=== PATIENT | male | born 1950 | race Caucasian/White ===

== ENCOUNTER 2016-03-25 16:19 | Emergency (ER) | payer MEDICARE, OTHER ==
[~2016-03-25] VITALS: Ht 182.9 cm; Wt 110.0 kg
[~2016-03-25 16:19] MED LIST: ALBU0.08 NEB; ARTI1DRO EACH EYE; ASPI-110 PO; ATOR1TAB18 PO; BACL10TA PO; BUPR1TAB29 PO; BUSP10TA PO; CLOT1CRE TOPICAL; DILT-47 PO; DOXY100C PO; FLUT1SPR5 EACH NARE; HYDR-3366 PO; HYDR25TA5 PO; MIRA33504 PO; PRED10 PO; SPIRCAP INH; SUDA30TA2 PO; SYMB160A INH; THEO1CAP2 PO
[2016-03-25 16:29] VITALS: BP 163/89; PULSE 94; RESP 18; TEMP 97.6; O2SAT 95
[2016-03-25 17:16] VITALS: BP 150/85
== END 2016-03-25 17:20 | disposition left against medical advice (07) ==
LOC: NEDAMB 17:15
DX: I10 Essential (primary) hypertension (principal)
CPT/HCPCS: 99281

== ENCOUNTER 2016-05-07 09:31 | Emergency (ER) | payer OTHER ==
[~2016-05-07] VITALS: Ht 182.9 cm; Wt 110.0 kg
[2016-05-07 09:34] VITALS: BP 160/83; PULSE 109; RESP 22; TEMP 97.6; O2SAT 95
[2016-05-07] MEDS ORDERED: methylPREDNISolone SOD SUCC 125 MG/2 ML VIAL IVP ONE (10:30)
[2016-05-07] MEDS ORDERED: SODIUM CHLORIDE 0.9% FLUSH 5 ML FLUSH IVF PRN (10:30)
--- NOTE | 2016-05-07 10:36 | PD ---
HPI Chief Complaint: Respiratory Symptoms Time Seen by Provider: 10:23 Travel History International Travel<30 days: No Contact w/Intl Traveler<30days: No Traveled to known affect area: No History of Present Illness HPI 65yo M with PMH of COPD on home O2, afib here with worsening sob for a few days. Pt is still on prednisone taper at 5mg PO daily now after exacerbation about 1 month ago. Started having midsternal chest pain while in waiting room that only lasted about 5 minutes. +Chronic cough. Denies any fever, n/v, abdominal pain, focal weakness or numbness. Pt took his albuterol about 4 times today with no relieve. Pt has never been intubated. PFSH Past Medical History Arthritis: No Asthma: Yes Atrial Fibrillation: Yes Autoimmune Disease: No Blood Disorders: No Anxiety: Yes Depression: Yes Heart Rhythm Problems: Yes Cancer: Yes (melanoma) Cardiac Catheterization: No Cardiovascular Problems: Yes High Cholesterol: Yes Chemotherapy: No Chest Pain: Yes Congestive Heart Failure: No COPD: Yes Cerebrovascular Accident: No Coronary Artery Disease: No Diabetes: No Diminished Hearing: No Endocrine: No Gastrointestinal Disorders: Yes (REFLUX) GERD: Yes Glaucoma: No Genitourinary: Yes Headaches: No Hepatitis: No Hiatal Hernia: No Hypertension: Yes Immune Disorder: No Implanted Vascular Access Dvce: Yes Kidney Stones: No Musculoskeletal: Yes Neurologic: No Psychiatric: Yes Reproductive: No Respiratory: Yes Integumentary: Yes Immunizations Current: Yes Migraines: No Myocardial Infarction: No Radiation Therapy: No Renal Failure: No Seizures: No Sickle Cell Disease: No Sleep Apnea: No Thyroid Disease: No Ulcer: No PNEUMOCCOCAL Vaccine (Year): 2010 Past Surgical History Abdominal Surgery: No AICD: No Appendectomy: No Arteriovenous Shunt: No Body Medical Devices: PLATES AND SCREWS TO L ANKLE Cardiac Surgery: No Cholecystectomy: No Coronary Artery Bypass Graft: No Ear Surgery: No Endocrine Surgery: No Eye Surgery: No Genitourinary Surgery: No Gynecologic Surgery: No Insulin Pump: No Joint Replacement: No Oral Surgery: No Pacemaker: No Thoracic Surgery: No Other Surgery: Yes (PIN IN LEFT ANKLE, BONE PLACED BACK IN FINGER) Social History Alcohol Use: Yes (beer occ) Tobacco Use: No (QUIT ) Substance Use: No ( ) Allergies-Medications (Allergen,Severity, Reaction): Coded Allergies: Levaquin (Verified Adverse Reaction, Mild, Confusion, 03/25/16) irritable, can't focus *MDRO Multi-Drug Resistant Organism (Verified Adverse Reaction, Unknown, ) 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 Reported Meds & Prescriptions Reported Meds & Active Scripts Active Aspirin 81 (Aspirin) 81 Mg Tabdr 81 Mg PO DAILY Reported Diltiazem ER 24 HR 360 Mg Jaciel 360 Mg PO DAILY Azithromycin 250 Mg Tab 250 Mg PO EVERY OTHER DAY Ventolin Hfa 18 GM Inh (Albuterol Sulfate) 90 Mcg/Act Aer 2-4 Puff INH QID PRN Combivent Respimat Inh (Ipratropium-Albuterol Inh) 20-100 [place]/Act Aero 1 Puff INH QID Bupropion HCl ER 12 HR (Bupropion HCl) 100 Mg Tab 200 Mg PO BID Duoneb (Ipratropium-Albuterol Neb) 0.5-2.5 Mg/3 Ml Neb 3 Ml NEB Q6HR PRN Spiriva Handihaler (Tiotropium Inh) 18 Mcg Cap 1 Cap INH DAILY DO NOT SWALLOW CAPSULES Rony-24 (Theophylline) 200 Mg Cap 200 Mg PO DAILY Miralax Powder (Polyethylene Glycol 3350 Powder) 17 Gm Powd PO DAILY Mix 2 tablespoonsful in 4-8 ounces of water,juice or soda Hydrochlorothiazide 25 Mg Tab 25 Mg PO DAILY [place] (Hydrocodone-Acetaminophen) 10-325 Mg Tab 1 Tab PO Q4HR Clotrimazole Topical (Clotrimazole) 1% Cream 1 Applic TOPICAL BID Apply to affected area on skin for fungal infection Buspirone (Buspirone HCl) 10 Mg Tab 20 Mg PO TID Symbicort Inh (Budesonide/Formoterol Fumarate) 160-4.5 Mcg/Act Aero 2 Puff INH BID *Rinse mouth after each use* Baclofen 10 Mg Tab 10 Mg PO BID PRN Atorvastatin (Atorvastatin Calcium) 80 Mg Tab 40 Mg PO HS Soothe Xp/Xtra Protection (Artificial Tear Solution) 1 Jarret Jarret 1 Drop EACH EYE QID PRN Review of Systems Except as stated in HPI: all other systems reviewed are Neg Physical Exam Narrative GENERAL: 65yo M in mild distress. SKIN: Warm and dry. HEAD: Atraumatic. Normocephalic. EYES: Pupils equal and round. No scleral icterus. No injection or drainage. ENT: No nasal bleeding or discharge. Mucous membranes pink and moist. NECK: Trachea midline. No JVD. CARDIOVASCULAR: Tachycardic. RESPIRATORY: Expiratory wheezing bilaterally. Decreased breath sounds left lower lobe. GASTROINTESTINAL: Abdomen soft, non-tender, nondistended. MUSCULOSKELETAL: No obvious deformities. No clubbing. No cyanosis. No edema. No calf tenderness. NEUROLOGICAL: Awake and alert. No obvious cranial nerve deficits. Motor grossly within normal limits. Normal speech. PSYCHIATRIC: Appropriate mood and affect; insight and judgment normal. Data Data Last Documented VS Vital Signs Date Time Temp Pulse Resp B/P Pulse Ox O2 Delivery O2 Flow Rate FiO2 05/07/16 11:00 104 20 153/80 94 Nasal Cannula 05/07/16 10:30 2 05/07/16 09:34 97.6 Orders Complete Blood Count With Diff (05/07/16 10:30) Basic Metabolic Panel (Bmp) (05/07/16 10:30) B-Type Natriuretic Peptide (05/07/16 10:30) Act Partial Throm Time (Ptt) (05/07/16 10:30) Prothrombin Time / Inr (Pt) (05/07/16 10:30) Magnesium (Mg) (05/07/16 10:30) Ckmb (Isoenzyme) Profile (05/07/16 10:30) Troponin I (05/07/16 10:30) Blood Culture (05/07/16 10:30) Iv Access Insert/Monitor (05/07/16 10:30) Electrocardiogram (05/07/16 10:30) Ecg Monitoring (05/07/16 10:30) Oximetry (05/07/16 10:30) Oxygen Administration (05/07/16 10:30) Chest, Single Ap (05/07/16 10:30) Sodium Chloride 0.9% Flush (Ns Flush) (05/07/16 10:30) Methylprednisolone So Succ Inj (Solumedr (05/07/16 10:30) Albuterol-Ipratropium Neb (Duoneb Neb) (05/07/16 10:30) Nitroglycerin Sl (Nitrostat Sl) (05/07/16 10:45) Aspirin (Aspirin) (05/07/16 10:45) CKMB (05/07/16 10:50) CKMB% (05/07/16 10:50) Labs Laboratory Tests Test 05/07/16 10:50 White Blood Count 10.7 TH/MM3 Red Blood Count 4.50 MIL/MM3 Hemoglobin 13.5 GM/DL Hematocrit 39.3 % Mean Corpuscular Volume 87.3 FL Mean Corpuscular Hemoglobin 30.0 PG Mean Corpuscular Hemoglobin 34.4 % Concent Red Cell Distribution Width 14.2 % Platelet Count 309 TH/MM3 Mean Platelet Volume 6.4 FL Neutrophils (%) (Auto) 79.7 % Lymphocytes (%) (Auto) 9.5 % Monocytes (%) (Auto) 8.0 % Eosinophils (%) (Auto) 2.0 % Basophils (%) (Auto) 0.8 % Neutrophils # (Auto) 8.6 TH/MM3 Lymphocytes # (Auto) 1.0 TH/MM3 Monocytes # (Auto) 0.9 TH/MM3 Eosinophils # (Auto) 0.2 TH/MM3 Basophils # (Auto) 0.1 TH/MM3 CBC Comment DIFF FINAL Differential Comment Prothrombin Time 10.6 SEC Prothromb Time International 1.0 RATIO Ratio Activated Partial 26.4 SEC Thromboplast Time Sodium Level 134 MEQ/L Potassium Level 3.4 MEQ/L Chloride Level 95 MEQ/L Carbon Dioxide Level 30.3 MEQ/L Anion Gap 9 MEQ/L Blood Urea Nitrogen 17 MG/DL Creatinine 0.78 MG/DL Estimat Glomerular Filtration 99 ML/MIN Rate Random Glucose 97 MG/DL Calcium Level 8.8 MG/DL Magnesium Level 2.0 MG/DL Total Creatine Kinase 110 U/L Creatine Kinase MB 3.4 NG/ML Troponin I LESS THAN 0.02 NG/ML B-Type Natriuretic Peptide LESS THAN 2 PG/ML MDM Medical Decision Making Medical Screen Exam Complete: Yes Emergency Medical Condition: Yes Interpretation(s) EKG: Sinus tachycardia at 100bpm. Normal axis. No ST segment elevation or depression. Differential Diagnosis COPD exacerbation vs. pneumonia vs. ACS vs. CHF Narrative Course 65yo M with COPD and mild expiratory wheezing on exam. Pt is speaking in complete sentences and saturating at 93%-94% on 2L NC. Pt usually uses 2 L NC oxygen at home. Pt given duonebs x3 and methylprednisolone 125mg IV. Labs reviewed, no leukocytosis. K: 3.4. Pt tolerating PO. Troponin negative. BNP negative. CXR showed COPD with bibasilar scarring. No evidence of acute air space disease. Pt reevaluated at bedside and feels much better. Denies any sob or chest pain. Lungs are now clear and saturating at 95% on 2L NC. I was concern with the chest pain and gave pt aspirin 325mg PO and sublingual nitro x1. Pt refused observation for chest pain and states that it was only 5 minutes and he can follow up with PMD as outpatient. Strict return precautions given. Diagnosis Primary Impression: COPD with exacerbation Patient Instructions: General Instructions, Moderate Sedation in Children (ED) Departure Forms: Tests/Procedures Additional Instructions: Please follow up with your PMD in 1-2 days. Return to the ED if you change your mind or have any chest pain or sob. Med/Other Pt SpecificInfo: Prescription(s) given Scripts Albuterol 18 GM Inh (Ventolin Hfa 18 GM Inh)90 Mcg/Act Aer2 Puff INH Q4H PRN ( SHORTNESS OF BREATH) #1 INHALER Ref 0 Prov:Nadeen Mcclain DO 05/07/16 Prednisone 20 Mg Tab20 Mg PO BID 5 Days Ref 0 Prov:Nadeen Mcclain DO 05/07/16 Disposition: 01 DISCHARGE HOME Condition: Stable Nadeen Mcclain DO May 07, 2016 10:36
[2016-05-07] MEDS: RESP: ALBUTEROL 2.5 MG/IPRATROPIUM 0.5 MG NEB (SCH) INH ×2 (10:42→10:43)
[2016-05-07] MEDS ORDERED: NITROGLYCERIN 0.4 MG SL 25 TABS/BTL SL ONE (10:45)
[2016-05-07] MEDS ORDERED: ASPIRIN 325 MG TAB PO ONE (10:45)
--- NOTE | 2016-05-07 10:56 | RADRPT ---
EXAM DATE/TIME: 05/07/2016 10:27 [facility] COMPARISON: CHEST SINGLE AP, December 07, 2015, 16:11. INDICATIONS : Patient has been short of breath for two days. MEDICAL HISTORY : Chronic obstructive pulmonary disease. SURGICAL HISTORY : None. ENCOUNTER: Initial ACUITY: 2 days PAIN SCORE: 0/10 LOCATION: chest FINDINGS: Lungs are hyperinflated. Probable banding remains evident in both bases. There is no evidence of cons olidating airspace disease or significant congestion. Heart and mediastinal structures are stable. CONCLUSION: COPD with bibasilar scarring. No evidence of acute air space disease or significant congestion. Santosh Jauregui MD on May 07, 2016 at 10:54 Board Certified Radiologist. This report was verified electronically.
[2016-05-07 11:00] VITALS: BP 153/80; PULSE 104; RESP 20; O2SAT 94
[2016-05-07 11:04] LABS: AUTOMATED NEUTROPHIL # 8.6 TH/MM3 (1.8-7.7); BASOPHIL # 0.1 TH/MM3 (0-0.2); BASOPHIL % 0.8 % (0.0-2.0); EOSINOPHIL # 0.2 TH/MM3 (0-0.4); HEMATOCRIT 39.3 % (39.0-51.0); HEMO FLAGS DIFF FINAL; LYMPH % 9.5 % (9.0-44.0); MEAN CELL VOLUME 87.3 FL (80.0-100.0); MEAN CORPUSCULAR HGB CONC 34.4 % (32.0-36.0); NEUT % 79.7 % (16.0-70.0); PLATELET COUNT 309 TH/MM3 (150-450); RED CELL DISTRIBUTION WIDTH 14.2 % (11.6-17.2); WHITE BLOOD COUNT 10.7 TH/MM3 (4.0-11.0)
[2016-05-07 11:14] LABS: APTT (PATIENT) 26.4 SEC (24.3-30.1); PROTHROMBIN TIME - PATIENT 10.6 SEC (9.8-11.6)
[2016-05-07 11:21] LABS: ANION GAP 9 MEQ/L (5-15); BICARBONATE 30.3 MEQ/L (21.0-32.0); BLOOD UREA NITROGEN 17 MG/DL (7-18); CHLORIDE 95 MEQ/L (98-107); GLOMERULAR FILTRATION RATE 99 ML/MIN (>89); POTASSIUM 3.4 MEQ/L (3.5-5.1); SODIUM (NA) 134 MEQ/L (136-145)
[2016-05-07 11:26] LABS: CREATINE KINASE 110 U/L (39-308)
[2016-05-07 11:39] LABS: CKMB 3.4 NG/ML (0.5-3.6)
[2016-05-07] MEDS ORDERED: IPRAAER INH (12:53)
[2016-05-07] MEDS ORDERED: AZIT250T3 PO (12:53)
[2016-05-07] MEDS ORDERED: BUPR1TAB70 PO (12:53)
[2016-05-07] MEDS ORDERED: IPRASOL NEB (12:53)
[2016-05-07] MEDS ORDERED: VENTAER INH ×2 (12:53→13:18)
[2016-05-07] MEDS ORDERED: DILT1TAB8 PO (12:53)
[2016-05-07] MEDS ORDERED: PRED20 PO (13:18)
[2016-05-07 14:30] VITALS: BP 148/80; PULSE 109; RESP 22; O2SAT 96
--- NOTE | 2016-05-07 15:15 | EKG ---
Date Performed: 05/07/2016 Time Performed: 10:36:48 PTAGE: 65 years EKG: SINUS TACHYCARDIA ABNORMAL RHYTHM ECG PREVIOUS TRACING : 12/31/2015 14.22 No significant change from previous tracing noted. DOCTOR: Dandre Vasquez Interpretating Date/Time 05/07/2016 15:13:31
== END 2016-05-07 15:01 | disposition home or self-care (01) ==
LOC: NEPE 09:31
DX: J44.1 Chronic obstructive pulmonary disease with (acute) exacerbation (principal); R05 Cough; Z99.81 Dependence on supplemental oxygen; I48.91 Unspecified atrial fibrillation; E78.00 Pure hypercholesterolemia, unspecified; I10 Essential (primary) hypertension; R00.0 Tachycardia, unspecified
CPT/HCPCS: 71010; 80048; 82550; 82552; 83735; 83880; 84484; 85025; 85610; 85730; 87040; 93005; 94640; 94664; 96374; 99285; J2930

== ENCOUNTER 2016-06-18 10:18 | Inpatient (IN) | payer OTHER ==
[2016-06-18] VITALS (8 sets, daily range): BP systolic 144–169; BP diastolic 71–86; PULSE 106–116; RESP 20–24; TEMP 97.5–98.1; O2SAT 93–96
[~2016-06-18] VITALS: Ht 188 cm; Wt 117.8 kg
[~2016-06-18 10:18] MED LIST changes: -ALBU0.08 NEB; +AZIT250T3 PO; -BUPR1TAB29 PO; +BUPR1TAB70 PO; -DILT-47 PO; +DILT1TAB8 PO; -DOXY100C PO; -FLUT1SPR5 EACH NARE; +IPRAAER INH; +IPRASOL NEB; -PRED10 PO; +PRED20 PO; -SUDA30TA2 PO; +VENTAER INH
[2016-06-18] MEDS ORDERED: methylPREDNISolone SOD SUCC 125 MG/2 ML VIAL IVP ONE (10:45)
[2016-06-18] MEDS ORDERED: SODIUM CHLORIDE 0.9% FLUSH 10 ML FLUSH IVF PRN (10:45)
[2016-06-18] MEDS: RESP: ALBUTEROL 2.5 MG/IPRATROPIUM 0.5 MG NEB (SCH) INH ×3 (11:05→21:20)
[2016-06-18 11:15] LABS: BLOOD GAS BASE EXCESS 2.6 mmol/L (-2-2); BLOOD GAS CARBOXYHEMOGLOBIN 1.1 % (0-4); BLOOD GAS HCO3 26 mmol/L (22-26); BLOOD GAS METHEMOGLOBIN 0.7 % (0-2); BLOOD GAS O2 HGB SATURATION 93 % (90-100); BLOOD GAS OXYGEN CONTENT 19.2 Vol % (12.0-20.0); BLOOD GAS PCO2 36 mmHg (38-42); BLOOD GAS PO2 71 mmHG (61-120); BLOOD GAS TOTAL HGB 14.7 G/DL (12.0-16.0); CRITICAL VALUE NO; DRAW SITE RT RADIAL; LITER FLOW 3 L/M; NUMBER OF ARTERIAL PUNCTURES 1; OXYGEN DEVICE NASAL CANNULA; STAT YES; TEMP CORR TO 98.6
[2016-06-18 11:17] LABS: AUTOMATED NEUTROPHIL # 19.5 TH/MM3 (1.8-7.7); BASOPHIL # 0.1 TH/MM3 (0-0.2); BASOPHIL % 0.7 % (0.0-2.0); HEMATOCRIT 41.4 % (39.0-51.0); LYMPH % 1.6 % (9.0-44.0); LYMPHOCYTE # 0.3 TH/MM3 (1.0-4.8); MEAN CELL VOLUME 88.6 FL (80.0-100.0); MEAN CORPUSCULAR HEMOGLOBIN 29.9 PG (27.0-34.0); MEAN CORPUSCULAR HGB CONC 33.7 % (32.0-36.0); MONO % 2.5 % (0.0-8.0); NEUT % 95.2 % (16.0-70.0); PLATELET COUNT 356 TH/MM3 (150-450); RED BLOOD COUNT 4.68 MIL/MM3 (4.50-5.90); RED CELL DISTRIBUTION WIDTH 15.3 % (11.6-17.2); WHITE BLOOD COUNT 20.5 TH/MM3 (4.0-11.0)
[2016-06-18 11:19] LABS: HEMO FLAGS AUTO DIFF
[2016-06-18] MEDS ORDERED: TAMS0.4C4 PO (11:21)
[2016-06-18] MEDS ORDERED: PRED5TAB PO (11:21)
[2016-06-18] MEDS ORDERED: CLON.1 PO (11:21)
--- NOTE | 2016-06-18 11:24 | PD ---
HPI Chief Complaint: Respiratory Symptoms Time Seen by Provider: 10:36 Travel History International Travel<30 days: No Contact w/Intl Traveler<30days: No Traveled to known affect area: No History of Present Illness HPI This 65 year-old man who presents to the emergency department complaining of increased shortness of breath is been worsening over the past couple weeks. He has extensive history of COPD. He is on home oxygen. He follows with Dr. Burks. He states been on multiple courses of antibiotics and steroids over the past month. He started another course steroids in her buttocks yesterday. Despite susceptive progressive worsening of his dyspnea on exertion, and his oxygen saturations dropping into the low 80s with exertion. He says he has a lot of chest congestion and feels like he can't cough it up. No fevers or chills. No leg swelling. No other complaints. History Past Medical History Narrative Medical COPD A. 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 Reported Meds & Prescriptions Reported Meds & Active Scripts Active Ventolin Hfa 18 GM Inh (Albuterol Sulfate) 90 Mcg/Act Aer 2 Puff INH Q4H PRN Aspirin 81 (Aspirin) 81 Mg Tabdr 81 Mg PO DAILY Reported Prednisone 5 Mg Tab 5 Mg PO DAILY Tamsulosin (Tamsulosin HCl) 0.4 Mg Cap 0.4 Mg PO HS [place] (Clonidine) 0.1 Mg Tab 0.1 Mg PO Q6HR PRN Diltiazem ER 24 HR 360 Mg Jaciel 360 Mg PO DAILY Azithromycin 250 Mg Tab 250 Mg PO EVERY OTHER DAY Ventolin Hfa 18 GM Inh (Albuterol Sulfate) 90 Mcg/Act Aer 1 Puff INH QID Bupropion HCl ER 12 HR (Bupropion HCl) 100 Mg Tab 200 Mg PO BID Duoneb (Ipratropium-Albuterol Neb) 0.5-2.5 Mg/3 Ml Neb 3 Ml NEB Q6HR PRN Spiriva Handihaler (Tiotropium Inh) 18 Mcg Cap 1 Cap INH DAILY DO NOT SWALLOW CAPSULES Rony-24 (Theophylline) 200 Mg Cap 200 Mg PO DAILY Miralax Powder (Polyethylene Glycol 3350 Powder) 17 Gm Powd PO DAILY Mix 2 tablespoonsful in 4-8 ounces of water,juice or soda Hydrochlorothiazide 25 Mg Tab 25 Mg PO DAILY [place] (Hydrocodone-Acetaminophen) 10-325 Mg Tab 1 Tab PO Q4HR Clotrimazole Topical (Clotrimazole) 1% Cream 1 Applic TOPICAL BID Apply to affected area on skin for fungal infection Buspirone (Buspirone HCl) 10 Mg Tab 20 Mg PO TID Symbicort Inh (Budesonide/Formoterol Fumarate) 160-4.5 Mcg/Act Aero 2 Puff INH BID *Rinse mouth after each use* Baclofen 10 Mg Tab 10 Mg PO BID PRN Atorvastatin (Atorvastatin Calcium) 80 Mg Tab 40 Mg PO HS Soothe Xp/Xtra Protection (Artificial Tear Solution) 1 Jarret Jarret 1 Drop EACH EYE QID PRN Review of Systems Except as stated in HPI: all other systems reviewed are Neg Physical Exam Narrative GENERAL: 65 year-old man, generally well-appearing, no acute distress. SKIN: Focused skin assessment warm/dry. HEAD: Atraumatic. Normocephalic. EYES: Pupils equal and round. No scleral icterus. No injection or drainage. ENT: No nasal bleeding or discharge. Mucous membranes pink and moist. NECK: Trachea midline. No JVD. CARDIOVASCULAR: Heart rate rapid, little bit irregular. Patient appears overall well perfused. RESPIRATORY: Prolonged expiratory phase. Moderate diffuse wheezing. GASTROINTESTINAL: Abdomen soft, non-tender, nondistended. Hepatic and splenic margins not palpable. MUSCULOSKELETAL: No obvious deformities. No edema. NEUROLOGICAL: Awake and alert. No obvious cranial nerve deficits. Motor grossly within normal limits. Normal speech. Data Data Last Documented VS Vital Signs Date Time Temp Pulse Resp B/P Pulse Ox O2 Delivery O2 Flow Rate FiO2 06/18/16 12:03 112 22 153/74 95 Nasal Cannula 3 06/18/16 10:24 97.8 Orders Electrocardiogram (06/18/16 ) Complete Blood Count With Diff (06/18/16 10:45) Comprehensive Metabolic Panel (06/18/16 10:45) B-Type Natriuretic Peptide (06/18/16 10:45) Act Partial Throm Time (Ptt) (06/18/16 10:45) Prothrombin Time / Inr (Pt) (06/18/16 10:45) Magnesium (Mg) (06/18/16 10:45) Troponin I (06/18/16 10:45) Arterial Blood Gas (Abg) (06/18/16 10:45) Urinalysis - C+S If Indicated (06/18/16 10:45) Influenzae A/B Antigen (06/18/16 10:45) Iv Access Insert/Monitor (06/18/16 10:45) Ecg Monitoring (06/18/16 10:45) Oximetry (06/18/16 10:45) Oxygen Administration (06/18/16 10:45) Chest, Single Ap (06/18/16 10:45) Sodium Chloride 0.9% Flush (Ns Flush) (06/18/16 10:45) Methylprednisolone So Succ Inj (Solumedr (06/18/16 10:45) Albuterol-Ipratropium Neb (Duoneb Neb) (06/18/16 10:45) Theophylline (Aminophylline) (06/18/16 10:45) Ct Pulmonary Angiogram (06/18/16 ) Labs Laboratory Tests Test 06/18/16 06/18/16 06/18/16 10:51 11:05 12:00 White Blood Count 20.5 TH/MM3 Red Blood Count 4.68 MIL/MM3 Hemoglobin 14.0 GM/DL Hematocrit 41.4 % Mean Corpuscular Volume 88.6 FL Mean Corpuscular Hemoglobin 29.9 PG Mean Corpuscular Hemoglobin 33.7 % Concent Red Cell Distribution Width 15.3 % Platelet Count 356 TH/MM3 Mean Platelet Volume 6.7 FL Neutrophils (%) (Auto) 95.2 % Lymphocytes (%) (Auto) 1.6 % Monocytes (%) (Auto) 2.5 % Eosinophils (%) (Auto) 0.0 % Basophils (%) (Auto) 0.7 % Neutrophils # (Auto) 19.5 TH/MM3 Lymphocytes # (Auto) 0.3 TH/MM3 Monocytes # (Auto) 0.5 TH/MM3 Eosinophils # (Auto) 0.0 TH/MM3 Basophils # (Auto) 0.1 TH/MM3 CBC Comment AUTO DIFF Differential Total Cells 100 Counted Neutrophils % (Manual) 93 % Band Neutrophils % 1 % Lymphocytes % 5 % Neutrophils # (Manual) 19.5 TH/MM3 Myelocytes 1 % Differential Comment FINAL DIFF MANUAL Platelet Estimate NORMAL Platelet Morphology Comment NORMAL Red Cell Morphology Comment NORMAL Prothrombin Time 10.3 SEC Prothromb Time International 0.9 RATIO Ratio Activated Partial 22.8 SEC Thromboplast Time Sodium Level 134 MEQ/L Potassium Level 4.0 MEQ/L Chloride Level 97 MEQ/L Carbon Dioxide Level 25.8 MEQ/L Anion Gap 11 MEQ/L Blood Urea Nitrogen 19 MG/DL Creatinine 0.92 MG/DL Estimat Glomerular Filtration 82 ML/MIN Rate Random Glucose 222 MG/DL Calcium Level 8.7 MG/DL Magnesium Level 1.8 MG/DL Total Bilirubin 0.5 MG/DL Aspartate Amino Transf 18 U/L (AST/SGOT) Alanine Aminotransferase 28 U/L (ALT/SGPT) Alkaline Phosphatase 69 U/L Troponin I LESS THAN 0.02 NG/ML B-Type Natriuretic Peptide 22 PG/ML Total Protein 6.8 GM/DL Albumin 3.2 GM/DL Theophylline Level 3.8 MCG/ML Blood Gas Puncture Site RT RADIAL Blood Gas Patient Temperature 98.6 Blood Gas HCO3 26 mmol/L Blood Gas Base Excess 2.6 mmol/L Blood Gas Oxygen Saturation 93 % Arterial Blood pH 7.47 Arterial Blood Partial 36 mmHg Pressure CO2 Arterial Blood Partial 71 mmHG Pressure O2 Arterial Blood Oxygen Content 19.2 Vol % Arterial Blood 1.1 % Carboxyhemoglobin Arterial Blood Methemoglobin 0.7 % Blood Gas Hemoglobin 14.7 G/DL Oxygen Delivery Device NASAL CANNULA Blood Gas Liter Flow 3 L/M Urine Color LIGHT-YELLOW Urine Turbidity CLEAR Urine pH 6.0 Urine Specific [place] 1.016 Urine Protein TRACE mg/dL Urine Glucose (UA) 300 mg/dL Urine Ketones NEG mg/dL Urine Occult Blood NEG Urine Nitrite NEG Urine Bilirubin NEG Urine Urobilinogen LESS THAN 2.0 MG/DL Urine Leukocyte Esterase NEG Urine RBC 1 /hpf Urine WBC 1 /hpf Microscopic Urinalysis Comment CULT NOT INDICATED MDM Medical Decision Making Medical Screen Exam Complete: Yes Emergency Medical Condition: Yes Interpretation(s) My review of EKG: A. fib, rate of 135, incomplete right bundle branch block, normal axis, normal intervals, some nonspecific anteroseptal ST changes, no definite evidence of acute ischemia. LABS: CBC remarkable for leukocytosis. CMP remarkable for mildly elevated glucose Troponin negative BNP 22 Coags unremarkable UA unremarkable Theophylline 3.8 ABG 7.47/36/71/26, base excess 2.6 Chest x-ray: No acute findings. Differential Diagnosis COPD exacerbation, PE, anxiety, CHF, A. fib RVR, other Narrative Course Medical decision making 65-year-old man presents emergency department complaining of progressive dyspnea on exertion and shortness of breath ongoing for the past couple months, not really improving with outpatient treatment. He looks otherwise generally well. His heart rates little bit fast with his A. fib. Don't see any other evidence of PE. We'll check labs, x-ray, likely admission. FINAL: 65-year-old man, worsening COPD exacerbation with dyspnea on exertion and shortness of breath over the past several months. Dramatically worse over the past week with worsening hypoxia. Blood gas doesn't really show hypercapnia , worrisome for an alternative etiology. Rest of his labs are unremarkable. Given this, we will add CT pulmonary angiogram. We will admit for further evaluation for shortness of breath, dyspnea on exertion, COPD exacerbation. Diagnosis Primary Impression: COPD with exacerbation Admitting Information Admitting Physician Requests: Roshan Vines MD Jun 18, 2016 11:24
[2016-06-18 11:28] LABS: APTT (PATIENT) 22.8 SEC (24.3-30.1); INTERNATIONAL NORMALIZED RATIO 0.9 RATIO; PROTHROMBIN TIME - PATIENT 10.3 SEC (9.8-11.6)
--- NOTE | 2016-06-18 11:36 | RADRPT ---
EXAM DATE/TIME: 06/18/2016 10:54 [facility] COMPARISON: CHEST SINGLE AP, May 07, 2016, 10:27. INDICATIONS : Shortness of breath. MEDICAL HISTORY : Chronic obstructive pulmonary disease. SURGICAL HISTORY : None. ENCOUNTER: Initial ACUITY: 2 weeks PAIN SCORE: 0/10 LOCATION: Bilateral chest FINDINGS: Bibasilar linear opacities suggestive of atelectasis or scarring stable from prior. The upper lungs are hyperaerated. No focal areas of consolidation. The heart is normal in size. Both hemidiaphragm s are obliterated. CONCLUSION: No acute findings. Bibasilar scarring or atelectasis, stable. Isaias Pandey MD on June 18, 2016 at 11:34 Board Certified Radiologist. This report was verified electronically.
[2016-06-18 11:46] LABS: ALKALINE PHOSPHATASE 69 U/L (45-117); ALT (GPT) 28 U/L (12-78); ANION GAP 11 MEQ/L (5-15); AST (GOT) 18 U/L (15-37); BICARBONATE 25.8 MEQ/L (21.0-32.0); BLOOD UREA NITROGEN 19 MG/DL (7-18); CHLORIDE 97 MEQ/L (98-107); GLOMERULAR FILTRATION RATE 82 ML/MIN (>89); MAGNESIUM 1.8 MG/DL (1.5-2.5); SODIUM (NA) 134 MEQ/L (136-145); THEOPHYLLINE 3.8 MCG/ML (10.0-20.0); TOTAL BILIRUBIN ADULT 0.5 MG/DL (0.2-1.0)
[2016-06-18 11:48] LABS: BANDS 1 % (0-6); MYELOCYTES 1 % (0-0); NEUTROPHIL # MANUAL DIFF 19.5 TH/MM3 (1.8-7.7); POLYS (SEG NEUTROPHILS) 93 % (16-70); WBC DIFF SAMPLE 100
[2016-06-18 11:51] LABS: PLATELET ESTIMATE SMEAR NORMAL (NORMAL); PLATELET MORPHOLOGY NORMAL (NORMAL); SCAN/DIFF FINAL DIFF MANUAL
[2016-06-18 12:13] LABS: BLOOD, URINE NEG (NEG); GLUCOSE,URINE 300 mg/dL (NEG); KETONE, URINE NEG (NEG); NITRITE,URINE NEG (NEG); URINE COLOR LIGHT-YELLOW (YELLW/STRAW)
[2016-06-18 12:14] LABS: COMMENT (UR) CULT NOT INDICATED; CULTURE IF INDICATED CULT NOT INDICATED
[2016-06-18] MEDS ORDERED: IOHEXOL 350 MG/ML 10 ML VIAL (for RAD DIAG) IV ONE (12:52)
[2016-06-18] MEDS ORDERED: SODIUM CHLORIDE 0.9% FLUSH 10 ML FLUSH IV FLUSH PRN ×2 (13:00)
[2016-06-18] MEDS ORDERED: DOCUSATE SODIUM 100 MG CAP PO PRN (13:00)
[2016-06-18] MEDS ORDERED: NALOXONE HCL 0.4 MG/ML AMP IV PRN (13:00)
[2016-06-18] MEDS ORDERED: ACETAMINOPHEN 325 MG TAB PO PRN (13:00)
[2016-06-18] MEDS ORDERED: ONDANSETRON HCL 4 MG/2 ML VIAL IVP PRN (13:00)
[2016-06-18] MEDS ORDERED: RESP: ALBUTEROL 2.5 MG/3 ML NEB (PRN) INH (13:00)
--- NOTE | 2016-06-18 13:32 | RADRPT ---
EXAM DATE/TIME: 06/18/2016 12:48 [facility] COMPARISON: No previous studies available for comparison. INDICATIONS : Shortness of breath for the past few weeks, worsening today. IV CONTRAST: 70 cc Omnipaque 350 (iohexol) IV RADIATION DOSE: 23.21 CTDIvol (mGy) MEDICAL HISTORY : Cardiovascular disease. Diabetes mellitus type 2. Hypertension.Melanoma. SURGICAL HISTORY : None. ENCOUNTER: Initial ACUITY: 1 day PAIN SCALE: 0/10 LOCATION: chest TECHNIQUE: Volumetric scanning of the chest was performed using a pulmonary embolism protocol MIP images were re constructed. Using automated exposure control and adjustment of the mA and/or kV according to patien t size, radiation dose was kept as low as reasonably achievable to obtain optimal diagnostic quality images. FINDINGS: PULMONARY ARTERIES: No filling defects are seen in the pulmonary arteries through the segmental level. LUNGS: Emphysematous changes and fibrotic scarring are noted bilaterally. Bibasilar atelectasis and/or minim al infiltrates There is no pneumothorax . No concerning pulmonary nodule is visualized. PLEURAE: There is no pleural thickening or pleural effusion. MEDIASTINUM: There is good visualization of the great vessels of the middle mediastinum. No evidence of mediastin al or hilar adenopathy/mass. MUSCULOSKELETAL: Within normal limits for patient age. MISCELLANEOUS: The visualized upper abdominal organs demonstrate no acute abnormality. CONCLUSION: 1. No evidence of pulmonary embolism. 2. Emphysematous changes and fibrotic scarring bilaterally. 3. Bibasilar atelectasis and/or minimal infiltrates noted. Denilson Smyth MD on June 18, 2016 at 13:21 Board Certified Radiologist. This report was verified electronically.
[2016-06-18] MEDS: ENOXAPARIN SODIUM 40 MG/0.4 ML SYRINGE SQ SCH (13:36)
[2016-06-18] MEDS: predniSONE 20 MG TAB PO SCH ×2 (13:36→20:52)
[2016-06-18] MEDS: AZITHROMYCIN 250 MG TAB PO SCH (13:37)
--- NOTE | 2016-06-18 14:32 | EKG ---
Date Performed: 06/18/2016 Time Performed: 10:37:41 PTAGE: 65 years EKG: ATRIAL FIBRILLATION WITH RAPID VENTRICULAR RESPONSE INCOMPLETE RIGHT BUNDLE BRANCH BLOCK MO DERATE ST DEPRESSION ABNORMAL ECG COMPARED TO PRIOR ELECTROCARDIOGRAM, Atrial fibrillation has replac ed Sinus rhythm . PREVIOUS TRACING : 05/07/2016 10.36 DOCTOR: Nguyễn Moon Interpretating Date/Time 06/18/2016 14:31:45
[2016-06-18] MEDS ORDERED: BACLOFEN 10 MG TAB PO PRN (15:15)
[2016-06-18] MEDS ORDERED: cloNIDine HCL 0.1 MG TAB PO PRN (15:15)
[2016-06-18] MEDS: ACETAMINOPHEN/HYDROcodone 325 MG/10 MG TAB PO SCH ×3 (15:57→23:58)
[2016-06-18] MEDS: busPIRone HCL 10 MG TAB PO SCH (18:21)
[2016-06-18] MEDS: TAMSULOSIN HCL 0.4 MG CAP PO SCH (20:51)
[2016-06-18] MEDS: ATORVASTATIN 80 MG TAB PO SCH (20:52)
[2016-06-18] MEDS: buPROPion HCL 100 MG SUSTAINED RELEASE TAB PO SCH (20:54)
[2016-06-18] MEDS: SODIUM CHLORIDE 0.9% FLUSH 10 ML FLUSH IV FLUSH SCH (20:55)
[2016-06-18] MEDS: CLOTRIMAZOLE 1% CREAM 15 GM TOPICAL SCH (20:55)
[2016-06-18] MEDS ORDERED: SODIUM CHLORIDE 0.9% FLUSH 10 ML FLUSH IV FLUSH SCH (21:00)
[2016-06-18] MEDS: BUDESONIDE-FORMOTEROL 160/4.5 MCG INHALER INH SCH (23:00)
[2016-06-19] VITALS (9 sets, daily range): BP systolic 133–159; BP diastolic 75–86; PULSE 105–119; RESP 20; TEMP 97.4–98.1; O2SAT 92–95
[2016-06-19] MEDS: ACETAMINOPHEN/HYDROcodone 325 MG/10 MG TAB PO SCH ×6 (04:29→23:41)
[2016-06-19] MEDS: RESP: ALBUTEROL 2.5 MG/IPRATROPIUM 0.5 MG NEB (SCH) INH ×4 (04:30→21:15)
[2016-06-19] MEDS: predniSONE 20 MG TAB PO SCH ×3 (07:09→20:56)
[2016-06-19 07:29] LABS: AUTOMATED NEUTROPHIL # 16.6 TH/MM3 (1.8-7.7); BASOPHIL % 0.1 % (0.0-2.0); HEMATOCRIT 41.2 % (39.0-51.0); HEMO FLAGS DIFF FINAL; LYMPH % 3.3 % (9.0-44.0); LYMPHOCYTE # 0.6 TH/MM3 (1.0-4.8); MEAN CELL VOLUME 87.4 FL (80.0-100.0); MEAN CORPUSCULAR HEMOGLOBIN 29.7 PG (27.0-34.0); MONO % 6.7 % (0.0-8.0); NEUT % 89.9 % (16.0-70.0); PLATELET COUNT 330 TH/MM3 (150-450); RED BLOOD COUNT 4.72 MIL/MM3 (4.50-5.90); RED CELL DISTRIBUTION WIDTH 15.1 % (11.6-17.2); WHITE BLOOD COUNT 18.4 TH/MM3 (4.0-11.0)
[2016-06-19 07:45] LABS: BICARBONATE 29.3 MEQ/L (21.0-32.0); POTASSIUM 3.4 MEQ/L (3.5-5.1)
[2016-06-19] MEDS: busPIRone HCL 10 MG TAB PO SCH ×3 (08:51→17:56)
[2016-06-19] MEDS: THEOPHYLLINE 200 MG EXTENDED RELEASE CAP PO SCH (08:51)
[2016-06-19] MEDS: BUDESONIDE-FORMOTEROL 160/4.5 MCG INHALER INH SCH ×2 (08:51→20:57)
[2016-06-19] MEDS: HYDROCHLOROTHIAZIDE 25 MG TAB PO SCH (08:51)
[2016-06-19] MEDS: DILTIAZEM-CD 180 MG CAP ER PO SCH (08:51)
[2016-06-19] MEDS: buPROPion HCL 100 MG SUSTAINED RELEASE TAB PO SCH ×2 (08:51→20:55)
[2016-06-19] MEDS: CLOTRIMAZOLE 1% CREAM 15 GM TOPICAL SCH ×2 (08:52→20:56)
[2016-06-19] MEDS: SODIUM CHLORIDE 0.9% FLUSH 10 ML FLUSH IV FLUSH SCH ×2 (08:52→20:57)
[2016-06-19] MEDS ORDERED: POTASSIUM CHLORIDE 10 MEQ CONTROLLED RELEASE TAB PO ONE (09:15)
[2016-06-19 11:52] LABS: BICARBONATE 29.2 MEQ/L (21.0-32.0)
[2016-06-19 12:01] LABS: POTASSIUM 3.7 MEQ/L (3.5-5.1)
[2016-06-19] MEDS: ENOXAPARIN SODIUM 40 MG/0.4 ML SYRINGE SQ SCH (12:42)
[2016-06-19] MEDS: AZITHROMYCIN 250 MG TAB PO SCH (16:02)
--- NOTE | 2016-06-19 16:20 | HHI.PR ---
Subjective Remarks Not yet to baseline. Breathing and ambulation tolerance have improved compared to admit. He is producing mucous with his coughing now. Objective Vital Signs Date Time Temp Pulse Resp B/P Pulse Ox O2 Delivery O2 Flow Rate FiO2 06/19/16 15:37 95 Nasal Cannula 3.00 06/19/16 12:00 97.7 113 20 133/75 95 06/19/16 10:13 94 Nasal Cannula 3.00 06/19/16 08:00 97.6 112 20 139/86 94 06/19/16 05:29 18 06/19/16 04:00 98.1 105 20 148/78 95 06/19/16 00:00 97.4 114 20 159/78 92 06/18/16 21:20 96 Nasal Cannula 3.00 06/18/16 20:00 97.5 113 20 144/71 94 I/O 06/18/16 06/18/16 06/18/16 06/19/16 06/19/16 06/19/16 07:00 15:00 23:00 07:00 15:00 23:00 Intake Total 200 ml 480 ml 480 ml 480 ml Output Total 1000 ml 800 ml Balance -800 ml 480 ml 480 ml -320 ml Intake Oral 200 ml 480 ml 480 ml 480 ml Output Urine Total 1000 ml 800 ml # Voids 2 2 2 # Bowel Movements 0 0 Result Diagram: 06/19/16 0603 06/19/16 1039 Imaging Last Impressions Chest X-Ray 06/18/16 1045 Signed Impressions: Service Date/Time: Saturday, June 18, 2016 10:54 - CONCLUSION: No acute findings. Bibasilar scarring or atelectasis, stable. Isaias Pandey MD CT Angiography 06/18/16 0000 Signed Impressions: Service Date/Time: Saturday, June 18, 2016 12:48 - CONCLUSION: 1. No evidence of pulmonary embolism. 2. Emphysematous changes and fibrotic scarring bilaterally. 3. Bibasilar atelectasis and/or minimal infiltrates noted. Denilson Smyth MD Objective Remarks GENERAL: NAD, A&Ox3 SKIN: Warm and dry. HEAD: Normocephalic. EYES: No scleral icterus. No injection or drainage. NECK: Supple, trachea midline. No JVD or lymphadenopathy. CARDIOVASCULAR: Regular rate and rhythm without murmurs, gallops, or rubs. RESPIRATORY: Breath sounds equal bilaterally. No accessory muscle use. Trace wheezing bilaterally. Rhonchi at bases bilaterally. GASTROINTESTINAL: Abdomen soft, non-tender, nondistended. MUSCULOSKELETAL: No cyanosis, or edema. BACK: Nontender without obvious deformity. No CVA tenderness. Medications and IVs Administered Medications Medications (Trade) Dose Ordered Sig/Agatha Route PRN Reason Start Time Stop Time Status Last Admin Dose Admin Docusate Sodium (Colace) 100 mg Q12H PRN PO Constipation 06/18/16 13:00 06/19/16 12:41 Enoxaparin Sodium (Lovenox Inj) 40 mg Q24H SQ 06/18/16 14:00 06/19/16 12:42 Sodium Chloride (NS Flush) 2 ml BID IV FLUSH 06/18/16 21:00 06/19/16 08:52 Prednisone (Deltasone) 40 mg Q8HR PO 06/18/16 14:00 06/19/16 12:41 Azithromycin (Zithromax) 500 mg Q24H PO 06/18/16 15:00 06/21/16 14:59 06/19/16 16:02 Atorvastatin Calcium (Lipitor) 40 mg HS PO 06/18/16 21:00 06/18/16 20:52 Budesonide/ Formoterol Fumarate (Symbicort 160-4.5 Inh) 2 puff BID INH 06/18/16 21:00 06/19/16 08:51 Bupropion HCl (Wellbutrin Sr 12 Hr) 200 mg BID PO 06/18/16 21:00 06/19/16 08:51 Buspirone HCl (Buspar) 20 mg TID PO 06/18/16 18:00 06/19/16 12:41 Clotrimazole (Lotrimin 1% Cream) 1 applic BID TOPICAL 06/18/16 21:00 06/19/16 08:52 Diltiazem HCl (Cardizem Cd) 360 mg DAILY PO 06/19/16 09:00 06/19/16 08:51 Hydrochlorothiazide (Hydrodiuril) 25 mg DAILY PO 06/19/16 09:00 06/19/16 08:51 Acetaminophen/ Hydrocodone Bitart ([place] 10-325 Mg) 1 tab Q4HR PO 06/18/16 16:00 06/19/16 16:02 Tamsulosin HCl (Flomax) 0.4 mg HS PO 06/18/16 21:00 06/18/16 20:51 Theophylline (Rony-24) 200 mg DAILY PO 06/19/16 09:00 06/19/16 08:51 A/P Problem List: (1) COPD with exacerbation ICD Code: J44.1 Assessment & Plan: Improving Monitor for 24 hours more If improvement continues he may be a candidate for discharge Oxygen continued Steroids continued Duoneb scheduled Albuterol PRN Azithromycin (2) Chronic back pain ICD Code: G89.29 Assessment & Plan: Continue PRN pain treatments Stable No acute changes (3) Hypoxemia ICD Code: R09.02 Assessment & Plan: Improved On oxygen at baseline Not yet to baseline (4) Bronchitis ICD Code: J40 Assessment & Plan: May be the exacerbating factor Continue Azithromycin Follow clinically Isael Alas MD Jun 19, 2016 16:20
[2016-06-19] MEDS: TAMSULOSIN HCL 0.4 MG CAP PO SCH (20:55)
[2016-06-19] MEDS: ATORVASTATIN 80 MG TAB PO SCH (20:55)
[2016-06-19] MEDS: DOCUSATE SODIUM 100 MG CAP PO SCH (20:55)
[2016-06-19] MEDS: FLUTICASONE PROPIONATE 50 MCG/ACT 16 GM NASAL SPRAY NASAL SCH (20:57)
[2016-06-20] VITALS (9 sets, daily range): BP systolic 143–163; BP diastolic 77–86; PULSE 106–112; RESP 18–22; TEMP 97.8–98; O2SAT 94–97
[2016-06-20] MEDS: RESP: ALBUTEROL 2.5 MG/IPRATROPIUM 0.5 MG NEB (SCH) INH ×4 (03:28→21:21)
[2016-06-20] MEDS: ACETAMINOPHEN/HYDROcodone 325 MG/10 MG TAB PO SCH ×6 (04:23→23:55)
[2016-06-20] MEDS: predniSONE 20 MG TAB PO SCH ×3 (05:28→21:04)
[2016-06-20] MEDS ORDERED: AZITHROMYCIN 250 MG TAB PO SCH (09:00)
[2016-06-20] MEDS: BUDESONIDE-FORMOTEROL 160/4.5 MCG INHALER INH SCH ×2 (09:10→20:05)
[2016-06-20] MEDS: SODIUM CHLORIDE 0.9% FLUSH 10 ML FLUSH IV FLUSH SCH ×2 (09:11→20:05)
[2016-06-20] MEDS: DILTIAZEM-CD 180 MG CAP ER PO SCH (09:11)
[2016-06-20] MEDS: busPIRone HCL 10 MG TAB PO SCH ×3 (09:11→17:07)
[2016-06-20] MEDS: DOCUSATE SODIUM 100 MG CAP PO SCH ×2 (09:11→20:06)
[2016-06-20] MEDS: FLUTICASONE PROPIONATE 50 MCG/ACT 16 GM NASAL SPRAY NASAL SCH ×2 (09:11→20:04)
[2016-06-20] MEDS: HYDROCHLOROTHIAZIDE 25 MG TAB PO SCH (09:12)
[2016-06-20] MEDS: buPROPion HCL 100 MG SUSTAINED RELEASE TAB PO SCH ×2 (09:12→20:06)
[2016-06-20] MEDS: CLOTRIMAZOLE 1% CREAM 15 GM TOPICAL SCH ×2 (09:12→20:06)
[2016-06-20] MEDS: THEOPHYLLINE 200 MG EXTENDED RELEASE CAP PO SCH (09:12)
[2016-06-20] MEDS ORDERED: AZIT250T3 PO (10:44)
[2016-06-20] MEDS ORDERED: PRED20 PO (10:45)
--- NOTE | 2016-06-20 10:52 | HHI.DS ---
Discharge Summary Admission Date Jun 18, 2016 at 12:46 Discharge Date: Jun 20, 2016 Admitting Diagnosis COPD Exacerbation (1) COPD with exacerbation ICD Code: J44.1 Diagnosis: Principal (2) Bronchitis ICD Code: J40 Diagnosis: Principal Procedures none Brief History - From Admission Mr. Simons was admitted for a COPD exacerbation and hypoxia with failed outpatient treatment CBC/BMP: 06/19/16 0603 06/19/16 1039 Significant Findings Laboratory Tests Test 06/18/16 06/18/16 06/18/16 06/19/16 10:51 11:05 12:00 06:03 White Blood Count 20.5 TH/MM3 18.4 TH/MM3 (4.0-11.0) (4.0-11.0) Mean Platelet Volume 6.7 FL 6.8 FL (7.0-11.0) (7.0-11.0) Neutrophils (%) (Auto) 95.2 % 89.9 % (16.0-70.0) (16.0-70.0) Lymphocytes (%) (Auto) 1.6 % 3.3 % (9.0-44.0) (9.0-44.0) Neutrophils # (Auto) 19.5 TH/MM3 16.6 TH/MM3 (1.8-7.7) (1.8-7.7) Lymphocytes # (Auto) 0.3 TH/MM3 0.6 TH/MM3 (1.0-4.8) (1.0-4.8) Neutrophils % (Manual) 93 % (16-70) Lymphocytes % 5 % (9-44) Neutrophils # (Manual) 19.5 TH/MM3 (1.8-7.7) Myelocytes 1 % (0-0) Activated Partial 22.8 SEC Thromboplast Time (24.3-30.1) Sodium Level 134 MEQ/L (136-145) Chloride Level 97 MEQ/L 96 MEQ/L (98-107) (98-107) Blood Urea Nitrogen 19 MG/DL (7-18) Estimat Glomerular Filtration 82 ML/MIN (>89) Rate Random Glucose 222 MG/DL 126 MG/DL (74-106) (74-106) Troponin I LESS THAN 0.02 NG/ML (0.02-0.05) Albumin 3.2 GM/DL (3.4-5.0) Theophylline Level 3.8 MCG/ML (10.0-20.0) Blood Gas Base Excess 2.6 mmol/L (-2-2) Arterial Blood pH 7.47 (7.380-7.420) Arterial Blood Partial 36 mmHg (38-42) Pressure CO2 Urine Glucose (UA) 300 mg/dL (NEG) Monocytes # (Auto) 1.2 TH/MM3 (0-0.9) Potassium Level 3.4 MEQ/L (3.5-5.1) Test 06/19/16 10:39 Sodium Level 133 MEQ/L (136-145) Chloride Level 94 MEQ/L (98-107) Estimat Glomerular Filtration 74 ML/MIN (>89) Rate Random Glucose 275 MG/DL (74-106) Imaging Last Impressions Chest X-Ray 06/18/16 1045 Signed Impressions: Service Date/Time: Saturday, June 18, 2016 10:54 - CONCLUSION: No acute findings. Bibasilar scarring or atelectasis, stable. Isaias Pandey MD CT Angiography 06/18/16 0000 Signed Impressions: Service Date/Time: Saturday, June 18, 2016 12:48 - CONCLUSION: 1. No evidence of pulmonary embolism. 2. Emphysematous changes and fibrotic scarring bilaterally. 3. Bibasilar atelectasis and/or minimal infiltrates noted. Denilson Smyth MD PE at Discharge GENERAL: NAD, A&Ox3 SKIN: Warm and dry. HEAD: Normocephalic. EYES: No scleral icterus. No injection or drainage. NECK: Supple, trachea midline. No JVD or lymphadenopathy. CARDIOVASCULAR: Regular rate and rhythm without murmurs, gallops, or rubs. RESPIRATORY: Breath sounds equal bilaterally. No accessory muscle use. Mild Wheezing (baseline). Compromised excursion (chronic). GASTROINTESTINAL: Abdomen soft, non-tender, nondistended. MUSCULOSKELETAL: No cyanosis, or edema. BACK: Nontender without obvious deformity. No CVA tenderness. Pt update on day of discharge Nearing baseline status. Feels ready for discharge. Feels functional. Hospital Course Mr. Simons was admitted with a COPD exacerbation. As an outpatient he had been dealing with this for weeks. He had tried steroid tapers and increasing his use of inhaler treatmetns, but had no relief. He uses oxygen at home, but didn' t feel this was enough. Etiology appears to be related to an atypical bronchitis given an excessive mucous producing cough. He was treated here with high dose steroids and azithromycin in addition to oxygen adjustment ( temporarily) and increased frequency of inhaled nebulized treatments. He has improved to near baseline in two days. He feels ready for discharge. Medically stable for discharge to home. He will continue steroids for two days more and antibiotics for 7 days more (to cover for atypical infectious agents). Pt Condition on Discharge: Stable Discharge Disposition: Discharge Home Discharge Time: <= 30 minutes Discharge Instructions DIET: Follow Instructions for: As Tolerated, No Restrictions Speech Therapy-Diet Recommends: Regular Activities you can perform: Regular-No Restrictions Follow up Referrals: PCP Follow-up - 2 Weeks New Medications: Azithromycin (Azithromycin) 250 Mg Tab 250 MG PO DAILY Infection #7 Ref 0 TAB Prednisone (Prednisone) 20 Mg Tab 40 MG PO BID Take 40 mg (2 tablets) daily for 5 days PRN copd #8 Ref 0 TAB Continued Medications: Albuterol 18 GM Inh (Ventolin Hfa 18 GM Inh) 90 Mcg/Act Aer 1 PUFF INH QID Shortness of Breath #1 Ref 0 INHALER Albuterol 18 GM Inh (Ventolin Hfa 18 GM Inh) 90 Mcg/Act Aer 2 PUFF INH Q4H PRN SHORTNESS OF BREATH #1 Ref 0 INHALER Artificial Tear Solution (Soothe Xp/Xtra Protection) 1 Jarret Jarret 1 DROP EACH EYE QID PRN DRY EYE Aspirin DR (Aspirin 81) 81 Mg Tabdr 81 MG PO DAILY #30 Ref 0 TAB Atorvastatin (Atorvastatin) 80 Mg Tab 40 MG PO HS Cholesterol Management #30 Ref 0 TAB Azithromycin (Azithromycin) 250 Mg Tab 250 MG PO EVERY OTHER DAY Infection #15 Ref 0 TAB Baclofen (Baclofen) 10 Mg Tab 10 MG PO BID PRN MUSCLE PAIN Ref 0 TAB Budesonide-Formoterol Inh (Symbicort Inh) 160-4.5 Mcg/Act Aero 2 PUFF INH BID *Rinse mouth after each use* #1 Ref 0 INHALER Bupropion HCl ER 12 HR (Bupropion HCl ER 12 HR) 100 Mg Tab 200 MG PO BID Control Depression Ref 0 TAB Buspirone (Buspirone) 10 Mg Tab 20 MG PO TID Anxiety Ref 0 TAB Clonidine (Catapres) 0.1 Mg Tab 0.1 MG PO Q6HR PRN SPB >150 #60 Ref 0 TAB Clotrimazole Topical (Clotrimazole Topical) 1% Cream 1 APPLIC TOPICAL BID Apply to affected area on skin for fungal infection #15 GM Diltiazem ER 24 HR (Diltiazem ER 24 HR) 360 Mg Jaciel 360 MG PO DAILY #30 Ref 0 TAB Hydrochlorothiazide (Hydrochlorothiazide) 25 Mg Tab 25 MG PO DAILY #30 Ref 0 TAB Hydrocodone-Acetaminophen ([place]) 10-325 Mg Tab 1 TAB PO Q4HR Ref 0 TAB Ipratropium-Albuterol Neb (Duoneb) 0.5-2.5 Mg/3 Ml Neb 3 ML NEB Q6HR PRN SHORTNESS OF BREATH #30 Ref 0 NEBULE Polyethylene Glycol 3350 Powder (Miralax Powder) 17 Gm Powd PO DAILY Mix 2 tablespoonsful in 4-8 ounces of water,juice or soda Constipation Ref 0 Tamsulosin (Tamsulosin) 0.4 Mg Cap 0.4 MG PO HS Manage Prostate Problems #30 Ref 0 CAP Theophylline ER 24 HR (Rony-24) 200 Mg Cap 200 MG PO DAILY PREVENT SHORTNESS OF BREATH #30 Ref 0 CAP Tiotropium Inh (Spiriva Handihaler) 18 Mcg Cap 1 CAP INH DAILY DO NOT SWALLOW CAPSULES COPD #30 Ref 0 CAP Isael Alas MD Jun 20, 2016 10:52
[2016-06-20] MEDS: AZITHROMYCIN 250 MG TAB PO SCH (13:21)
[2016-06-20] MEDS: ENOXAPARIN SODIUM 40 MG/0.4 ML SYRINGE SQ SCH (13:21)
--- NOTE | 2016-06-20 16:47 | HHI.PR ---
Subjective Remarks He was feeling better this morning, but has recurrence of respiratory distress in the afternoon. Planned discharge was held for this. No other complaints. Objective Vital Signs Date Time Temp Pulse Resp B/P Pulse Ox O2 Delivery O2 Flow Rate FiO2 06/20/16 15:28 20 06/20/16 12:00 97.8 112 18 159/80 96 06/20/16 09:25 96 Nasal Cannula 3.00 06/20/16 08:00 97.9 110 20 157/86 95 06/20/16 04:00 97.9 107 20 143/77 96 06/20/16 03:30 96 Nasal Cannula 3.00 06/20/16 00:00 97.9 110 18 153/83 96 06/19/16 20:00 112 06/19/16 20:00 98.0 119 20 143/84 93 06/19/16 17:14 115 I/O 06/19/16 06/19/16 06/19/16 06/20/16 06/20/16 06/20/16 07:00 15:00 23:00 07:00 15:00 23:00 Intake Total 480 ml 480 ml 480 ml 240 ml 480 ml 0 ml Output Total 800 ml Balance 480 ml -320 ml 480 ml 240 ml 480 ml 0 ml Intake Oral 480 ml 480 ml 480 ml 240 ml 480 ml IV Total 0 ml Output Urine Total 800 ml # Voids 2 0 2 2 # Bowel Movements 0 0 0 1 Result Diagram: 06/19/16 0603 06/19/16 1039 Objective Remarks GENERAL: NAD, A&Ox3 SKIN: Warm and dry. HEAD: Normocephalic. EYES: No scleral icterus. No injection or drainage. NECK: Supple, trachea midline. No JVD or lymphadenopathy. CARDIOVASCULAR: Regular rate and rhythm without murmurs, gallops, or rubs. RESPIRATORY: Breath sounds equal bilaterally. No accessory muscle use. Trace wheezing bilaterally. Rhonchi at bases bilaterally. GASTROINTESTINAL: Abdomen soft, non-tender, nondistended. MUSCULOSKELETAL: No cyanosis, or edema. BACK: Nontender without obvious deformity. No CVA tenderness. Medications and IVs Administered Medications Medications (Trade) Dose Ordered Sig/Agatha Route PRN Reason Start Time Stop Time Status Last Admin Dose Admin Enoxaparin Sodium (Lovenox Inj) 40 mg Q24H SQ 06/18/16 14:00 06/20/16 13:21 Sodium Chloride (NS Flush) 2 ml BID IV FLUSH 06/18/16 21:00 06/20/16 09:11 Prednisone (Deltasone) 40 mg Q8HR PO 06/18/16 14:00 06/20/16 13:20 Azithromycin (Zithromax) 500 mg Q24H PO 06/18/16 15:00 06/21/16 14:59 06/20/16 13:21 Atorvastatin Calcium (Lipitor) 40 mg HS PO 06/18/16 21:00 06/19/16 20:55 Budesonide/ Formoterol Fumarate (Symbicort 160-4.5 Inh) 2 puff BID INH 06/18/16 21:00 06/20/16 09:10 Bupropion HCl (Wellbutrin Sr 12 Hr) 200 mg BID PO 06/18/16 21:00 06/20/16 09:12 Buspirone HCl (Buspar) 20 mg TID PO 06/18/16 18:00 06/20/16 13:20 Clotrimazole (Lotrimin 1% Cream) 1 applic BID TOPICAL 06/18/16 21:00 06/20/16 09:12 Diltiazem HCl (Cardizem Cd) 360 mg DAILY PO 06/19/16 09:00 06/20/16 09:11 Hydrochlorothiazide (Hydrodiuril) 25 mg DAILY PO 06/19/16 09:00 06/20/16 09:12 Acetaminophen/ Hydrocodone Bitart ([place] 10-325 Mg) 1 tab Q4HR PO 06/18/16 16:00 06/20/16 13:21 Tamsulosin HCl (Flomax) 0.4 mg HS PO 06/18/16 21:00 06/19/16 20:55 Theophylline (Rony-24) 200 mg DAILY PO 06/19/16 09:00 06/20/16 09:12 Fluticasone Propionate (Flonase Anthony Spr) 1 spray BID NASAL 06/19/16 21:00 06/20/16 09:11 Docusate Sodium (Colace) 100 mg BID PO 06/19/16 21:00 06/20/16 09:11 A/P Problem List: (1) COPD with exacerbation ICD Code: J44.1 Assessment & Plan: Worsened in the afternoon Monitor for 24 hours more Oxygen continued Steroids continued Duoneb scheduled Albuterol PRN Azithromycin (2) Chronic back pain ICD Code: G89.29 Assessment & Plan: Continue PRN pain treatments Stable No acute changes (3) Hypoxemia ICD Code: R09.02 Assessment & Plan: Improved On oxygen at baseline Nearing baseline (4) Bronchitis ICD Code: J40 Assessment & Plan: May be the exacerbating factor Continue Azithromycin Follow clinically Isael Alas MD Jun 20, 2016 4:47 pm
[2016-06-20] MEDS: ATORVASTATIN 80 MG TAB PO SCH (20:06)
[2016-06-20] MEDS: TAMSULOSIN HCL 0.4 MG CAP PO SCH (20:06)
[2016-06-21] VITALS: BP 153/69; PULSE 108; RESP 18; TEMP 97.4; O2SAT 95
[2016-06-21] MEDS: RESP: ALBUTEROL 2.5 MG/IPRATROPIUM 0.5 MG NEB (SCH) INH ×2 (03:19→09:40)
[2016-06-21 04:00] VITALS: BP 141/76; PULSE 101; RESP 18; TEMP 97.5; O2SAT 94
[2016-06-21] MEDS: ACETAMINOPHEN/HYDROcodone 325 MG/10 MG TAB PO SCH ×3 (04:01→12:00)
[2016-06-21] MEDS: predniSONE 20 MG TAB PO SCH (05:35)
[2016-06-21] MEDS: SODIUM CHLORIDE 0.9% FLUSH 10 ML FLUSH IV FLUSH SCH (08:09)
[2016-06-21] MEDS: BUDESONIDE-FORMOTEROL 160/4.5 MCG INHALER INH SCH (08:09)
[2016-06-21] MEDS: DILTIAZEM-CD 180 MG CAP ER PO SCH (08:10)
[2016-06-21] MEDS: THEOPHYLLINE 200 MG EXTENDED RELEASE CAP PO SCH (08:10)
[2016-06-21] MEDS: busPIRone HCL 10 MG TAB PO SCH ×2 (08:10→12:00)
[2016-06-21] MEDS: buPROPion HCL 100 MG SUSTAINED RELEASE TAB PO SCH (08:10)
[2016-06-21] MEDS: FLUTICASONE PROPIONATE 50 MCG/ACT 16 GM NASAL SPRAY NASAL SCH (08:10)
[2016-06-21] MEDS: DOCUSATE SODIUM 100 MG CAP PO SCH (08:10)
[2016-06-21] MEDS: HYDROCHLOROTHIAZIDE 25 MG TAB PO SCH (08:10)
[2016-06-21] MEDS: CLOTRIMAZOLE 1% CREAM 15 GM TOPICAL SCH (08:11)
[2016-06-21 08:14] VITALS: BP 166/89; PULSE 103; RESP 20; TEMP 97.1; O2SAT 96
[2016-06-21 09:25] VITALS: RESP 20
[2016-06-21 09:42] VITALS: O2SAT 96
--- NOTE | 2016-06-21 09:48 | HHI.DS ---
Discharge Summary Admission Date Jun 18, 2016 at 12:46 Discharge Date: Jun 21, 2016 Admitting Diagnosis COPD Exacerbation (1) COPD with exacerbation ICD Code: J44.1 Diagnosis: Principal (2) Bronchitis ICD Code: J40 Diagnosis: Principal Procedures none Brief History - From Admission Mr. Simons was admitted for a COPD exacerbation and hypoxia with failed outpatient treatment CBC/BMP: 06/19/16 0603 06/19/16 1039 Significant Findings Laboratory Tests Test 06/18/16 06/18/16 06/18/16 06/19/16 10:51 11:05 12:00 06:03 White Blood Count 20.5 TH/MM3 18.4 TH/MM3 (4.0-11.0) (4.0-11.0) Mean Platelet Volume 6.7 FL 6.8 FL (7.0-11.0) (7.0-11.0) Neutrophils (%) (Auto) 95.2 % 89.9 % (16.0-70.0) (16.0-70.0) Lymphocytes (%) (Auto) 1.6 % 3.3 % (9.0-44.0) (9.0-44.0) Neutrophils # (Auto) 19.5 TH/MM3 16.6 TH/MM3 (1.8-7.7) (1.8-7.7) Lymphocytes # (Auto) 0.3 TH/MM3 0.6 TH/MM3 (1.0-4.8) (1.0-4.8) Neutrophils % (Manual) 93 % (16-70) Lymphocytes % 5 % (9-44) Neutrophils # (Manual) 19.5 TH/MM3 (1.8-7.7) Myelocytes 1 % (0-0) Activated Partial 22.8 SEC Thromboplast Time (24.3-30.1) Sodium Level 134 MEQ/L (136-145) Chloride Level 97 MEQ/L 96 MEQ/L (98-107) (98-107) Blood Urea Nitrogen 19 MG/DL (7-18) Estimat Glomerular Filtration 82 ML/MIN (>89) Rate Random Glucose 222 MG/DL 126 MG/DL (74-106) (74-106) Troponin I LESS THAN 0.02 NG/ML (0.02-0.05) Albumin 3.2 GM/DL (3.4-5.0) Theophylline Level 3.8 MCG/ML (10.0-20.0) Blood Gas Base Excess 2.6 mmol/L (-2-2) Arterial Blood pH 7.47 (7.380-7.420) Arterial Blood Partial 36 mmHg (38-42) Pressure CO2 Urine Glucose (UA) 300 mg/dL (NEG) Monocytes # (Auto) 1.2 TH/MM3 (0-0.9) Potassium Level 3.4 MEQ/L (3.5-5.1) Test 06/19/16 10:39 Sodium Level 133 MEQ/L (136-145) Chloride Level 94 MEQ/L (98-107) Estimat Glomerular Filtration 74 ML/MIN (>89) Rate Random Glucose 275 MG/DL (74-106) Imaging Last Impressions Chest X-Ray 06/18/16 1045 Signed Impressions: Service Date/Time: Saturday, June 18, 2016 10:54 - CONCLUSION: No acute findings. Bibasilar scarring or atelectasis, stable. Isaias Pandey MD CT Angiography 06/18/16 0000 Signed Impressions: Service Date/Time: Saturday, June 18, 2016 12:48 - CONCLUSION: 1. No evidence of pulmonary embolism. 2. Emphysematous changes and fibrotic scarring bilaterally. 3. Bibasilar atelectasis and/or minimal infiltrates noted. Denilson Smyth MD PE at Discharge GENERAL: NAD, A&Ox3 SKIN: Warm and dry. HEAD: Normocephalic. EYES: No scleral icterus. No injection or drainage. NECK: Supple, trachea midline. No JVD or lymphadenopathy. CARDIOVASCULAR: Regular rate and rhythm without murmurs, gallops, or rubs. RESPIRATORY: Breath sounds equal bilaterally. No accessory muscle use. Mild Wheezing (baseline). Compromised excursion (chronic). GASTROINTESTINAL: Abdomen soft, non-tender, nondistended. MUSCULOSKELETAL: No cyanosis, or edema. BACK: Nontender without obvious deformity. No CVA tenderness. Pt update on day of discharge At baseline now. Desires discharge today. Hospital Course Mr. Simons was admitted with a COPD exacerbation. As an outpatient he had been dealing with this for weeks. He had tried steroid tapers and increasing his use of inhaler treatments, but had no relief. He uses oxygen at home, but didn' t feel this was enough. Etiology appears to be related to an atypical bronchitis given an excessive mucous producing cough. He was treated here with high dose steroids and azithromycin in addition to oxygen adjustment ( temporarily) and increased frequency of inhaled nebulized treatments. He has improved to near baseline in two days. Discharge was planned for yesterday, but was held due to an episode of dyspnea and patient request to stay one more night. Now he feels at baseline. He feels ready for discharge. Medically stable for discharge to home. He will continue steroids for one day more with a low dose tail given prolonged steroid use as an outpatient and antibiotics for 7 days more (to cover for atypical infectious agents). Pt Condition on Discharge: Stable Discharge Disposition: Discharge Home Discharge Time: <= 30 minutes Discharge Instructions DIET: Follow Instructions for: As Tolerated, No Restrictions Speech Therapy-Diet Recommends: Regular Activities you can perform: Regular-No Restrictions Follow up Referrals: PCP Follow-up - 2 Weeks New Medications: Azithromycin (Azithromycin) 250 Mg Tab 250 MG PO DAILY Infection #7 Ref 0 TAB Prednisone (Prednisone) 20 Mg Tab 40 MG PO BID Take 40 mg (2 tablets) daily for 5 days PRN copd #8 Ref 0 TAB Continued Medications: Albuterol 18 GM Inh (Ventolin Hfa 18 GM Inh) 90 Mcg/Act Aer 1 PUFF INH QID Shortness of Breath #1 Ref 0 INHALER Albuterol 18 GM Inh (Ventolin Hfa 18 GM Inh) 90 Mcg/Act Aer 2 PUFF INH Q4H PRN SHORTNESS OF BREATH #1 Ref 0 INHALER Artificial Tear Solution (Soothe Xp/Xtra Protection) 1 Jarret Jarret 1 DROP EACH EYE QID PRN DRY EYE Aspirin DR (Aspirin 81) 81 Mg Tabdr 81 MG PO DAILY #30 Ref 0 TAB Atorvastatin (Atorvastatin) 80 Mg Tab 40 MG PO HS Cholesterol Management #30 Ref 0 TAB Baclofen (Baclofen) 10 Mg Tab 10 MG PO BID PRN MUSCLE PAIN Ref 0 TAB Budesonide-Formoterol Inh (Symbicort Inh) 160-4.5 Mcg/Act Aero 2 PUFF INH BID *Rinse mouth after each use* #1 Ref 0 INHALER Bupropion HCl ER 12 HR (Bupropion HCl ER 12 HR) 100 Mg Tab 200 MG PO BID Control Depression Ref 0 TAB Buspirone (Buspirone) 10 Mg Tab 20 MG PO TID Anxiety Ref 0 TAB Clonidine (Catapres) 0.1 Mg Tab 0.1 MG PO Q6HR PRN SPB >150 #60 Ref 0 TAB Clotrimazole Topical (Clotrimazole Topical) 1% Cream 1 APPLIC TOPICAL BID Apply to affected area on skin for fungal infection #15 GM Diltiazem ER 24 HR (Diltiazem ER 24 HR) 360 Mg Jaciel 360 MG PO DAILY #30 Ref 0 TAB Hydrochlorothiazide (Hydrochlorothiazide) 25 Mg Tab 25 MG PO DAILY #30 Ref 0 TAB Hydrocodone-Acetaminophen ([place]) 10-325 Mg Tab 1 TAB PO Q4HR Ref 0 TAB Ipratropium-Albuterol Neb (Duoneb) 0.5-2.5 Mg/3 Ml Neb 3 ML NEB Q6HR PRN SHORTNESS OF BREATH #30 Ref 0 NEBULE Polyethylene Glycol 3350 Powder (Miralax Powder) 17 Gm Powd PO DAILY Mix 2 tablespoonsful in 4-8 ounces of water,juice or soda Constipation Ref 0 Tamsulosin (Tamsulosin) 0.4 Mg Cap 0.4 MG PO HS Manage Prostate Problems #30 Ref 0 CAP Theophylline ER 24 HR (Rony-24) 200 Mg Cap 200 MG PO DAILY PREVENT SHORTNESS OF BREATH #30 Ref 0 CAP Tiotropium Inh (Spiriva Handihaler) 18 Mcg Cap 1 CAP INH DAILY DO NOT SWALLOW CAPSULES COPD #30 Ref 0 CAP Discontinued Medications: Azithromycin (Azithromycin) 250 Mg Tab 250 MG PO EVERY OTHER DAY Infection #15 Ref 0 TAB Isael Alas MD Jun 21, 2016 09:48
== END 2016-06-21 12:30 | disposition home or self-care (01) | DRG 192 ==
LOC: NEPE 10:18 → NEDA 12:46 → N04B 14:57
PROVIDERS: ADMIT Hospitalist; ATTEND Hospitalist
PROC: 3E0F7GC Introduction of Other Therapeutic Substance into Respiratory Tract, Via Natural or Artificial Opening (ICD-10-PCS; principal; 2016-06-18)
DX: J44.1 Chronic obstructive pulmonary disease with (acute) exacerbation (principal); Z99.81 Dependence on supplemental oxygen; I48.91 Unspecified atrial fibrillation; I10 Essential (primary) hypertension; F32.9 Major depressive disorder, single episode, unspecified; F41.9 Anxiety disorder, unspecified; Z87.891 Personal history of nicotine dependence; Z86.14 Personal history of Methicillin resistant Staphylococcus aureus infection; Z88.1 Allergy status to other antibiotic agents; R09.02 Hypoxemia; G89.29 Other chronic pain; M54.9 Dorsalgia, unspecified
CPT/HCPCS: 36600; 71010; 71275; 80048; 80053; 80198; 81001; 82805; 83735; 83880; 84484; 85007; 85025; 85027; 85610; 85730; 87641; 87804; 93005; 94640; 94664; 96374; J1650; J2930; J7512; Q9967

== ENCOUNTER 2016-09-22 10:19 | Emergency (ER) | payer OTHER ==
[~2016-09-22] VITALS: Ht 182.9 cm; Wt 115.0 kg
[~2016-09-22 10:19] MED LIST changes: +CLON.1 PO; -IPRAAER INH; +TAMS0.4C4 PO
[2016-09-22 10:22] VITALS: BP 130/75; PULSE 79; RESP 17; TEMP 97.9; O2SAT 94
[2016-09-22 10:33] VITALS: O2SAT 93
[2016-09-22 10:35] VITALS: BP 126/64; PULSE 102; RESP 20; O2SAT 93
[2016-09-22] MEDS ORDERED: SODIUM CHLORIDE 0.9% FLUSH 10 ML FLUSH IVF PRN (11:00)
[2016-09-22] MEDS ORDERED: methylPREDNISolone SOD SUCC 125 MG/2 ML VIAL IVP ONE (11:00)
--- NOTE | 2016-09-22 11:05 | PD ---
HPI Chief Complaint: Respiratory Symptoms Time Seen by Provider: 10:54 Travel History International Travel<30 days: No Contact w/Intl Traveler<30days: No Traveled to known affect area: No History of Present Illness HPI This patient complains of shortness of breath. Duration 4 days. Severity is moderate. He has history of COPD and no longer smokes. He quit 4-5 years ago. He does wear oxygen at home and uses nebulizers. He denies productive cough or chest pain or syncope. He got partial relief from his nebulizers PFSH Past Medical History Asthma: Yes Atrial Fibrillation: Yes Anxiety: Yes Depression: Yes Heart Rhythm Problems: Yes (a fib) Cancer: Yes (melanoma) Cardiovascular Problems: Yes High Cholesterol: Yes Chest Pain: Yes Congestive Heart Failure: No COPD: Yes Diabetes: Yes Patient Takes Glucophage: No Diminished Hearing: No Endocrine: Yes Gastrointestinal Disorders: Yes (REFLUX) GERD: Yes Genitourinary: Yes Hypertension: Yes Immune Disorder: No Kidney Stones: No Musculoskeletal: Yes Neurologic: Yes Psychiatric: Yes Reproductive: No Respiratory: Yes (COPD) Integumentary: Yes Immunizations Current: Yes Sleep Apnea: No Thyroid Disease: No PNEUMOCCOCAL Vaccine (Year): 2010 Past Surgical History Body Medical Devices: PLATES AND SCREWS TO L ANKLE Other Surgery: Yes (PIN IN LEFT ANKLE, BONE PLACED BACK IN FINGER) Social History Alcohol Use: Yes (beer occ) Tobacco Use: No (QUIT ) Substance Use: No ( ) Allergies-Medications (Allergen,Severity, Reaction): Coded Allergies: Levaquin (Verified Adverse Reaction, Mild, Confusion, 09/22/16) irritable, can't focus *MDRO Multi-Drug Resistant Organism (Verified Adverse Reaction, Unknown, ) 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 MRSA PCR Screens NEGATIVE - 06/19/16 & 06/21/16 CLEARED PER INFECTION CONTROL PROTOCOL Reported Meds & Prescriptions Reported Meds & Active Scripts Active Reported Amlodipine (Amlodipine Besylate) 10 Mg Tab 10 Mg PO DAILY Prednisone 5 Mg Tab 5 Mg PO DAILY Albuterol Neb (Albuterol Sulfate) 2.5 Mg/3 Ml Neb 2.5 Mg NEB QID PRN Ventolin Hfa 18 GM Inh (Albuterol Sulfate) 90 Mcg/Act Aer 2-4 Puff INH Q6H PRN Clonidine (Clonidine HCl) 0.1 Mg Tab 0.1 Mg PO BID Diltiazem ER 24 HR 180 Mg Jaciel 360 Mg PO DAILY Combivent Respimat Inh (Ipratropium-Albuterol Inh) 20-[address] Half-[address]/Act Aero 1 Puff INH QID Bupropion HCl ER 12 HR (Bupropion HCl) 150 Mg Tab 150 Mg PO BID Tamsulosin (Tamsulosin HCl) 0.4 Mg Cap 0.4 Mg PO HS Duoneb (Ipratropium-Albuterol Neb) 0.5-2.5 Mg/3 Ml Neb 3 Ml NEB Q6HR PRN Spiriva Handihaler (Tiotropium Inh) 18 Mcg Cap 18 Mcg INH DAILY DO NOT SWALLOW CAPSULES Rony-24 (Theophylline) 200 Mg Cap 200 Mg PO DAILY Hydrochlorothiazide 25 Mg Tab 25 Mg PO DAILY Clotrimazole Topical (Clotrimazole) 1% Cream 1 Applic TOPICAL BID Apply to affected area on skin for fungal infection Buspirone (Buspirone HCl) 10 Mg Tab 20 Mg PO TID Symbicort Inh (Budesonide/Formoterol Fumarate) 160-4.5 Mcg/Act Aero 2 Puff INH BID *Rinse mouth after each use* Baclofen 10 Mg Tab 10 Mg PO BID PRN Atorvastatin (Atorvastatin Calcium) 80 Mg Tab 40 Mg PO HS Soothe Xp/Xtra Protection (Artificial Tear Solution) 1 Jarret Jarret 1 Drop EACH EYE QID PRN Review of Systems General / Constitutional: No: Fever Eyes: No: Visual changes HENT: No: Headaches Cardiovascular: No: Chest Pain or Discomfort Respiratory: Positive: Cough, Shortness of Breath, Wheezing Gastrointestinal: No: Abdominal Pain Genitourinary: No: Dysuria Musculoskeletal: No: Pain Skin: No Rash Neurologic: No: Weakness Psychiatric: No: Depression Endocrine: No: Polydipsia Hematologic/Lymphatic: No: Easy Bruising Physical Exam Narrative GENERAL: Well-nourished, well-developed patient who is short of breath . SKIN: Focused skin assessment reveals no rash and nodules. Skin is Warm and dry. HEAD: Atraumatic. Normocephalic. EYES: Pupils equal and round. No scleral icterus. No injection or drainage. ENT: No nasal bleeding or discharge. Mucous membranes pink and moist. NECK: Trachea midline. No JVD. CARDIOVASCULAR: Regular rate and rhythm. No murmur appreciated. RESPIRATORY: Positive accessory muscle use. Diffuse expiratory wheezing with rhonchi. Breath sounds equal bilaterally. GASTROINTESTINAL: Abdomen soft, non-tender, nondistended. Hepatic and splenic margins not palpable. MUSCULOSKELETAL: No obvious deformities. No clubbing. No cyanosis. No edema. NEUROLOGICAL: Awake and alert. No obvious cranial nerve deficits. Motor grossly within normal limits. Normal speech. PSYCHIATRIC: Appropriate mood and affect; insight and judgment normal. Data Data Last Documented VS Vital Signs Date Time Temp Pulse Resp B/P Pulse Ox O2 Delivery O2 Flow Rate FiO2 09/22/16 11:16 93 Nasal Cannula 2.00 09/22/16 10:35 102 20 126/64 09/22/16 10:22 97.9 Orders Complete Blood Count With Diff (09/22/16 11:00) Basic Metabolic Panel (Bmp) (09/22/16 11:00) Iv Access Insert/Monitor (09/22/16 11:00) Ecg Monitoring (09/22/16 11:00) Oximetry (09/22/16 11:00) Oxygen Administration (09/22/16 11:00) Chest, Single Ap (09/22/16 11:00) Sodium Chloride 0.9% Flush (Ns Flush) (09/22/16 11:00) Methylprednisolone So Succ Inj (Solumedr (09/22/16 11:00) Albuterol-Ipratropium Neb (Duoneb Neb) (09/22/16 11:00) Labs Laboratory Tests Test 09/22/16 11:10 White Blood Count 12.3 TH/MM3 Red Blood Count 4.43 MIL/MM3 Hemoglobin 13.6 GM/DL Hematocrit 40.2 % Mean Corpuscular Volume 90.8 FL Mean Corpuscular Hemoglobin 30.7 PG Mean Corpuscular Hemoglobin 33.9 % Concent Red Cell Distribution Width 13.8 % Platelet Count 443 TH/MM3 Mean Platelet Volume 6.5 FL Neutrophils (%) (Auto) 85.6 % Lymphocytes (%) (Auto) 7.0 % Monocytes (%) (Auto) 6.7 % Eosinophils (%) (Auto) 0.3 % Basophils (%) (Auto) 0.4 % Neutrophils # (Auto) 10.6 TH/MM3 Lymphocytes # (Auto) 0.9 TH/MM3 Monocytes # (Auto) 0.8 TH/MM3 Eosinophils # (Auto) 0.0 TH/MM3 Basophils # (Auto) 0.0 TH/MM3 CBC Comment DIFF FINAL Differential Comment Sodium Level 137 MEQ/L Potassium Level 3.4 MEQ/L Chloride Level 101 MEQ/L Carbon Dioxide Level 26.3 MEQ/L Anion Gap 10 MEQ/L Blood Urea Nitrogen 14 MG/DL Creatinine 0.77 MG/DL Estimat Glomerular Filtration 100 ML/MIN Rate Random Glucose 94 MG/DL Calcium Level 10.0 MG/DL MDM Medical Decision Making Medical Screen Exam Complete: Yes Emergency Medical Condition: Yes Medical Record Reviewed: Yes Differential Diagnosis Differential diagnosis includes COPD, asthma, pneumonia, bronchitis, CHF Narrative Course I have reviewed the patient's electronic medical record. Patient's been here multiple times for COPD IV placed I gave him a series of nebulizer treatments and IV Solu-Medrol CBC is normal Metabolic profile is normal I reviewed his chest x-ray which is normal After the above therapy patient is improved. I prescribed him some extra prednisone for the next 5 days and he will go back to his normal 10 mg a day He should call his family physician tomorrow for follow-up. Diagnosis Primary Impression: COPD with exacerbation Additional Instructions: The patient was advised to follow up with their physician and return if they worsen. Med/Other Pt SpecificInfo: Prescription(s) given Disposition: 01 DISCHARGE HOME Condition: Stable Jitendra Vicente MD Sep 22, 2016 11:05
[2016-09-22] MEDS ORDERED: IPRAAER INH (11:07)
[2016-09-22] MEDS ORDERED: DILT0.05 PO (11:07)
[2016-09-22] MEDS ORDERED: BUPR150T5 PO (11:07)
[2016-09-22] MEDS ORDERED: PRED5TAB PO (11:07)
[2016-09-22] MEDS ORDERED: ALBU0.08 NEB (11:07)
[2016-09-22] MEDS ORDERED: VENTAER INH (11:07)
[2016-09-22] MEDS ORDERED: CLON0.1T PO (11:07)
[2016-09-22] MEDS ORDERED: AMLO10TA2 PO (11:07)
[2016-09-22 11:16] VITALS: O2SAT 93
[2016-09-22] MEDS: RESP: ALBUTEROL 2.5 MG/IPRATROPIUM 0.5 MG NEB (SCH) INH (11:16)
--- NOTE | 2016-09-22 11:28 | RADRPT ---
EXAM DATE/TIME: 09/22/2016 11:06 [facility] COMPARISON: CHEST SINGLE AP, June 18, 2016, 10:54. INDICATIONS : Shortness of breath with sporadic chest pains. MEDICAL HISTORY : Chronic obstructive pulmonary disease. SURGICAL HISTORY : None. ENCOUNTER: Initial ACUITY: 4 - 6 days PAIN SCORE: 7/10 LOCATION: Left chest FINDINGS: Heart and mediastinum are unremarkable for technique. There is COPD with bibasilar linear densities m ay be due to some degree of chronic scar and/or linear atelectasis. CONCLUSION: No acute cardiopulmonary disease. Speedy Barfield MD on September 22, 2016 at 11:25 Board Certified Radiologist. This report was verified electronically.
[2016-09-22 11:40] LABS: AUTOMATED NEUTROPHIL # 10.6 TH/MM3 (1.8-7.7); BASOPHIL % 0.4 % (0.0-2.0); EOSINOPHIL % 0.3 % (0.0-4.0); HEMATOCRIT 40.2 % (39.0-51.0); HEMO FLAGS DIFF FINAL; LYMPHOCYTE # 0.9 TH/MM3 (1.0-4.8); MEAN CELL VOLUME 90.8 FL (80.0-100.0); MEAN CORPUSCULAR HEMOGLOBIN 30.7 PG (27.0-34.0); MEAN CORPUSCULAR HGB CONC 33.9 % (32.0-36.0); MONO % 6.7 % (0.0-8.0); NEUT % 85.6 % (16.0-70.0); PLATELET COUNT 443 TH/MM3 (150-450); RED BLOOD COUNT 4.43 MIL/MM3 (4.50-5.90); RED CELL DISTRIBUTION WIDTH 13.8 % (11.6-17.2); WHITE BLOOD COUNT 12.3 TH/MM3 (4.0-11.0)
[2016-09-22 11:53] LABS: BICARBONATE 26.3 MEQ/L (21.0-32.0); POTASSIUM 3.4 MEQ/L (3.5-5.1)
[2016-09-22 15:11] VITALS: BP 136/76
[2016-09-22] MEDS ORDERED: CEPH-460 PO (17:32)
== END 2016-09-22 15:12 | disposition home or self-care (01) ==
LOC: NEPC 10:19
DX: J44.1 Chronic obstructive pulmonary disease with (acute) exacerbation (principal); I48.91 Unspecified atrial fibrillation; E11.9 Type 2 diabetes mellitus without complications; I10 Essential (primary) hypertension; K21.9 Gastro-esophageal reflux disease without esophagitis; E78.00 Pure hypercholesterolemia, unspecified; Z99.81 Dependence on supplemental oxygen; R07.9 Chest pain, unspecified
CPT/HCPCS: 71010; 80048; 85025; 94640; 94664; 96374; 99284; J2930

== ENCOUNTER 2016-09-22 15:31 | Emergency (ER) | payer OTHER, MEDICARE ==
[~2016-09-22] VITALS: Ht 182.9 cm; Wt 115.0 kg
[~2016-09-22 15:31] MED LIST changes: +ALBU0.08 NEB; +AMLO10TA2 PO; +BUPR150T5 PO; +CLON0.1T PO; +DILT0.05 PO; +IPRAAER INH; +PRED5TAB PO
[2016-09-22 15:34] VITALS: BP 149/88; PULSE 121; RESP 21; TEMP 97.8; O2SAT 95
--- NOTE | 2016-09-22 16:06 | PD ---
HPI Chief Complaint: Fall Time Seen by Provider: 16:03 Travel History International Travel<30 days: No Contact w/Intl Traveler<30days: No Traveled to known affect area: No History of Present Illness HPI 66-year-old male presents to the emergency department for evaluation after he tripped and fell after being discharged from the emergency department. He states he was getting out of his wheelchair when he fell hitting his left knee. Patient has laceration to the left knee. He denies any pain or loss of range of motion. He denies hitting his head or LOC. No neck pain or back pain. No chest pain or abdominal pain. No nausea, vomiting, diarrhea. Patient states is unsure of his tetanus immunization is up-to-date. PFS Past Medical History Asthma: Yes Atrial Fibrillation: Yes Anxiety: Yes Depression: Yes Heart Rhythm Problems: Yes (a fib) Cancer: Yes (melanoma) Cardiovascular Problems: Yes High Cholesterol: Yes Chest Pain: Yes Congestive Heart Failure: No COPD: Yes Diabetes: Yes Diminished Hearing: No Endocrine: Yes Gastrointestinal Disorders: Yes (REFLUX) GERD: Yes Genitourinary: Yes Hypertension: Yes Immune Disorder: No Kidney Stones: No Musculoskeletal: Yes Neurologic: Yes Psychiatric: Yes Reproductive: No Respiratory: Yes (COPD WITH O2 AT 2L AT HOME) Integumentary: Yes Immunizations Current: Yes Sleep Apnea: No Thyroid Disease: No PNEUMOCCOCAL Vaccine (Year): 2010 Past Surgical History Body Medical Devices: PLATES AND SCREWS TO L ANKLE Other Surgery: Yes (PIN IN LEFT ANKLE, BONE PLACED BACK IN FINGER) Social History Alcohol Use: Yes (beer occ) Tobacco Use: No (QUIT ) Substance Use: No ( ) Allergies-Medications (Allergen,Severity, Reaction): Coded Allergies: Levaquin (Verified Adverse Reaction, Mild, Confusion, 09/22/16) irritable, can't focus *MDRO Multi-Drug Resistant Organism (Verified Adverse Reaction, Unknown, ) 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 MRSA PCR Screens NEGATIVE - 06/19/16 & 06/21/16 CLEARED PER INFECTION CONTROL PROTOCOL Reported Meds & Prescriptions Reported Meds & Active Scripts Active Reported Amlodipine (Amlodipine Besylate) 10 Mg Tab 10 Mg PO DAILY Prednisone 5 Mg Tab 5 Mg PO DAILY Albuterol Neb (Albuterol Sulfate) 2.5 Mg/3 Ml Neb 2.5 Mg NEB QID PRN Ventolin Hfa 18 GM Inh (Albuterol Sulfate) 90 Mcg/Act Aer 2-4 Puff INH Q6H PRN Clonidine (Clonidine HCl) 0.1 Mg Tab 0.1 Mg PO BID Diltiazem ER 24 HR 180 Mg Jaciel 360 Mg PO DAILY Combivent Respimat Inh (Ipratropium-Albuterol Inh) 20-100 Custodial/Act Aero 1 Puff INH QID Bupropion HCl ER 12 HR (Bupropion HCl) 150 Mg Tab 150 Mg PO BID Tamsulosin (Tamsulosin HCl) 0.4 Mg Cap 0.4 Mg PO HS Duoneb (Ipratropium-Albuterol Neb) 0.5-2.5 Mg/3 Ml Neb 3 Ml NEB Q6HR PRN Spiriva Handihaler (Tiotropium Inh) 18 Mcg Cap 18 Mcg INH DAILY DO NOT SWALLOW CAPSULES Rony-24 (Theophylline) 200 Mg Cap 200 Mg PO DAILY Hydrochlorothiazide 25 Mg Tab 25 Mg PO DAILY Clotrimazole Topical (Clotrimazole) 1% Cream 1 Applic TOPICAL BID Apply to affected area on skin for fungal infection Buspirone (Buspirone HCl) 10 Mg Tab 20 Mg PO TID Symbicort Inh (Budesonide/Formoterol Fumarate) 160-4.5 Mcg/Act Aero 2 Puff INH BID *Rinse mouth after each use* Baclofen 10 Mg Tab 10 Mg PO BID PRN Atorvastatin (Atorvastatin Calcium) 80 Mg Tab 40 Mg PO HS Soothe Xp/Xtra Protection (Artificial Tear Solution) 1 Jarret Jarret 1 Drop EACH EYE QID PRN Review of Systems Except as stated in HPI: all other systems reviewed are Neg Physical Exam Narrative GENERAL: Well-nourished, well-developed male patient, afebrile. SKIN: Focused skin assessment warm/dry. Patient has 4 cm laceration left anterior lower knee. HEAD: Normocephalic. Atraumatic. EYES: No scleral icterus. No injection or drainage. NECK: Supple, trachea midline. No JVD or lymphadenopathy. CARDIOVASCULAR: Regular rate and rhythm without murmurs, gallops, or rubs. Left Pedal pulse is 2+. RESPIRATORY: Breath sounds equal bilaterally. No accessory muscle use. GASTROINTESTINAL: Abdomen soft, non-tender, nondistended. MUSCULOSKELETAL: No cyanosis, or edema. BACK: Nontender without obvious deformity. No CVA tenderness. Data Data Last Documented VS Vital Signs Date Time Temp Pulse Resp B/P Pulse Ox O2 Delivery O2 Flow Rate FiO2 09/22/16 15:34 97.8 121 21 149/88 95 Nasal Cannula 4 Orders Knee, Complete (4vws) (09/22/16 ) Tetanus/Diphtheria Tox Adult (Tetanus/Di (09/22/16 16:15) Lidocai-Epi 1%-1:100,000 Inj (Xylocaine- (09/22/16 16:15) MDM Medical Decision Making Medical Screen Exam Complete: Yes Emergency Medical Condition: Yes Medical Record Reviewed: Yes Interpretation(s) Last Impressions Knee X-Ray 09/22/16 0000 Signed Impressions: Service Date/Time: Thursday, September 22, 2016 16:34 - CONCLUSION: 1. Soft tissue swelling without acute fracture. 2. Mild osteoarthritis. 3. Remote fibular fracture Haroldo Redman MD Differential Diagnosis Knee laceration versus contusion versus fracture versus abrasion Narrative Course 66-year-old male presents to the emergency department after he fell causing laceration to his left knee. Tetanus immunization is updated. X-ray of the left knee is ordered and pending. Patient gives verbal consent for laceration repair. X-ray of the left knee shows soft tissue swelling without acute fracture; Mild osteoarthritis; Remote fibular fracture. Laceration is repaired. Patient is instructed on proper wound care. He'll be discharged with a prescription for Keflex. He verbalizes agreement and understanding. Procedures Procedure Narrative LACERATION LOCATION: Left anterior knee LENGTH: 7 cm NUMBER OF STITCHES/LOC: 11 simple interrupted sutures REPAIR: The area of the laceration was prepped with Betadine and sterilely draped. The laceration was infiltrated with lidocaine with epinephrine. The wound was copiously irrigated and explored without evidence of foreign body, tendon injury or neurovascular injury. The wound was closed using 4-0 Prolene. This was a single layer repair. A sterile dressing was applied. The patient was advised to keep the dressing clean and dry. Patient tolerated the procedure well. LACERATION LOCATION: Left anterior knee LENGTH: 1 cm NUMBER OF STITCHES/LOC: 2 simple interrupted sutures REPAIR: The area of the laceration was prepped with Betadine and sterilely draped. The laceration was infiltrated with lidocaine with epinephrine. The wound was copiously irrigated and explored without evidence of foreign body, tendon injury or neurovascular injury. The wound was closed using 4-0 Prolene. This was a single layer repair. A sterile dressing was applied. The patient was advised to keep the dressing clean and dry. Patient tolerated the procedure well. Diagnosis Primary Impression: Laceration of left knee Qualified Code: S81.012A - Laceration of left knee, initial encounter Referrals: Primary Care Physician call for appointment Patient Instructions: Care For Your Stitches (ED), General Instructions, Laceration (ED) Additional Instructions: Clean twice daily with soap and water and apply [id number] antibiotic ointment. Keep laceration clean and dry. No hot tubs or swimming. Take antibiotic as directed until gone. Suture removal in 10-14 days. You may follow up with your primary care physician or return the emergency department for this. Return to the emergency department for any acute worsening of symptoms. Med/Other Pt SpecificInfo: Prescription(s) given Scripts Cephalexin (Keflex)500 Mg [id number] Mg PO Q6H 10 Days Ref 0 Prov:Bhavna Price 09/22/16 Disposition: 01 DISCHARGE HOME Condition: Stable Bhavna Price Sep 22, 2016 16:06
[2016-09-22] MEDS ORDERED: TETANUS/DIPHTHERIA TOXOID ADULT 0.5 ML VIAL IM ONE (16:15)
[2016-09-22] MEDS ORDERED: LIDOCAINE 1%/EPINEPHrine 1:100,000 SOLN 20 ML VIAL INFIL ONE (16:15)
[2016-09-22 16:40] VITALS: PULSE 110; O2SAT 97
--- NOTE | 2016-09-22 16:41 | RADRPT ---
EXAM DATE/TIME: 09/22/2016 16:34 [facility] COMPARISON: No previous studies available for comparison. INDICATIONS : Fall laceration to anterior knee. MEDICAL HISTORY : None. SURGICAL HISTORY : None. ENCOUNTER: Initial ACUITY: 1 day PAIN SCORE: 10/10 LOCATION: Left knee FINDINGS: Four view examination of the left knee demonstrates no evidence of fracture or dislocation. Bony min eralization is normal. Mild osteoarthritis and soft tissue swelling. Old fracture proximal fibula. T he articular surfaces are intact. The suprapatellar soft tissues have a normal configuration. CONCLUSION: 1. Soft tissue swelling without acute fracture. 2. Mild osteoarthritis. 3. Remote fibular fracture Haroldo Redman MD on September 22, 2016 at 16:39 Board Certified Radiologist. This report was verified electronically.
[2016-09-22] MEDS ORDERED: CEPH-460 PO (17:32)
== END 2016-09-22 18:20 | disposition home or self-care (01) ==
LOC: NEPD 15:31
DX: S81.012A Laceration without foreign body, left knee, initial encounter (principal); W05.0XXA Fall from non-moving wheelchair, initial encounter; Y92.239 Unspecified place in hospital as the place of occurrence of the external cause; Z23 Encounter for immunization
CPT/HCPCS: 12004; 73564; 90471; 90714

== ENCOUNTER 2016-12-05 18:28 | Emergency (ER) | payer OTHER ==
[~2016-12-05] VITALS: Ht 182.9 cm; Wt 115.0 kg
[~2016-12-05 18:28] MED LIST changes: -ASPI-110 PO; -AZIT250T3 PO; -BUPR1TAB70 PO; +CEPH-460 PO; -CLON.1 PO; -DILT1TAB8 PO; -HYDR-3366 PO; -MIRA33504 PO; -PRED20 PO
[2016-12-05 18:31] VITALS: BP 144/83; PULSE 110; RESP 18; TEMP 98.9; O2SAT 94
--- NOTE | 2016-12-05 19:11 | PD ---
HPI Chief Complaint: Respiratory Symptoms Time Seen by Provider: 18:55 Travel History International Travel<30 days: No Contact w/Intl Traveler<30days: No Traveled to known affect area: No History of Present Illness HPI Patient comes in complaining of pneumonia states that he received a phone call from the ID earlier today reporting that he has a pneumonia. Patient reports worsening shortness of breath and is worse on exertion. Patient states that he as been on antibiotics and steroids. Patient's last took unknown antibiotic yesterday states he was on it on for 7 days, but continues to be on tapering dose of steroids. He states he continues feeling worse. Reports occasional left-sided chest discomfort that was relieved with Tums but denies any actual chest pain. Denies any fever, cough, headache, abdominal pain, nausea, vomiting , or loss change in bowel or bladder. Patient reports he is on O2 at home. Patient using his nebulizers at home that has helped some. PFSH Past Medical History Asthma: Yes Atrial Fibrillation: Yes Anxiety: Yes Depression: Yes Heart Rhythm Problems: Yes (a fib) Cancer: Yes (melanoma) Cardiovascular Problems: Yes High Cholesterol: Yes Chest Pain: Yes Congestive Heart Failure: No COPD: Yes Diabetes: Yes Diminished Hearing: No Endocrine: Yes Gastrointestinal Disorders: Yes (REFLUX) GERD: Yes Genitourinary: Yes Hypertension: Yes Immune Disorder: No Kidney Stones: No Musculoskeletal: Yes Neurologic: Yes Psychiatric: Yes Reproductive: No Respiratory: Yes Integumentary: Yes Immunizations Current: Yes Sleep Apnea: No Thyroid Disease: No PNEUMOCCOCAL Vaccine (Year): 2010 Past Surgical History Body Medical Devices: PLATES AND SCREWS TO L ANKLE Neurologic Surgery: No Other Surgery: Yes (PIN IN LEFT ANKLE, BONE PLACED BACK IN FINGER) Social History Alcohol Use: Yes (beer occ) Tobacco Use: No (QUIT ) Substance Use: No ( ) Allergies-Medications (Allergen,Severity, Reaction): Coded Allergies: levofloxacin (Unverified Adverse Reaction, Mild, Confusion, 12/05/16) irritable, can't focus *MDRO Multi-Drug Resistant Organism (Verified Adverse Reaction, Unknown, 12/05/16) 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 MRSA PCR Screens NEGATIVE - 06/19/16 & 06/21/16 CLEARED PER INFECTION CONTROL PROTOCOL Reported Meds & Prescriptions Reported Meds & Active Scripts Active Keflex (Cephalexin) 500 Mg Cap 500 Mg PO Q6H 10 Days Reported Hydrocodone-Acetaminophen 10-325 mg Tab 1 Tab PO Q4H PRN Amlodipine (Amlodipine Besylate) 10 Mg Tab 10 Mg PO DAILY Prednisone 5 Mg Tab 5 Mg PO DAILY Albuterol Neb (Albuterol Sulfate) 2.5 Mg/3 Ml Neb 2.5 Mg NEB QID PRN Ventolin Hfa 18 GM Inh (Albuterol Sulfate) 90 Mcg/Act Aer 2-4 Puff INH Q6H PRN Clonidine (Clonidine HCl) 0.1 Mg Tab 0.1 Mg PO BID Diltiazem ER 24 HR 180 Mg Jaciel 360 Mg PO DAILY Combivent Respimat Inh (Ipratropium-Albuterol Inh) 20-100 Nursing Home/Act Aero 1 Puff INH QID Bupropion HCl ER 12 HR (Bupropion HCl) 150 Mg Tab 150 Mg PO BID Tamsulosin (Tamsulosin HCl) 0.4 Mg Cap 0.4 Mg PO HS Duoneb (Ipratropium-Albuterol Neb) 0.5-2.5 Mg/3 Ml Neb 3 Ml NEB Q6HR PRN Spiriva Handihaler (Tiotropium Inh) 18 Mcg Cap 18 Mcg INH DAILY DO NOT SWALLOW CAPSULES Rony-24 (Theophylline) 200 Mg Cap 200 Mg PO DAILY Hydrochlorothiazide 25 Mg Tab 25 Mg PO DAILY Clotrimazole Topical (Clotrimazole) 1% Cream 1 Applic TOPICAL BID Apply to affected area on skin for fungal infection Buspirone (Buspirone HCl) 10 Mg Tab 20 Mg PO TID Symbicort Inh (Budesonide/Formoterol Fumarate) 160-4.5 Mcg/Act Aero 2 Puff INH BID *Rinse mouth after each use* Baclofen 10 Mg Tab 10 Mg PO BID PRN Atorvastatin (Atorvastatin Calcium) 80 Mg Tab 40 Mg PO HS Soothe Xp/Xtra Protection (Artificial Tear Solution) 1 Jarret Jarret 1 Drop EACH EYE QID PRN Review of Systems Except as stated in HPI: all other systems reviewed are Neg Physical Exam Narrative GENERAL: Well-developed, overly nourished, in no acute distress, and non-ill appearing. SKIN: Focused skin assessment warm and dry. HEAD: Atraumatic. Normocephalic. EYES: Pupils equal and round. EOMI. No scleral icterus. No injection or drainage. ENT: No nasal bleeding or discharge. Mucous membranes pink and moist. NECK: Trachea midline. Supple. No nuclear rigidity. CARDIOVASCULAR: Regular rate and rhythm. No murmur appreciated. RESPIRATORY: No accessory muscle use. No respiratory distress. Decreased breath sounds throughout. Breath sounds equal bilaterally. No coughing on exam. Patient easily speaking in full sentences. MUSCULOSKELETAL: No obvious deformities. No clubbing. No cyanosis. No edema. Full range of motion. NEUROLOGICAL: Awake and alert. No obvious cranial nerve deficits. Motor grossly within normal limits. Normal speech. PSYCHIATRIC: Appropriate mood and affect; insight and judgment normal. Data Data Last Documented VS Vital Signs Date Time Temp Pulse Resp B/P (MAP) Pulse Ox O2 Delivery O2 Flow Rate FiO2 12/05/16 21:18 94 18 120/69 (86) 95 Nasal Cannula 2.00 12/05/16 18:31 98.9 Orders Orders Electrocardiogram (12/05/16 19:04) Basic Metabolic Panel (Bmp) (12/05/16 19:04) Complete Blood Count With Diff (12/05/16 19:04) Lactic Acid Sepsis Protocol (12/05/16 19:04) Blood Culture (12/05/16 19:04) Chest, Single Ap (12/05/16 19:04) Ecg Monitoring (12/05/16 19:04) Iv Access Insert/Monitor (12/05/16 19:04) Oximetry (12/05/16 19:04) Oxygen Administration (12/05/16 19:04) Sodium Chloride 0.9% Flush (Ns Flush) (12/05/16 19:15) Ceftriaxone Inj (Rocephin Inj) (12/05/16 19:15) Azithromycin Inj (Zithromax Inj) (12/05/16 19:15) Prothrombin Time / Inr (Pt) (12/05/16 19:07) Act Partial Throm Time (Ptt) (12/05/16 19:07) B-Type Natriuretic Peptide (12/05/16 19:09) Ckmb (Isoenzyme) Profile (12/05/16 19:20) Magnesium (Mg) (12/05/16 19:20) Troponin I (12/05/16 19:20) Potassium Chloride (Kcl) (12/05/16 20:30) Acetamin-Hydrocod 325-5 Mg ([place] 5-325 (12/05/16 20:45) Arterial Blood Gas (Abg) (12/05/16 20:38) Labs Laboratory Tests Test 12/05/16 19:37 12/05/16 20:50 White Blood Count 13.1 TH/MM3 Red Blood Count 4.38 MIL/MM3 Hemoglobin 13.4 GM/DL Hematocrit 38.9 % Mean Corpuscular Volume 88.8 FL Mean Corpuscular Hemoglobin 30.5 PG Mean Corpuscular Hemoglobin Concent 34.4 % Red Cell Distribution Width 14.6 % Platelet Count 342 TH/MM3 Mean Platelet Volume 6.3 FL Neutrophils (%) (Auto) 85.9 % Lymphocytes (%) (Auto) 6.9 % Monocytes (%) (Auto) 6.4 % Eosinophils (%) (Auto) 0.6 % Basophils (%) (Auto) 0.2 % Neutrophils # (Auto) 11.3 TH/MM3 Lymphocytes # (Auto) 0.9 TH/MM3 Monocytes # (Auto) 0.8 TH/MM3 Eosinophils # (Auto) 0.1 TH/MM3 Basophils # (Auto) 0.0 TH/MM3 CBC Comment DIFF FINAL Differential Comment Prothrombin Time 10.5 SEC Prothromb Time International Ratio 1.0 RATIO Activated Partial Thromboplast Time 24.3 SEC Blood Urea Nitrogen 13 MG/DL Creatinine 0.89 MG/DL Random Glucose 141 MG/DL Calcium Level 9.4 MG/DL Sodium Level 136 MEQ/L Potassium Level 3.2 MEQ/L Chloride Level 97 MEQ/L Carbon Dioxide Level 30.4 MEQ/L Anion Gap 9 MEQ/L Estimat Glomerular Filtration Rate 85 ML/MIN Lactic Acid Level 1.3 mmol/L Magnesium Level 1.9 MG/DL Total Creatine Kinase 64 U/L Troponin I LESS THAN 0.02 NG/ML B-Type Natriuretic Peptide LESS THAN 2 PG/ML Blood Gas Puncture Site LT RADIAL Blood Gas Patient Temperature 98.6 Blood Gas HCO3 27 mmol/L Blood Gas Base Excess 3.4 mmol/L Blood Gas Oxygen Saturation 92 % Arterial Blood pH 7.44 Arterial Blood Partial Pressure CO2 41 mmHg Arterial Blood Partial Pressure O2 71 mmHG Arterial Blood Oxygen Content 16.6 Vol % Arterial Blood Carboxyhemoglobin 1.3 % Arterial Blood Methemoglobin 0.8 % Blood Gas Hemoglobin 12.8 G/DL Oxygen Delivery Device NASAL CANNULA Blood Gas Liter Flow 2 L/M [facility] Medical Decision Making Medical Screen Exam Complete: Yes Emergency Medical Condition: Yes Interpretation(s) EKG reviewed by Dr. Cerda shows sinus tachycardia with incomplete right bundle-branch block with a ventricular rate of 106. No STEMI. Chest x-ray reviewed by the radiologist shows: Suspected scarring or atelectasis at the lung bases. Differential Diagnosis Pneumonia, sepsis, A. fib, acute coronary syndrome, COPD exacerbation, bronchitis, electrolyte abnormality, other Narrative Course Patient was seen and examined. Initial laboratory radiological studies ordered. IV was established and patient was placed on continuous cardiac monitoring. Patient was started on antibiotics for possible pneumonia. 2034 patient reassessed reports symptoms have improved since being in the emergency department. Discussed x-ray findings with patient. Patient is requesting a dose of his home pain medication for his chronic back pain. Denies any other complaints currently. Awaiting lab results. Slightly elevated white blood cell count is most likely secondary to current steroid use. The patient is moving air well and in no distress nor significant dyspnea, and oxygen saturation is within normal limits. There is no clinical evidence to suggest pneumonia at this time. Diagnosis, plan of care and management were discussed with the patient who agreed with plan and feels better and ready to go home. The patient was instructed to return if worsen, worsening difficulty breathing or wheezing, persistent fever, chest pain or as needed. Patient in no obvious distress upon re-evaluation. All pertinent laboratory/ Radiology result(s) discussed with patient. Discussed patient with Dr. Cerda prior discharge, who is in agreement with plan of care and disposition. Patient is comfortable with being discharged for outpatient follow -up. Any questions/concerns in reference to patient diagnosis/condition discussed and clarified prior to patient's discharge. Reinforced sheer importance of close follow up with patient's primary physician or primary care clinic. Instructed patient to return to ED immediately, if symptoms return/ worsen. Patient showed understanding of above instructions. Further instructions and recommendations were detailed in discharge paperwork. Patient ambulated without difficulty out of ED at discharge. Diagnosis Primary Impression: COPD (chronic obstructive pulmonary disease) Qualified Codes: J44.9 - Chronic obstructive pulmonary disease, unspecified Additional Impression: Hypokalemia Patient Instructions: COPD (Chronic Obstructive Pulmonary Disease) (ED), General Instructions, Hypokalemia (ED) Additional Instructions: Follow-up with your primary care physician next week as scheduled. Finish taking your steroids as prescribed. Continue using your nebulizer treatments at home every 4 hours as needed for shortness of breath. Return to the emergency department if symptoms get worse. Disposition: 01 DISCHARGE HOME Condition: Stable Rey Hernandez Dec 05, 2016 19:11
[2016-12-05] MEDS ORDERED: cefTRIAXone INJ 1,000 MG in SODIUM CHLORIDE 0.9% INJ 100 ML IV ONE (19:15)
[2016-12-05] MEDS ORDERED: AZITHROMYCIN INJ 500 MG in SODIUM CHLOR 0.9% 250 ML INJ 250 ML IV ONE (19:15)
[2016-12-05] MEDS ORDERED: SODIUM CHLORIDE 0.9% FLUSH 10 ML FLUSH IVF PRN (19:15)
[2016-12-05 19:25] VITALS: BP 141/79; PULSE 95; RESP 16; O2SAT 94
[2016-12-05 19:58] LABS: AUTOMATED NEUTROPHIL # 11.3 TH/MM3 (1.8-7.7); BASOPHIL % 0.2 % (0.0-2.0); EOSINOPHIL # 0.1 TH/MM3 (0-0.4); EOSINOPHIL % 0.6 % (0.0-4.0); HEMATOCRIT 38.9 % (39.0-51.0); HEMO FLAGS DIFF FINAL; LYMPH % 6.9 % (9.0-44.0); LYMPHOCYTE # 0.9 TH/MM3 (1.0-4.8); MEAN CELL VOLUME 88.8 FL (80.0-100.0); MEAN CORPUSCULAR HEMOGLOBIN 30.5 PG (27.0-34.0); MEAN CORPUSCULAR HGB CONC 34.4 % (32.0-36.0); MONO % 6.4 % (0.0-8.0); NEUT % 85.9 % (16.0-70.0); PLATELET COUNT 342 TH/MM3 (150-450); RED BLOOD COUNT 4.38 MIL/MM3 (4.50-5.90); RED CELL DISTRIBUTION WIDTH 14.6 % (11.6-17.2); WHITE BLOOD COUNT 13.1 TH/MM3 (4.0-11.0)
--- NOTE | 2016-12-05 20:04 | RADRPT ---
EXAM DATE/TIME: 12/05/2016 19:12 [facility] COMPARISON: CT PULMONARY ANGIOGRAM, June 18, 2016, 12:48. CHEST SINGLE AP, June 18, 2016, 10:54. CHEST SINGLE AP, September 22, 2016, 11:06. INDICATIONS : Shortness of breath. MEDICAL HISTORY : Chronic obstructive pulmonary disease. SURGICAL HISTORY : None. ENCOUNTER: Initial ACUITY: 1 day PAIN SCORE: 0/10 LOCATION: Bilateral chest FINDINGS: The heart size is normal. There is increased density at the bases which is likely related to atelecta sis or scarring. It was present previously. The mid and upper lungs are clear. No effusion is seen. CONCLUSION: Suspected scarring or atelectasis at the lung bases. Jayant Au MD on December 05, 2016 at 20:01 Board Certified Radiologist. This report was verified electronically.
[2016-12-05 20:08] LABS: APTT (PATIENT) 24.3 SEC (24.3-30.1); PROTHROMBIN TIME - PATIENT 10.5 SEC (9.8-11.6)
[2016-12-05] MEDS ORDERED: HYDR-3583 PO (20:16)
[2016-12-05 20:21] LABS: BICARBONATE 30.4 MEQ/L (21.0-32.0); MAGNESIUM 1.9 MG/DL (1.5-2.5); POTASSIUM 3.2 MEQ/L (3.5-5.1)
[2016-12-05] MEDS ORDERED: POTASSIUM CHLORIDE 20 MEQ CONTROLLED RELEASE TAB PO ONE (20:30)
[2016-12-05 20:37] LABS: CREATINE KINASE 64 U/L (39-308)
[2016-12-05] MEDS ORDERED: ACETAMINOPHEN/HYDROcodone 325 MG/5 MG TAB PO ONE (20:45)
[2016-12-05 21:03] LABS: BLOOD GAS BASE EXCESS 3.4 mmol/L (-2-2); BLOOD GAS CARBOXYHEMOGLOBIN 1.3 % (0-4); BLOOD GAS HCO3 27 mmol/L (22-26); BLOOD GAS METHEMOGLOBIN 0.8 % (0-2); BLOOD GAS O2 HGB SATURATION 92 % (90-100); BLOOD GAS OXYGEN CONTENT 16.6 Vol % (12.0-20.0); BLOOD GAS PCO2 41 mmHg (38-42); BLOOD GAS PO2 71 mmHG (61-120); BLOOD GAS TOTAL HGB 12.8 G/DL (12.0-16.0); CRITICAL VALUE NO; LITER FLOW 2 L/M; OXYGEN DEVICE NASAL CANNULA; TEMP CORR TO 98.6
[2016-12-05 21:04] LABS: DRAW SITE LT RADIAL; NUMBER OF ARTERIAL PUNCTURES 1; STAT YES; ULNAR PULSE PRESENT
[2016-12-05 21:18] VITALS: BP 120/69
--- NOTE | 2016-12-06 12:56 | EKG ---
Date Performed: 12/05/2016 Time Performed: 18:54:51 PTAGE: 66 years EKG: SINUS TACHYCARDIA INCOMPLETE RIGHT BUNDLE BRANCH BLOCK MODERATE ST DEPRESSION ABNORMAL ECG INTERPRETATION BASED ON A DEFAULT AGE OF 38 YEARS PREVIOUS TRACING : 06/18/2016 10.37 Compared to previous tracing, patient is now in sinus tachycardia. DOCTOR: Emmanuel Kelly Interpretating Date/Time 12/06/2016 12:56:11
== END 2016-12-05 21:36 | disposition home or self-care (01) ==
LOC: NEPE 18:28
DX: J44.9 Chronic obstructive pulmonary disease, unspecified (principal); E87.6 Hypokalemia; D72.829 Elevated white blood cell count, unspecified; R94.31 Abnormal electrocardiogram [ECG] [EKG]; E11.9 Type 2 diabetes mellitus without complications; I10 Essential (primary) hypertension; E78.00 Pure hypercholesterolemia, unspecified; Z87.09 Personal history of other diseases of the respiratory system; Z86.79 Personal history of other diseases of the circulatory system; Z86.59 Personal history of other mental and behavioral disorders; Z85.828 Personal history of other malignant neoplasm of skin; Z87.19 Personal history of other diseases of the digestive system; Z87.448 Personal history of other diseases of urinary system; Z87.39 Personal history of other diseases of the musculoskeletal system and connective tissue; Z86.69 Personal history of other diseases of the nervous system and sense organs
CPT/HCPCS: 36600; 71010; 80048; 82550; 82805; 83605; 83735; 83880; 84484; 85025; 85610; 85730; 87040; 93005; 96365; 96367; 99285; J0456; J0696; J7050

== ENCOUNTER 2016-12-13 12:43 | Emergency (ER) | payer OTHER ==
[~2016-12-13] VITALS: Ht 182.9 cm; Wt 114.0 kg
[~2016-12-13 12:43] MED LIST changes: +HYDR-3583 PO
[2016-12-13 13:30] VITALS: BP 153/81; PULSE 102; RESP 18; TEMP 98.2; O2SAT 90
[2016-12-13] MEDS ORDERED: methylPREDNISolone SOD SUCC 125 MG/2 ML VIAL IV PUSH ONE (14:00)
[2016-12-13] MEDS ORDERED: SODIUM CHLORIDE 0.9% FLUSH 10 ML FLUSH IVF PRN (14:00)
[2016-12-13] MEDS: RESP: ALBUTEROL 2.5 MG/IPRATROPIUM 0.5 MG NEB (SCH) INH (14:12)
[2016-12-13 14:15] VITALS: O2SAT 93
[2016-12-13] MEDS ORDERED: POLY17PO3 PO (14:27)
[2016-12-13 14:28] LABS: AUTOMATED NEUTROPHIL # 10.5 TH/MM3 (1.8-7.7); BASOPHIL % 0.2 % (0.0-2.0); EOSINOPHIL # 0.1 TH/MM3 (0-0.4); EOSINOPHIL % 0.4 % (0.0-4.0); HEMATOCRIT 34.2 % (39.0-51.0); HEMO FLAGS DIFF FINAL; LYMPH % 8.2 % (9.0-44.0); MEAN CELL VOLUME 88.2 FL (80.0-100.0); MEAN CORPUSCULAR HEMOGLOBIN 30.5 PG (27.0-34.0); MEAN CORPUSCULAR HGB CONC 34.5 % (32.0-36.0); MONO % 7.2 % (0.0-8.0); PLATELET COUNT 354 TH/MM3 (150-450); RED BLOOD COUNT 3.87 MIL/MM3 (4.50-5.90); RED CELL DISTRIBUTION WIDTH 14.9 % (11.6-17.2); WHITE BLOOD COUNT 12.6 TH/MM3 (4.0-11.0)
[2016-12-13 14:48] LABS: ANION GAP 6 MEQ/L (5-15)
[2016-12-13 14:51] LABS: ALKALINE PHOSPHATASE 81 U/L (45-117); ALT (GPT) 26 U/L (12-78); AST (GOT) 15 U/L (15-37); BICARBONATE 31.9 MEQ/L (21.0-32.0); BLOOD UREA NITROGEN 10 MG/DL (7-18); CHLORIDE 97 MEQ/L (98-107); GLOMERULAR FILTRATION RATE 102 ML/MIN (>89); SODIUM (NA) 135 MEQ/L (136-145); TOTAL BILIRUBIN ADULT 0.6 MG/DL (0.2-1.0)
[2016-12-13 14:52] LABS: POTASSIUM 2.7 MEQ/L (3.5-5.1)
[2016-12-13] MEDS ORDERED: POTASSIUM CHLORIDE 20 MEQ CONTROLLED RELEASE TAB PO ONE (15:30)
--- NOTE | 2016-12-13 15:34 | RADRPT ---
EXAM DATE/TIME: 12/13/2016 14:33 [facility] COMPARISON: CHEST SINGLE AP, December 05, 2016, 19:12. INDICATIONS : Short of breath. MEDICAL HISTORY : Chronic obstructive pulmonary disease. SURGICAL HISTORY : None. ENCOUNTER: Initial ACUITY: 1 day PAIN SCORE: 0/10 LOCATION: Bilateral chest FINDINGS: The cardiac silhouette is enlarged in transverse diameter. There is subsegmental atelectasis in the both bases. No pleural effusions are identified. There has been no significant change when compared t o the prior exam. CONCLUSION: 1. Subsegmental atelectasis both bases. There has been no significant change when compared to the eyal or exam. Sesar Crowder MD on December 13, 2016 at 15:20 Board Certified Radiologist. This report was verified electronically.
--- NOTE | 2016-12-13 15:38 | RADRPT ---
EXAM DATE/TIME: 12/13/2016 14:49 [facility] COMPARISON: No previous studies available for comparison. INDICATIONS : Bilateral leg swelling. MEDICAL HISTORY : Hypercholesterolemia. Emphysema. Benign prostatic hyperplasia, (BPH) Chest pain. HTN. Dizziness. Afib . COPD. Asthma. Dyspnea. GERD. Diabetes. Depression. Anxiety. Substance use. History of MRSA. SURGICAL HISTORY : ORIF left ankle with pins. Left thumb fracture repair. Bone placed back in finger. ENCOUNTER: Initial ACUITY: 1 day PAIN SCORE: 5/10 LOCATION: Bilateral leg. TECHNIQUE: Venous ultrasound of the left and right leg was performed from the inguinal ligament to the proximal calf. Real-time, color Doppler and spectral tracing, compression and augmentation techniques were us ed. FINDINGS: RIGHT LEG: There is normal compressibility of the deep venous system from the inguinal region to the proximal ca lf. No echogenic clot is seen in the lumen of the common femoral, femoral, popliteal, and posterior tibial veins. There is a normal response of the venous system to proximal and distal augmentation an d respiration. LEFT LEG: There is normal compressibility of the deep venous system from the inguinal region to the proximal ca lf. No echogenic clot is seen in the lumen of the common femoral, femoral, popliteal, and posterior tibial veins. There is a normal response of the venous system to proximal and distal augmentation an d respiration. CONCLUSION: 1. No evidence of deep venous thrombosis. Sesar Crowder MD on December 13, 2016 at 15:37 Board Certified Radiologist. This report was verified electronically.
--- NOTE | 2016-12-13 16:43 | PD ---
HPI Chief Complaint: Respiratory Distress Time Seen by Provider: 13:32 Travel History International Travel<30 days: No Contact w/Intl Traveler<30days: No Traveled to known affect area: No History of Present Illness HPI This is a 66-year-old male who presents to the emergency department with a history of COPD with increasing shortness of breath this been going on for 1 week, constant, severe, associated with a productive cough with clear sputum. He denies any fevers or chills. He denies any chest pain. He has been taking his bronchodilators home but it's not been helping. So has noticed that he's had increasing lower extremity swelling over the past several days. PFSH Past Medical History Asthma: Yes Atrial Fibrillation: Yes Anxiety: Yes Depression: Yes Heart Rhythm Problems: Yes (a fib) Cancer: Yes (MELANOMA) Cardiovascular Problems: Yes High Cholesterol: Yes Chest Pain: Yes Congestive Heart Failure: No COPD: Yes Diabetes: Yes Diminished Hearing: No Endocrine: Yes Gastrointestinal Disorders: Yes (REFLUX) GERD: Yes Genitourinary: Yes Hypertension: Yes Immune Disorder: No Kidney Stones: No Musculoskeletal: Yes Neurologic: Yes Psychiatric: Yes Reproductive: No Respiratory: Yes (COPD) Integumentary: Yes Immunizations Current: Yes Sleep Apnea: No Thyroid Disease: No PNEUMOCCOCAL Vaccine (Year): 2010 Past Surgical History Body Medical Devices: PLATES AND SCREWS TO L ANKLE Neurologic Surgery: No Other Surgery: Yes (PIN IN LEFT ANKLE, BONE PLACED BACK IN FINGER) Social History Alcohol Use: Yes (beer occ) Tobacco Use: No Substance Use: Yes ( MARAJ[place]NA ) Allergies-Medications (Allergen,Severity, Reaction): Coded Allergies: levofloxacin (Unverified Adverse Reaction, Mild, Confusion, 12/05/16) irritable, can't focus *MDRO Multi-Drug Resistant Organism (Verified Adverse Reaction, Unknown, 12/05/16) 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 MRSA PCR Screens NEGATIVE - 06/19/16 & 06/21/16 CLEARED PER INFECTION CONTROL PROTOCOL Reported Meds & Prescriptions Reported Meds & Active Scripts Active Reported Miralax (Polyethylene Glycol 3350) 17 Gram Powd.pack PO DAILY Dissolve 2 tablespoonsful in 4-8 ounces of water,juice,soda or other beverage Hydrocodone-Acetaminophen 10-325 mg Tab 1 Tab PO Q4H Prednisone 5 Mg Tab 5 Mg PO DAILY Albuterol Neb (Albuterol Sulfate) 2.5 Mg/3 Ml Neb 2.5 Mg NEB QID PRN Ventolin Hfa 18 GM Inh (Albuterol Sulfate) 90 Mcg/Act Aer 2 Puff INH Q6H PRN Clonidine (Clonidine HCl) 0.1 Mg Tab 0.1 Mg PO BID Diltiazem ER 24 HR 180 Mg Jaciel 360 Mg PO DAILY Combivent Respimat Inh (Ipratropium-Albuterol Inh) 20-100 Skilled Nursing/Act Aero 1 Puff INH QID Bupropion HCl ER 12 HR (Bupropion HCl) 150 Mg Tab 150 Mg PO BID Tamsulosin (Tamsulosin HCl) 0.4 Mg Cap 0.4 Mg PO DAILY Duoneb (Ipratropium-Albuterol Neb) 0.5-2.5 Mg/3 Ml Neb 3 Ml NEB Q6HR PRN Spiriva Handihaler (Tiotropium Inh) 18 Mcg Cap 18 Mcg INH DAILY DO NOT SWALLOW CAPSULES Rony-24 (Theophylline) 200 Mg Cap 200 Mg PO DAILY Hydrochlorothiazide 25 Mg Tab 25 Mg PO DAILY Clotrimazole Topical (Clotrimazole) 1% Cream 1 Applic TOPICAL BID Apply to affected area on skin for fungal infection Buspirone (Buspirone HCl) 10 Mg Tab 20 Mg PO TID Symbicort Inh (Budesonide/Formoterol Fumarate) 160-4.5 Mcg/Act Aero 2 Puff INH BID *Rinse mouth after each use* Baclofen 10 Mg Tab 10 Mg PO BID PRN Atorvastatin (Atorvastatin Calcium) 80 Mg Tab 40 Mg PO HS Soothe Xp/Xtra Protection (Artificial Tear Solution) 1 Jarret Jarret 1 Drop EACH EYE QID PRN Review of Systems Except as stated in HPI: all other systems reviewed are Neg Physical Exam Narrative GENERAL:Well appearing, no acute distress SKIN: Focused skin assessment warm and dry. HEAD: Atraumatic. Normocephalic. EYES: Pupils equal and round. No injection or drainage. ENT: Moist mucous membranes NECK: Trachea midline. CARDIOVASCULAR: Regular rate and rhythm. No murmur appreciated. 2+ bilateral lower extremity pitting edema RESPIRATORY: Diffuse wheezing, tachypnea, no accessory muscle use GASTROINTESTINAL: Abdomen soft, non-tender, nondistended. MUSCULOSKELETAL: No obvious deformities. NEUROLOGICAL: Awake and alert. No obvious cranial nerve deficits. Moving all extremities. PSYCHIATRIC: Appropriate mood and affect; insight and judgment normal. Data Data Last Documented VS Vital Signs Date Time Temp Pulse Resp B/P (MAP) Pulse Ox O2 Delivery O2 Flow Rate FiO2 12/13/16 14:21 90 Nasal Cannula 3.00 12/13/16 13:37 103 18 12/13/16 13:30 98.2 153/81 (105) Orders Orders Electrocardiogram (12/13/16 ) Complete Blood Count With Diff (12/13/16 13:54) Comprehensive Metabolic Panel (12/13/16 13:54) B-Type Natriuretic Peptide (12/13/16 13:54) D-Dimer (12/13/16 13:54) Troponin I (12/13/16 13:54) Iv Access Insert/Monitor (12/13/16 13:54) Ecg Monitoring (12/13/16 13:54) Oximetry (12/13/16 13:54) Oxygen Administration (12/13/16 13:54) Chest, Single Ap (12/13/16 13:54) Sodium Chloride 0.9% Flush (Ns Flush) (12/13/16 14:00) Methylprednisolone So Succ Inj (Solumedr (12/13/16 14:00) Albuterol-Ipratropium Neb (Duoneb Neb) (12/13/16 14:00) Us Leg Venous Doppler Bilat (12/13/16 ) Potassium Chloride (Kcl) (12/13/16 15:30) Labs Laboratory Tests Test 12/13/16 14:19 White Blood Count 12.6 TH/MM3 Red Blood Count 3.87 MIL/MM3 Hemoglobin 11.8 GM/DL Hematocrit 34.2 % Mean Corpuscular Volume 88.2 FL Mean Corpuscular Hemoglobin 30.5 PG Mean Corpuscular Hemoglobin Concent 34.5 % Red Cell Distribution Width 14.9 % Platelet Count 354 TH/MM3 Mean Platelet Volume 6.7 FL Neutrophils (%) (Auto) 84.0 % Lymphocytes (%) (Auto) 8.2 % Monocytes (%) (Auto) 7.2 % Eosinophils (%) (Auto) 0.4 % Basophils (%) (Auto) 0.2 % Neutrophils # (Auto) 10.5 TH/MM3 Lymphocytes # (Auto) 1.0 TH/MM3 Monocytes # (Auto) 0.9 TH/MM3 Eosinophils # (Auto) 0.1 TH/MM3 Basophils # (Auto) 0.0 TH/MM3 CBC Comment DIFF FINAL Differential Comment D-Dimer Quantitative (PE/DVT) 0.33 MG/L FEU Blood Urea Nitrogen 10 MG/DL Creatinine 0.76 MG/DL Random Glucose 114 MG/DL Total Protein 6.9 GM/DL Albumin 3.6 GM/DL Calcium Level 8.8 MG/DL Alkaline Phosphatase 81 U/L Aspartate Amino Transf (AST/SGOT) 15 U/L Alanine Aminotransferase (ALT/SGPT) 26 U/L Total Bilirubin 0.6 MG/DL Sodium Level 135 MEQ/L Potassium Level 2.7 MEQ/L Chloride Level 97 MEQ/L Carbon Dioxide Level 31.9 MEQ/L Anion Gap 6 MEQ/L Estimat Glomerular Filtration Rate 102 ML/MIN Troponin I LESS THAN 0.02 NG/ML B-Type Natriuretic Peptide 9 PG/ML MDM Medical Decision Making Medical Screen Exam Complete: Yes Emergency Medical Condition: Yes Interpretation(s) Last 24 hours Impressions Chest X-Ray 12/13/16 1354 Signed Impressions: Service Date/Time: Tuesday, December 13, 2016 14:33 - CONCLUSION: 1. Subsegmental atelectasis both bases. There has been no significant change when compared to the prior exam. Sesar Crowder MD Lower Extremity Ultrasound 12/13/16 0000 Signed Impressions: Service Date/Time: Tuesday, December 13, 2016 14:49 - CONCLUSION: 1. No evidence of deep venous thrombosis. Sesar Crowder MD Mild leukocytosis Mild anemia Hypokalemia BNP is 9 D dimer is 0.33 Differential Diagnosis COPD exacerbation, pneumonia, pulmonary embolism, congestive heart failure, DVT Narrative Course This is a 66-year-old male who presents to the emergency department with a history of COPD with increasing wheezing and shortness of breath. Labs are obtained which were reassuring including a normal BNP and normal d-dimer. Chest x-ray is reassuring with no evidence of pneumonia. He feels improved after serial bronchodilator treatments and prednisone. I think he needs to go up on his prednisone. He has home oxygen. I advised him to use 3 or 4 L at home if he needs it. I think he can follow-up with his pulmonary doctor. Diagnosis Primary Impression: COPD with exacerbation Patient Instructions: General Instructions Additional Instructions: If you develop severe shortness of breath, chest pain, or difficulty breathing return to the emergency department. Use albuterol every 4 hours for the next 2 days. Then use as needed for wheezing. Complete your course of steroids. Complete your course of antibiotics. Follow up with your primary care physician in 2-3 days if your symptoms have not improved. Med/Other Pt SpecificInfo: Prescription(s) given Scripts Azithromycin (Azithromycin) 250 Mg Tab 250 MG PO DIRECTED for Infection, #6 TAB 0 Refills Take 2 tabs (500 mg) on day 1 then 1 tab daily x 4 days. Prov: Shanae Rodriguez MD 12/13/16 Prednisone (Prednisone) 20 Mg Tab 40 MG PO DAILY for 5 Days, #10 TAB 0 Refills Prov: Shanae Rodriguez MD 12/13/16 Disposition: 01 DISCHARGE HOME Condition: Stable Shanae Rodriguez MD Dec 13, 2016 16:43
[2016-12-13] MEDS ORDERED: PRED20 PO (17:00)
[2016-12-13] MEDS ORDERED: AZIT250T3 PO (17:00)
--- NOTE | 2016-12-13 21:25 | EKG ---
Date Performed: 12/13/2016 Time Performed: 13:42:36 PTAGE: 66 years EKG: SINUS TACHYCARDIA WITH OCCASIONAL VENTRICULAR PREMATURE COMPLEXES INCOMPLETE RIGHT BUNDLE B RANCH BLOCK MINIMAL ST DEPRESSION ABNORMAL RHYTHM ECG Compared to prior electrocardiogram, Premature ventricular contractions are now present PREVIOUS TRACING : 12/05/2016 18.54 DOCTOR: Nguyễn Moon Interpretating Date/Time 12/13/2016 21:25:13
== END 2016-12-13 17:54 | disposition home or self-care (01) ==
LOC: NEPE 12:43
DX: J44.1 Chronic obstructive pulmonary disease with (acute) exacerbation (principal); R06.2 Wheezing; R60.0 Localized edema; R94.31 Abnormal electrocardiogram [ECG] [EKG]; E11.9 Type 2 diabetes mellitus without complications; I10 Essential (primary) hypertension; E78.00 Pure hypercholesterolemia, unspecified; Z87.09 Personal history of other diseases of the respiratory system; Z86.79 Personal history of other diseases of the circulatory system; Z86.59 Personal history of other mental and behavioral disorders; Z85.828 Personal history of other malignant neoplasm of skin; Z87.19 Personal history of other diseases of the digestive system; Z87.448 Personal history of other diseases of urinary system; Z87.39 Personal history of other diseases of the musculoskeletal system and connective tissue; Z86.69 Personal history of other diseases of the nervous system and sense organs; Z87.2 Personal history of diseases of the skin and subcutaneous tissue
CPT/HCPCS: 71010; 80053; 83880; 84484; 85025; 85379; 93005; 93970; 94640; 94664; 96374; 99285; J2930

== ENCOUNTER 2017-02-15 20:41 | Emergency (ER) | payer OTHER ==
[~2017-02-15] VITALS: Ht 182.9 cm; Wt 115.0 kg
[~2017-02-15 20:41] MED LIST changes: -AMLO10TA2 PO; -ATOR1TAB18 PO; +ATOR80TA45 PO; +AZIT250T3 PO; -CEPH-460 PO; +POLY17PO3 PO; +PRED20 PO
[2017-02-15] MEDS ORDERED: RESP: ALBUTEROL 2.5 MG/IPRATROPIUM 0.5 MG NEB (PRN) ONE (20:52)
[2017-02-15 20:55] VITALS: BP 135/78; PULSE 108; RESP 24; TEMP 98.9; O2SAT 94; O2SAT 95
--- NOTE | 2017-02-15 20:59 | PD ---
HPI Chief Complaint: SOB Time Seen by Provider: 20:50 Travel History International Travel<30 days: No Contact w/Intl Traveler<30days: No Traveled to known affect area: No History of Present Illness HPI PATIENT HAS BEEN HAVING SOB THAT IS WORSENING OVER LAST 2 DAYS...ASSOC WITH DRY COUGH, PALPITATIONS. NO ALLEVIATING/AGGRAVATING FACTORS...DENIES ASSOC FACTORS SUCH FEVER/CP/LI/ABDPAIN/BACKPAIN/N/V/D/...EMS PICKED UP FROM HOME. EMS FOUND PATIENT IN AFIB WITH RVR 130-160'S AND GAVE CARDIZEM WHICH BROUGHT HR DOWN TO LOW 100'S ALL:[facility] PCP [facility] SIG PMHX:COPD OXYGEN DEPENDANT 2L NC, AFIB, HTN,HYPERCHOL PFSH Past Medical History Asthma: Yes Atrial Fibrillation: Yes Anxiety: Yes Depression: Yes Heart Rhythm Problems: Yes (a fib) Cancer: Yes (MELANOMA) Cardiovascular Problems: Yes High Cholesterol: Yes Chest Pain: Yes Congestive Heart Failure: No COPD: Yes Diabetes: Yes Diminished Hearing: No Endocrine: Yes Gastrointestinal Disorders: Yes (REFLUX) GERD: Yes Genitourinary: Yes Hypertension: Yes Immune Disorder: No Kidney Stones: No Musculoskeletal: Yes Neurologic: Yes Psychiatric: Yes Reproductive: No Respiratory: Yes (COPD) Integumentary: Yes Immunizations Current: Yes Sleep Apnea: No Thyroid Disease: No PNEUMOCCOCAL Vaccine (Year): 2010 Past Surgical History Body Medical Devices: PLATES AND SCREWS TO L ANKLE Neurologic Surgery: No Other Surgery: Yes (PIN IN LEFT ANKLE, BONE PLACED BACK IN FINGER) Social History Alcohol Use: Yes (beer occ) Tobacco Use: No Substance Use: Yes ( MARAJUANA ) Allergies-Medications (Allergen,Severity, Reaction): Coded Allergies: levofloxacin (Unverified Adverse Reaction, Mild, Confusion, 02/15/17) irritable, can't focus *MDRO Multi-Drug Resistant Organism (Verified Adverse Reaction, Unknown, 02/15/17) 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 MRSA PCR Screens NEGATIVE - 06/19/16 & 06/21/16 CLEARED PER INFECTION CONTROL PROTOCOL Reported Meds & Prescriptions Reported Meds & Active Scripts Active Reported Miralax (Polyethylene Glycol 3350) 17 Gram Powd.pack PO DAILY Dissolve 2 tablespoonsful in 4-8 ounces of water,juice,soda or other beverage Prednisone 5 Mg Tab 5 Mg PO DAILY Albuterol Neb (Albuterol Sulfate) 2.5 Mg/3 Ml Neb 2.5 Mg NEB QID PRN Ventolin Hfa 18 GM Inh (Albuterol Sulfate) 90 Mcg/Act Aer 2 Puff INH Q6H PRN Diltiazem ER 24 HR 180 Mg Jaciel 360 Mg PO DAILY Combivent Respimat Inh (Ipratropium-Albuterol Inh) 20-100 Snf/Act Aero 1 Puff INH QID Bupropion HCl ER 12 HR (Bupropion HCl) 150 Mg Tab 150 Mg PO BID Tamsulosin (Tamsulosin HCl) 0.4 Mg Cap 0.4 Mg PO DAILY Duoneb (Ipratropium-Albuterol Neb) 0.5-2.5 Mg/3 Ml Neb 3 Ml NEB Q6HR PRN Spiriva Handihaler (Tiotropium Inh) 18 Mcg Cap 18 Mcg INH DAILY DO NOT SWALLOW CAPSULES Rony-24 (Theophylline) 200 Mg Cap 200 Mg PO DAILY Hydrochlorothiazide 25 Mg Tab 25 Mg PO DAILY Clotrimazole Topical (Clotrimazole) 1% Cream 1 Applic TOPICAL BID Apply to affected area on skin for fungal infection Buspirone (Buspirone HCl) 10 Mg Tab 20 Mg PO TID Symbicort Inh (Budesonide/Formoterol Fumarate) 160-4.5 Mcg/Act Aero 2 Puff INH BID *Rinse mouth after each use* Baclofen 10 Mg Tab 10 Mg PO BID PRN Atorvastatin (Atorvastatin Calcium) 80 Mg Tab 40 Mg PO HS Soothe Xp/Xtra Protection (Artificial Tear Solution) 1 Jarret Jarret 1 Drop EACH EYE QID PRN Review of Systems General / Constitutional: No: Fever Eyes: No: Visual changes HENT: No: Headaches Cardiovascular: Positive: Palpitations Respiratory: Positive: Shortness of Breath Gastrointestinal: No: Abdominal Pain Genitourinary: No: Dysuria Musculoskeletal: No: Pain Skin: No Rash Neurologic: No: Weakness Psychiatric: No: Depression Endocrine: No: Polydipsia Hematologic/Lymphatic: No: Easy Bruising Physical Exam Narrative GENERAL: SKIN: Warm and dry. HEAD: Atraumatic. Normocephalic. EYES: Pupils equal and round. No scleral icterus. No injection or drainage. ENT: No nasal bleeding or discharge. Mucous membranes pink and moist. NECK: Trachea midline. No JVD. CARDIOVASCULAR: IRREGULARLY IRREGULAR RHYTHM AND MILD TACHY CARDIC RATE. RESPIRATORY: No accessory muscle use. DECREASED TV, WHEEZING FAINT AND RONCHI THROUGHOUT LUNG STAFFORD. GASTROINTESTINAL: Abdomen soft, non-tender, nondistended. Hepatic and splenic margins not palpable. MUSCULOSKELETAL: Extremities without clubbing, cyanosis, or edema. No obvious deformities. NEUROLOGICAL: Awake and alert. No obvious cranial nerve deficits. Motor grossly within normal limits. Five out of 5 muscle strength in the arms and legs. Normal speech. PSYCHIATRIC: Appropriate mood and affect; insight and judgment normal. Data Data Last Documented VS Vital Signs Date Time Temp Pulse Resp B/P (MAP) Pulse Ox O2 Delivery O2 Flow Rate FiO2 02/15/17 21:04 94 Nasal Cannula 2.00 02/15/17 20:58 108 24 02/15/17 20:55 98.9 135/78 (97) Orders Orders Complete Blood Count With Diff (02/15/17 20:50) Comprehensive Metabolic Panel (02/15/17 20:50) B-Type Natriuretic Peptide (02/15/17 20:50) Act Partial Throm Time (Ptt) (02/15/17 20:50) Prothrombin Time / Inr (Pt) (02/15/17 20:50) Ckmb (Isoenzyme) Profile (02/15/17 20:50) Troponin I (02/15/17 20:50) Influenzae A/B Antigen (02/15/17 20:50) Iv Access Insert/Monitor (02/15/17 20:50) Electrocardiogram (02/15/17 20:50) Ecg Monitoring (02/15/17 20:50) Oximetry (02/15/17 20:50) Oxygen Administration (02/15/17 20:50) Chest, Single Ap (02/15/17 20:50) Sodium Chloride 0.9% Flush (Ns Flush) (02/15/17 21:00) Methylprednisolone So Succ Inj (Solumedr (02/15/17 21:00) Albuterol Neb (Albuterol Neb) (02/15/17 21:00) Albuterol-Ipratropium Neb (Duoneb Neb) (02/15/17 20:52) Magnesium Sulfate 1 Gm Premix (Magnesium (02/15/17 21:15) Potassium Chloride (Kcl) (02/15/17 23:30) Labs Laboratory Tests Test 02/15/17 21:10 White Blood Count 11.4 TH/MM3 Red Blood Count 4.17 MIL/MM3 Hemoglobin 12.6 GM/DL Hematocrit 37.0 % Mean Corpuscular Volume 88.6 FL Mean Corpuscular Hemoglobin 30.3 PG Mean Corpuscular Hemoglobin Concent 34.2 % Red Cell Distribution Width 15.3 % Platelet Count 346 TH/MM3 Mean Platelet Volume 6.2 FL Neutrophils (%) (Auto) 83.7 % Lymphocytes (%) (Auto) 7.0 % Monocytes (%) (Auto) 9.1 % Eosinophils (%) (Auto) 0.1 % Basophils (%) (Auto) 0.1 % Neutrophils # (Auto) 9.5 TH/MM3 Lymphocytes # (Auto) 0.8 TH/MM3 Monocytes # (Auto) 1.0 TH/MM3 Eosinophils # (Auto) 0.0 TH/MM3 Basophils # (Auto) 0.0 TH/MM3 CBC Comment AUTO DIFF Differential Total Cells Counted 100 Neutrophils % (Manual) 76 % Band Neutrophils % 1 % Lymphocytes % 15 % Monocytes % 2 % Neutrophils # (Manual) 9.5 TH/MM3 Metamyelocytes 1 % Myelocytes 4 % Promyelocytes 1 % Differential Comment FINAL DIFF MANUAL Platelet Estimate NORMAL Platelet Morphology Comment NORMAL Basophilic Stippling FAINT Acanthocytes OCC Prothrombin Time 10.3 SEC Prothromb Time International Ratio 1.0 RATIO Activated Partial Thromboplast Time 23.0 SEC Blood Urea Nitrogen 12 MG/DL Creatinine 0.82 MG/DL Random Glucose 104 MG/DL Total Protein 6.6 GM/DL Albumin 3.2 GM/DL Calcium Level 8.5 MG/DL Alkaline Phosphatase 73 U/L Aspartate Amino Transf (AST/SGOT) 12 U/L Alanine Aminotransferase (ALT/SGPT) 24 U/L Total Bilirubin 0.4 MG/DL Sodium Level 136 MEQ/L Potassium Level 2.9 MEQ/L Chloride Level 95 MEQ/L Carbon Dioxide Level 33.4 MEQ/L Anion Gap 8 MEQ/L Estimat Glomerular Filtration Rate 93 ML/MIN Total Creatine Kinase 62 U/L Troponin I LESS THAN 0.02 NG/ML B-Type Natriuretic Peptide 11 PG/ML MDM Medical Decision Making Medical Screen Exam Complete: Yes Emergency Medical Condition: Yes Medical Record Reviewed: Yes Interpretation(s) BASELINE MOTION ARTIFACT ON INITIAL EKG WHICH APPEARED TO HAVE FLUTTER WAVES, BUT NO STEMI PATTERN...REPEAT EKG WAS NOT MUCH BETTER....HOWEVER RHYTHM STRIP SHOWS AFIB WITHOUT RVR RHYTHM AFTER PATIENT RECEIVED TREATMENTS Differential Diagnosis PNA V PULM EDEMA V COPD EXACERBATION V STEMI Narrative Course PATIENT RESPIRATIONS BECAME MORE NORMAL AND LESS TACHYPNEIC, PULSE OX 98 ON 2L NC (WHICH IS PATIENTS BASELINE SUPPLEMENTAL OXYGEN), PATIENT BNP WNL, Diagnosis Primary Impression: MILD COD EXACERBATION Additional Impression: HYPOKALEMIA Admitting Information Admitting Physician Requests: Observation Patient Instructions: COPD (Chronic Obstructive Pulmonary Disease) (ED), General Instructions, Hypokalemia (ED) Scripts Doxycycline Hyclate (Doxycycline Hyclate) 100 Mg Cap 100 MG PO BID for Infection, #10 CAP 0 Refills Prov: Zack Johnson MD 02/15/17 Methylprednisolone Dosepak (Medrol Dosepak) 4 Mg Dspk 4 MG PO DIRECTED, #1 DSPK 0 Refills Per Pharmacist direction Prov: Zack Johnson MD 02/15/17 Potassium Chloride ER (Potassium Chloride ER) 20 Meq Tab 20 MEQ PO BID for Electrolyte Replacement, #14 TAB 0 Refills Prov: Zack Johnson MD 02/15/17 Disposition: 01 DISCHARGE HOME Condition: Stable Zack Johnson MD Feb 15, 2017 20:59
[2017-02-15] MEDS ORDERED: RESP: ALBUTEROL 2.5 MG/3 ML NEB (SCH) INH ONE (21:00)
[2017-02-15] MEDS ORDERED: SODIUM CHLORIDE 0.9% FLUSH 10 ML FLUSH IVF PRN (21:00)
[2017-02-15] MEDS ORDERED: methylPREDNISolone SOD SUCC 125 MG/2 ML VIAL IV PUSH ONE (21:00)
[2017-02-15] MEDS ORDERED: MAGNESIUM SULFATE 1 GM PREMIX 100 ML IV ONE (21:15)
--- NOTE | 2017-02-15 21:22 | RADRPT ---
EXAM DATE/TIME: 02/15/2017 21:13 [facility] COMPARISON: No previous studies available for comparison. INDICATIONS : Short of breath. Cough. MEDICAL HISTORY : None. SURGICAL HISTORY : None. ENCOUNTER: Initial ACUITY: 1 day PAIN SCORE: 6/10 LOCATION: Bilateral chest FINDINGS: A single view of the chest demonstrates minimal basilar atelectasis. No effusion. No pneumothorax. He art size within normal limits. Mildly tortuous aorta. CONCLUSION: 1. Minimal basilar atelectasis or scarring. No effusion or pneumothorax. Wilbert Zamora MD on February 15, 2017 at 21:19 Board Certified Radiologist. This report was verified electronically.
[2017-02-15 21:45] LABS: AUTOMATED NEUTROPHIL # 9.5 TH/MM3 (1.8-7.7); BASOPHIL % 0.1 % (0.0-2.0); EOSINOPHIL % 0.1 % (0.0-4.0); LYMPHOCYTE # 0.8 TH/MM3 (1.0-4.8); MEAN CELL VOLUME 88.6 FL (80.0-100.0); MEAN CORPUSCULAR HEMOGLOBIN 30.3 PG (27.0-34.0); MEAN CORPUSCULAR HGB CONC 34.2 % (32.0-36.0); MONO % 9.1 % (0.0-8.0); NEUT % 83.7 % (16.0-70.0); PLATELET COUNT 346 TH/MM3 (150-450); RED BLOOD COUNT 4.17 MIL/MM3 (4.50-5.90); RED CELL DISTRIBUTION WIDTH 15.3 % (11.6-17.2); WHITE BLOOD COUNT 11.4 TH/MM3 (4.0-11.0)
[2017-02-15 21:57] LABS: PROTHROMBIN TIME - PATIENT 10.3 SEC (9.8-11.6)
[2017-02-15 21:58] LABS: HEMO FLAGS AUTO DIFF
[2017-02-15 22:17] LABS: ALKALINE PHOSPHATASE 73 U/L (45-117); ALT (GPT) 24 U/L (12-78); ANION GAP 8 MEQ/L (5-15); AST (GOT) 12 U/L (15-37); BICARBONATE 33.4 MEQ/L (21.0-32.0); BLOOD UREA NITROGEN 12 MG/DL (7-18); CHLORIDE 95 MEQ/L (98-107); GLOMERULAR FILTRATION RATE 93 ML/MIN (>89); SODIUM (NA) 136 MEQ/L (136-145); TOTAL BILIRUBIN ADULT 0.4 MG/DL (0.2-1.0)
[2017-02-15 22:27] LABS: BANDS 1 % (0-6); METAMYELOCYTES 1 % (0-1); MYELOCYTES 4 % (0-0); NEUTROPHIL # MANUAL DIFF 9.5 TH/MM3 (1.8-7.7); POLYS (SEG NEUTROPHILS) 76 % (16-70); PROMYELOCYTES 1 % (0-0); SCAN/DIFF FINAL DIFF MANUAL; WBC DIFF SAMPLE 100
[2017-02-15 22:29] LABS: ACANTHOCYTES OCC (NORMAL); PLATELET ESTIMATE SMEAR NORMAL (NORMAL); PLATELET MORPHOLOGY NORMAL (NORMAL)
[2017-02-15 22:48] LABS: CREATINE KINASE 62 U/L (39-308)
[2017-02-15 22:51] LABS: POTASSIUM 2.9 MEQ/L (3.5-5.1)
[2017-02-15] MEDS ORDERED: POTA-163 PO (23:27)
[2017-02-15] MEDS ORDERED: DOXY100C PO (23:27)
[2017-02-15] MEDS ORDERED: MEDR4PAK PO (23:27)
[2017-02-15] MEDS ORDERED: POTASSIUM CHLORIDE 20 MEQ CONTROLLED RELEASE TAB PO ONE (23:30)
--- NOTE | 2017-02-16 10:55 | EKG ---
Date Performed: 02/15/2017 Time Performed: 21:18:44 PTAGE: 66 years EKG: ATRIAL FIB/FLUTTER LOW QRS VOLTAGE IN EXTREMITY LEADS POSSIBLE RIGHT VENTRICULAR CONDUCTION DELAY NONSPECIFIC ST & T-WAVE ABNORMALITY ABNORMAL RHYTHM ECG PREVIOUS TRACING : 12/13/2016 13.42 Compared to previous tracing, atrial fib/flutter has replac ed Sinus rhythm . DOCTOR: Dandre Vasquez Interpretating Date/Time 02/16/2017 10:54:30
== END 2017-02-16 00:49 | disposition home or self-care (01) ==
LOC: NEPC 20:41
DX: J44.1 Chronic obstructive pulmonary disease with (acute) exacerbation (principal); E87.6 Hypokalemia; J45.909 Unspecified asthma, uncomplicated; I48.91 Unspecified atrial fibrillation; E11.9 Type 2 diabetes mellitus without complications; I10 Essential (primary) hypertension
CPT/HCPCS: 71010; 80053; 82550; 83880; 84484; 85007; 85027; 85610; 85730; 87804; 93005; 94664; 96365; 96375; 99285; J2930; J3475; J7613

== ENCOUNTER 2017-02-17 10:58 | Inpatient (IN) | payer MEDICARE ==
[2017-02-17] VITALS (18 sets, daily range): BP systolic 137–186; BP diastolic 63–92; PULSE 88–138; RESP 17–26; TEMP 97.8–98.3; O2SAT 87–97
[~2017-02-17] VITALS: Ht 182.9 cm; Wt 116.4 kg
[~2017-02-17 10:58] MED LIST changes: -AZIT250T3 PO; -CLON0.1T PO; +DOXY100C PO; -HYDR-3583 PO; +MEDR4PAK PO; +POTA-163 PO; -PRED20 PO
[2017-02-17] MEDS ORDERED: SODIUM CHLORIDE 0.9% FLUSH 10 ML FLUSH IVF PRN (11:30)
[2017-02-17] MEDS ORDERED: DILTIAZEM HCL 25 MG/5 ML VIAL IV ONE (11:30)
[2017-02-17] MEDS ORDERED: RESP: BUDESONIDE 0.5 MG/2 ML NEB NEB ONE (11:30)
--- NOTE | 2017-02-17 11:55 | PD ---
HPI Chief Complaint: Cardiac Complaint Time Seen by Provider: 11:21 Travel History International Travel<30 days: No Contact w/Intl Traveler<30days: No History of Present Illness HPI Patient is a 66-year-old male presenting to the emergency department for evaluation of shortness of breath and chest congestion. Patient states it's been going on for several days, he reports being in the emergency department 2 days ago with the same complaint. He denies any fever, chills, nausea, vomiting , abdominal pain, chest pain. He states the cough is productive with yellow brown sputum. Additionally patient reports swelling to his lower extremities, he states that sometimes he'll take a "water pill" but doesn't like to take it to often because it makes him urinate too frequently. Patient is oxygen dependent at home on 2 liters via nasal cannula. Patient reports compliance with medications. PFSH Past Medical History Asthma: Yes Atrial Fibrillation: Yes Anxiety: Yes Depression: Yes Cancer: Yes (MELANOMA) High Cholesterol: Yes COPD: Yes (O2 dependent) Diabetes: Yes GERD: Yes Genitourinary: Yes Hypertension: Yes Musculoskeletal: Yes Neurologic: Yes Reproductive: No Integumentary: Yes Immunizations Current: Yes PNEUMOCCOCAL Vaccine (Year): 2010 Past Surgical History Neurologic Surgery: No Other Surgery: Yes (PIN IN LEFT ANKLE, BONE PLACED BACK IN FINGER) Social History Alcohol Use: Yes (beer occ) Tobacco Use: No Substance Use: Yes ( MARAJUANA ) Allergies-Medications (Allergen,Severity, Reaction): Coded Allergies: levofloxacin (Unverified Adverse Reaction, Mild, Confusion, 02/15/17) irritable, can't focus *MDRO Multi-Drug Resistant Organism (Verified Adverse Reaction, Unknown, 02/15/17) 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 MRSA PCR Screens NEGATIVE - 06/19/16 & 06/21/16 CLEARED PER INFECTION CONTROL PROTOCOL Reported Meds & Prescriptions Reported Meds & Active Scripts Active Doxycycline Hyclate 100 Mg Cap 100 Mg PO BID Medrol Dosepak (Methylprednisolone) 4 Mg Dspk 4 Mg PO DIRECTED Per Pharmacist direction Potassium Chloride ER (Potassium Chloride) 20 Meq Tab 20 Meq PO BID Reported Miralax (Polyethylene Glycol 3350) 17 Gram Powd.pack PO DAILY Dissolve 2 tablespoonsful in 4-8 ounces of water,juice,soda or other beverage Prednisone 5 Mg Tab 5 Mg PO DAILY Albuterol Neb (Albuterol Sulfate) 2.5 Mg/3 Ml Neb 2.5 Mg NEB QID PRN Ventolin Hfa 18 GM Inh (Albuterol Sulfate) 90 Mcg/Act Aer 2 Puff INH Q6H PRN Diltiazem ER 24 HR 180 Mg Jaciel 360 Mg PO DAILY Combivent Respimat Inh (Ipratropium-Albuterol Inh) 20-100 Penitentiary/Act Aero 1 Puff INH QID Bupropion HCl ER 12 HR (Bupropion HCl) 150 Mg Tab 150 Mg PO BID Tamsulosin (Tamsulosin HCl) 0.4 Mg Cap 0.4 Mg PO DAILY Duoneb (Ipratropium-Albuterol Neb) 0.5-2.5 Mg/3 Ml Neb 3 Ml NEB Q6HR PRN Spiriva Handihaler (Tiotropium Inh) 18 Mcg Cap 18 Mcg INH DAILY DO NOT SWALLOW CAPSULES Rony-24 (Theophylline) 200 Mg Cap 200 Mg PO DAILY Hydrochlorothiazide 25 Mg Tab 25 Mg PO DAILY Clotrimazole Topical (Clotrimazole) 1% Cream 1 Applic TOPICAL BID Apply to affected area on skin for fungal infection Buspirone (Buspirone HCl) 10 Mg Tab 20 Mg PO TID Symbicort Inh (Budesonide/Formoterol Fumarate) 160-4.5 Mcg/Act Aero 2 Puff INH BID *Rinse mouth after each use* Baclofen 10 Mg Tab 10 Mg PO BID PRN Atorvastatin (Atorvastatin Calcium) 80 Mg Tab 40 Mg PO HS Soothe Xp/Xtra Protection (Artificial Tear Solution) 1 Jarret Jarret 1 Drop EACH EYE QID PRN Review of Systems Except as stated in HPI: all other systems reviewed are Neg General / Constitutional: No: Fever, Chills Eyes: No: Blurred Vision HENT: No: Headaches, Lightheadedness Cardiovascular: Positive: Tachycardia, Dyspnea on exertion, Edema, No: Chest Pain or Discomfort Respiratory: Positive: Cough, Shortness of Breath, Wheezing, Orthopnea, Pleuritic Pain Gastrointestinal: No: Nausea, Vomiting, Abdominal Pain Genitourinary: No: Dysuria Musculoskeletal: No: Myalgias Neurologic: No: Weakness, Dizziness, Syncope, Change in Mentation Physical Exam Narrative GENERAL: Overweight, well-developed, chronically ill-appearing male. Resting comfortably in no acute distress. SKIN: Warm and dry. HEAD: Atraumatic. Normocephalic. EYES: Pupils equal and round. No scleral icterus. No injection or drainage. ENT: No nasal bleeding or discharge. Mucous membranes pink and moist. NECK: Trachea midline. No JVD. CARDIOVASCULAR: Irregularly irregular, tachycardic RESPIRATORY: No accessory muscle use. Coarse breath sounds in bases, expiratory wheezing throughout. GASTROINTESTINAL: Abdomen firm, non-tender, nondistended. Hepatic and splenic margins not palpable. Positive bowel sounds, no rebound, no guarding. MUSCULOSKELETAL: Extremities without clubbing, cyanosis. No obvious deformities. 1+ peripheral edema to bilateral lower extremities NEUROLOGICAL: Awake and alert. No obvious cranial nerve deficits. Motor grossly within normal limits. Five out of 5 muscle strength in the arms and legs. Normal speech. PSYCHIATRIC: Appropriate mood and affect; insight and judgment normal. Data Data Last Documented VS Vital Signs Date Time Temp Pulse Resp B/P (MAP) Pulse Ox O2 Delivery O2 Flow Rate FiO2 02/17/17 13:34 141 179/89 02/17/17 11:15 28 95 Nasal Cannula 3.00 02/17/17 11:01 97.8 Orders Orders Complete Blood Count With Diff (02/17/17 11:22) Comprehensive Metabolic Panel (02/17/17 11:22) B-Type Natriuretic Peptide (02/17/17 11:22) Act Partial Throm Time (Ptt) (02/17/17 11:22) Prothrombin Time / Inr (Pt) (02/17/17 11:22) Magnesium (Mg) (02/17/17 11:22) Ckmb (Isoenzyme) Profile (02/17/17 11:22) Troponin I (02/17/17 11:22) Iv Access Insert/Monitor (02/17/17 11:22) Electrocardiogram (02/17/17 11:22) Ecg Monitoring (02/17/17 11:22) Oximetry (02/17/17 11:22) Oxygen Administration (02/17/17 11:22) Chest, Pa & Lat (02/17/17 11:22) Sodium Chloride 0.9% Flush (Ns Flush) (02/17/17 11:30) Albuterol-Ipratropium Neb (Duoneb Neb) (02/17/17 11:30) Arterial Blood Gas (Abg) (02/17/17 ) Budesonide Neb (Pulmicort Respule Neb) (02/17/17 11:30) Diltiazem Inj (Cardizem Inj) (02/17/17 11:30) Vital Signs (Adult) Q15MX4,Q4H (02/17/17 12:13) Associate Professor Of Pathology / Telemetry KENZIE.Q8H (02/17/17 12:13) Cardiac Rhythm KENZIE.Q8H (02/17/17 12:13) Notify Dr: Other (02/17/17 12:13) Diltiazem Inj (Cardizem Inj) (02/17/17 12:15) Piperacil-Tazo 4.5 Gm Premix (Zosyn 4.5 (02/17/17 13:07) Azithromycin Inj (Zithromax Inj) (02/17/17 13:07) Methylprednisolone So Succ Inj (Solumedr (02/17/17 13:15) Admit Order (Ed Use Only) (02/17/17 13:48) Labs Laboratory Tests Test 02/17/17 11:30 02/17/17 12:13 White Blood Count 18.6 TH/MM3 Red Blood Count 4.62 MIL/MM3 Hemoglobin 14.0 GM/DL Hematocrit 41.0 % Mean Corpuscular Volume 88.9 FL Mean Corpuscular Hemoglobin 30.3 PG Mean Corpuscular Hemoglobin Concent 34.1 % Red Cell Distribution Width 15.6 % Platelet Count 387 TH/MM3 Mean Platelet Volume 6.1 FL Neutrophils (%) (Auto) 93.7 % Lymphocytes (%) (Auto) 1.7 % Monocytes (%) (Auto) 4.5 % Eosinophils (%) (Auto) 0.0 % Basophils (%) (Auto) 0.1 % Neutrophils # (Auto) 17.4 TH/MM3 Lymphocytes # (Auto) 0.3 TH/MM3 Monocytes # (Auto) 0.8 TH/MM3 Eosinophils # (Auto) 0.0 TH/MM3 Basophils # (Auto) 0.0 TH/MM3 CBC Comment DIFF FINAL Differential Comment Prothrombin Time 10.3 SEC Prothromb Time International Ratio 1.0 RATIO Activated Partial Thromboplast Time 23.2 SEC Blood Urea Nitrogen 15 MG/DL Creatinine 0.85 MG/DL Random Glucose 162 MG/DL Total Protein 7.3 GM/DL Albumin 3.5 GM/DL Calcium Level 9.7 MG/DL Magnesium Level 1.8 MG/DL Alkaline Phosphatase 81 U/L Aspartate Amino Transf (AST/SGOT) 11 U/L Alanine Aminotransferase (ALT/SGPT) 24 U/L Total Bilirubin 0.5 MG/DL Sodium Level 134 MEQ/L Potassium Level 3.7 MEQ/L Chloride Level 95 MEQ/L Carbon Dioxide Level 29.2 MEQ/L Anion Gap 10 MEQ/L Estimat Glomerular Filtration Rate 90 ML/MIN Total Creatine Kinase 55 U/L Troponin I LESS THAN 0.02 NG/ML B-Type Natriuretic Peptide 11 PG/ML Blood Gas Puncture Site RT RADIAL Blood Gas Patient Temperature 98.6 Blood Gas HCO3 31 mmol/L Blood Gas Base Excess 7.2 mmol/L Blood Gas Oxygen Saturation 94 % Arterial Blood pH 7.47 Arterial Blood Partial Pressure CO2 43 mmHg Arterial Blood Partial Pressure O2 85 mmHg Arterial Blood Oxygen Content 18.4 Vol % Arterial Blood Carboxyhemoglobin 1.4 % Arterial Blood Methemoglobin 0.9 % Blood Gas Hemoglobin 13.9 G/DL Oxygen Delivery Device NASAL CANNULA Blood Gas Liter Flow 4 L/M Blood Gas Inspired Oxygen 36 % [facility] Medical Decision Making Medical Screen Exam Complete: Yes Emergency Medical Condition: Yes Medical Record Reviewed: Yes Interpretation(s) Last Impressions Chest X-Ray 02/17/17 1122 Signed Impressions: Service Date/Time: Friday, February 17, 2017 11:51 - CONCLUSION: 1. Bibasilar atelectatic changes/early infiltrate. 2. Heart size is normal. Gianfranco Salguero MD Vital Signs Date Time Temp Pulse Resp B/P (MAP) Pulse Ox O2 Delivery O2 Flow Rate FiO2 02/17/17 13:34 141 179/89 02/17/17 11:15 135 28 95 Nasal Cannula 3.00 02/17/17 11:15 95 Nasal Cannula 3.00 02/17/17 11:01 97.8 138 26 167/82 (110) 94 Nasal Cannula 2.00 Laboratory Tests Test 02/17/17 11:30 02/17/17 12:13 White Blood Count 18.6 TH/MM3 Red Blood Count 4.62 MIL/MM3 Hemoglobin 14.0 GM/DL Hematocrit 41.0 % Mean Corpuscular Volume 88.9 FL Mean Corpuscular Hemoglobin 30.3 PG Mean Corpuscular Hemoglobin Concent 34.1 % Red Cell Distribution Width 15.6 % Platelet Count 387 TH/MM3 Mean Platelet Volume 6.1 FL Neutrophils (%) (Auto) 93.7 % Lymphocytes (%) (Auto) 1.7 % Monocytes (%) (Auto) 4.5 % Eosinophils (%) (Auto) 0.0 % Basophils (%) (Auto) 0.1 % Neutrophils # (Auto) 17.4 TH/MM3 Lymphocytes # (Auto) 0.3 TH/MM3 Monocytes # (Auto) 0.8 TH/MM3 Eosinophils # (Auto) 0.0 TH/MM3 Basophils # (Auto) 0.0 TH/MM3 CBC Comment DIFF FINAL Differential Comment Prothrombin Time 10.3 SEC Prothromb Time International Ratio 1.0 RATIO Activated Partial Thromboplast Time 23.2 SEC Blood Urea Nitrogen 15 MG/DL Creatinine 0.85 MG/DL Random Glucose 162 MG/DL Total Protein 7.3 GM/DL Albumin 3.5 GM/DL Calcium Level 9.7 MG/DL Magnesium Level 1.8 MG/DL Alkaline Phosphatase 81 U/L Aspartate Amino Transf (AST/SGOT) 11 U/L Alanine Aminotransferase (ALT/SGPT) 24 U/L Total Bilirubin 0.5 MG/DL Sodium Level 134 MEQ/L Potassium Level 3.7 MEQ/L Chloride Level 95 MEQ/L Carbon Dioxide Level 29.2 MEQ/L Anion Gap 10 MEQ/L Estimat Glomerular Filtration Rate 90 ML/MIN Total Creatine Kinase 55 U/L Troponin I LESS THAN 0.02 NG/ML B-Type Natriuretic Peptide 11 PG/ML Blood Gas Puncture Site RT RADIAL Blood Gas Patient Temperature 98.6 Blood Gas HCO3 31 mmol/L Blood Gas Base Excess 7.2 mmol/L Blood Gas Oxygen Saturation 94 % Arterial Blood pH 7.47 Arterial Blood Partial Pressure CO2 43 mmHg Arterial Blood Partial Pressure O2 85 mmHg Arterial Blood Oxygen Content 18.4 Vol % Arterial Blood Carboxyhemoglobin 1.4 % Arterial Blood Methemoglobin 0.9 % Blood Gas Hemoglobin 13.9 G/DL Oxygen Delivery Device NASAL CANNULA Blood Gas Liter Flow 4 L/M Blood Gas Inspired Oxygen 36 % Vital Signs Date Time Temp Pulse Resp B/P (MAP) Pulse Ox O2 Delivery O2 Flow Rate FiO2 02/17/17 11:15 135 28 95 Nasal Cannula 3.00 12/18/17 11:01 97.8 138 26 167/82 (110) 94 Nasal Cannula 2.00 Differential Diagnosis COPD exacerbation versus congestive heart failure versus metabolic abnormality versus less likely PE versus pneumonia versus other Narrative Course Patient is a 58-year-old male presenting for evaluation of shortness of breath and congestion. 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 Labs and imaging ordered and pending. Initial EKG shows a flutter with RVR with a rate of 138. Cardizem 20 mg IV 1 dose ordered. Chest x-ray shows bibasilar atelectatic changes/early infiltrate. Heart size is normal, this was read by the radiologist. After initial dose of Cardizem, heart rate continued to be tachycardic, Cardizem drip ordered. CBC with a white count of 18.6 with left shift, patient has been on a Medrol Dosepak for last 2 days, previous white count was 11.4 Chemistry resulted a sodium of 134 BNP is 11, cardiac enzymes are negative 1 set Zosyn and azithromycin ordered as well as a dose of IV Solu-Medrol. Patient was given DuoNeb and budesonide nebulizer treatments. Discussed findings with the residents who accepted admission on behalf of Dr. Pathak. Patient will be admitted with a flutter with RVR as well as COPD exacerbation. Admit orders placed. Diagnosis Primary Impression: Atrial flutter with rapid ventricular response Additional Impression: COPD with exacerbation Admitting Information Admitting Physician Requests: Admit Condition: Stable Rama Alexander Feb 17, 2017 11:55
[2017-02-17 11:58] LABS: AUTOMATED NEUTROPHIL # 17.4 TH/MM3 (1.8-7.7); BASOPHIL % 0.1 % (0.0-2.0); HEMO FLAGS DIFF FINAL; LYMPH % 1.7 % (9.0-44.0); LYMPHOCYTE # 0.3 TH/MM3 (1.0-4.8); MEAN CELL VOLUME 88.9 FL (80.0-100.0); MEAN CORPUSCULAR HEMOGLOBIN 30.3 PG (27.0-34.0); MEAN CORPUSCULAR HGB CONC 34.1 % (32.0-36.0); MONO % 4.5 % (0.0-8.0); NEUT % 93.7 % (16.0-70.0); PLATELET COUNT 387 TH/MM3 (150-450); RED BLOOD COUNT 4.62 MIL/MM3 (4.50-5.90); RED CELL DISTRIBUTION WIDTH 15.6 % (11.6-17.2); WHITE BLOOD COUNT 18.6 TH/MM3 (4.0-11.0)
[2017-02-17] MEDS: RESP: ALBUTEROL 2.5 MG/IPRATROPIUM 0.5 MG NEB (SCH) INH ×2 (12:02→12:03)
[2017-02-17 12:06] LABS: APTT (PATIENT) 23.2 SEC (24.3-30.1); PROTHROMBIN TIME - PATIENT 10.3 SEC (9.8-11.6)
[2017-02-17 12:27] LABS: BLOOD GAS BASE EXCESS 7.2 mmol/L (-2-2); BLOOD GAS CARBOXYHEMOGLOBIN 1.4 % (0-4); BLOOD GAS HCO3 31 mmol/L (22-26); BLOOD GAS METHEMOGLOBIN 0.9 % (0-2); BLOOD GAS O2 HGB SATURATION 94 % (90-100); BLOOD GAS OXYGEN CONTENT 18.4 Vol % (12.0-20.0); BLOOD GAS PCO2 43 mmHg (38-42); BLOOD GAS PO2 85 mmHg (61-120); BLOOD GAS TOTAL HGB 13.9 G/DL (12.0-16.0); CRITICAL VALUE NO; DRAW SITE RT RADIAL; FIO2 36 %; LITER FLOW 4 L/M; NUMBER OF ARTERIAL PUNCTURES 1; OXYGEN DEVICE NASAL CANNULA; STAT YES; TEMP CORR TO 98.6; ULNAR PULSE PRESENT
[2017-02-17 12:43] LABS: ANION GAP 10 MEQ/L (5-15); AST (GOT) 11 U/L (15-37); BICARBONATE 29.2 MEQ/L (21.0-32.0); BLOOD UREA NITROGEN 15 MG/DL (7-18); CHLORIDE 95 MEQ/L (98-107); GLOMERULAR FILTRATION RATE 90 ML/MIN (>89); MAGNESIUM 1.8 MG/DL (1.5-2.5); POTASSIUM 3.7 MEQ/L (3.5-5.1); SODIUM (NA) 134 MEQ/L (136-145)
--- NOTE | 2017-02-17 12:46 | RADRPT ---
EXAM DATE/TIME: 02/17/2017 11:51 [facility] COMPARISON: CHEST PA & LAT, December 31, 2015, 13:55. INDICATIONS : Shortness of breath. MEDICAL HISTORY : Hypertension. Chronic obstructive pulmonary disease. Smoker. SURGICAL HISTORY : None. ENCOUNTER: Initial ACUITY: 2 days PAIN SCORE: 0/10 LOCATION: Bilateral chest FINDINGS: PA and lateral views of the chest demonstrate the lungs to be symmetrically aerated with bibasilar at electatic changes. No effusions. Heart size is normal. Osseous structures are intact. CONCLUSION: 1. Bibasilar atelectatic changes/early infiltrate. 2. Heart size is normal. Gianfranco Salguero MD on February 17, 2017 at 12:42 Board Certified Radiologist. This report was verified electronically.
[2017-02-17 12:50] LABS: ALKALINE PHOSPHATASE 81 U/L (45-117); ALT (GPT) 24 U/L (12-78); TOTAL BILIRUBIN ADULT 0.5 MG/DL (0.2-1.0)
[2017-02-17 12:58] LABS: CREATINE KINASE 55 U/L (39-308)
[2017-02-17] MEDS ORDERED: PIPERACIL-TAZO 4.5 GM PREMIX 100 ML IV STA (13:07)
[2017-02-17] MEDS ORDERED: AZITHROMYCIN INJ 500 MG in SODIUM CHLOR 0.9% 250 ML INJ 250 ML IV STA (13:07)
[2017-02-17] MEDS ORDERED: methylPREDNISolone SOD SUCC 125 MG/2 ML VIAL IV PUSH ONE (13:15)
[2017-02-17] MEDS: DILTIAZEM INJ 125 MG in SODIUM CHLORIDE 0.9% INJ 100 ML IV PRN ×2 (13:34→21:52)
--- NOTE | 2017-02-17 13:35 | PD ---
Physical Exam Date Seen by Provider: Feb 17, 2017 Narrative Patient is here for increasing difficulty breathing, particularly dyspnea on exertion. He reports a known history of atrial fibrillation and states that his heart rate has been accelerating causing increased dyspnea. Data Data Last Documented VS Vital Signs Date Time Temp Pulse Resp B/P (MAP) Pulse Ox O2 Delivery O2 Flow Rate FiO2 02/17/17 11:15 135 28 95 Nasal Cannula 3.00 02/17/17 11:01 97.8 167/82 (110) Orders Orders Complete Blood Count With Diff (02/17/17 11:22) Comprehensive Metabolic Panel (02/17/17 11:22) B-Type Natriuretic Peptide (02/17/17 11:22) Act Partial Throm Time (Ptt) (02/17/17 11:22) Prothrombin Time / Inr (Pt) (02/17/17 11:22) Magnesium (Mg) (02/17/17 11:22) Ckmb (Isoenzyme) Profile (02/17/17 11:22) Troponin I (02/17/17 11:22) Iv Access Insert/Monitor (02/17/17 11:22) Electrocardiogram (02/17/17 11:22) Ecg Monitoring (02/17/17 11:22) Oximetry (02/17/17 11:22) Oxygen Administration (02/17/17 11:22) Chest, Pa & Lat (02/17/17 11:22) Sodium Chloride 0.9% Flush (Ns Flush) (02/17/17 11:30) Albuterol-Ipratropium Neb (Duoneb Neb) (02/17/17 11:30) Arterial Blood Gas (Abg) (02/17/17 ) Budesonide Neb (Pulmicort Respule Neb) (02/17/17 11:30) Diltiazem Inj (Cardizem Inj) (02/17/17 11:30) Vital Signs (Adult) Q15MX4,Q4H (02/17/17 12:13) Software Engineering Supervisor / Telemetry KENZIE.Q8H (02/17/17 12:13) Cardiac Rhythm KENZIE.Q8H (02/17/17 12:13) Notify Dr: Other (02/17/17 12:13) Diltiazem Inj (Cardizem Inj) (02/17/17 12:15) Piperacil-Tazo 4.5 Gm Premix (Zosyn 4.5 (02/17/17 13:07) Azithromycin Inj (Zithromax Inj) (02/17/17 13:07) Methylprednisolone So Succ Inj (Solumedr (02/17/17 13:15) Labs Laboratory Tests Test 02/17/17 11:30 02/17/17 12:13 White Blood Count 18.6 TH/MM3 Red Blood Count 4.62 MIL/MM3 Hemoglobin 14.0 GM/DL Hematocrit 41.0 % Mean Corpuscular Volume 88.9 FL Mean Corpuscular Hemoglobin 30.3 PG Mean Corpuscular Hemoglobin Concent 34.1 % Red Cell Distribution Width 15.6 % Platelet Count 387 TH/MM3 Mean Platelet Volume 6.1 FL Neutrophils (%) (Auto) 93.7 % Lymphocytes (%) (Auto) 1.7 % Monocytes (%) (Auto) 4.5 % Eosinophils (%) (Auto) 0.0 % Basophils (%) (Auto) 0.1 % Neutrophils # (Auto) 17.4 TH/MM3 Lymphocytes # (Auto) 0.3 TH/MM3 Monocytes # (Auto) 0.8 TH/MM3 Eosinophils # (Auto) 0.0 TH/MM3 Basophils # (Auto) 0.0 TH/MM3 CBC Comment DIFF FINAL Differential Comment Prothrombin Time 10.3 SEC Prothromb Time International Ratio 1.0 RATIO Activated Partial Thromboplast Time 23.2 SEC Blood Urea Nitrogen 15 MG/DL Creatinine 0.85 MG/DL Random Glucose 162 MG/DL Total Protein 7.3 GM/DL Albumin 3.5 GM/DL Calcium Level 9.7 MG/DL Magnesium Level 1.8 MG/DL Alkaline Phosphatase 81 U/L Aspartate Amino Transf (AST/SGOT) 11 U/L Alanine Aminotransferase (ALT/SGPT) 24 U/L Total Bilirubin 0.5 MG/DL Sodium Level 134 MEQ/L Potassium Level 3.7 MEQ/L Chloride Level 95 MEQ/L Carbon Dioxide Level 29.2 MEQ/L Anion Gap 10 MEQ/L Estimat Glomerular Filtration Rate 90 ML/MIN Total Creatine Kinase 55 U/L Troponin I LESS THAN 0.02 NG/ML B-Type Natriuretic Peptide 11 PG/ML Blood Gas Puncture Site RT RADIAL Blood Gas Patient Temperature 98.6 Blood Gas HCO3 31 mmol/L Blood Gas Base Excess 7.2 mmol/L Blood Gas Oxygen Saturation 94 % Arterial Blood pH 7.47 Arterial Blood Partial Pressure CO2 43 mmHg Arterial Blood Partial Pressure O2 85 mmHg Arterial Blood Oxygen Content 18.4 Vol % Arterial Blood Carboxyhemoglobin 1.4 % Arterial Blood Methemoglobin 0.9 % Blood Gas Hemoglobin 13.9 G/DL Oxygen Delivery Device NASAL CANNULA Blood Gas Liter Flow 4 L/M Blood Gas Inspired Oxygen 36 % MDM Supervised Visit with GUZMAN: Yes Narrative Course I, Dr. Leo, have reviewed the advance practice practitioner's documentation and am in agreement, met with the patient face to face, made the diagnosis, and the medical decision making was done by me. *My assessment and Findings: Patient is awake and alert and able to converse with me. He is tachycardic and has an atrial fibrillation rhythm. His been treated with Cardizem and is now on a Cardizem drip. The plan is to admit him to the hospital for further evaluation and treatment. Please see Rama Kirkland NP's note for results of laboratory and radiographic evaluation, ED course, final diagnosis and disposition Critical Care Narrative Aggregate critical care time was 30 minutes. Time to perform other separately billable procedures was not included in the critical care time. My time did not include minutes spent treating any other patients simultaneously or on activities that did not directly contribute to the patient's treatment. The services I provided to this patient were to treat and/or prevent clinically significant deterioration due to AF with RVR I provided critical care services requiring my management, as noted below: Chart data review, documentation time, medication orders and management, vital sign assessments/reviewing monitor data, ordering and reviewing lab tests, ordering and interpreting/reviewing x-rays and diagnostic studies, care of the patient and discussion of the patient with the admitting physicians Diagnosis Primary Impression: Atrial flutter with rapid ventricular response Additional Impression: COPD with exacerbation Janice Leo MD Feb 17, 2017 13:35
--- NOTE | 2017-02-17 14:28 | HHI.HP ---
[facility] Service Family Medicine Primary Care Physician [facility] Admission Diagnosis a flutter with RVR, COPD exacerbation Diagnoses: International Travel<30 Days: No Contact w/Intl Traveler<30days: No Known Affected Area: No History of Present Illness Patient is a 66 year old male with a past history of HTN, COPD and possibly AFIB who presents today for a "fast heart beat." He said yesterday he felt that his heart was beating quickly, so he used his home pulse ox to monitor his heart rate and it showed that his heart rate was over 150. He attempted to let it resolve on its own, however today he felt as though it is worse. Nothing seems to make it better or worse. He states he believes this has never happened before. He does believe in the past that he has had in the hospital with a fast heart rate, he is unsure if he has A. fib. Patient also notes a has a large abdomen, reports he had a "normal CAT scan" approximately 3 months ago. Patient is unsure of the etiology. Patient reports cough, sputum production, shortness of breath at his baseline. States he currently is on 2.5-3 L of oxygen at home. No nausea, vomiting, chest pain, shortness of breath, pain in arm, pain in jaw, diaphoresis, pain in abdomen, syncope, lightheadedness, dizziness, jaundice. No other complaints today. Review of Systems Constitutional: DENIES: Diaphoretic episodes, Fever, Chills, Dizziness, Change in appetite Endocrine: DENIES: Polydipsia, Polyuria Eyes: DENIES: Blurred vision, Diplopia, Eye pain, Vision loss, Photosensitivity , Double Vision Ears, nose, mouth, throat: COMPLAINS OF: Nasal discharge, Running Nose, DENIES : Hearing loss, Throat pain, Ear Pain, Epistaxis, Sinus Pain Respiratory: COMPLAINS OF: Cough (baseline), Wheezing (baseline), Sputum production, Shortness of breath (At baseline), DENIES: Hemoptysis Cardiovascular: COMPLAINS OF: Palpitations, DENIES: Chest pain, Syncope Gastrointestinal: DENIES: Abdominal pain, Black stools, Bloody stools, Constipation, Diarrhea, Nausea, Vomiting Genitourinary: DENIES: Urgency, Hematuria Musculoskeletal: COMPLAINS OF: Back pain (Chronic lower back pain), DENIES: Joint pain, Muscle aches, Stiffness Integumentary: DENIES: Pruritus, Rash Hematologic/lymphatic: COMPLAINS OF: Bruising, DENIES: Lymphadenopathy Immunologic/allergic: DENIES: Eczema, Urticaria Neurologic: DENIES: Headache, Localized weakness, Paresthesias, Seizures Psychiatric: COMPLAINS OF: Depression (controlled with Wellbutrin), DENIES: Anxiety, Confusion Past Family Social History Past Medical History COPD HTN HLD Possibly AFIB, patient is unsure PTSD Past Surgical History None Allergies: Coded Allergies: levofloxacin (Unverified Adverse Reaction, Mild, Confusion, 02/15/17) irritable, can't focus *MDRO Multi-Drug Resistant Organism (Verified Adverse Reaction, Unknown, 02/15/17) 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 MRSA PCR Screens NEGATIVE - 06/19/16 & 06/21/16 CLEARED PER INFECTION CONTROL PROTOCOL Family History Father: in late 70s from kidney failure, "heart and kidney problems" Mother: Unsure of health problems, still living Sister: Healthy 2 Brothers: Healthy Social History Etoh: used to drink 12 beers a day, quit 3 years ago Tobacco: smoked 1 pack a day for 30 years, quit 7 years ago Drugs: Marijuana, cocaine in the past Physical Exam Vital Signs Vital Signs Date Time Temp Pulse Resp B/P (MAP) Pulse Ox O2 Delivery O2 Flow Rate FiO2 02/17/17 14:16 116 25 154/70 (98) Nasal Cannula 2.00 02/17/17 13:34 141 179/89 02/17/17 13:30 124 25 179/89 (119) 95 Nasal Cannula 2.00 02/17/17 12:30 126 25 172/63 (99) 95 Nasal Cannula 2.00 02/17/17 11:15 135 28 95 Nasal Cannula 3.00 02/17/17 11:15 95 Nasal Cannula 3.00 02/17/17 11:01 97.8 138 26 167/82 (110) 94 Nasal Cannula 2.00 Physical Exam GENERAL: This is a well-nourished, well-developed patient, in no apparent distress. SKIN: No rashes, ecchymoses or lesions. Cool and dry. HEAD: Atraumatic. Normocephalic. No temporal or scalp tenderness. EYES: Pupils equal round and reactive. Extraocular motions intact. No scleral icterus. No injection or drainage. ENT: Nose without bleeding, purulent drainage or septal hematoma. Throat without erythema, tonsillar hypertrophy or exudate. Uvula midline. Airway patent. NECK: Trachea midline. No JVD or lymphadenopathy. Supple, nontender, no meningeal signs. CARDIOVASCULAR: Regular rate and rhythm without murmurs, gallops, or rubs. RESPIRATORY: Bilateral coarse breath sounds with end expiratory wheezes. No rales, or rhonchi. GASTROINTESTINAL: Abdomen distended, nontender. Fluid wave. Unable to palpate organs. No guarding. MUSCULOSKELETAL: Extremities without clubbing, cyanosis, or edema. No joint tenderness, effusion, or edema noted. No calf tenderness. Negative Homans sign bilaterally. NEUROLOGICAL: Awake and alert. Cranial nerves II through XII intact. Motor and sensory grossly within normal limits. Five out of 5 muscle strength in all muscle groups. Normal speech. Laboratory Laboratory Tests Test 02/17/17 11:30 02/17/17 12:13 White Blood Count 18.6 Red Blood Count 4.62 Hemoglobin 14.0 Hematocrit 41.0 Mean Corpuscular Volume 88.9 Mean Corpuscular Hemoglobin 30.3 Mean Corpuscular Hemoglobin Concent 34.1 Red Cell Distribution Width 15.6 Platelet Count 387 Mean Platelet Volume 6.1 Neutrophils (%) (Auto) 93.7 Lymphocytes (%) (Auto) 1.7 Monocytes (%) (Auto) 4.5 Eosinophils (%) (Auto) 0.0 Basophils (%) (Auto) 0.1 Neutrophils # (Auto) 17.4 Lymphocytes # (Auto) 0.3 Monocytes # (Auto) 0.8 Eosinophils # (Auto) 0.0 Basophils # (Auto) 0.0 CBC Comment DIFF FINAL Differential Comment Prothrombin Time 10.3 Prothromb Time International Ratio 1.0 Activated Partial Thromboplast Time 23.2 Blood Urea Nitrogen 15 Creatinine 0.85 Random Glucose 162 Total Protein 7.3 Albumin 3.5 Calcium Level 9.7 Magnesium Level 1.8 Alkaline Phosphatase 81 Aspartate Amino Transf (AST/SGOT) 11 Alanine Aminotransferase (ALT/SGPT) 24 Total Bilirubin 0.5 Sodium Level 134 Potassium Level 3.7 Chloride Level 95 Carbon Dioxide Level 29.2 Anion Gap 10 Estimat Glomerular Filtration Rate 90 Total Creatine Kinase 55 Troponin I LESS THAN 0.02 B-Type Natriuretic Peptide 11 Blood Gas Puncture Site RT RADIAL Blood Gas Patient Temperature 98.6 Blood Gas HCO3 31 Blood Gas Base Excess 7.2 Blood Gas Oxygen Saturation 94 Arterial Blood pH 7.47 Arterial Blood Partial Pressure CO2 43 Arterial Blood Partial Pressure O2 85 Arterial Blood Oxygen Content 18.4 Arterial Blood Carboxyhemoglobin 1.4 Arterial Blood Methemoglobin 0.9 Blood Gas Hemoglobin 13.9 Oxygen Delivery Device NASAL CANNULA Blood Gas Liter Flow 4 Blood Gas Inspired Oxygen 36 Result Diagram: 02/17/17 1130 02/17/17 1130 Imaging Last 48 hours Impressions Chest X-Ray 02/17/17 1122 Signed Impressions: Service Date/Time: Friday, February 17, 2017 11:51 - CONCLUSION: 1. Bibasilar atelectatic changes/early infiltrate. 2. Heart size is normal. MD Marichuy Castro VTE Risk Assessment aMrichuy VTE Risk Assessment: Mod/High Risk (score >= 2) Caprini Risk Assessment Model Point Value = 1 Point Value = 2 Point Value = 3 Point Value = 5 Age 41-60 Minor surgery BMI > 25 kg/m2 Swollen legs Varicose veins or History of unexplained or recurrent spontaneous Oral contraceptives or hormone replacement Sepsis (< 1 month) Serious lung disease, including pneumonia (< 1 month) Abnormal pulmonary function Acute myocardial infarction Congestive heart failure (< 1 month) History of inflammatory bowel disease Medical patient at bed rest Age 61-74 Arthroscopic surgery Major open surgery (> 45 min) Laparoscopic surgery (> 45 min) Malignancy Confined to bed (> 72 hours) Immobilizing plaster cast Central venous access Age >= 75 History of VTE Family history of VTE Factor V Leiden Prothrombin [id number] Lupus anticoagulant Anticardiolipin antibodies Elevated serum homocysteine Heparin-induced thrombocytopenia Other congenital or acquired thrombophilia Stroke (< 1 month) Elective arthroplasty Hip, pelvis, or leg fracture Acute spinal cord injury (< 1 month) Prophylaxis Regimen Total Risk Factor Score Risk Level Prophylaxis Regimen 0-1 Low Early ambulation 2 Moderate Order ONE of the following: *Sequential Compression Device (SCD) *Heparin 5000 units SQ BID 3-4 Higher Order ONE of the following medications: *Heparin 5000 units SQ TID *Enoxaparin/Lovenox 40 mg SQ daily (WT < 150 kg, CrCl > 30 mL/min) *Enoxaparin/Lovenox 30 mg SQ daily (WT < 150 kg, CrCl > 10-29 mL/min) *Enoxaparin/Lovenox 30 mg SQ BID (WT < 150 kg, CrCl > 30 mL/min) AND/OR *Sequential Compression Device (SCD) 5 or more Highest Order ONE of the following medications: *Heparin 5000 units SQ TID (Preferred with Epidurals) *Enoxaparin/Lovenox 40 mg SQ daily (WT < 150 kg, CrCl > 30 mL/min) *Enoxaparin/Lovenox 30 mg SQ daily (WT < 150 kg, CrCl > 10-29 mL/min) *Enoxaparin/Lovenox 30 mg SQ BID (WT < 150 kg, CrCl > 30 mL/min) AND *Sequential Compression Device (SCD) Assessment and Plan Assessment and Plan 66-year-old male with past history of COPD, hypertension and possibly A. fib came in complaining of fast heart rate. A. fib with RVR reported by ED physician. Bibasilar atelectasis noted on CXR. Large distended abdomen of unknown etiology. Problem List: (1) Atrial fibrillation with rapid ventricular response ICD Codes: I48.91 - Unspecified atrial fibrillation Plan: Patient came in with rapid heart rate demonstrating A. fib with RVR. Possibly has past history of A. fib. Was not on anticoagulation at time of admission. Next line -Appreciate cardiology recommendations -Telemetry monitoring -Continue diltiazem -Echocardiogram per cardiology -Begin warfarin anticoagulation per cardiology -Troponin less than 0.02 (2) Pneumonia ICD Codes: J18.9 - Pneumonia, unspecified organism Plan: Patient with tachycardia, tachypnea, bibasilar atelectasis and potential infiltrate. Was seen in Hospital within the past 30 days, would qualify as potential hospital-acquired pneumonia. -Antibiotics vancomycin, Zosyn, azithromycin -Monitor for change in symptoms -Follow up blood culture (3) COPD (chronic obstructive pulmonary disease) ICD Codes: J44.9 - Chronic obstructive pulmonary disease, unspecified Plan: History of COPD, continue home medications -Duo nebs every 4 hours -Methylprednisone 40 mg every 12 hours -Theophylline 200 mg 24 hours -Continue Symbicort -Consult pulmonology (4) Abdominal distension ICD Codes: R14.0 - Abdominal distension (gaseous) Plan: Patient with abdominal distention. Reports he has seen his primary care consent him for a CT scan several months ago which came back as negative for cancer. -Follow up ultrasound (5) Chronic back pain ICD Codes: G89.29 - Other chronic pain; M54.9 - Chronic back pain Status: Acute Plan: Continue home medications -Acetaminophen as needed -Baclofen 10 mg by mouth twice a day next line -[place] 5 every 6 hours as needed (6) Hypertension ICD Codes: I10 - Hypertension Status: Chronic Plan: -Continue home meds -Hydrochlorothiazide 25 mg by mouth daily (7) Hyperlipemia ICD Codes: E78.5 - Hyperlipemia Status: Chronic Plan: -Continue home home medications -atorvastatin 40 mg by mouth at bedtime (8) FEN Plan: Fluids: Tolerating fluids by mouth Electrolytes: Monitor and correct as needed Nutrition: Regular diet Physician Certification 2 Midnight Certification Type: Admission for Inpatient Services Order for Inpatient Services The services are ordered in accordance with Medicare regulations or non- Medicare payer requirements, as applicable. In the case of services not specified as inpatient-only, they are appropriately provided as inpatient services in accordance with the 2-midnight benchmark. Estimated LOS (days): 2 2 days is the estimated time the patient will need to remain in the hospital, assuming treatment plan goals are met and no additional complications. Post-Hospital Plan: Home Roland Waggoner MD R1 Feb 17, 2017 14:28
[2017-02-17] MEDS ORDERED: NALOXONE HCL 0.4 MG/ML AMP IV PUSH PRN (15:30)
[2017-02-17] MEDS ORDERED: BISACODYL 10 MG SUPP RECTAL PRN (15:30)
[2017-02-17] MEDS ORDERED: ACETAMINOPHEN 325 MG TAB PO PRN (15:30)
[2017-02-17] MEDS ORDERED: SENNOSIDES 8.6 MG TAB PO PRN (15:30)
[2017-02-17] MEDS ORDERED: ONDANSETRON HCL 4 MG/2 ML VIAL IVP PRN (15:30)
[2017-02-17] MEDS ORDERED: SODIUM CHLORIDE 0.9% FLUSH 10 ML FLUSH IV FLUSH PRN (15:30)
[2017-02-17] MEDS ORDERED: MAGNESIUM HYDROXIDE SUSP 30 ML CUP PO PRN (15:30)
[2017-02-17] MEDS ORDERED: LACTULOSE SYRUP 20 GM/30 ML CUP PO PRN (15:30)
[2017-02-17] MEDS ORDERED: VANCOMYCIN INJ 1,000 MG in SODIUM CHLOR 0.9% 250 ML INJ 250 ML IV SCH (16:00)
[2017-02-17] MEDS ORDERED: HEPARIN SODIUM - SQ 10,000 UNITS/ML VIAL SQ SCH (16:00)
[2017-02-17] MEDS ORDERED: Vancomycin Consult Pharmacy 1 EA OTHER SCH (16:00)
--- NOTE | 2017-02-17 17:01 | EKG ---
Date Performed: 02/17/2017 Time Performed: 11:22:18 PTAGE: 66 years EKG: ATRIAL FLUTTER/TACHYCARDIA WITH RAPID VENTRICULAR RESPONSE MINIMAL ST DEPRESSION Since prev ious tracing, no significant change noted ABNORMAL RHYTHM ECG PREVIOUS TRACING : 02/15/2017 21.18 DOCTOR: Adrienne Bucio Interpretating Date/Time 02/17/2017 17:00:50
--- NOTE | 2017-02-17 17:55 | MB ---
cc: JOAQUIN WEISS MD DATE OF CONSULTATION 02/17/2017 HISTORY A 66-year-old white male, , with history of hypertension, COPD and possible atrial fibrillation. He has had increased and irregular heart rate since yesterday. He has not had any chest pain or shortness of breath. PAST MEDICAL HISTORY Positive for: 1. COPD. 2. Hypertension. 3. Dyslipidemia. 4. Possible atrial fibrillation. 5. Post-traumatic stress disorder. ALLERGIES LEVOFLOXACIN. MEDICATIONS Include: 1. Doxycycline. 2. Combivent inhalers. 3. Spiriva inhaler. 4. Ventolin inhaler. 5. Tamsulosin. 6. Baclofen. 7. Atorvastatin. 8. Diltiazem. 9. Bupropion. 10. Buspirone. 11. Potassium. 12. Hydrochlorothiazide. 13. Symbicort. 14. Artificial tear eye drops. 15. Polyethylene glycol. 16. MiraLax. 17. Medrol. 18. Prednisone. 19. Clotrimazole. 20. Theophylline. SOCIAL HISTORY The patient does not smoke but used to smoke in the past. He quit 7 years ago. He also used to drink heavily. He quit drinking 3 years ago. FAMILY HISTORY Is positive for heart disease in his father. REVIEW OF SYSTEMS Is otherwise negative. PHYSICAL EXAMINATION VITAL SIGNS: Blood pressure 186/91, pulse 116 and irregular. HEENT: Negative. 2+ carotid upstrokes. No bruits. LUNGS: Clear with decreased breath sounds. HEART: Irregularly irregular with no murmur, gallop or rub. ABDOMEN: Soft. Markedly obese. No bruits. EXTREMITIES: With 1+ pitting edema. 1+ distal pulses. NEUROLOGIC: Exam is grossly nonfocal. LABORATORY DATA EKG was reviewed and showed atrial fibrillation / flutter with rapid ventricular response. Normal axis, otherwise normal intervals, mild nonspecific ST changes. LABORATORY DATA Hemoglobin 14.0. Potassium 3.7, creatinine 0.85. AST, ALT normal. Troponin less than 0.02. BNP 11. DIAGNOSES 1. Atrial fibrillation with rapid ventricular response. 2. COPD. 3. Hypertension. 4. Dyslipidemia. 5. Post-traumatic stress disorder. DISPOSITION Mr. Simons will be monitored on telemetry. We will continue to titrate IV diltiazem for rate control. I recommend to initiate anticoagulation with warfarin. We will obtain echocardiogram to evaluate his left ventricular function. I recommend to proceed with cardioversion after at least two weeks of therapeutic anticoagulation since the exact onset of his atrial fibrillation is currently unknown. I will follow him for cardiology during his hospitalization. He will follow up at the [place] after discharge. MD SAMMI Garrett/KK /4:40 PM /5:21 PM EDGAR
[2017-02-17] MEDS ORDERED: BACLOFEN 10 MG TAB PO PRN (18:00)
[2017-02-17] MEDS ORDERED: RESP: ALBUTEROL 2.5 MG/IPRATROPIUM 0.5 MG NEB (PRN) NEB (18:00)
[2017-02-17] MEDS ORDERED: ARTIFICIAL TEARS OPTH SOLN 15 ML BTL EACH EYE PRN (18:00)
[2017-02-17] MEDS ORDERED: ACETAMINOPHEN 500 MG CPLT PO PRN (18:30)
[2017-02-17] MEDS ORDERED: GLUCAGON 1 MG/ML VIAL OTHER PRN (18:30)
[2017-02-17] MEDS ORDERED: DEXTROSE 50% IN WATER 50 ML VIAL(D50) IV PUSH PRN (18:30)
[2017-02-17] MEDS ORDERED: ENOXAPARIN SODIUM 120 MG/0.8 ML SYRINGE SQ ONE (18:30)
[2017-02-17] MEDS ORDERED: WARFARIN SOD 5 MG TAB PO ONE (21:00)
[2017-02-17] MEDS: SODIUM CHLORIDE 0.9% FLUSH 10 ML FLUSH IV FLUSH SCH (21:00)
[2017-02-17] MEDS: DOCUSATE SODIUM 50 MG/SENNA 8.6 MG TAB PO SCH (21:08)
[2017-02-17] MEDS: ACETAMINOPHEN/HYDROcodone 325 MG/5 MG TAB PO PRN (21:08)
[2017-02-17] MEDS: ATORVASTATIN 40 MG TAB PO SCH (21:08)
[2017-02-17] MEDS: POTASSIUM CHLORIDE 20 MEQ CONTROLLED RELEASE TAB PO SCH (21:08)
[2017-02-17] MEDS: buPROPion HCL 150 MG SUSTAINED RELEASE TAB PO SCH (21:08)
[2017-02-17] MEDS: methylPREDNISolone SOD SUCC 40 MG/1 ML VIAL IV PUSH SCH (21:10)
[2017-02-17] MEDS: CLOTRIMAZOLE 1% CREAM 15 GM TOPICAL SCH (22:35)
[2017-02-17] MEDS: busPIRone HCL 10 MG TAB PO SCH (22:35)
[2017-02-17] MEDS: BUDESONIDE-FORMOTEROL 160/4.5 MCG INHALER INH SCH (22:35)
[2017-02-17] MEDS: PIPERACIL-TAZO 4.5 GM PREMIX 100 ML IV SCH (22:50)
[2017-02-17] MEDS ORDERED: VANCOMYCIN INJ 2,200 MG in SODIUM CHLORID 0.9% 500 ML INJ 500 ML IV ONE (23:00)
[2017-02-17] MEDS: RESP: ALBUTEROL 2.5 MG/IPRATROPIUM 0.5 MG NEB (SCH) NEB (23:52)
[2017-02-18] VITALS (27 sets, daily range): BP systolic 108–153; BP diastolic 73–92; PULSE 77–127; RESP 20; TEMP 97.6–98.2; O2SAT 93–97
[2017-02-18] MEDS: ACETAMINOPHEN/HYDROcodone 325 MG/5 MG TAB PO PRN ×4 (03:25→18:00)
[2017-02-18] MEDS: PIPERACIL-TAZO 4.5 GM PREMIX 100 ML IV SCH ×2 (03:25→09:12)
[2017-02-18] MEDS: RESP: ALBUTEROL 2.5 MG/IPRATROPIUM 0.5 MG NEB (SCH) NEB ×5 (03:28→21:18)
[2017-02-18 06:32] LABS: HEMATOCRIT 37.9 % (39.0-51.0); MEAN CELL VOLUME 90.2 FL (80.0-100.0); MEAN CORPUSCULAR HGB CONC 34.4 % (32.0-36.0); PLATELET COUNT 288 TH/MM3 (150-450); RED CELL DISTRIBUTION WIDTH 15.2 % (11.6-17.2); REVIEW FLAG FINAL; WHITE BLOOD COUNT 10.7 TH/MM3 (4.0-11.0)
[2017-02-18 06:51] LABS: INTERNATIONAL NORMALIZED RATIO 1.1 RATIO; PROTHROMBIN TIME - PATIENT 10.7 SEC (9.8-11.6)
[2017-02-18 07:00] LABS: BICARBONATE 29.7 MEQ/L (21.0-32.0); POTASSIUM 3.4 MEQ/L (3.5-5.1)
--- NOTE | 2017-02-18 07:59 | MB ---
cc: ZENAIDA HOWARD DATE OF CONSULTATION 02/17/[address] Frey REASON FOR CONSULTATION COPD exacerbation. HISTORY OF PRESENT ILLNESS Mr. Simons is a 66-year-old white male with a longstanding history of COPD. He uses oxygen at home and uses nebulizer treatment and Symbicort. He came to the hospital with worsening of his shortness of breath and palpitation in his heart. He did not have any chest pain. No nausea or vomiting. He was evaluated in the emergency room. His heart rate was around 150, he was in atrial fibrillation with rapid ventricular rate and he was started on Cardizem drip. Currently he is in the [facility] Unit. He is breathing a little better, has no significant wheezing. He has cough, no significant sputum production. No fever or chills. No night sweats. LABORATORY DATA On admission reveals- WBC of 18.6, hemoglobin 14.0, hematocrit 41%. MCV 88.9, platelet 387. Sodium 134, potassium 3.7, chloride 95, CO2 29, BUN 15, creatinine 0.85. His blood gas on nasal cannula - pH 7.47, pCO2 43, pO2 85, bicarb 30. His INR is 1.0. His chest x-ray shows bibasilar atelectatic changes or infiltrate. PAST MEDICAL HISTORY Significant for - 1. Longstanding history of COPD. 2. Hypertension. 3. Melanoma of the skin removed. 4. History of ankle surgery. 5. Anxiety. 6. Obesity. MEDICATIONS He is currently taking - 1. Hydrochlorothiazide 25 mg. 1. Zithromax 500 mg a day. 2. Coumadin 5 mg a day. 3. Flomax 0.4 mg a day. 4. Theophylline 200 mg a day. 5. Symbicort 160/4.5 one puff twice a day. 6. Lipitor 40 mg a day. 7. Wellbutrin 100 mg twice a day. 8. Solu-Medrol 40 mg q. 12. 9. Lovenox 0.25 mg one time. 10. BuSpar 20 mg. 11. Baclofen 10 mg twice a day. 12. Albuterol/Atrovent nebulizer treatment. 13. Vancomycin IV. 14. Zosyn IV. ALLERGIES LEVAQUIN. SOCIAL HISTORY He is , lives alone. 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 He has a long history of smoking, more than 40 years one pack a day which he quit a few years ago. He used to drink which he also quit. FAMILY HISTORY He has one son. REVIEW OF SYSTEMS He has gained weight. Has no known to sleep apnea. Walks only short distance. No difficulty sleeping. No seizure, stroke or epilepsy. PHYSICAL EXAMINATION GENERAL: A morbidly obese male, mildly short of breath. VITAL SIGNS: Blood pressure 186/91, heart rate 116, respirations 24. HEENT EXAMINATION: Pupils are equal and reactive to light. Oral mucosa, nasal mucosa normal. NECK: JVP not raised. CHEST: He has expiratory rhonchi. CV: S1 and S2 irregular. ABDOMEN: Obese, nontender. Bowel sounds are present. EXTREMITIES: Trace pedal edema. IMPRESSION 1. COPD, mild exacerbation. 2. Atrial fibrillation with rapid ventricular response. 3. Hypotension. 4. Morbid obesity. PLAN 1. The patient will be maintained on supplemental oxygen. Give IV Solu-Medrol, aerosol albuterol and Atrovent, Symbicort twice a day. 2. Cardizem for rate control and start on anticoagulation. 3. Monitor his CBC. 4. Likely he has an atelectasis with exacerbation. Repeat x-ray showed infiltrates resolved. Further treatment will depend on his course in the hospital. Thank you, Dr. Frey, for this consult. Zenaida Howard MD ADA/SSB /8:21 PM /7:28 AM
[2017-02-18] MEDS ORDERED: POTASSIUM CHLORIDE 10 MEQ CAP PO ONE (09:00)
[2017-02-18] MEDS: DOCUSATE SODIUM 50 MG/SENNA 8.6 MG TAB PO SCH ×2 (09:00→21:00)
[2017-02-18] MEDS ORDERED: PNEUMOCOCCAL POLYVALENT INJ 25 MCG/0.5 ML SYR IM ONE (09:00)
[2017-02-18] MEDS: BUDESONIDE-FORMOTEROL 160/4.5 MCG INHALER INH SCH ×2 (09:16→22:10)
[2017-02-18] MEDS: buPROPion HCL 150 MG SUSTAINED RELEASE TAB PO SCH ×2 (09:26→22:11)
[2017-02-18] MEDS: busPIRone HCL 10 MG TAB PO SCH ×3 (09:27→18:00)
[2017-02-18] MEDS: TAMSULOSIN HCL 0.4 MG CAP PO SCH (09:28)
[2017-02-18] MEDS: POTASSIUM CHLORIDE 20 MEQ CONTROLLED RELEASE TAB PO SCH ×2 (09:28→22:11)
[2017-02-18] MEDS: THEOPHYLLINE 200 MG EXTENDED RELEASE CAP PO SCH (09:29)
[2017-02-18] MEDS: HYDROCHLOROTHIAZIDE 25 MG TAB PO SCH (09:30)
[2017-02-18] MEDS: methylPREDNISolone SOD SUCC 40 MG/1 ML VIAL IV PUSH SCH ×2 (09:31→22:10)
[2017-02-18] MEDS: SODIUM CHLORIDE 0.9% FLUSH 10 ML FLUSH IV FLUSH SCH ×2 (09:34→21:00)
[2017-02-18] MEDS: CLOTRIMAZOLE 1% CREAM 15 GM TOPICAL SCH ×2 (09:44→22:10)
--- NOTE | 2017-02-18 09:47 | RADRPT ---
EXAM DATE/TIME: 02/18/2017 08:16 [place] COMPARISON: No previous studies available for comparison. INDICATIONS : Abdominal distension. MEDICAL HISTORY : Chronic obstructive pulmonary disease. Hypercholesterolemia. Hypertension. Palpitations. Afib. Emphys bismark. GERD. BPH. Diabetes. PTSD. Depression. Melenoma. Measles. MRSA. SURGICAL HISTORY : Left ankle surgery. Finger surgery. ENCOUNTER: Initial ACUITY: 1 day PAIN SCORE: 2/10 LOCATION: Bilateral upper quadrant MEASUREMENTS: LIVER: 17.2 cm length COMMON DUCT: 4 mm RIGHT KIDNEY: 11.5 x 6.1 x 6.0 cm LEFT KIDNEY: 10.9 x 7.6 x 5.8 cm SPLEEN: 9.8 cm length AORTA: 2.7cm maximal FINDINGS: LIVER: Diffusely increased hepatic echogenicity without evidence for volume loss, intrapelvic ductal dilatat ion or gross focal mass. Portal vein is patent and hepatopedal. COMMON DUCT: No intraluminal mass or stone visualized. GALLBLADDER: Contains no stones, demonstrates no wall thickening or pericholecystic fluid. PANCREAS: The visualized portions are within normal limits. RIGHT KIDNEY: No hydronephrosis, stone or mass. LEFT KIDNEY: No hydronephrosis, stone or mass. SPLEEN: No focal lesion. AORTA: Non aneurysmal. IVC: Within normal limits. CONCLUSION: 1. Diffusely increased hepatic echogenicity with mild hepatomegaly consistent with hepatic steatosis versus medical liver disease. 2. No ascites, as questioned. Abdirashid Ivan MD on February 18, 2017 at 9:42 Board Certified Radiologist. This report was verified electronically.
[2017-02-18] MEDS: DILTIAZEM INJ 125 MG in SODIUM CHLORIDE 0.9% INJ 100 ML IV PRN ×2 (10:00→19:21)
[2017-02-18] MEDS ORDERED: ACETAMINOPHEN 500 MG CPLT PO PRN (12:00)
[2017-02-18] MEDS ORDERED: GLUCAGON 1 MG/ML VIAL OTHER PRN (14:30)
[2017-02-18] MEDS ORDERED: DEXTROSE 50% IN WATER 50 ML VIAL(D50) IV PUSH PRN (14:30)
[2017-02-18] MEDS ORDERED: METOPROLOL TARTRATE 25 MG TAB PO ONE (15:00)
--- NOTE | 2017-02-18 15:07 | HHI.FPPN ---
Subjective Remarks Patient seen and examined this morning. No acute events overnight. Patient is still on diltiazem drip. He reports feeling improved. States his breathing is stable. Denies any chest pain or palpitations. Eating/drinking well, no fever/ chills, nausea/vomiting, abdominal pain, leg pain/bloating. Discussed the need for long-term anticoagulation. (Twan Serrano MD, R2) Objective Vitals Vital Signs Date Time Temp Pulse Resp B/P (MAP) Pulse Ox O2 Delivery O2 Flow Rate FiO2 02/18/17 13:00 102 02/18/17 12:25 98.2 100 20 134/77 (96) 96 02/18/17 12:00 112 02/18/17 11:00 101 02/18/17 11:00 20 02/18/17 10:02 121 145/85 02/18/17 10:00 121 02/18/17 10:00 123 132/92 02/18/17 09:00 100 02/18/17 08:11 95 Nasal Cannula 3.00 02/18/17 08:00 97.8 110 20 132/92 (105) 93 02/18/17 08:00 118 02/18/17 07:00 89 02/18/17 06:19 81 02/18/17 05:00 90 02/18/17 04:50 77 02/18/17 03:10 98.2 106 20 153/84 (107) 94 02/18/17 03:10 78 02/18/17 02:37 98 02/18/17 01:30 100 02/18/17 00:00 106 02/17/17 23:55 95 Nasal Cannula 2.00 02/17/17 23:50 98.3 111 17 139/79 (99) 94 02/17/17 23:30 103 02/17/17 22:00 88 02/17/17 21:52 125 137/92 02/17/17 21:00 124 02/17/17 20:53 97 High Flow Nasal Cannula 3.00 02/17/17 20:48 87 Nasal Cannula 3.00 02/17/17 20:00 112 02/17/17 19:30 120 02/17/17 19:10 97.9 105 19 137/92 (107) 93 02/17/17 18:03 130 02/17/17 17:26 132 02/17/17 16:40 02/17/17 16:30 116 24 186/91 (122) 95 Nasal Cannula 4.00 02/17/17 15:30 130 25 182/86 (118) 94 Nasal Cannula 4.00 I/O 02/17/17 02/17/17 02/17/17 02/18/17 02/18/17 02/18/17 06:59 14:59 22:59 06:59 14:59 22:59 Intake Total 1080 ml Output Total 375 ml Balance 705 ml Intake Oral 480 ml IV Total 600 ml Output Urine Total 375 ml # Bowel Movements 3 (Twan Serrano MD, R2) Result Diagram: 02/18/17 0522 02/18/17 0522 Imaging Last Impressions Abdomen Ultrasound 02/18/17 0000 Signed Impressions: Service Date/Time: Saturday, February 18, 2017 08:16 - CONCLUSION: 1. Diffusely increased hepatic echogenicity with mild hepatomegaly consistent with hepatic steatosis versus medical liver disease. 2. No ascites, as questioned. Abdirashid Ivan MD Chest X-Ray 02/17/17 1122 Signed Impressions: Service Date/Time: Friday, February 17, 2017 11:51 - CONCLUSION: 1. Bibasilar atelectatic changes/early infiltrate. 2. Heart size is normal. Gianfranco Salguero MD Objective Remarks GENERAL: This is a well-nourished, well-developed patient, in no apparent distress. CARDIOVASCULAR: Regular rate and rhythm without murmurs, gallops, or rubs. RESPIRATORY: Improved breath sounds. Coarse with occasional expiratory wheezes. No rales, or rhonchi. GASTROINTESTINAL: Abdomen distended, nontender. No guarding. MUSCULOSKELETAL: No joint tenderness, effusion, or edema noted. No calf tenderness. NEUROLOGICAL: Awake and alert. Normal speech. (Twan Serrano MD, R2) A/P Assessment and Plan 66-year-old male with past history of COPD, hypertension and possibly A. fib came in complaining of fast heart rate. A. fib with RVR reported by ED physician. Bibasilar atelectasis noted on CXR. Discharge Planning Unclear. Pending treatment of Afib (Twan Serrano MD, R2) Attending Attestation THIS CASE WAS DISCUSSED WITH THE RESIDENT PHYSICIANS. I HAVE REVIEWED THE RECORD , PATIENT SEEN AND EXAMINED< AND AGREE WITH THE ABOVE NOTE AND PLAN OF CARE WAS DISCUSSED. I HAVE AUTHORIZED THE ORDERS (Moisés Pathak MD) Problem List: (1) Atrial fibrillation with rapid ventricular response ICD Codes: I48.91 - Unspecified atrial fibrillation Plan: Patient came in with rapid heart rate demonstrating A. fib with RVR. Possibly has past history of A. fib. Was not on anticoagulation at time of admission. -Cardiology consulted-appreciate recs -Cardioversion after 2 weeks of therapeutic cardioversion -Telemetry monitoring -Continue IV diltiazem, wean as able -Echocardiogram per cardiology -Continue warfarin anticoagulation per cardiology (2) Pneumonia ICD Codes: J18.9 - Pneumonia, unspecified organism Status: Acute Plan: Patient with tachycardia, tachypnea, bibasilar atelectasis and potential infiltrate. Was seen in Hospital within the past 30 days, would qualify as potential hospital-acquired pneumonia. Physical exam less consistent with pneumonia, will de-escalate antibiotics. -Continue azithromycin -Monitor for change in symptoms -Follow up blood culture (3) COPD (chronic obstructive pulmonary disease) ICD Codes: J44.9 - Chronic obstructive pulmonary disease, unspecified Plan: History of COPD, continue home medications -Duo nebs every 4 hours -Methylprednisone 40 mg every 12 hours -Theophylline 200 mg 24 hours -Continue Symbicort -Consult pulmonology (4) Abdominal distension ICD Codes: R14.0 - Abdominal distension (gaseous) Plan: Patient with abdominal distention. Reports he has seen his primary care consent him for a CT scan several months ago which came back as negative for cancer. US: Diffusely increased hepatic echogenicity with mild hepatomegaly consistent with hepatic steatosis versus liver disease. No ascites AST/ALT wnl; Asymptomatic -Continue to monitor (5) Chronic back pain ICD Codes: G89.29 - Other chronic pain; M54.9 - Chronic back pain Status: Acute Plan: Continue home medications -Acetaminophen as needed -Baclofen 10 mg by mouth twice a day next line -[place] 5 every 6 hours as needed (6) Hypertension ICD Codes: I10 - Hypertension Status: Chronic Plan: -Continue home meds -Hydrochlorothiazide 25 mg by mouth daily (7) Hyperlipemia ICD Codes: E78.5 - Hyperlipemia Status: Chronic Plan: -Continue home home medications -atorvastatin 40 mg by mouth at bedtime (8) FEN Status: Acute Plan: Fluids:Tolerating fluids by mouth Electrolytes:Monitor and correct as needed Nutrition:Regular diet DVT ppx: Lovenox (Twan Serrano MD, R2) Problem Qualifiers (1) Pneumonia: Qualified Codes: J18.9 - Pneumonia, unspecified organism (2) COPD (chronic obstructive pulmonary disease): Qualified Codes: J41.0 - Simple chronic bronchitis (3) Chronic back pain: Qualified Codes: M54.5 - Low back pain; G89.29 - Other chronic pain (4) Hypertension: Qualified Codes: I10 - Essential (primary) hypertension (5) Hyperlipemia: Qualified Codes: E78.00 - Pure hypercholesterolemia, unspecified Twan Serrano MD, R2 Feb 18, 2017 15:07 Moisés Pathak MD Feb 19, 2017 10:28
[2017-02-18] MEDS: WARFARIN SOD 5 MG TAB PO SCH (15:18)
[2017-02-18] MEDS: AZITHROMYCIN INJ 500 MG in SODIUM CHLOR 0.9% 250 ML INJ 250 ML IV SCH (15:27)
[2017-02-18] MEDS ORDERED: VANCOMYCIN INJ 1,750 MG in SODIUM CHLORID 0.9% 500 ML INJ 500 ML IV SCH (16:00)
--- NOTE | 2017-02-18 16:33 | ECHRPT ---
Indication: CONCLUSIONS Technically difficult study. The left ventricular systolic function is normal with an estimated ejection fraction in the range of 55-60%. Left ventricular diastolic function parameters are normal. Trace mitral valve regurgitation. BP: 153 / 84 HR: 106 Rhythm: Sinus MEASUREMENTS (Male / Female) Normal Values Technical Quality:Technically difficult study 2D ECHO LVOT Diameter 2.1 cm M-MODE LV Diastolic Diameter MM 4.2 cm 4.2 - 5.9 / 3.9 - 5.3 cm LV Systolic Diameter MM 3.0 cm LV Ejection Fraction MM Teich 54.7 % LV Cardiac Index MM Teich 1819.4 cm/minm IVS Diastolic Thickness MM 1.0 cm 0.6 - 1.0 / 0.6 - 0.9 cm LVPW Diastolic Thickness MM 1.1 cm 0.6 - 1.0 / 0.6 - 0.9 cm LV Relative Wall Thickness MM 0.5 0.24 - 0.42 / 0.22 - 0.42 LV Mass Index MM 61.2 g/m 49 - 115 / 43 - 95 g/m Aortic Root Diameter MM 3.3 cm AV Cusp Separation MM 2.0 cm DOPPLER AV Peak Velocity 147.0 cm/s AV Peak Gradient 8.6 mmHg LVOT Peak Velocity 119.0 cm/s LVOT Peak Gradient 5.7 mmHg AV Area Cont Eq pk 2.8 cm MV Area PHT 3.1 cm Mitral E Point Velocity 98.2 cm/s Mitral A Point Velocity 53.8 cm/s Mitral E to A Ratio 1.8 LV E' Lateral Velocity 13.5 cm/s Mitral E to LV E' Lateral Ratio 7.3 LV E' Septal Velocity 12.2 cm/s Mitral E to LV E' Septal Ratio 8.0 PV Peak Velocity 118.0 cm/s PV Peak Gradient 5.6 mmHg FINDINGS LEFT VENTRICLE The left ventricular systolic function is normal with an estimated ejection fraction in the range of 55-60%. Normal left ventricular size. Wall thickness is normal. Left ventricular diastolic function parameters are normal. RIGHT VENTRICLE Normal right ventricular size and systolic function. LEFT ATRIUM The left atrial size is normal. RIGHT ATRIUM The right atrial size is normal. ATRIAL SEPTUM Normal atrial septal thickness. AORTA The aortic root and proximal ascending aorta are normal in size on limited imaging. MITRAL VALVE Structurally normal mitral valve. Trace mitral valve regurgitation. No mitral valve stenosis. AORTIC VALVE Probable trileaflet Aortic valve sclerosis is present. No aortic valve regurgitation. TRICUSPID VALVE Structurally normal tricuspid valve. No tricuspid valve stenosis or regurgitation. Pulmonary arterial systolic pressure could not be estimated due to an insufficient tricuspid valve regurgitation doppler jet for measurement. PULMONARY VALVE The pulmonary valve is not well visualized. VESSELS The inferior vena cava is normal in size. PERICARDIUM No pericardial effusion. Edmund Packer DO (Electronically Signed) Final Date:18 February 2017 16:32
[2017-02-18] MEDS: INSULIN NovoLIN REGULAR SUPPLEMENTAL SCALE SQ SCH ×2 (18:00→21:00)
[2017-02-18] MEDS: ENOXAPARIN SODIUM 120 MG/0.8 ML SYRINGE SQ SCH (18:00)
--- NOTE | 2017-02-18 19:52 | HHI.PR ---
Subjective Remarks 66 YO Morbidly obese male with COPD Exac,AF with RVR Breathing better On Metoprolol Wants more pain meds Objective Vital Signs Vital Signs Date Time Temp Pulse Resp B/P (MAP) Pulse Ox O2 Delivery O2 Flow Rate FiO2 02/18/17 19:28 19 02/18/17 19:21 89 108/73 02/18/17 15:30 98.2 127 20 135/80 (98) 97 02/18/17 13:00 102 02/18/17 12:25 98.2 100 20 134/77 (96) 96 02/18/17 12:00 112 02/18/17 11:00 101 02/18/17 11:00 20 02/18/17 10:02 121 145/85 02/18/17 10:00 121 02/18/17 10:00 123 132/92 02/18/17 09:00 100 02/18/17 08:11 95 Nasal Cannula 3.00 02/18/17 08:00 97.8 110 20 132/92 (105) 93 02/18/17 08:00 118 02/18/17 07:00 89 02/18/17 06:19 81 02/18/17 05:00 90 02/18/17 04:50 77 02/18/17 03:10 98.2 106 20 153/84 (107) 94 02/18/17 03:10 78 02/18/17 02:37 98 02/18/17 01:30 100 02/18/17 00:00 106 02/17/17 23:55 95 Nasal Cannula 2.00 02/17/17 23:50 98.3 111 17 139/79 (99) 94 02/17/17 23:30 103 02/17/17 22:00 88 02/17/17 21:52 125 137/92 02/17/17 21:00 124 02/17/17 20:53 97 High Flow Nasal Cannula 3.00 02/17/17 20:48 87 Nasal Cannula 3.00 02/17/17 20:00 112 I/O 02/17/17 02/17/17 02/17/17 02/18/17 02/18/17 02/18/17 07:00 15:00 23:00 07:00 15:00 23:00 Intake Total 1080 ml 100 ml 1065 ml Output Total 375 ml 400 ml Balance 705 ml 100 ml 665 ml Intake Oral 480 ml 690 ml IV Total 600 ml 100 ml 375 ml Output Urine Total 375 ml 400 ml # Voids 3 # Bowel Movements 3 3 Result Diagram: 02/18/1752102/18/17521 Objective Remarks GENERAL: Obese WM, mild sob SKIN: Warm and dry. HEAD: Normocephalic. EYES: No scleral icterus. No injection or drainage. NECK: Supple, trachea midline. No JVD or lymphadenopathy. CARDIOVASCULAR: Regular rate and rhythm without murmurs, gallops, or rubs. RESPIRATORY: Breath sounds equal bilaterally. No accessory muscle use. GASTROINTESTINAL: Abdomen soft, non-tender, nondistended. MUSCULOSKELETAL: No cyanosis, ++ edema. BACK: Nontender without obvious deformity. No CVA tenderness. A/P Assessment and Plan COPD Exac AF HTN Anxiety Likly KAREN Obesity Ch. Pain PLAN: Aerosol nebs IV Solumedrol Supplement 02 Metoprolol for rate controll Anticoagulation with Coumadin. Kal Martino MD Feb 18, 2017 19:52
--- NOTE | 2017-02-18 20:39 | PD.CARD.PN ---
Subjective Subjective Remarks No CP, less SOB, no palpitations Objective Medications Current Medications Medications (Trade) Dose Ordered Sig/Agatha Route Start Time Stop Time Status Last Admin Diltiazem HCl 125 mg/Sodium Chloride 125 ml @ 5 mls/hr TITRATE PRN IV 02/17/17 12:15 02/18/17 19:21 (NS Flush) 2 ml UNSCH PRN IV FLUSH 02/17/17 15:30 (NS Flush) 2 ml BID IV FLUSH 02/17/17 21:00 02/18/17 09:34 (Tylenol) 650 mg Q4H PRN PO 02/17/17 15:30 (Zofran Inj) 4 mg Q6H PRN IVP 02/17/17 15:30 (Narcan Inj) 0.4 mg UNSCH PRN IV PUSH 02/17/17 15:30 (Irasema-Colace) 1 tab BID PO 02/17/17 21:00 02/17/17 21:08 (Milk Of Magnesia Liq) 30 ml Q12H PRN PO 02/17/17 15:30 (Senokot) 17.2 mg Q12H PRN PO 02/17/17 15:30 (Dulcolax Supp) 10 mg DAILY PRN RECTAL 02/17/17 15:30 (Lactulose Liq) 30 ml DAILY PRN PO 02/17/17 15:30 Azithromycin 500 mg/Sodium Chloride 250 ml @ 250 mls/hr Q24H IV 02/18/17 16:00 02/18/17 15:27 (Lipitor) 40 mg HS PO 02/17/17 21:00 02/17/17 21:08 (Lioresal) 10 mg BID PRN PO 02/17/17 18:00 (Symbicort 160-4.5 Mcg Inh) 2 puff BID INH 02/17/17 21:00 02/18/17 09:16 (Wellbutrin Sr) 150 mg BID PO 02/17/17 21:00 02/18/17 09:26 (Buspar) 20 mg TID PO 02/17/17 18:00 02/18/17 18:00 (Lotrimin 1% Cream) 1 applic BID TOPICAL 02/17/17 21:00 02/18/17 09:44 (Hydrodiuril) 25 mg DAILY PO 02/18/17 09:00 12/19/17 09:30 (KCl) 20 meq BID PO 02/17/17 21:00 02/18/17 09:28 (Flomax) 0.4 mg DAILY PO 02/18/17 09:00 02/18/17 09:28 (Rony-24) 200 mg DAILY PO 02/18/17 09:00 02/18/17 09:29 (Tears Naturale Opth Soln) 1 drop QID PRN EACH EYE 02/17/17 18:00 (SoluMEDROL INJ) 40 mg Q12HR IV PUSH 02/17/17 21:00 02/18/17 09:31 (Coumadin) 5 mg DAILY@1600 PO 02/18/17 16:00 02/18/17 15:18 (Duoneb Neb) 1 ampule Q4HR NEB NEB 02/18/17 00:00 02/18/17 16:36 ([place] 5-325 Mg) 1 tab Q4HR PRN PO 02/18/17 12:00 02/18/17 18:00 (Tylenol) 500 mg Q4HR PRN PO 02/18/17 12:00 (D50w (Vial) Inj) 50 ml UNSCH PRN IV PUSH 02/18/17 14:30 (Glucagon Inj) 1 mg UNSCH PRN OTHER 02/18/17 14:30 (NovoLIN R SUPPLEMENTAL SCALE) 1 ACHS SLIDING SCALE SQ 02/18/17 17:00 02/18/17 18:00 (Lopressor) 25 mg BID PO 02/18/17 21:00 (Lovenox Inj) 120 mg Q12H SQ 02/18/17 18:00 02/18/17 18:00 Vital Signs / I&O Vital Signs Date Time Temp Pulse Resp B/P (MAP) Pulse Ox O2 Delivery O2 Flow Rate FiO2 02/18/17 19:28 19 02/18/17 19:21 89 108/73 02/18/17 18:00 94 02/18/17 17:00 78 02/18/17 16:00 122 02/18/17 15:30 98.2 127 20 135/80 (98) 97 02/18/17 15:00 119 02/18/17 14:00 118 02/18/17 13:00 102 02/18/17 12:25 98.2 100 20 134/77 (96) 96 02/18/17 12:00 112 02/18/17 11:00 101 02/18/17 11:00 20 02/18/17 10:02 121 145/85 02/18/17 10:00 121 02/18/17 10:00 123 132/92 02/18/17 09:00 100 02/18/17 08:11 95 Nasal Cannula 3.00 02/18/17 08:00 97.8 110 20 132/92 (105) 93 02/18/17 08:00 118 02/18/17 07:00 89 02/18/17 06:19 81 02/18/17 05:00 90 02/18/17 04:50 77 02/18/17 03:10 98.2 106 20 153/84 (107) 94 02/18/17 03:10 78 02/18/17 02:37 98 02/18/17 01:30 100 02/18/17 00:00 106 02/17/17 23:55 95 Nasal Cannula 2.00 02/17/17 23:50 98.3 111 17 139/79 (99) 94 02/17/17 23:30 103 02/17/17 22:00 88 02/17/17 21:52 125 137/92 02/17/17 21:00 124 02/17/17 20:53 97 High Flow Nasal Cannula 3.00 02/17/17 20:48 87 Nasal Cannula 3.00 I/O 02/17/17 02/17/17 02/17/17 02/18/17 02/18/17 02/18/17 07:00 15:00 23:00 07:00 15:00 23:00 Intake Total 1080 ml 100 ml 1065 ml Output Total 375 ml 400 ml Balance 705 ml 100 ml 665 ml Intake Oral 480 ml 690 ml IV Total 600 ml 100 ml 375 ml Output Urine Total 375 ml 400 ml # Voids 3 # Bowel Movements 3 3 Physical Exam GENERAL: In NAD SKIN: Warm and dry. HEAD: Normocephalic. EYES: No scleral icterus. No injection or drainage. NECK: Supple, trachea midline. No JVD or lymphadenopathy. CARDIOVASCULAR: Irregular, without murmurs, gallops, or rubs. RESPIRATORY: Breath sounds equal bilaterally. No accessory muscle use. Few rhonchi. GASTROINTESTINAL: Abdomen soft, non-tender, nondistended. MUSCULOSKELETAL: No cyanosis, mild edema. Laboratory Laboratory Tests Test 02/18/17 05:22 White Blood Count 10.7 TH/MM3 Red Blood Count 4.20 MIL/MM3 Hemoglobin 13.0 GM/DL Hematocrit 37.9 % Mean Corpuscular Volume 90.2 FL Mean Corpuscular Hemoglobin 31.0 PG Mean Corpuscular Hemoglobin Concent 34.4 % Red Cell Distribution Width 15.2 % Platelet Count 288 TH/MM3 Mean Platelet Volume 6.3 FL Prothrombin Time 10.7 SEC Prothromb Time International Ratio 1.1 RATIO Blood Urea Nitrogen 13 MG/DL Creatinine 0.73 MG/DL Random Glucose 174 MG/DL Calcium Level 9.0 MG/DL Sodium Level 136 MEQ/L Potassium Level 3.4 MEQ/L Chloride Level 99 MEQ/L Carbon Dioxide Level 29.7 MEQ/L Anion Gap 7 MEQ/L Estimat Glomerular Filtration Rate 107 ML/MIN Imaging Last 24 hours Impressions Abdomen Ultrasound 02/18/17 0000 Signed Impressions: Service Date/Time: Saturday, February 18, 2017 08:16 - CONCLUSION: 1. Diffusely increased hepatic echogenicity with mild hepatomegaly consistent with hepatic steatosis versus medical liver disease. 2. No ascites, as questioned. Abdirashid Ivan MD Assessment and Plan Problem List: (1) Atrial fibrillation with rapid ventricular response ICD Codes: I48.91 - Unspecified atrial fibrillation (2) COPD with exacerbation ICD Codes: J44.1 - Obstructive chronic bronchitis with exacerbation Status: Acute (3) Hypertension ICD Codes: I10 - Hypertension Status: Chronic (4) Hyperlipidemia ICD Codes: E78.5 - Hyperlipidemia Status: Acute (5) Morbid obesity ICD Codes: E66.01 - Morbid obesity Status: Acute Assessment and Plan Continue IV diltiazem for rate control, switch to PO diltiazem 120 mg q 6 hrs, later to long-acting high dose. Continue metoprolol and titrate as tolerated. May need to add digoxin if necessary for rate control as well. Echo with normal LV systolic and diastolic function. Start anticoagulation with warfarin. Increase activity. Continue tx for COPD exacerbation. [facility] Problem Qualifiers (1) Hypertension: Qualified Codes: I10 - Essential (primary) hypertension Mike Fraser MD Feb 18, 2017 20:39
[2017-02-18] MEDS: ACETAMINOPHEN/HYDROcodone 325 MG/10 MG TAB PO PRN (21:59)
[2017-02-18] MEDS: METOPROLOL TARTRATE 25 MG TAB PO SCH (22:11)
[2017-02-18] MEDS: ATORVASTATIN 40 MG TAB PO SCH (22:11)
[2017-02-19] VITALS (26 sets, daily range): BP systolic 109–150; BP diastolic 66–85; PULSE 54–112; RESP 18–24; TEMP 97–98.3; O2SAT 95–99
[2017-02-19] MEDS: RESP: ALBUTEROL 2.5 MG/IPRATROPIUM 0.5 MG NEB (SCH) NEB ×7 (00:33→23:46)
[2017-02-19] MEDS: ACETAMINOPHEN/HYDROcodone 325 MG/10 MG TAB PO PRN ×5 (02:18→21:38)
[2017-02-19] MEDS: ENOXAPARIN SODIUM 120 MG/0.8 ML SYRINGE SQ SCH ×2 (05:56→16:31)
[2017-02-19] MEDS: busPIRone HCL 10 MG TAB PO SCH (05:56)
[2017-02-19 06:49] LABS: HEMATOCRIT 38.3 % (39.0-51.0); MEAN CELL VOLUME 89.6 FL (80.0-100.0); MEAN CORPUSCULAR HEMOGLOBIN 30.6 PG (27.0-34.0); MEAN CORPUSCULAR HGB CONC 34.1 % (32.0-36.0); PLATELET COUNT 363 TH/MM3 (150-450); RED BLOOD COUNT 4.28 MIL/MM3 (4.50-5.90); RED CELL DISTRIBUTION WIDTH 15.4 % (11.6-17.2); REVIEW FLAG FINAL
[2017-02-19 06:52] LABS: INTERNATIONAL NORMALIZED RATIO 1.2 RATIO; PROTHROMBIN TIME - PATIENT 12.3 SEC (9.8-11.6)
[2017-02-19 07:06] LABS: ANION GAP 6 MEQ/L (5-15); BICARBONATE 31.1 MEQ/L (21.0-32.0); BLOOD UREA NITROGEN 19 MG/DL (7-18); CHLORIDE 101 MEQ/L (98-107); GLOMERULAR FILTRATION RATE 114 ML/MIN (>89); POTASSIUM 3.7 MEQ/L (3.5-5.1); SODIUM (NA) 138 MEQ/L (136-145)
[2017-02-19] MEDS: INSULIN NovoLIN REGULAR SUPPLEMENTAL SCALE SQ SCH ×4 (08:00→21:00)
[2017-02-19] MEDS: DOCUSATE SODIUM 50 MG/SENNA 8.6 MG TAB PO SCH ×2 (09:00→21:37)
[2017-02-19] MEDS: SODIUM CHLORIDE 0.9% FLUSH 10 ML FLUSH IV FLUSH SCH ×2 (09:12→21:37)
[2017-02-19] MEDS: methylPREDNISolone SOD SUCC 40 MG/1 ML VIAL IV PUSH SCH (09:12)
[2017-02-19] MEDS: buPROPion HCL 150 MG SUSTAINED RELEASE TAB PO SCH ×2 (09:12→21:38)
[2017-02-19] MEDS: THEOPHYLLINE 200 MG EXTENDED RELEASE CAP PO SCH (09:12)
[2017-02-19] MEDS: HYDROCHLOROTHIAZIDE 25 MG TAB PO SCH (09:14)
[2017-02-19] MEDS: METOPROLOL TARTRATE 25 MG TAB PO SCH ×2 (09:14→21:37)
[2017-02-19] MEDS: TAMSULOSIN HCL 0.4 MG CAP PO SCH (09:14)
[2017-02-19] MEDS: POTASSIUM CHLORIDE 20 MEQ CONTROLLED RELEASE TAB PO SCH ×2 (09:14→21:38)
[2017-02-19] MEDS: CLOTRIMAZOLE 1% CREAM 15 GM TOPICAL SCH ×2 (09:15→21:43)
[2017-02-19] MEDS: BUDESONIDE-FORMOTEROL 160/4.5 MCG INHALER INH SCH ×2 (09:16→21:37)
[2017-02-19 10:15] LABS: HEMOGLOBIN A1a 1.1 %; HEMOGLOBIN A1b 1.8 %; HEMOGLOBIN Ao 83.3 %; HEMOGLOBIN LA1C 2.6 %; HEMOGLOBIN P3 4.3 %
--- NOTE | 2017-02-19 10:31 | HHI.FPPN ---
Subjective Remarks Patient seen and examined today. States he continues to have some mild shortness of breath, cough however this is still around his baseline. Is not producing mucus this time. No chest pain at this time, palpitations, self- reported rapid heart rate. No nausea, vomiting, fever, chills, abdominal pain, change in bowel or bladder habits. No other complaints. Objective Vitals Vital Signs Date Time Temp Pulse Resp B/P (MAP) Pulse Ox O2 Delivery O2 Flow Rate FiO2 02/19/17 08:00 80 02/19/17 08:00 98.3 80 24 147/85 (105) 98 02/19/17 07:58 97 Nasal Cannula 3.00 02/19/17 07:00 88 02/19/17 06:00 78 02/19/17 05:00 104 02/19/17 04:00 88 02/19/17 04:00 97.0 54 20 150/84 (106) 95 02/19/17 03:00 78 02/19/17 02:15 78 02/19/17 02:00 76 02/19/17 01:00 76 02/19/17 00:00 97.6 78 20 115/66 (82) 95 02/19/17 00:00 76 02/18/17 23:00 78 02/18/17 22:30 78 02/18/17 22:00 78 02/18/17 21:18 96 Nasal Cannula 3.00 02/18/17 21:00 78 02/18/17 20:00 77 02/18/17 20:00 97.6 78 20 108/73 (85) 96 02/18/17 19:28 19 02/18/17 19:21 89 108/73 02/18/17 18:00 94 02/18/17 17:00 78 02/18/17 16:00 122 02/18/17 15:30 98.2 127 20 135/80 (98) 97 02/18/17 15:00 119 02/18/17 14:00 118 02/18/17 13:00 102 02/18/17 12:25 98.2 100 20 134/77 (96) 96 02/18/17 12:00 112 02/18/17 11:00 101 02/18/17 11:00 20 I/O 12/19/17 12/1902/18/17 02/19/17 02/19/17 02/19/17 07:00 15:00 23:00 07:00 15:00 23:00 Intake Total 1080 ml 100 ml 1065 ml 240 ml Output Total 375 ml 400 ml 750 ml Balance 705 ml 100 ml 665 ml -510 ml Intake Oral 480 ml 690 ml 240 ml IV Total 600 ml 100 ml 375 ml Output Urine Total 375 ml 400 ml 750 ml # Voids 3 # Bowel Movements 3 3 Result Diagram: 02/19/1753902/19/17539 Objective Remarks GENERAL: This is a well-nourished, well-developed patient, in no apparent distress. CARDIOVASCULAR: Regular rate and rhythm without murmurs, gallops, or rubs. RESPIRATORY: Improved breath sounds. Coarse with occasional expiratory wheezes. No rales, or rhonchi. GASTROINTESTINAL: Abdomen distended, nontender. No guarding. MUSCULOSKELETAL: No joint tenderness, effusion, or edema noted. No calf tenderness. NEUROLOGICAL: Awake and alert. Normal speech. A/P Assessment and Plan 66-year-old male with past history of COPD, hypertension and possibly A. fib came in complaining of fast heart rate. A. fib with RVR reported by ED physician. Bibasilar atelectasis noted on CXR. Discharge Planning Unclear. Pending treatment of Afib Problem List: (1) Atrial fibrillation with rapid ventricular response ICD Codes: I48.91 - Unspecified atrial fibrillation Plan: Patient came in with rapid heart rate demonstrating A. fib with RVR. Possibly has past history of A. fib. Was not on anticoagulation at time of admission. -Cardiology consulted-appreciate recs -Cardioversion after 2 weeks of therapeutic cardioversion -Telemetry monitoring -Continue IV diltiazem, wean as able -Echocardiogram per cardiology -Continue warfarin anticoagulation per cardiology (2) Pneumonia ICD Codes: J18.9 - Pneumonia, unspecified organism Status: Acute Plan: Patient with tachycardia, tachypnea, bibasilar atelectasis and potential infiltrate. Was seen in Hospital within the past 30 days, would qualify as potential hospital-acquired pneumonia. Leukocytosis of 17.0 on 02/19 -vancomycin -Zosyn -Continue azithromycin -Monitor for change in symptoms -Follow up blood culture (3) COPD (chronic obstructive pulmonary disease) ICD Codes: J44.9 - Chronic obstructive pulmonary disease, unspecified Plan: History of COPD, continue home medications -Duo nebs every 4 hours -Methylprednisone 40 mg every 12 hours -Theophylline 200 mg 24 hours -Continue Symbicort -Consult pulmonology (4) Abdominal distension ICD Codes: R14.0 - Abdominal distension (gaseous) Plan: Patient with abdominal distention. Reports he has seen his primary care consent him for a CT scan several months ago which came back as negative for cancer. US: Diffusely increased hepatic echogenicity with mild hepatomegaly consistent with hepatic steatosis versus liver disease. No ascites AST/ALT wnl; Asymptomatic -Continue to monitor (5) Chronic back pain ICD Codes: G89.29 - Other chronic pain; M54.9 - Chronic back pain Status: Acute Plan: Continue home medications -Acetaminophen as needed -Baclofen 10 mg by mouth twice a day next line -[place] 5 every 6 hours as needed (6) Hypertension ICD Codes: I10 - Hypertension Status: Chronic Plan: -Continue home meds -Hydrochlorothiazide 25 mg by mouth daily (7) Hyperlipemia ICD Codes: E78.5 - Hyperlipemia Status: Chronic Plan: -Continue home home medications -atorvastatin 40 mg by mouth at bedtime (8) FEN Status: Acute Plan: Fluids:Tolerating fluids by mouth Electrolytes:Monitor and correct as needed Nutrition:Regular diet DVT ppx: Lovenox Problem Qualifiers (1) Pneumonia: Qualified Codes: J18.9 - Pneumonia, unspecified organism (2) COPD (chronic obstructive pulmonary disease): Qualified Codes: J41.0 - Simple chronic bronchitis (3) Chronic back pain: Qualified Codes: M54.5 - Low back pain; G89.29 - Other chronic pain (4) Hypertension: Qualified Codes: I10 - Essential (primary) hypertension (5) Hyperlipemia: Qualified Codes: E78.00 - Pure hypercholesterolemia, unspecified Roland Waggoner MD R1 Feb 19, 2017 10:30
[2017-02-19] MEDS ORDERED: Vancomycin Consult Pharmacy 1 EA OTHER SCH (10:45)
[2017-02-19] MEDS: DILTIAZEM INJ 125 MG in SODIUM CHLORIDE 0.9% INJ 100 ML IV PRN (12:01)
[2017-02-19] MEDS: busPIRone HCL 10 MG TAB PO PRN ×2 (13:48→21:42)
[2017-02-19] MEDS: VANCOMYCIN INJ 1,750 MG in SODIUM CHLORID 0.9% 500 ML INJ 500 ML IV SCH (13:50)
[2017-02-19] MEDS ORDERED: PIPERACIL-TAZO 4.5 GM PREMIX 100 ML IV SCH (14:00)
--- NOTE | 2017-02-19 14:18 | PD.CARD.PN ---
Subjective Subjective Remarks No CP, mild SOB, no palpitations, HR better controlled Objective Medications Current Medications Medications (Trade) Dose Ordered Sig/Agatha Route Start Time Stop Time Status Last Admin Diltiazem HCl 125 mg/Sodium Chloride 125 ml @ 5 mls/hr TITRATE PRN IV 02/17/17 12:15 02/19/17 12:01 (NS Flush) 2 ml UNSCH PRN IV FLUSH 02/17/17 15:30 (NS Flush) 2 ml BID IV FLUSH 02/17/17 21:00 02/19/17 09:12 (Tylenol) 650 mg Q4H PRN PO 02/17/17 15:30 (Zofran Inj) 4 mg Q6H PRN IVP 02/17/17 15:30 (Narcan Inj) 0.4 mg UNSCH PRN IV PUSH 02/17/17 15:30 (Irasema-Colace) 1 tab BID PO 02/17/17 21:00 02/17/17 21:08 (Milk Of Magnesia Liq) 30 ml Q12H PRN PO 02/17/17 15:30 (Senokot) 17.2 mg Q12H PRN PO 02/17/17 15:30 (Dulcolax Supp) 10 mg DAILY PRN RECTAL 02/17/17 15:30 (Lactulose Liq) 30 ml DAILY PRN PO 02/17/17 15:30 Azithromycin 500 mg/Sodium Chloride 250 ml @ 250 mls/hr Q24H IV 02/18/17 16:00 02/18/17 15:27 (Lipitor) 40 mg HS PO 02/17/17 21:00 02/18/17 22:11 (Lioresal) 10 mg BID PRN PO 02/17/17 18:00 (Symbicort 160-4.5 Mcg Inh) 2 puff BID INH 02/17/17 21:00 02/19/17 09:16 (Wellbutrin Sr) 150 mg BID PO 02/17/17 21:00 02/19/17 09:12 (Lotrimin 1% Cream) 1 applic BID TOPICAL 02/17/17 21:00 02/19/17 09:15 (Hydrodiuril) 25 mg DAILY PO 02/18/17 09:00 02/19/17 09:14 (KCl) 20 meq BID PO 02/17/17 21:00 02/19/17 09:14 (Flomax) 0.4 mg DAILY PO 02/18/17 09:00 02/19/17 09:14 (Rony-24) 200 mg DAILY PO 02/18/17 09:00 02/19/17 09:12 (Tears Naturale Opth Soln) 1 drop QID PRN EACH EYE 02/17/17 18:00 (SoluMEDROL INJ) 40 mg Q12HR IV PUSH 02/17/17 21:00 02/19/17 09:12 (Coumadin) 5 mg DAILY@1600 PO 02/18/17 16:00 02/18/17 15:18 (Duoneb Neb) 1 ampule Q4HR NEB NEB 02/18/17 00:00 02/19/17 13:33 (Tylenol) 500 mg Q4HR PRN PO 02/18/17 12:00 (D50w (Vial) Inj) 50 ml UNSCH PRN IV PUSH 02/18/17 14:30 (Glucagon Inj) 1 mg UNSCH PRN OTHER 02/18/17 14:30 (NovoLIN R SUPPLEMENTAL SCALE) 1 ACHS SLIDING SCALE SQ 02/18/17 17:00 02/19/17 11:47 (Lopressor) 25 mg BID PO 02/18/17 21:00 02/19/17 09:14 (Lovenox Inj) 120 mg Q12H SQ 02/18/17 18:00 02/19/17 05:56 ([place] 10-325 Mg) 1 tab Q4H PRN PO 02/18/17 21:30 02/19/17 11:42 (Buspar) 20 mg Q8HR PRN PO 02/19/17 14:00 02/19/17 13:48 Piperacillin Sod/ Tazobactam Sod 100 ml @ 200 mls/hr Q6H IV 02/19/17 14:00 Vancomycin HCl 1750 mg/Sodium Chloride 517.5 ml @ 250 mls/hr Q12H IV 02/19/17 13:00 02/19/17 13:50 Pharmacy Profile Note 0 ml @ 0 mls/hr UNSCH OTHER 02/19/17 10:45 Miscellaneous Information SPECIFIC LAB TO BE DRAWN:VANCOMYCIN TROUGH DATE TO... ONCE ONCE .XX 02/21/17 00:45 02/21/17 00:46 Vital Signs / I&O Vital Signs Date Time Temp Pulse Resp B/P (MAP) Pulse Ox O2 Delivery O2 Flow Rate FiO2 02/19/17 12:22 70 20 142/77 (98) 95 02/19/17 12:01 70 142/77 02/19/17 08:00 80 02/19/17 08:00 98.3 80 24 147/85 (105) 98 02/19/17 07:58 97 Nasal Cannula 3.00 02/19/17 07:00 88 02/19/17 06:00 78 02/19/17 05:00 104 02/19/17 04:00 88 02/19/17 04:00 97.0 54 20 150/84 (106) 95 02/19/17 03:00 78 02/19/17 02:15 78 02/19/17 02:00 76 02/19/17 01:00 76 02/19/17 00:00 97.6 78 20 115/66 (82) 95 02/19/17 00:00 76 02/18/17 23:00 78 02/18/17 22:30 78 02/18/17 22:00 78 02/18/17 21:18 96 Nasal Cannula 3.00 02/18/17 21:00 78 02/18/17 20:00 77 02/18/17 20:00 97.6 78 20 108/73 (85) 96 02/18/17 19:28 19 02/18/17 19:21 89 108/73 02/18/17 18:00 94 02/18/17 17:00 78 02/18/17 16:00 122 02/18/17 15:30 98.2 127 20 135/80 (98) 97 02/18/17 15:00 119 I/O 02/18/17 02/18/17 02/18/17 02/19/17 02/19/17 02/19/17 07:00 15:00 23:00 07:00 15:00 23:00 Intake Total 1080 ml 100 ml 1065 ml 240 ml Output Total 375 ml 400 ml 750 ml Balance 705 ml 100 ml 665 ml -510 ml Intake Oral 480 ml 690 ml 240 ml IV Total 600 ml 100 ml 375 ml Output Urine Total 375 ml 400 ml 750 ml # Voids 3 # Bowel Movements 3 3 Physical Exam GENERAL: In NAD SKIN: Warm and dry. HEAD: Normocephalic. EYES: No scleral icterus. No injection or drainage. NECK: Supple, trachea midline. No JVD or lymphadenopathy. CARDIOVASCULAR: Irregular, without murmurs, gallops, or rubs. RESPIRATORY: Breath sounds equal bilaterally. No accessory muscle use. Few rhonchi. GASTROINTESTINAL: Abdomen soft, non-tender, nondistended. MUSCULOSKELETAL: No cyanosis, mild edema. Laboratory Laboratory Tests Test 02/19/17 05:40 White Blood Count 17.0 TH/MM3 Red Blood Count 4.28 MIL/MM3 Hemoglobin 13.1 GM/DL Hematocrit 38.3 % Mean Corpuscular Volume 89.6 FL Mean Corpuscular Hemoglobin 30.6 PG Mean Corpuscular Hemoglobin Concent 34.1 % Red Cell Distribution Width 15.4 % Platelet Count 363 TH/MM3 Mean Platelet Volume 6.4 FL Prothrombin Time 12.3 SEC Prothromb Time International Ratio 1.2 RATIO Blood Urea Nitrogen 19 MG/DL Creatinine 0.69 MG/DL Random Glucose 175 MG/DL Calcium Level 9.2 MG/DL Sodium Level 138 MEQ/L Potassium Level 3.7 MEQ/L Chloride Level 101 MEQ/L Carbon Dioxide Level 31.1 MEQ/L Anion Gap 6 MEQ/L Estimat Glomerular Filtration Rate 114 ML/MIN Hemoglobin A1c 6.4 % Assessment and Plan Problem List: (1) Atrial fibrillation with rapid ventricular response ICD Codes: I48.91 - Unspecified atrial fibrillation (2) COPD with exacerbation ICD Codes: J44.1 - Obstructive chronic bronchitis with exacerbation Status: Acute (3) Hypertension ICD Codes: I10 - Hypertension Status: Chronic (4) Hyperlipidemia ICD Codes: E78.5 - Hyperlipidemia Status: Acute (5) Morbid obesity ICD Codes: E66.01 - Morbid obesity Status: Acute Assessment and Plan Switch IV diltiazem to PO diltiazem 120 mg q 6 hrs, later to long-acting high dose. Continue metoprolol and titrate as tolerated. May need to add digoxin if necessary for rate control as well. Echo with normal LV systolic and diastolic function. Anticoagulation with warfarin. Increase activity. Continue tx for COPD exacerbation. [facility] Problem Qualifiers (1) Hypertension: Qualified Codes: I10 - Essential (primary) hypertension Mike Fraser MD Feb 19, 2017 14:18
[2017-02-19] MEDS: DILTIAZEM HCL 90 MG TAB PO SCH ×2 (16:29→21:37)
[2017-02-19] MEDS: WARFARIN SOD 5 MG TAB PO SCH (16:30)
[2017-02-19] MEDS: AZITHROMYCIN INJ 500 MG in SODIUM CHLOR 0.9% 250 ML INJ 250 ML IV SCH (16:32)
--- NOTE | 2017-02-19 17:10 | HHI.PR ---
Subjective Remarks 66 YO Morbidly obese male with COPD Exac,AF with RVR Breathing better On Metoprolol On Cardiazem drip Has nasal congestion Objective Vital Signs Vital Signs Date Time Temp Pulse Resp B/P (MAP) Pulse Ox O2 Delivery O2 Flow Rate FiO2 02/19/17 12:22 70 20 142/77 (98) 95 02/19/17 12:01 70 142/77 02/19/17 08:00 80 02/19/17 08:00 98.3 80 24 147/85 (105) 98 02/19/17 07:58 97 Nasal Cannula 3.00 02/19/17 07:00 88 02/19/17 06:00 78 02/19/17 05:00 104 02/19/17 04:00 88 02/19/17 04:00 97.0 54 20 150/84 (106) 95 02/19/17 03:00 78 02/19/17 02:15 78 02/19/17 02:00 76 02/19/17 01:00 76 02/19/17 00:00 97.6 78 20 115/66 (82) 95 02/19/17 00:00 76 02/18/17 23:00 78 02/18/17 22:30 78 02/18/17 22:00 78 02/18/17 21:18 96 Nasal Cannula 3.00 02/18/17 21:00 78 02/18/17 20:00 77 02/18/17 20:00 97.6 78 20 108/73 (85) 96 02/18/17 19:28 19 02/18/17 19:21 89 108/73 02/18/17 18:00 94 I/O 02/18/17 02/18/17 02/18/17 02/19/17 02/19/17 02/19/17 07:00 15:00 23:00 07:00 15:00 23:00 Intake Total 1080 ml 100 ml 1065 ml 240 ml 500 ml Output Total 375 ml 400 ml 750 ml Balance 705 ml 100 ml 665 ml -510 ml 500 ml Intake Oral 480 ml 690 ml 240 ml IV Total 600 ml 100 ml 375 ml 500 ml Output Urine Total 375 ml 400 ml 750 ml # Voids 3 # Bowel Movements 3 3 Result Diagram: 02/19/1753902/19/1740 Objective Remarks GENERAL: Obese WM, mild sob SKIN: Warm and dry. HEAD: Normocephalic. EYES: No scleral icterus. No injection or drainage. NECK: Supple, trachea midline. No JVD or lymphadenopathy. CARDIOVASCULAR: Regular rate and rhythm without murmurs, gallops, or rubs. RESPIRATORY: Breath sounds equal bilaterally. No accessory muscle use. GASTROINTESTINAL: Abdomen soft, non-tender, nondistended. MUSCULOSKELETAL: No cyanosis, ++ edema. BACK: Nontender without obvious deformity. No CVA tenderness. A/P Assessment and Plan COPD Exac AF HTN Anxiety Likly KAREN Obesity Ch. Pain PLAN: Aerosol nebs Supplement 02 Metoprolol for rate controll Anticoagulation with Coumadin. Cardiazem drip being changeed to po Saline NS Kal Martino MD Feb 19, 2017 17:10
[2017-02-19] MEDS: predniSONE 10 MG TAB PO SCH (19:08)
[2017-02-19] MEDS: PIPERACIL-TAZO 4.5 GM PREMIX 100 ML IV SCH (21:36)
[2017-02-19] MEDS: ATORVASTATIN 40 MG TAB PO SCH (21:38)
[2017-02-20] VITALS (25 sets, daily range): BP systolic 121–156; BP diastolic 74–94; PULSE 72–114; RESP 20; TEMP 96.7–98.3; O2SAT 95–98
[2017-02-20] MEDS: PIPERACIL-TAZO 4.5 GM PREMIX 100 ML IV SCH ×4 (01:22→20:28)
[2017-02-20] MEDS: ACETAMINOPHEN/HYDROcodone 325 MG/10 MG TAB PO PRN ×5 (01:23→20:28)
[2017-02-20] MEDS: VANCOMYCIN INJ 1,750 MG in SODIUM CHLORID 0.9% 500 ML INJ 500 ML IV SCH ×2 (01:56→14:31)
[2017-02-20] MEDS: RESP: ALBUTEROL 2.5 MG/IPRATROPIUM 0.5 MG NEB (SCH) NEB ×5 (04:04→20:46)
[2017-02-20] MEDS: ENOXAPARIN SODIUM 120 MG/0.8 ML SYRINGE SQ SCH ×2 (05:37→18:19)
[2017-02-20 06:21] LABS: HEMATOCRIT 37.4 % (39.0-51.0); MEAN CELL VOLUME 89.4 FL (80.0-100.0); MEAN CORPUSCULAR HEMOGLOBIN 30.6 PG (27.0-34.0); MEAN CORPUSCULAR HGB CONC 34.2 % (32.0-36.0); PLATELET COUNT 319 TH/MM3 (150-450); RED BLOOD COUNT 4.19 MIL/MM3 (4.50-5.90); RED CELL DISTRIBUTION WIDTH 15.4 % (11.6-17.2); REVIEW FLAG FINAL; WHITE BLOOD COUNT 15.7 TH/MM3 (4.0-11.0)
[2017-02-20 06:34] LABS: INTERNATIONAL NORMALIZED RATIO 1.5 RATIO; PROTHROMBIN TIME - PATIENT 15.1 SEC (9.8-11.6)
[2017-02-20 06:55] LABS: POTASSIUM 3.5 MEQ/L (3.5-5.1)
[2017-02-20] MEDS: INSULIN NovoLIN REGULAR SUPPLEMENTAL SCALE SQ SCH ×4 (08:00→21:42)
[2017-02-20] MEDS: CLOTRIMAZOLE 1% CREAM 15 GM TOPICAL SCH ×2 (08:51→20:35)
[2017-02-20] MEDS: buPROPion HCL 150 MG SUSTAINED RELEASE TAB PO SCH ×2 (08:51→20:28)
[2017-02-20] MEDS: predniSONE 10 MG TAB PO SCH ×3 (08:51→18:20)
[2017-02-20] MEDS: METOPROLOL TARTRATE 25 MG TAB PO SCH ×2 (08:51→20:28)
[2017-02-20] MEDS: TAMSULOSIN HCL 0.4 MG CAP PO SCH (08:51)
[2017-02-20] MEDS: THEOPHYLLINE 200 MG EXTENDED RELEASE CAP PO SCH (08:51)
[2017-02-20] MEDS: BUDESONIDE-FORMOTEROL 160/4.5 MCG INHALER INH SCH ×2 (08:51→20:32)
[2017-02-20] MEDS: HYDROCHLOROTHIAZIDE 25 MG TAB PO SCH (08:52)
[2017-02-20] MEDS: DOCUSATE SODIUM 50 MG/SENNA 8.6 MG TAB PO SCH ×2 (08:52→20:28)
[2017-02-20] MEDS: DILTIAZEM HCL 90 MG TAB PO SCH ×4 (08:52→20:28)
[2017-02-20] MEDS: POTASSIUM CHLORIDE 20 MEQ CONTROLLED RELEASE TAB PO SCH ×2 (08:52→20:27)
[2017-02-20] MEDS: SODIUM CHLORIDE 0.9% FLUSH 10 ML FLUSH IV FLUSH SCH ×2 (08:52→20:29)
[2017-02-20] MEDS: busPIRone HCL 10 MG TAB PO PRN (08:55)
--- NOTE | 2017-02-20 09:56 | HHI.FPPN ---
Subjective Remarks Patient seen and examined today. States he continues to have some mild shortness of breath, cough however this is still around his baseline. Continuing to not mucus this time. States he took a decongestant today which she happened to have with him. No chest pain at this time, palpitations, self- reported rapid heart rate. No nausea, vomiting, fever, chills, abdominal pain, change in bowel or bladder habits. No other complaints. Objective Vitals Vital Signs Date Time Temp Pulse Resp B/P (MAP) Pulse Ox O2 Delivery O2 Flow Rate FiO2 02/20/17 08:52 98 Nasal Cannula 3.00 02/20/17 07:01 81 02/20/17 06:00 80 02/20/17 05:00 95 02/20/17 04:00 84 02/20/17 03:00 76 02/20/17 03:00 98.3 77 20 141/89 (106) 96 02/20/17 02:00 78 02/20/17 01:00 78 02/20/17 00:00 77 02/19/17 23:00 76 02/19/17 23:00 97.5 77 20 109/66 (80) 95 02/19/17 21:00 78 02/19/17 20:00 79 02/19/17 19:23 96 Nasal Cannula 3.00 02/19/17 19:00 97.4 106 18 138/83 (101) 95 02/19/17 19:00 112 02/19/17 18:00 82 02/19/17 17:00 88 02/19/17 16:00 88 02/19/17 16:00 86 20 142/80 (100) 99 02/19/17 15:00 86 02/19/17 14:00 78 02/19/17 13:00 80 02/19/17 12:22 70 20 142/77 (98) 95 02/19/17 12:01 70 142/77 02/19/17 12:00 80 02/19/17 11:00 76 02/19/17 10:00 86 I/O 02/19/17 02/19/17 02/19/17 02/20/17 02/20/17 02/20/17 07:00 15:00 23:00 07:00 15:00 23:00 Intake Total 240 ml 20 ml 1590 ml 240 ml 100 ml Output Total 750 ml 800 ml 150 ml Balance -510 ml 20 ml 790 ml 90 ml 100 ml Intake Oral 240 ml 840 ml 240 ml IV Total 20 ml 750 ml 100 ml Output Urine Total 750 ml 800 ml 150 ml # Bowel Movements 2 Result Diagram: 02/20/1743802/20/17438 Objective Remarks GENERAL: This is a well-nourished, well-developed patient, in no apparent distress. CARDIOVASCULAR: Regular rate and rhythm without murmurs, gallops, or rubs. RESPIRATORY: Improved breath sounds. Coarse with occasional expiratory wheezes. No rales, or rhonchi. GASTROINTESTINAL: Abdomen distended, nontender. No guarding. MUSCULOSKELETAL: No joint tenderness, effusion, or edema noted. No calf tenderness. NEUROLOGICAL: Awake and alert. Normal speech. A/P Assessment and Plan 66-year-old male with past history of COPD, hypertension and possibly A. fib came in complaining of fast heart rate. A. fib with RVR reported by ED physician. Bibasilar atelectasis noted on CXR. Discharge Planning Unclear. Pending treatment of Afib Problem List: (1) Atrial fibrillation with rapid ventricular response ICD Codes: I48.91 - Unspecified atrial fibrillation Plan: Patient came in with rapid heart rate demonstrating A. fib with RVR. Possibly has past history of A. fib. Was not on anticoagulation at time of admission. -Cardiology consulted-appreciate recs -Cardioversion after 2 weeks of therapeutic cardioversion -Telemetry monitoring -Cardiology recommends diltiazem 120 mg every 6 hours, titrate metoprolol as tolerated -Echocardiogram EF 55-60%, trace mitral valve regurgitation, left ventricle diastolic function normal -Continue warfarin anticoagulation per cardiology (2) Pneumonia ICD Codes: J18.9 - Pneumonia, unspecified organism Status: Acute Plan: Patient with tachycardia, tachypnea, bibasilar atelectasis and potential infiltrate. Was seen in Hospital within the past 30 days, would qualify as potential hospital-acquired pneumonia. Leukocytosis of 17.0 on 02/19, currently downtrending -vancomycin -Zosyn -Continue azithromycin -Monitor for change in symptoms -Follow up blood culture (3) COPD (chronic obstructive pulmonary disease) ICD Codes: J44.9 - Chronic obstructive pulmonary disease, unspecified Plan: History of COPD, continue home medications -Duo nebs every 4 hours -Methylprednisone 40 mg every 12 hours -Theophylline 200 mg 24 hours -Continue Symbicort -Consult pulmonology (4) Abdominal distension ICD Codes: R14.0 - Abdominal distension (gaseous) Plan: Patient with abdominal distention. Reports he has seen his primary care consent him for a CT scan several months ago which came back as negative for cancer. US: Diffusely increased hepatic echogenicity with mild hepatomegaly consistent with hepatic steatosis versus liver disease. No ascites AST/ALT wnl; Asymptomatic -Continue to monitor (5) Chronic back pain ICD Codes: G89.29 - Other chronic pain; M54.9 - Chronic back pain Status: Acute Plan: Continue home medications -Acetaminophen as needed -Baclofen 10 mg by mouth twice a day next line -[place] 5 every 6 hours as needed (6) Hypertension ICD Codes: I10 - Hypertension Status: Chronic Plan: -Continue home meds -Hydrochlorothiazide 25 mg by mouth daily (7) Hyperlipemia ICD Codes: E78.5 - Hyperlipemia Status: Chronic Plan: -Continue home home medications -atorvastatin 40 mg by mouth at bedtime (8) FEN Status: Acute Plan: Fluids:Tolerating fluids by mouth Electrolytes:Monitor and correct as needed Nutrition:Regular diet DVT ppx: Lovenox Problem Qualifiers (1) Pneumonia: Qualified Codes: J18.9 - Pneumonia, unspecified organism (2) COPD (chronic obstructive pulmonary disease): Qualified Codes: J41.0 - Simple chronic bronchitis (3) Chronic back pain: Qualified Codes: M54.5 - Low back pain; G89.29 - Other chronic pain (4) Hypertension: Qualified Codes: I10 - Essential (primary) hypertension (5) Hyperlipemia: Qualified Codes: E78.00 - Pure hypercholesterolemia, unspecified Roland Waggoner MD R1 Feb 20, 2017 09:56
[2017-02-20] MEDS: FLUTICASONE PROPIONATE 50 MCG/ACT 16 GM NASAL SPRAY NASAL SCH ×2 (10:00→20:32)
[2017-02-20] MEDS: WARFARIN SOD 5 MG TAB PO SCH (16:46)
[2017-02-20] MEDS: AZITHROMYCIN INJ 500 MG in SODIUM CHLOR 0.9% 250 ML INJ 250 ML IV SCH (16:46)
--- NOTE | 2017-02-20 17:47 | HHI.PR ---
Subjective Remarks 66 YO Morbidly obese male with COPD Exac,AF with RVR Breathing better On Metoprolol On Cardiazem po Has nasal congestion Up in chair, feels better Objective Vital Signs Vital Signs Date Time Temp Pulse Resp B/P (MAP) Pulse Ox O2 Delivery O2 Flow Rate FiO2 02/20/17 16:01 76 02/20/17 15:15 97.5 79 20 132/91 (105) 96 02/20/17 15:00 91 02/20/17 14:00 114 02/20/17 13:01 80 02/20/17 12:00 94 02/20/17 11:30 97.7 78 20 124/74 (91) 97 02/20/17 11:00 78 02/20/17 10:00 76 02/20/17 09:00 72 02/20/17 08:52 98 Nasal Cannula 3.00 02/20/17 08:15 97.4 90 20 156/94 (114) 97 02/20/17 08:00 78 02/20/17 07:01 81 02/20/17 06:00 80 02/20/17 05:00 95 02/20/17 04:00 84 02/20/17 03:00 76 02/20/17 03:00 98.3 77 20 141/89 (106) 96 02/20/17 02:00 78 02/20/17 01:00 78 02/20/17 00:00 77 02/19/17 23:00 76 02/19/17 23:00 97.5 77 20 109/66 (80) 95 02/19/17 21:00 78 02/19/17 20:00 79 02/19/17 19:23 96 Nasal Cannula 3.00 02/19/17 19:00 97.4 106 18 138/83 (101) 95 02/19/17 19:00 112 02/19/17 18:00 82 I/O 02/19/17 02/19/17 02/19/17 02/20/17 02/20/17 02/20/17 07:00 15:00 23:00 07:00 15:00 23:00 Intake Total 240 ml 20 ml 1590 ml 240 ml 100 ml Output Total 750 ml 800 ml 150 ml Balance -510 ml 20 ml 790 ml 90 ml 100 ml Intake Oral 240 ml 840 ml 240 ml IV Total 20 ml 750 ml 100 ml Output Urine Total 750 ml 800 ml 150 ml # Bowel Movements 2 Result Diagram: 02/20/1743802/20/17438 Objective Remarks GENERAL: Obese WM, mild sob SKIN: Warm and dry. HEAD: Normocephalic. EYES: No scleral icterus. No injection or drainage. NECK: Supple, trachea midline. No JVD or lymphadenopathy. CARDIOVASCULAR: Regular rate and rhythm without murmurs, gallops, or rubs. RESPIRATORY: Breath sounds equal bilaterally. No accessory muscle use. GASTROINTESTINAL: Abdomen soft, non-tender, nondistended. MUSCULOSKELETAL: No cyanosis, ++ edema. BACK: Nontender without obvious deformity. No CVA tenderness. A/P Assessment and Plan COPD Exac AF HTN Anxiety Likly KAREN Obesity Ch. Pain PLAN: Aerosol nebs Supplement 02 Metoprolol for rate controll Anticoagulation with Coumadin. Cardiazem po Saline NS DC Plans underway. Kal Martino MD Feb 20, 2017 17:47
--- NOTE | 2017-02-20 18:08 | PD.CARD.PN ---
Subjective Subjective Remarks No CP, mild SOB, no palpitations, HR better controlled with PO meds Objective Medications Current Medications Medications (Trade) Dose Ordered Sig/Agatha Route Start Time Stop Time Status Last Admin (NS Flush) 2 ml UNSCH PRN IV FLUSH 02/17/17 15:30 (NS Flush) 2 ml BID IV FLUSH 02/17/17 21:00 02/20/17 08:52 (Tylenol) 650 mg Q4H PRN PO 02/17/17 15:30 (Zofran Inj) 4 mg Q6H PRN IVP 02/17/17 15:30 (Narcan Inj) 0.4 mg UNSCH PRN IV PUSH 02/17/17 15:30 (Irasema-Colace) 1 tab BID PO 02/17/17 21:00 02/19/17 21:37 (Milk Of Magnesia Liq) 30 ml Q12H PRN PO 02/17/17 15:30 (Senokot) 17.2 mg Q12H PRN PO 02/17/17 15:30 (Dulcolax Supp) 10 mg DAILY PRN RECTAL 02/17/17 15:30 (Lactulose Liq) 30 ml DAILY PRN PO 02/17/17 15:30 Azithromycin 500 mg/Sodium Chloride 250 ml @ 250 mls/hr Q24H IV 02/18/17 16:00 02/20/17 16:46 (Lipitor) 40 mg HS PO 02/17/17 21:00 02/19/17 21:38 (Lioresal) 10 mg BID PRN PO 02/17/17 18:00 (Symbicort 160-4.5 Mcg Inh) 2 puff BID INH 02/17/17 21:00 02/20/17 08:51 (Wellbutrin Sr) 150 mg BID PO 02/17/17 21:00 02/20/17 08:51 (Lotrimin 1% Cream) 1 applic BID TOPICAL 02/17/17 21:00 02/20/17 08:51 (Hydrodiuril) 25 mg DAILY PO 02/18/17 09:00 02/20/17 08:52 (KCl) 20 meq BID PO 02/17/17 21:00 02/20/17 08:52 (Flomax) 0.4 mg DAILY PO 02/18/17 09:00 02/20/17 08:51 (Rony-24) 200 mg DAILY PO 02/18/17 09:00 02/20/17 08:51 (Tears Naturale Opth Soln) 1 drop QID PRN EACH EYE 02/17/17 18:00 (Coumadin) 5 mg DAILY@1600 PO 02/18/17 16:00 02/20/17 16:46 (Duoneb Neb) 1 ampule Q4HR NEB NEB 02/18/17 00:00 02/20/17 16:43 (Tylenol) 500 mg Q4HR PRN PO 02/18/17 12:00 (D50w (Vial) Inj) 50 ml UNSCH PRN IV PUSH 02/18/17 14:30 (Glucagon Inj) 1 mg UNSCH PRN OTHER 02/18/17 14:30 (NovoLIN R SUPPLEMENTAL SCALE) 1 ACHS SLIDING SCALE SQ 02/18/17 17:00 02/20/17 12:00 (Lovenox Inj) 120 mg Q12H SQ 02/18/17 18:00 02/20/17 05:37 ([place] 10-325 Mg) 1 tab Q4H PRN PO 02/18/17 21:30 02/20/17 14:36 (Buspar) 20 mg Q8HR PRN PO 02/19/17 14:00 02/20/17 08:55 Vancomycin HCl 1750 mg/Sodium Chloride 517.5 ml @ 250 mls/hr Q12H IV 02/19/17 13:00 02/20/17 14:31 Pharmacy Profile Note 0 ml @ 0 mls/hr UNSCH OTHER 02/19/17 10:45 Miscellaneous Information SPECIFIC LAB TO BE DRAWN:VANCOMYCIN TROUGH DATE TO... ONCE ONCE .XX 02/21/17 00:45 02/21/17 00:46 (Lopressor) 50 mg BID PO 02/19/17 21:00 02/20/17 08:51 (Cardizem) 90 mg QID PO 02/19/17 17:00 02/20/17 13:27 Piperacillin Sod/ Tazobactam Sod 100 ml @ 200 mls/hr Q6H IV 02/19/17 20:00 02/20/17 08:52 (Deltasone) 10 mg TID PO 02/19/17 18:00 02/20/17 13:27 (Flonase Anthony Spr) 1 spray BID NASAL 02/20/17 10:00 02/20/17 10:00 Vital Signs / I&O Vital Signs Date Time Temp Pulse Resp B/P (MAP) Pulse Ox O2 Delivery O2 Flow Rate FiO2 02/20/17 16:01 76 02/20/17 15:15 97.5 79 20 132/91 (105) 96 02/20/17 15:00 91 02/20/17 14:00 114 02/20/17 13:01 80 02/20/17 12:00 94 02/20/17 11:30 97.7 78 20 124/74 (91) 97 02/20/17 11:00 78 02/20/17 10:00 76 02/20/17 09:00 72 02/20/17 08:52 98 Nasal Cannula 3.00 02/20/17 08:15 97.4 90 20 156/94 (114) 97 02/20/17 08:00 78 02/20/17 07:01 81 02/20/17 06:00 80 02/20/17 05:00 95 02/20/17 04:00 84 02/20/17 03:00 76 02/20/17 03:00 98.3 77 20 141/89 (106) 96 02/20/17 02:00 78 02/20/17 01:00 78 02/20/17 00:00 77 02/19/17 23:00 76 02/19/17 23:00 97.5 77 20 109/66 (80) 95 02/19/17 21:00 78 02/19/17 20:00 79 02/19/17 19:23 96 Nasal Cannula 3.00 02/19/17 19:00 97.4 106 18 138/83 (101) 95 02/19/17 19:00 112 I/O 02/19/17 02/19/17 02/19/17 02/20/17 02/20/17 02/20/17 07:00 15:00 23:00 07:00 15:00 23:00 Intake Total 240 ml 20 ml 1590 ml 240 ml 100 ml Output Total 750 ml 800 ml 150 ml Balance -510 ml 20 ml 790 ml 90 ml 100 ml Intake Oral 240 ml 840 ml 240 ml IV Total 20 ml 750 ml 100 ml Output Urine Total 750 ml 800 ml 150 ml # Bowel Movements 2 Physical Exam GENERAL: In NAD SKIN: Warm and dry. HEAD: Normocephalic. EYES: No scleral icterus. No injection or drainage. NECK: Supple, trachea midline. No JVD or lymphadenopathy. CARDIOVASCULAR: Irregular, without murmurs, gallops, or rubs. RESPIRATORY: Breath sounds equal bilaterally. No accessory muscle use. Few rhonchi. GASTROINTESTINAL: Abdomen soft, non-tender, nondistended. MUSCULOSKELETAL: No cyanosis, mild edema. Laboratory Laboratory Tests Test 02/20/17 04:39 White Blood Count 15.7 TH/MM3 Red Blood Count 4.19 MIL/MM3 Hemoglobin 12.8 GM/DL Hematocrit 37.4 % Mean Corpuscular Volume 89.4 FL Mean Corpuscular Hemoglobin 30.6 PG Mean Corpuscular Hemoglobin Concent 34.2 % Red Cell Distribution Width 15.4 % Platelet Count 319 TH/MM3 Mean Platelet Volume 6.4 FL Prothrombin Time 15.1 SEC Prothromb Time International Ratio 1.5 RATIO Blood Urea Nitrogen 16 MG/DL Creatinine 0.71 MG/DL Random Glucose 105 MG/DL Calcium Level 8.7 MG/DL Sodium Level 137 MEQ/L Potassium Level 3.5 MEQ/L Chloride Level 99 MEQ/L Carbon Dioxide Level 31.0 MEQ/L Anion Gap 7 MEQ/L Estimat Glomerular Filtration Rate 110 ML/MIN Assessment and Plan Problem List: (1) Atrial fibrillation with rapid ventricular response ICD Codes: I48.91 - Unspecified atrial fibrillation (2) COPD with exacerbation ICD Codes: J44.1 - Obstructive chronic bronchitis with exacerbation Status: Acute (3) Hypertension ICD Codes: I10 - Hypertension Status: Chronic (4) Hyperlipidemia ICD Codes: E78.5 - Hyperlipidemia Status: Acute (5) Morbid obesity ICD Codes: E66.01 - Morbid obesity Status: Acute Assessment and Plan Rate better controlled. Continue PO diltiazem for rate control, switch to long- acting dilt. Continue metoprolol and titrate as tolerated. Echo with normal LV systolic and diastolic function. Continue anticoagulation with warfarin. Increase activity. Continue tx for COPD exacerbation. [facility] Problem Qualifiers (1) Hypertension: Qualified Codes: I10 - Essential (primary) hypertension Mike Fraser MD Feb 20, 2017 18:08
[2017-02-20] MEDS: ATORVASTATIN 40 MG TAB PO SCH (20:27)
[2017-02-21] VITALS (7 sets, daily range): BP systolic 115–140; BP diastolic 79–80; PULSE 76–108; RESP 18–20; TEMP 97.3–97.6; O2SAT 95–98
[2017-02-21] MEDS: RESP: ALBUTEROL 2.5 MG/IPRATROPIUM 0.5 MG NEB (SCH) NEB ×4 (00:24→11:45)
[2017-02-21] MEDS ORDERED: PHARMACY ORDERED LAB ONE (00:45)
[2017-02-21] MEDS: VANCOMYCIN INJ 1,750 MG in SODIUM CHLORID 0.9% 500 ML INJ 500 ML IV SCH ×2 (02:02→13:30)
[2017-02-21] MEDS: PIPERACIL-TAZO 4.5 GM PREMIX 100 ML IV SCH ×2 (04:09→08:59)
[2017-02-21] MEDS: ACETAMINOPHEN/HYDROcodone 325 MG/10 MG TAB PO PRN ×2 (05:15→09:33)
[2017-02-21] MEDS: ENOXAPARIN SODIUM 120 MG/0.8 ML SYRINGE SQ SCH (05:15)
[2017-02-21] MEDS: INSULIN NovoLIN REGULAR SUPPLEMENTAL SCALE SQ SCH ×2 (08:00→12:00)
[2017-02-21 08:19] LABS: HEMATOCRIT 41.7 % (39.0-51.0); MEAN CORPUSCULAR HEMOGLOBIN 30.4 PG (27.0-34.0); MEAN CORPUSCULAR HGB CONC 34.2 % (32.0-36.0); PLATELET COUNT 363 TH/MM3 (150-450); RED BLOOD COUNT 4.69 MIL/MM3 (4.50-5.90); RED CELL DISTRIBUTION WIDTH 15.2 % (11.6-17.2); REVIEW FLAG FINAL; WHITE BLOOD COUNT 15.4 TH/MM3 (4.0-11.0)
[2017-02-21 08:23] LABS: PROTHROMBIN TIME - PATIENT 20.5 SEC (9.8-11.6)
[2017-02-21 08:46] LABS: BICARBONATE 33.1 MEQ/L (21.0-32.0); POTASSIUM 3.5 MEQ/L (3.5-5.1)
[2017-02-21] MEDS: buPROPion HCL 150 MG SUSTAINED RELEASE TAB PO SCH (08:54)
[2017-02-21] MEDS: HYDROCHLOROTHIAZIDE 25 MG TAB PO SCH (08:54)
[2017-02-21] MEDS: busPIRone HCL 10 MG TAB PO PRN (08:54)
[2017-02-21] MEDS: predniSONE 10 MG TAB PO SCH ×2 (08:54→13:29)
[2017-02-21] MEDS: METOPROLOL TARTRATE 25 MG TAB PO SCH (08:54)
[2017-02-21] MEDS: DOCUSATE SODIUM 50 MG/SENNA 8.6 MG TAB PO SCH (08:55)
[2017-02-21] MEDS: SODIUM CHLORIDE 0.9% FLUSH 10 ML FLUSH IV FLUSH SCH (08:55)
[2017-02-21] MEDS: TAMSULOSIN HCL 0.4 MG CAP PO SCH (08:55)
[2017-02-21] MEDS: CLOTRIMAZOLE 1% CREAM 15 GM TOPICAL SCH (08:55)
[2017-02-21] MEDS: BUDESONIDE-FORMOTEROL 160/4.5 MCG INHALER INH SCH (08:55)
[2017-02-21] MEDS: DILTIAZEM HCL 90 MG TAB PO SCH ×2 (08:55→13:30)
[2017-02-21] MEDS: FLUTICASONE PROPIONATE 50 MCG/ACT 16 GM NASAL SPRAY NASAL SCH (08:55)
[2017-02-21] MEDS: POTASSIUM CHLORIDE 20 MEQ CONTROLLED RELEASE TAB PO SCH (08:55)
[2017-02-21] MEDS: THEOPHYLLINE 200 MG EXTENDED RELEASE CAP PO SCH (08:59)
--- NOTE | 2017-02-21 10:09 | HHI.FPPN ---
Subjective Remarks Patient seen and examined this morning. No acute events overnight. Reports feeling improved this morning. Denies any palpitations or rapid heart rate. Denies any cough. States his breathing is improved. He is ready to go home. Denies any chest pain, abdominal pain, leg pain. Objective Vitals Vital Signs Date Time Temp Pulse Resp B/P (MAP) Pulse Ox O2 Delivery O2 Flow Rate FiO2 02/21/17 07:57 95 Nasal Cannula 3.00 02/21/17 05:36 Nasal Cannula 3.00 02/21/17 04:10 97.6 97 20 140/80 (100) 98 02/21/17 04:10 98 Nasal Cannula 3.00 02/21/17 02:00 Nasal Cannula 3.00 02/21/17 00:34 76 02/21/17 00:34 97 Nasal Cannula 3.00 02/21/17 00:34 97.3 77 18 115/79 (91) 97 02/20/17 22:00 96 Nasal Cannula 3.00 02/20/17 20:50 95 Nasal Cannula 2.50 02/20/17 20:05 97 Nasal Cannula 3.00 02/20/17 20:05 96.7 89 20 121/84 (96) 97 02/20/17 20:05 89 02/20/17 18:00 102 02/20/17 17:00 88 02/20/17 16:01 76 02/20/17 15:15 97.5 79 20 132/91 (105) 96 02/20/17 15:00 91 02/20/17 14:00 114 02/20/17 13:01 80 02/20/17 12:00 94 02/20/17 11:30 97.7 78 20 124/74 (91) 97 02/20/17 11:00 78 I/O 02/20/17 02/20/17 02/20/17 02/21/17 02/21/17 02/21/17 07:00 15:00 23:00 07:00 15:00 23:00 Intake Total 240 ml 100 ml 1680 ml 830 ml Output Total 150 ml 1250 ml 1250 ml Balance 90 ml 100 ml 430 ml -420 ml Intake Oral 240 ml 1080 ml 480 ml IV Total 100 ml 600 ml 350 ml Output Urine Total 150 ml 1250 ml 1250 ml # Voids 5 # Bowel Movements 1 Result Diagram: 02/21/17 0742 02/21/17 0742 Objective Remarks GENERAL: This is a well-nourished, well-developed patient, in no apparent distress. CARDIOVASCULAR: Regular rate and rhythm without murmurs, gallops, or rubs. RESPIRATORY: Improved breath sounds. Coarse with occasional expiratory wheezes. No rales, or rhonchi. GASTROINTESTINAL: Abdomen distended, nontender. No guarding. MUSCULOSKELETAL: No joint tenderness, effusion, or edema noted. No calf tenderness. NEUROLOGICAL: Awake and alert. Normal speech. A/P Assessment and Plan 66-year-old male with past history of COPD, hypertension and possibly A. fib came in complaining of fast heart rate. A. fib with RVR reported by ED physician. Bibasilar atelectasis noted on CXR. Discharge Planning Today/tomorrow following cardiology clearance and pneumonia treatment Problem List: (1) Atrial fibrillation with rapid ventricular response ICD Codes: I48.91 - Unspecified atrial fibrillation Status: Acute Plan: Patient came in with rapid heart rate demonstrating A. fib with RVR. Possibly has past history of A. fib. Was not on anticoagulation at time of admission. INR 2.0 today -Cardiology consulted-appreciate recs -Cardioversion after 2 weeks of therapeutic cardioversion -Telemetry monitoring -Cardiology recommends diltiazem 120 mg every 6 hours, titrate metoprolol as tolerated -Echocardiogram EF 55-60%, trace mitral valve regurgitation, left ventricle diastolic function normal -Continue warfarin anticoagulation per cardiology (2) Pneumonia ICD Codes: J18.9 - Pneumonia, unspecified organism Status: Acute Plan: Patient with tachycardia, tachypnea, bibasilar atelectasis and potential infiltrate. Was seen in Hospital within the past 30 days, would qualify as potential hospital-acquired pneumonia. Leukocytosis of 17.0 on 02/19, currently downtrending Afebrile. Cough improved. -Vancomycin -Zosyn -Continue azithromycin -Monitor for change in symptoms, change to PO medications -Follow up blood culture (3) COPD (chronic obstructive pulmonary disease) ICD Codes: J44.9 - Chronic obstructive pulmonary disease, unspecified Plan: History of COPD, continue home medications -Duo nebs every 4 hours -Methylprednisone 40 mg every 12 hours -Theophylline 200 mg 24 hours -Continue Symbicort -Consult pulmonology (4) Abdominal distension ICD Codes: R14.0 - Abdominal distension (gaseous) Plan: Patient with abdominal distention. Reports he has seen his primary care consent him for a CT scan several months ago which came back as negative for cancer. US: Diffusely increased hepatic echogenicity with mild hepatomegaly consistent with hepatic steatosis versus liver disease. No ascites AST/ALT wnl; Asymptomatic -Continue to monitor (5) Chronic back pain ICD Codes: G89.29 - Other chronic pain; M54.9 - Chronic back pain Status: Acute Plan: Continue home medications -Acetaminophen as needed -Baclofen 10 mg by mouth twice a day next line -[place] 5 every 6 hours as needed (6) Hypertension ICD Codes: I10 - Hypertension Status: Chronic Plan: -Continue home meds -Hydrochlorothiazide 25 mg by mouth daily (7) Hyperlipemia ICD Codes: E78.5 - Hyperlipemia Status: Chronic Plan: -Continue home home medications -atorvastatin 40 mg by mouth at bedtime (8) FEN Status: Acute Plan: Fluids:Tolerating fluids by mouth Electrolytes:Monitor and correct as needed Nutrition:Regular diet DVT ppx: Lovenox Problem Qualifiers (1) Pneumonia: Qualified Codes: J18.9 - Pneumonia, unspecified organism (2) COPD (chronic obstructive pulmonary disease): Qualified Codes: J41.0 - Simple chronic bronchitis (3) Chronic back pain: Qualified Codes: M54.5 - Low back pain; G89.29 - Other chronic pain (4) Hypertension: Qualified Codes: I10 - Essential (primary) hypertension (5) Hyperlipemia: Qualified Codes: E78.00 - Pure hypercholesterolemia, unspecified Twan Serrano MD, R2 Feb 21, 2017 10:09
--- NOTE | 2017-02-21 11:35 | HHI.PR ---
Subjective Remarks 66 YO Morbidly obese male with COPD Exac,AF with RVR Breathing better On Metoprolol On Cardiazem po Has nasal congestion Up in chair, feels better Anxious to go home Objective Vital Signs Vital Signs Date Time Temp Pulse Resp B/P (MAP) Pulse Ox O2 Delivery O2 Flow Rate FiO2 02/21/17 10:00 96 02/21/17 09:00 108 02/21/17 08:00 98 02/21/17 07:57 95 Nasal Cannula 3.00 02/21/17 07:00 78 02/21/17 05:36 Nasal Cannula 3.00 02/21/17 04:10 97.6 97 20 140/80 (100) 98 02/21/17 04:10 98 Nasal Cannula 3.00 02/21/17 02:00 Nasal Cannula 3.00 02/21/17 00:34 76 02/21/17 00:34 97 Nasal Cannula 3.00 02/21/17 00:34 97.3 77 18 115/79 (91) 97 02/20/17 22:00 96 Nasal Cannula 3.00 02/20/17 20:50 95 Nasal Cannula 2.50 02/20/17 20:05 97 Nasal Cannula 3.00 02/20/17 20:05 96.7 89 20 121/84 (96) 97 02/20/17 20:05 89 02/20/17 18:00 102 02/20/17 17:00 88 02/20/17 16:01 76 02/20/17 15:15 97.5 79 20 132/91 (105) 96 02/20/17 15:00 91 02/20/17 14:00 114 02/20/17 13:01 80 02/20/17 12:00 94 I/O 02/20/17 02/20/17 02/20/17 02/21/17 02/21/17 02/21/17 07:00 15:00 23:00 07:00 15:00 23:00 Intake Total 240 ml 100 ml 1680 ml 830 ml Output Total 150 ml 1250 ml 1250 ml Balance 90 ml 100 ml 430 ml -420 ml Intake Oral 240 ml 1080 ml 480 ml IV Total 100 ml 600 ml 350 ml Output Urine Total 150 ml 1250 ml 1250 ml # Voids 5 # Bowel Movements 1 Result Diagram: 02/21/1742 02/21/17741 Objective Remarks GENERAL: Obese WM, mild sob SKIN: Warm and dry. HEAD: Normocephalic. EYES: No scleral icterus. No injection or drainage. NECK: Supple, trachea midline. No JVD or lymphadenopathy. CARDIOVASCULAR: Regular rate and rhythm without murmurs, gallops, or rubs. RESPIRATORY: Breath sounds equal bilaterally. No accessory muscle use. GASTROINTESTINAL: Abdomen soft, non-tender, nondistended. MUSCULOSKELETAL: No cyanosis, ++ edema. BACK: Nontender without obvious deformity. No CVA tenderness. A/P Assessment and Plan COPD Exac AF HTN Anxiety Likly KAREN Obesity Ch. Pain PLAN: Aerosol nebs Supplement 02 Metoprolol for rate controll Anticoagulation with Coumadin. Cardiazem po Saline NS Stable from Pulm standpoint he will FU with dr.Ailani Martino,Kal Chowdhury MD Feb 21, 2017 11:35
--- NOTE | 2017-02-21 13:41 | PD.CARD.PN ---
Subjective Subjective Remarks No CP, SOB improving, no palpitations, HR controlled Objective Medications Current Medications Medications (Trade) Dose Ordered Sig/Agatha Route Start Time Stop Time Status Last Admin (NS Flush) 2 ml UNSCH PRN IV FLUSH 02/17/17 15:30 (NS Flush) 2 ml BID IV FLUSH 02/17/17 21:00 02/21/17 08:55 (Tylenol) 650 mg Q4H PRN PO 02/17/17 15:30 (Zofran Inj) 4 mg Q6H PRN IVP 02/17/17 15:30 (Narcan Inj) 0.4 mg UNSCH PRN IV PUSH 02/17/17 15:30 (Irasema-Colace) 1 tab BID PO 02/17/17 21:00 02/21/17 08:55 (Milk Of Magnesia Liq) 30 ml Q12H PRN PO 02/17/17 15:30 (Senokot) 17.2 mg Q12H PRN PO 02/17/17 15:30 (Dulcolax Supp) 10 mg DAILY PRN RECTAL 02/17/17 15:30 (Lactulose Liq) 30 ml DAILY PRN PO 02/17/17 15:30 Azithromycin 500 mg/Sodium Chloride 250 ml @ 250 mls/hr Q24H IV 02/18/17 16:00 02/20/17 16:46 (Lipitor) 40 mg HS PO 02/17/17 21:00 02/20/17 20:27 (Lioresal) 10 mg BID PRN PO 02/17/17 18:00 (Symbicort 160-4.5 Mcg Inh) 2 puff BID INH 02/17/17 21:00 02/21/17 08:55 (Wellbutrin Sr) 150 mg BID PO 02/17/17 21:00 02/21/17 08:54 (Lotrimin 1% Cream) 1 applic BID TOPICAL 02/17/17 21:00 02/21/17 08:55 (Hydrodiuril) 25 mg DAILY PO 02/18/17 09:00 02/21/17 08:54 (KCl) 20 meq BID PO 02/17/17 21:00 02/20/17 20:27 (Flomax) 0.4 mg DAILY PO 02/18/17 09:00 02/21/17 08:55 (Rony-24) 200 mg DAILY PO 02/18/17 09:00 02/21/17 08:59 (Tears Naturale Opth Soln) 1 drop QID PRN EACH EYE 02/17/17 18:00 (Coumadin) 5 mg DAILY@1600 PO 02/18/17 16:00 02/20/17 16:46 (Duoneb Neb) 1 ampule Q4HR NEB NEB 02/18/17 00:00 02/21/17 11:45 (Tylenol) 500 mg Q4HR PRN PO 02/18/17 12:00 (D50w (Vial) Inj) 50 ml UNSCH PRN IV PUSH 02/18/17 14:30 (Glucagon Inj) 1 mg UNSCH PRN OTHER 02/18/17 14:30 (NovoLIN R SUPPLEMENTAL SCALE) 1 ACHS SLIDING SCALE SQ 02/18/17 17:00 02/20/17 21:42 (Lovenox Inj) 120 mg Q12H SQ 02/18/17 18:00 02/21/17 05:15 ([place] 10-325 Mg) 1 tab Q4H PRN PO 02/18/17 21:30 02/21/17 09:33 (Buspar) 20 mg Q8HR PRN PO 02/19/17 14:00 02/21/17 08:54 Vancomycin HCl 1750 mg/Sodium Chloride 517.5 ml @ 250 mls/hr Q12H IV 02/19/17 13:00 02/21/17 13:30 Pharmacy Profile Note 0 ml @ 0 mls/hr UNSCH OTHER 02/19/17 10:45 (Lopressor) 50 mg BID PO 02/19/17 21:00 02/21/17 08:54 (Cardizem) 90 mg QID PO 02/19/17 17:00 02/21/17 13:30 Piperacillin Sod/ Tazobactam Sod 100 ml @ 200 mls/hr Q6H IV 02/19/17 20:00 02/21/17 08:59 (Deltasone) 10 mg TID PO 02/19/17 18:00 02/21/17 13:29 (Flonase Anthony Spr) 1 spray BID NASAL 02/20/17 10:00 02/20/17 20:32 Vital Signs / I&O Vital Signs Date Time Temp Pulse Resp B/P (MAP) Pulse Ox O2 Delivery O2 Flow Rate FiO2 02/21/17 10:00 96 02/21/17 09:00 108 02/21/17 08:00 98 02/21/17 07:57 95 Nasal Cannula 3.00 02/21/17 07:00 78 02/21/17 05:36 Nasal Cannula 3.00 02/21/17 04:10 97.6 97 20 140/80 (100) 98 02/21/17 04:10 98 Nasal Cannula 3.00 02/21/17 02:00 Nasal Cannula 3.00 02/21/17 00:34 76 02/21/17 00:34 97 Nasal Cannula 3.00 02/21/17 00:34 97.3 77 18 115/79 (91) 97 02/20/17 22:00 96 Nasal Cannula 3.00 02/20/17 20:50 95 Nasal Cannula 2.50 02/20/17 20:05 97 Nasal Cannula 3.00 02/20/17 20:05 96.7 89 20 121/84 (96) 97 02/20/17 20:05 89 02/20/17 18:00 102 02/20/17 17:00 88 02/20/17 16:01 76 02/20/17 15:15 97.5 79 20 132/91 (105) 96 02/20/17 15:00 91 02/20/17 14:00 114 I/O 02/20/17 02/20/17 02/20/17 02/21/17 02/21/17 02/21/17 07:00 15:00 23:00 07:00 15:00 23:00 Intake Total 240 ml 100 ml 1680 ml 830 ml Output Total 150 ml 1250 ml 1250 ml Balance 90 ml 100 ml 430 ml -420 ml Intake Oral 240 ml 1080 ml 480 ml IV Total 100 ml 600 ml 350 ml Output Urine Total 150 ml 1250 ml 1250 ml # Voids 5 # Bowel Movements 1 1 Physical Exam GENERAL: In NAD SKIN: Warm and dry. HEAD: Normocephalic. EYES: No scleral icterus. No injection or drainage. NECK: Supple, trachea midline. No JVD or lymphadenopathy. CARDIOVASCULAR: Irregular, without murmurs, gallops, or rubs. RESPIRATORY: Breath sounds equal bilaterally. No accessory muscle use. Few rhonchi. GASTROINTESTINAL: Abdomen soft, non-tender, nondistended. MUSCULOSKELETAL: No cyanosis, mild edema. Laboratory Laboratory Tests Test 02/21/17 00:57 02/21/17 07:42 Vancomycin Level Trough 14.4 MCG/ML White Blood Count 15.4 TH/MM3 Red Blood Count 4.69 MIL/MM3 Hemoglobin 14.3 GM/DL Hematocrit 41.7 % Mean Corpuscular Volume 89.0 FL Mean Corpuscular Hemoglobin 30.4 PG Mean Corpuscular Hemoglobin Concent 34.2 % Red Cell Distribution Width 15.2 % Platelet Count 363 TH/MM3 Mean Platelet Volume 6.4 FL Prothrombin Time 20.5 SEC Prothromb Time International Ratio 2.0 RATIO Blood Urea Nitrogen 12 MG/DL Creatinine 0.83 MG/DL Random Glucose 98 MG/DL Calcium Level 8.8 MG/DL Sodium Level 135 MEQ/L Potassium Level 3.5 MEQ/L Chloride Level 95 MEQ/L Carbon Dioxide Level 33.1 MEQ/L Anion Gap 7 MEQ/L Estimat Glomerular Filtration Rate 92 ML/MIN Assessment and Plan Problem List: (1) Atrial fibrillation with rapid ventricular response ICD Codes: I48.91 - Unspecified atrial fibrillation Status: Acute (2) COPD with exacerbation ICD Codes: J44.1 - Obstructive chronic bronchitis with exacerbation Status: Acute (3) Hypertension ICD Codes: I10 - Hypertension Status: Chronic (4) Hyperlipidemia ICD Codes: E78.5 - Hyperlipidemia Status: Acute (5) Morbid obesity ICD Codes: E66.01 - Morbid obesity Status: Acute Assessment and Plan Rate controlled. Continue diltiazem and metoprolol. Echo with normal LV systolic and diastolic function. Continue anticoagulation with warfarin, INR monitoring weekly at the [place]. Increase activity. Continue tx for COPD exacerbation[facility] OK to discharge from cardiac standpoint. Problem Qualifiers (1) Hypertension: Qualified Codes: I10 - Essential (primary) hypertension Mike Fraser MD Feb 21, 2017 13:41
--- NOTE | 2017-02-21 14:05 | HHI.DCPOC ---
Discharge Care Plan Diagnosis: (1) COPD (chronic obstructive pulmonary disease) (2) Atrial fibrillation with rapid ventricular response (3) Pneumonia (4) Benign hypertension Goals to Promote Your Health * To prevent worsening of your condition and complications * To maintain your health at the optimal level Directions to Meet Your Goals Take your medications as prescribed Follow your dietary instruction Follow activity as directed Keep your appointments as scheduled Take your immunizations and boosters as scheduled If your symptoms worsen call your PCP, if no PCP go to Urgent Care Center or Emergency Room Smoking is Dangerous to Your Health. Avoid second hand smoke Call the 24-hour hour crisis hotline for domestic abuse at Twan Serrano MD, R2 Feb 21, 2017 14:05
[2017-02-21] MEDS ORDERED: DILT90TA PO (14:10)
[2017-02-21] MEDS ORDERED: METO25TA3 PO (14:10)
[2017-02-21] MEDS ORDERED: COUM5TAB PO (14:10)
[2017-02-21] MEDS ORDERED: BACT800T5 PO (14:16)
--- NOTE | 2017-02-21 14:17 | HHI.DS ---
Discharge Summary Admission Date Feb 17, 2017 at 13:50 Discharge Date: Feb 21, 2017 Admitting Diagnosis a flutter with RVR, COPD exacerbation (1) Atrial fibrillation with rapid ventricular response Diagnosis: Principal Plan: Patient came in with rapid heart rate demonstrating A. fib with RVR. Possibly has past history of A. fib. Was not on anticoagulation at time of admission. INR 2.0 today -Cardiology consulted-appreciate recs -Cardioversion after 2 weeks of therapeutic cardioversion -Telemetry monitoring -Cardiology recommends diltiazem 120 mg every 6 hours, titrate metoprolol as tolerated -Echocardiogram EF 55-60%, trace mitral valve regurgitation, left ventricle diastolic function normal -Continue warfarin anticoagulation per cardiology ICD Codes: I48.91 - Unspecified atrial fibrillation Status: Acute (2) Pneumonia Diagnosis: Principal Plan: Patient with tachycardia, tachypnea, bibasilar atelectasis and potential infiltrate. Was seen in Hospital within the past 30 days, would qualify as potential hospital-acquired pneumonia. Leukocytosis of 17.0 on 02/19, currently downtrending Afebrile. Cough improved. -Vancomycin -Zosyn -Continue azithromycin -Monitor for change in symptoms, change to PO medications -Follow up blood culture ICD Codes: J18.9 - Pneumonia, unspecified organism Status: Acute (3) COPD (chronic obstructive pulmonary disease) Diagnosis: Principal Plan: History of COPD, continue home medications -Duo nebs every 4 hours -Methylprednisone 40 mg every 12 hours -Theophylline 200 mg 24 hours -Continue Symbicort -Consult pulmonology ICD Codes: J44.9 - Chronic obstructive pulmonary disease, unspecified (4) Abdominal distension Diagnosis: Secondary Plan: Patient with abdominal distention. Reports he has seen his primary care consent him for a CT scan several months ago which came back as negative for cancer. US: Diffusely increased hepatic echogenicity with mild hepatomegaly consistent with hepatic steatosis versus liver disease. No ascites AST/ALT wnl; Asymptomatic -Continue to monitor ICD Codes: R14.0 - Abdominal distension (gaseous) (5) Chronic back pain Diagnosis: Secondary Plan: Continue home medications -Acetaminophen as needed -Baclofen 10 mg by mouth twice a day next line -[place] 5 every 6 hours as needed ICD Codes: G89.29 - Other chronic pain; M54.9 - Chronic back pain Status: Acute (6) Hypertension Diagnosis: Secondary Plan: -Continue home meds -Hydrochlorothiazide 25 mg by mouth daily ICD Codes: I10 - Hypertension Status: Chronic (7) Hyperlipemia Diagnosis: Secondary Plan: -Continue home home medications -atorvastatin 40 mg by mouth at bedtime ICD Codes: E78.5 - Hyperlipemia Status: Chronic (8) FEN Diagnosis: Secondary Plan: Fluids:Tolerating fluids by mouth Electrolytes:Monitor and correct as needed Nutrition:Regular diet DVT ppx: Lovenox Status: Acute Consultants Cardiology, Pulmonology Brief History Patient is a 66 year old male with a past history of HTN, COPD and possibly AFIB who presents today for a "fast heart beat." He said yesterday he felt that his heart was beating quickly, so he used his home pulse ox to monitor his heart rate and it showed that his heart rate was over 150. He attempted to let it resolve on its own, however today he felt as though it is worse. Nothing seems to make it better or worse. He states he believes this has never happened before. He does believe in the past that he has had in the hospital with a fast heart rate, he is unsure if he has A. fib. Patient also notes a has a large abdomen, reports he had a "normal CAT scan" approximately 3 months ago. Patient is unsure of the etiology. Patient reports cough, sputum production, shortness of breath at his baseline. States he currently is on 2.5-3 L of oxygen at home. No nausea, vomiting, chest pain, shortness of breath, pain in arm, pain in jaw, diaphoresis, pain in abdomen, syncope, lightheadedness, dizziness, jaundice. No other complaints today. CBC/BMP: 02/21/17 0742 02/21/17 0742 Significant Findings Laboratory Tests Test 02/19/17 05:40 02/20/17 04:39 02/21/17 00:57 02/21/17 07:42 White Blood Count 17.0 TH/MM3 (4.0-11.0) 15.7 TH/MM3 (4.0-11.0) 15.4 TH/MM3 (4.0-11.0) Red Blood Count 4.28 MIL/MM3 (4.50-5.90) 4.19 MIL/MM3 (4.50-5.90) Hematocrit 38.3 % (39.0-51.0) 37.4 % (39.0-51.0) Mean Platelet Volume 6.4 FL (7.0-11.0) 6.4 FL (7.0-11.0) 6.4 FL (7.0-11.0) Prothrombin Time 12.3 SEC (9.8-11.6) 15.1 SEC (9.8-11.6) 20.5 SEC (9.8-11.6) Blood Urea Nitrogen 19 MG/DL (7-18) Random Glucose 175 MG/DL (74-106) Hemoglobin A1c 6.4 % (4.3-6.0) Hemoglobin 12.8 GM/DL (13.0-17.0) Vancomycin Level Trough 14.4 MCG/ML (5.0-10.0) Sodium Level 135 MEQ/L (136-145) Chloride Level 95 MEQ/L (98-107) Carbon Dioxide Level 33.1 MEQ/L (21.0-32.0) Imaging Last Impressions Abdomen Ultrasound 02/18/17 0000 Signed Impressions: Service Date/Time: Saturday, February 18, 2017 08:16 - CONCLUSION: 1. Diffusely increased hepatic echogenicity with mild hepatomegaly consistent with hepatic steatosis versus medical liver disease. 2. No ascites, as questioned. Abdirashid Ivan MD Chest X-Ray 02/17/17 1122 Signed Impressions: Service Date/Time: Friday, February 17, 2017 11:51 - CONCLUSION: 1. Bibasilar atelectatic changes/early infiltrate. 2. Heart size is normal. Gianfranco Salguero MD PE at Discharge GENERAL: This is a well-nourished, well-developed patient, in no apparent distress. CARDIOVASCULAR: Regular rate and rhythm without murmurs, gallops, or rubs. RESPIRATORY: Improved breath sounds. Coarse with occasional expiratory wheezes. No rales, or rhonchi. GASTROINTESTINAL: Abdomen distended, nontender. No guarding. MUSCULOSKELETAL: No joint tenderness, effusion, or edema noted. No calf tenderness. NEUROLOGICAL: Awake and alert. Normal speech. Hospital Course 66-year-old male with history of COPD, probable atrial fibrillation presents with shortness of breath and a trigger for ablation with RVR. He was initially started on diltiazem drip and cardiology was consulted. Patient was weaned off the drip and changed to oral diltiazem. Metoprolol was added on as well. His rate remained controlled and he'll follow up with cardiology for possible future cardioversion. Patient was also found mild COPD exacerbation and pneumonia. He was treated for HCAP with vancomycin, azithromycin, and Zosyn. He remained stable and his white count improved, although remained elevated likely due to steroids. His breathing improved back to baseline as his atrial fibrillation was stable. He was also started on therapeutic Lovenox and warfarin for anticoagulation. Upon discharge, his INR was 2.0, so discharged home with warfarin. Will follow-up with cardiology at the [facility], with pulmonology, and repeat INR to follow his warfarin dose. Pt Condition on Discharge: Stable Discharge Disposition: Discharge Home Discharge Instructions DIET: Follow Instructions for: Heart Healthy Diet Activities you can perform: Regular-No Restrictions Follow up Referrals: Cardiology - 1 Week PCP Follow-up - 1 Week Pulmonology - 1 Week with Kal Martino MD New Orders: PT/INR - 3-5 Days New Medications: Sulfamethoxazole-Trimethoprim (Bactrim DS) 800-160 Mg Tab 1 TAB PO BID for Infection, #10 TAB 0 Refills Diltiazem (Diltiazem) 90 Mg Tab 90 MG PO QID, #120 TAB Metoprolol Tartrate (Metoprolol Tartrate) 25 Mg Tab 50 MG PO BID, #60 TAB Warfarin (Coumadin) 5 Mg Tab 5 MG PO DAILY@1600, #30 TAB Continued Medications: Albuterol 18 GM Inh (Ventolin Hfa 18 GM Inh) 90 Mcg/Act Aer 2 PUFF INH Q6H PRN for SHORTNESS OF BREATH, #1 INHALER 0 Refills Albuterol Neb (Albuterol Neb) 2.5 Mg/3 Ml Neb 2.5 MG NEB QID PRN for SHORTNESS OF BREATH, #60 NEBULE 0 Refills Artificial Tear Solution (Soothe Xp/Xtra Protection) 1 Jarret Jarret 1 DROP EACH EYE QID PRN for DRY EYE Atorvastatin (Atorvastatin) 80 Mg Tab 40 MG PO HS for Cholesterol Management, #30 TAB 0 Refills Baclofen (Baclofen) 10 Mg Tab 10 MG PO BID PRN for MUSCLE PAIN, TAB 0 Refills Budesonide-Formoterol Inh (Symbicort Inh) 160-4.5 Mcg/Act Aero 2 PUFF INH BID, #1 INHALER 0 Refills *Rinse mouth after each use* Bupropion HCl ER 12 HR (Bupropion HCl ER 12 HR) 150 Mg Tab 150 MG PO BID for Control Depression, #60 TAB Buspirone (Buspirone) 10 Mg Tab 20 MG PO TID for Anxiety, TAB 0 Refills Clotrimazole Topical (Clotrimazole Topical) 1% Cream 1 APPLIC TOPICAL BID, #15 GM Apply to affected area on skin for fungal infection Hydrochlorothiazide (Hydrochlorothiazide) 25 Mg Tab 25 MG PO DAILY, #30 TAB 0 Refills Ipratropium-Albuterol Inh (Combivent Respimat Inh) 20-[address]/Act Aero 1 PUFF INH QID for Shortness of Breath, #1 INHALER 0 Refills Ipratropium-Albuterol Neb (Duoneb) 0.5-2.5 Mg/3 Ml Neb 3 ML NEB Q6HR PRN for SHORTNESS OF BREATH, #30 NEBULE 0 Refills Methylprednisolone Dosepak (Medrol Dosepak) 4 Mg Dspk 4 MG PO DIRECTED, #1 DSPK 0 Refills Per Pharmacist direction Polyethylene Glycol 3350 (Miralax) 17 Gram Powd.pack PO DAILY Dissolve 2 tablespoonsful in 4-8 ounces of water,juice,soda or other beverage Potassium Chloride ER (Potassium Chloride ER) 20 Meq Tab 20 MEQ PO BID for Electrolyte Replacement, #14 TAB 0 Refills Prednisone (Prednisone) 5 Mg Tab 5 MG PO DAILY, TAB 0 Refills Tamsulosin (Tamsulosin) 0.4 Mg Cap 0.4 MG PO DAILY for Manage Prostate Problems, #30 CAP 0 Refills Theophylline ER 24 HR (Rony-24) 200 Mg Cap 200 MG PO DAILY for PREVENT SHORTNESS OF BREATH, #30 CAP 0 Refills Tiotropium Inh (Spiriva Handihaler) 18 Mcg Cap 18 MCG INH DAILY for COPD, #30 CAP 0 Refills DO NOT SWALLOW CAPSULES Discontinued Medications: Diltiazem ER 24 HR (Diltiazem ER 24 HR) 180 Mg Jaciel 360 MG PO DAILY, #30 TAB 0 Refills Doxycycline Hyclate (Doxycycline Hyclate) 100 Mg Cap 100 MG PO BID for Infection, #10 CAP 0 Refills Twan Serrano MD, R2 Feb 21, 2017 14:17
== END 2017-02-21 16:38 | disposition home or self-care (01) | DRG 308 ==
LOC: NEPE 10:58 → NEDA 13:50 → HCIS 17:43
PROVIDERS: ADMIT Family Medicine; ATTEND Family Medicine
DX: I48.91 Unspecified atrial fibrillation (principal); J18.9 Pneumonia, unspecified organism; Z99.81 Dependence on supplemental oxygen; I95.9 Hypotension, unspecified; J44.0 Chronic obstructive pulmonary disease with (acute) lower respiratory infection; E11.9 Type 2 diabetes mellitus without complications; J44.1 Chronic obstructive pulmonary disease with (acute) exacerbation; J98.11 Atelectasis; I10 Essential (primary) hypertension; E66.01 Morbid (severe) obesity due to excess calories; G47.33 Obstructive sleep apnea (adult) (pediatric); K21.9 Gastro-esophageal reflux disease without esophagitis; I48.92 Unspecified atrial flutter; E78.5 Hyperlipidemia, unspecified; G89.29 Other chronic pain; M54.5 Low back pain; R14.0 Abdominal distension (gaseous); F12.90 Cannabis use, unspecified, uncomplicated; F32.9 Major depressive disorder, single episode, unspecified; F43.10 Post-traumatic stress disorder, unspecified; Z68.34 Body mass index [BMI] 34.0-34.9, adult; Z86.14 Personal history of Methicillin resistant Staphylococcus aureus infection; Z87.891 Personal history of nicotine dependence; Z88.1 Allergy status to other antibiotic agents; Z85.820 Personal history of malignant melanoma of skin
CPT/HCPCS: 36600; 71020; 76700; 80048; 80053; 80202; 82550; 82805; 82948; 83036; 83735; 83880; 84484; 85025; 85027; 85379; 85610; 85730; 90732; 93005; 93306; 94150; 94640; 94664; 96365; 96375; J0456; J1644; J1650; J2543; J2920; J2930; J3370; J7040; J7050; J7512; J7626

== ENCOUNTER 2017-03-21 14:56 | Inpatient (IN) | payer MEDICARE ==
[~2017-03-21] VITALS: Ht 182.9 cm; Wt 112.8 kg
[2017-03-21] VITALS (7 sets, daily range): BP systolic 132–185; BP diastolic 64–94; PULSE 96–143; RESP 16–21; TEMP 97.2–97.9; O2SAT 93–97
[~2017-03-21 14:56] MED LIST changes: +BACT800T5 PO; +COUM5TAB PO; -DILT0.05 PO; +DILT90TA PO; -DOXY100C PO; +METO25TA3 PO
[2017-03-21] MEDS ORDERED: SODIUM CHLORIDE 0.9% FLUSH 10 ML FLUSH IVF PRN (15:30)
[2017-03-21] MEDS ORDERED: DILTIAZEM INJ 125 MG in SODIUM CHLORIDE 0.9% INJ 100 ML IV PRN (15:30)
[2017-03-21] MEDS ORDERED: DILTIAZEM HCL 25 MG/5 ML VIAL IV PUSH ONE (15:30)
[2017-03-21 16:06] LABS: AUTOMATED NEUTROPHIL # 15.9 TH/MM3 (1.8-7.7); HEMATOCRIT 38.6 % (39.0-51.0); HEMOGLOBIN 13.2 GM/DL (13.0-17.0); LYMPH % 1.5 % (9.0-44.0); LYMPHOCYTE # 0.3 TH/MM3 (1.0-4.8); MEAN CELL VOLUME 91.5 FL (80.0-100.0); MEAN CORPUSCULAR HEMOGLOBIN 31.2 PG (27.0-34.0); MEAN CORPUSCULAR HGB CONC 34.2 % (32.0-36.0); MEAN PLATELET VOLUME 6.4 FL (7.0-11.0); MONO % 5.5 % (0.0-8.0); MONOCYTE # 0.9 TH/MM3 (0-0.9); PLATELET COUNT 326 TH/MM3 (150-450); RED BLOOD COUNT 4.22 MIL/MM3 (4.50-5.90); RED CELL DISTRIBUTION WIDTH 16.2 % (11.6-17.2); WHITE BLOOD COUNT 17.1 TH/MM3 (4.0-11.0)
--- NOTE | 2017-03-21 16:14 | RADRPT ---
EXAM DATE/TIME: 03/21/2017 15:53 [place] COMPARISON: CHEST PA & LAT, February 17, 2017, 11:51. INDICATIONS : Patient complains of shortness of breath. MEDICAL HISTORY : Hypertension. Chronic obstructive pulmonary disease. Asthma. SURGICAL HISTORY : None. ENCOUNTER: Initial ACUITY: 1 day PAIN SCORE: 0/10 LOCATION: chest FINDINGS: The examination demonstrates moderate COPD changes and bibasilar atelectasis. Changes are similar to the previous dated 02/17/17. No new areas of infiltrate are seen. The heart is normal in size. The osseous structures are intact. CONCLUSION: 1. COPD changes with bibasilar atelectasis. 2. Stable compared to prior dated 02/17/17. Isael Phillips MD on March 21, 2017 at 16:11 Board Certified Radiologist. This report was verified electronically.
[2017-03-21 16:18] LABS: PROTHROMBIN TIME - PATIENT 20.3 SEC (9.8-11.6)
[2017-03-21 16:42] LABS: ALBUMIN 3.2 GM/DL (3.4-5.0); AST (GOT) 11 U/L (15-37); BICARBONATE 28.4 MEQ/L (21.0-32.0); BLOOD UREA NITROGEN 14 MG/DL (7-18); CALCIUM 8.4 MG/DL (8.5-10.1); CHLORIDE 104 MEQ/L (98-107); CREATININE 0.82 MG/DL (0.60-1.30); GLOMERULAR FILTRATION RATE 93 ML/MIN (>89); GLUCOSE,RANDOM 165 MG/DL (74-106); MAGNESIUM 2.2 MG/DL (1.5-2.5); SODIUM (NA) 140 MEQ/L (136-145)
[2017-03-21 16:47] LABS: ALKALINE PHOSPHATASE 64 U/L (45-117); ALT (GPT) 29 U/L (12-78); TOTAL BILIRUBIN ADULT 0.3 MG/DL (0.2-1.0); TOTAL PROTEIN 6.7 GM/DL (6.4-8.2); TROPONIN I LESS THAN 0.02 NG/ML (0.02-0.05)
--- NOTE | 2017-03-21 16:50 | PD ---
HPI Chief Complaint: Respiratory Symptoms Time Seen by Provider: 15:15 Travel History International Travel<30 days: No Contact w/Intl Traveler<30days: No Traveled to known affect area: No History of Present Illness HPI 66-year-old male with an extensive history of COPD and A. fib presents to the emergency room for evaluation of shortness of breath. Patient states he went to his primary care physician's office today to have a second steroid treatment for COPD exacerbation. Upon leaving the office, he began to develop shortness of breath. He went home and took a breathing treatment and shortness of breath worsened. He called the ambulance and they brought him to the hospital. Patient was in A. fib with RVR with a rate in the 140s to 160s while in the ambulance. He was given 20 mg of IV diltiazem which brought his rate down to the 120s. Patient states upon arriving to the hospital, shortness of breath resolved. He denies any chest pain. He did not take his diltiazem this morning. Patient denies any worsening cough, congestion, fever, chills, nausea , vomiting, or abdominal pain. He follows with Dr. Burks. [facility] Past Medical History Hx Anticoagulant Therapy: Yes Asthma: Yes Atrial Fibrillation: Yes Anxiety: Yes Depression: Yes Heart Rhythm Problems: Yes (a fib) Cancer: Yes (facial) Cardiovascular Problems: Yes High Cholesterol: Yes Chemotherapy: No Chest Pain: Yes COPD: Yes Diabetes: Yes Patient Takes Glucophage: No Diminished Hearing: No Endocrine: No Gastrointestinal Disorders: Yes (REFLUX) GERD: Yes Genitourinary: Yes Hypertension: Yes Immune Disorder: No Musculoskeletal: Yes Neurologic: Yes Psychiatric: Yes Reproductive: No Respiratory: Yes (COPD) Integumentary: Yes Immunizations Current: Yes Radiation Therapy: No PNEUMOCCOCAL Vaccine (Year): 2010 ?: Not Past Surgical History Body Medical Devices: PLATES AND SCREWS TO L ANKLE Neurologic Surgery: No Other Surgery: Yes (PIN IN LEFT ANKLE, BONE PLACED BACK IN FINGER) Social History Alcohol Use: No Tobacco Use: No Substance Use: No Allergies-Medications (Allergen,Severity, Reaction): Coded Allergies: levofloxacin (Unverified Adverse Reaction, Mild, Confusion, 02/15/17) irritable, can't focus Reported Meds & Prescriptions Reported Meds & Active Scripts Active Bactrim DS (Sulfamethoxazole-Trimethoprim) 800-160 Mg Tab 1 Tab PO BID Diltiazem (Diltiazem HCl) 90 Mg Tab 90 Mg PO QID Metoprolol Tartrate 25 Mg Tab 50 Mg PO BID Coumadin (Warfarin) 5 Mg Tab 5 Mg PO DAILY@1600 Medrol Dosepak (Methylprednisolone) 4 Mg Dspk 4 Mg PO DIRECTED Per Pharmacist direction Potassium Chloride ER (Potassium Chloride) 20 Meq Tab 20 Meq PO BID Reported Miralax (Polyethylene Glycol 3350) 17 Gram Powd.pack PO DAILY Dissolve 2 tablespoonsful in 4-8 ounces of water,juice,soda or other beverage Prednisone 5 Mg Tab 5 Mg PO DAILY Albuterol Neb (Albuterol Sulfate) 2.5 Mg/3 Ml Neb 2.5 Mg NEB QID PRN Ventolin Hfa 18 GM Inh (Albuterol Sulfate) 90 Mcg/Act Aer 2 Puff INH Q6H PRN Combivent Respimat Inh (Ipratropium-Albuterol Inh) 20-100 Fci/Act Aero 1 Puff INH QID Bupropion HCl ER 12 HR (Bupropion HCl) 150 Mg Tab 150 Mg PO BID Tamsulosin (Tamsulosin HCl) 0.4 Mg Cap 0.4 Mg PO DAILY Duoneb (Ipratropium-Albuterol Neb) 0.5-2.5 Mg/3 Ml Neb 3 Ml NEB Q6HR PRN Spiriva Handihaler (Tiotropium Inh) 18 Mcg Cap 18 Mcg INH DAILY DO NOT SWALLOW CAPSULES Rony-24 (Theophylline) 200 Mg Cap 200 Mg PO DAILY Hydrochlorothiazide 25 Mg Tab 25 Mg PO DAILY Clotrimazole Topical (Clotrimazole) 1% Cream 1 Applic TOPICAL BID Apply to affected area on skin for fungal infection Buspirone (Buspirone HCl) 10 Mg Tab 20 Mg PO TID Symbicort Inh (Budesonide/Formoterol Fumarate) 160-4.5 Mcg/Act Aero 2 Puff INH BID *Rinse mouth after each use* Baclofen 10 Mg Tab 10 Mg PO BID PRN Atorvastatin (Atorvastatin Calcium) 80 Mg Tab 40 Mg PO HS Soothe Xp/Xtra Protection (Artificial Tear Solution) 1 Jarret Jarret 1 Drop EACH EYE QID PRN Review of Systems Except as stated in HPI: all other systems reviewed are Neg Physical Exam Narrative GENERAL: Well-nourished, well-developed male in no acute distress. Afebrile. Ambulatory. SKIN: Focused skin assessment warm/dry. HEAD: Normocephalic. EYES: No scleral icterus. No injection or drainage. NECK: Supple, trachea midline. No JVD or lymphadenopathy. CARDIOVASCULAR: Regular rate and rhythm without murmurs, gallops, or rubs. RESPIRATORY: Breath sounds equal bilaterally. No accessory muscle use. Coarse lung sounds bilaterally. PSYCHIATRIC: No delusional thought processes. No hallucinations. Data Data Last Documented VS Vital Signs Date Time Temp Pulse Resp B/P (MAP) Pulse Ox O2 Delivery O2 Flow Rate FiO2 03/21/17 18:08 113 20 140/74 (96) 97 Nasal Cannula 03/21/17 16:32 97.9 2.00 Orders Orders Electrocardiogram (03/21/17 ) Complete Blood Count With Diff (03/21/17 15:26) Comprehensive Metabolic Panel (03/21/17 15:26) B-Type Natriuretic Peptide (03/21/17 15:26) Act Partial Throm Time (Ptt) (03/21/17 15:26) Prothrombin Time / Inr (Pt) (03/21/17 15:26) Magnesium (Mg) (03/21/17 15:26) Iv Access Insert/Monitor (03/21/17 15:26) Ecg Monitoring (03/21/17 15:26) Oximetry (03/21/17 15:26) Oxygen Administration (03/21/17 15:26) Chest, Pa & Lat (03/21/17 15:26) Sodium Chloride 0.9% Flush (Ns Flush) (03/21/17 15:30) Ckmb (Isoenzyme) Profile (03/21/17 15:26) Troponin I (03/21/17 15:26) Vital Signs (Adult) Q15MX4,Q4H (03/21/17 15:26) Mid Level Practitioner / Telemetry KENZIE.Q8H (03/21/17 15:26) Cardiac Rhythm KENZIE.Q8H (03/21/17 15:26) Notify Dr: Other (03/21/17 15:26) Diltiazem Inj (Cardizem Inj) (03/21/17 15:30) Diltiazem Inj (Cardizem Inj) (03/21/17 15:30) Acetamin-Hydrocod 325-10 Mg ([place] 10-32 (03/21/17 17:00) Labs Laboratory Tests Test 03/21/17 15:30 White Blood Count 17.1 TH/MM3 Red Blood Count 4.22 MIL/MM3 Hemoglobin 13.2 GM/DL Hematocrit 38.6 % Mean Corpuscular Volume 91.5 FL Mean Corpuscular Hemoglobin 31.2 PG Mean Corpuscular Hemoglobin Concent 34.2 % Red Cell Distribution Width 16.2 % Platelet Count 326 TH/MM3 Mean Platelet Volume 6.4 FL Neutrophils (%) (Auto) 93.0 % Lymphocytes (%) (Auto) 1.5 % Monocytes (%) (Auto) 5.5 % Eosinophils (%) (Auto) 0.0 % Basophils (%) (Auto) 0.0 % Neutrophils # (Auto) 15.9 TH/MM3 Lymphocytes # (Auto) 0.3 TH/MM3 Monocytes # (Auto) 0.9 TH/MM3 Eosinophils # (Auto) 0.0 TH/MM3 Basophils # (Auto) 0.0 TH/MM3 CBC Comment AUTO DIFF Differential Total Cells Counted 100 Neutrophils % (Manual) 91 % Band Neutrophils % 3 % Lymphocytes % 3 % Monocytes % 3 % Neutrophils # (Manual) 16.1 TH/MM3 Nucleated Red Blood Cells 2 /100 WBC Differential Comment FINAL DIFF MANUAL Atypical Lymphocytes % Toxic Granulation 1+ Platelet Estimate NORMAL Platelet Morphology Comment NORMAL Prothrombin Time 20.3 SEC Prothromb Time International Ratio 2.0 RATIO Activated Partial Thromboplast Time 27.3 SEC Blood Urea Nitrogen 14 MG/DL Creatinine 0.82 MG/DL Random Glucose 165 MG/DL Total Protein 6.7 GM/DL Albumin 3.2 GM/DL Calcium Level 8.4 MG/DL Magnesium Level 2.2 MG/DL Alkaline Phosphatase 64 U/L Aspartate Amino Transf (AST/SGOT) 11 U/L Alanine Aminotransferase (ALT/SGPT) 29 U/L Total Bilirubin 0.3 MG/DL Sodium Level 140 MEQ/L Potassium Level 3.5 MEQ/L Chloride Level 104 MEQ/L Carbon Dioxide Level 28.4 MEQ/L Anion Gap 8 MEQ/L Estimat Glomerular Filtration Rate 93 ML/MIN Total Creatine Kinase 53 U/L Troponin I LESS THAN 0.02 NG/ML B-Type Natriuretic Peptide 48 PG/ML MDM Medical Decision Making Medical Screen Exam Complete: Yes Emergency Medical Condition: Yes Medical Record Reviewed: Yes Differential Diagnosis COPD exacerbation, A. fib with RVR, bronchitis, pneumonia Narrative Course 66-year-old male with history of A. fib and COPD on 2 L oxygen full-time presents to the emergency room for evaluation of shortness of breath. Patient states he had steroid injections at his primary care physician's office yesterday and today. Upon coming home today, he developed shortness of breath. He did a breathing treatment in symptoms do not improve. He called 911 and in route to the hospital was given 20 mg diltiazem for heart rate in the 140s to 160s. After arriving to the ED, patient states his shortness of breath resolved. He denies any chest pain. Physical exam is reassuring. Patient is resting comfortably in bed. No increased work of breathing. IV access established and basic labs obtained. Patient given a 29 mg bolus of diltiazem in the ED. He was then placed on a drip. Patient stayed in A. fib. He'll be admitted for continuous drip. Patient understands and agrees to plan. I spoke to Dr. Esparza who agrees to admit this patient to his service. Physician Communication Physician Communication I spoke to Dr. Esparza who agrees to admit this patient to his service. Diagnosis Primary Impression: Atrial fibrillation with rapid ventricular response Admitting Information Admitting Physician Requests: Admit Condition: Stable Elaine Cheung Mar 21, 2017 16:50
[2017-03-21 16:59] LABS: BANDS 3 % (0-6); CORRECTED NUCLEATED RBC 2 /100 WBC (0-0); LYMPHOCYTES 3 % (9-44); MONOCYTES 3 % (0-8); NEUTROPHIL # MANUAL DIFF 16.1 TH/MM3 (1.8-7.7); NUCLEATED RED BLOOD CELL 2 (0-0); POLYS (SEG NEUTROPHILS) 91 % (16-70); TOXIC GRANULATION 1+ (NORMAL)
[2017-03-21] MEDS ORDERED: ACETAMINOPHEN/HYDROcodone 325 MG/10 MG TAB PO ONE (17:00)
--- NOTE | 2017-03-21 19:08 | HHI.HP ---
[facility]Staff Admission Diagnosis A. fib with RVR Diagnoses: (1) Atrial fibrillation with RVR Diagnosis: Principal (2) COPD (chronic obstructive pulmonary disease) Diagnosis: Principal (3) Leukocytosis Diagnosis: Principal Travel History International Travel<30 Days: No Contact w/Intl Traveler <30 Da: No Traveled to Known Affected Are: No History of Present Illness This is a 6-year-old male with a PMH of Anxiety, Depression, A. fib on Coumadin , HTN, Hyperlipidemia, COPD, O2 Dependent, Chronic Steroid Therapy and GERD who was brought to the ER by EMS secondary to SOB and Palpitations. Per pt he's had SOB associated w/ wheezing for 2-3 days, +productive cough w/ yellow- colored sputum. Symptoms severe, worse w/ exertion, improved w/ steroids. States he was seen by PCP today and had steroids for COPD, on his way home developed severe SOB w/ palpitations. Noted to be in A-fib w/ RVR, HR 150's by EMS, s/p Cardizem 20mg IV w/ minimal improvement. Upon arrival, BP 162/76, HR 126, O2 sat 95% on 2L NC, Afebrile. WBC 17.1 with elevated neutrophils. INR 2.0. CXR with COPD, stable. Pt w/ persistent A-fib w/ RVR, started on Cardizem gtt. Does not follow w/ High Reach Operator, pending referral from [place]. Review of Systems Except as stated in HPI: all other systems reviewed are Neg ROS: 14 point review of systems otherwise negative. Past Family Social History Past Medical History PMH: Anxiety, Depression, A. fib on Coumadin, HTN, Hyperlipidemia, COPD, O2 Dependent, Chronic Steroid Therapy and GERD Past Surgical History PAST SURGICAL HISTORY: Ankle Surgery, Finger Surgery Allergies: Coded Allergies: levofloxacin (Unverified Adverse Reaction, Mild, Confusion, 02/15/17) irritable, can't focus Family History PAST FAMILY HISTORY: Reviewed. No h/o DM or CAD Social History PAST SOCIAL HISTORY: Negative for alcohol, tobacco or drugs. Physical Exam Vital Signs Vital Signs Date Time Temp Pulse Resp B/P (MAP) Pulse Ox O2 Delivery O2 Flow Rate FiO2 03/21/17 18:08 113 20 140/74 (96) 97 Nasal Cannula 03/21/17 16:32 97.9 96 16 132/64 (86) 96 Nasal Cannula 2.00 03/21/17 16:31 96 Nasal Cannula 2.00 03/21/17 16:29 120 185/77 03/21/17 16:18 143 17 185/77 (113) 93 Nasal Cannula 2.00 03/21/17 15:08 120 27 95 Nasal Cannula 2.00 03/21/17 15:02 126 21 162/76 (104) 95 Physical Exam PE: GENERAL: Very pleasant middle-aged white male in no acute distress. HEENT: PERRLA, EOMI. No scleral icterus or conjunctival pallor. No lid lag or facial droop. CARDIOVASCULAR: Irregularly irregular, in A. fib, HR 110's. No obvious murmurs to auscultation. No chest tenderness to palpation. RESPIRATORY: No obvious rhonchi, +occasional wheezing. Clear to auscultation. Breath sounds equal bilaterally. GASTROINTESTINAL: Abdomen soft, non-tender, nondistended. BS normal. MUSCULOSKELETAL: Extremities without clubbing, cyanosis, or edema. No obvious deformities. NEUROLOGICAL: Awake, alert and oriented x4. No focal neurologic deficits. Moving both upper and lower extremities spontaneously. Laboratory Laboratory Tests Test 03/21/17 15:30 White Blood Count 17.1 Red Blood Count 4.22 Hemoglobin 13.2 Hematocrit 38.6 Mean Corpuscular Volume 91.5 Mean Corpuscular Hemoglobin 31.2 Mean Corpuscular Hemoglobin Concent 34.2 Red Cell Distribution Width 16.2 Platelet Count 326 Mean Platelet Volume 6.4 Neutrophils (%) (Auto) 93.0 Lymphocytes (%) (Auto) 1.5 Monocytes (%) (Auto) 5.5 Eosinophils (%) (Auto) 0.0 Basophils (%) (Auto) 0.0 Neutrophils # (Auto) 15.9 Lymphocytes # (Auto) 0.3 Monocytes # (Auto) 0.9 Eosinophils # (Auto) 0.0 Basophils # (Auto) 0.0 CBC Comment AUTO DIFF Differential Total Cells Counted 100 Neutrophils % (Manual) 91 Band Neutrophils % 3 Lymphocytes % 3 Monocytes % 3 Neutrophils # (Manual) 16.1 Nucleated Red Blood Cells 2 Differential Comment FINAL DIFF MANUAL Atypical Lymphocytes Toxic Granulation 1+ Platelet Estimate NORMAL Platelet Morphology Comment NORMAL Prothrombin Time 20.3 Prothromb Time International Ratio 2.0 Activated Partial Thromboplast Time 27.3 Blood Urea Nitrogen 14 Creatinine 0.82 Random Glucose 165 Total Protein 6.7 Albumin 3.2 Calcium Level 8.4 Magnesium Level 2.2 Alkaline Phosphatase 64 Aspartate Amino Transf (AST/SGOT) 11 Alanine Aminotransferase (ALT/SGPT) 29 Total Bilirubin 0.3 Sodium Level 140 Potassium Level 3.5 Chloride Level 104 Carbon Dioxide Level 28.4 Anion Gap 8 Estimat Glomerular Filtration Rate 93 Total Creatine Kinase 53 Troponin I LESS THAN 0.02 B-Type Natriuretic Peptide 48 Result Diagram: 03/21/17152903/21/17 153 Caprini VTE Risk Assessment Caprini VTE Risk Assessment: Mod/High Risk (score >= 2) Caprini Risk Assessment Model Point Value = 1 Point Value = 2 Point Value = 3 Point Value = 5 Age 41-60 Minor surgery BMI > 25 kg/m2 Swollen legs Varicose veins or History of unexplained or recurrent spontaneous Oral contraceptives or hormone replacement Sepsis (< 1 month) Serious lung disease, including pneumonia (< 1 month) Abnormal pulmonary function Acute myocardial infarction Congestive heart failure (< 1 month) History of inflammatory bowel disease Medical patient at bed rest Age 61-74 Arthroscopic surgery Major open surgery (> 45 min) Laparoscopic surgery (> 45 min) Malignancy Confined to bed (> 72 hours) Immobilizing plaster cast Central venous access Age >= 75 History of VTE Family history of VTE Factor V Leiden Prothrombin [id number] Lupus anticoagulant Anticardiolipin antibodies Elevated serum homocysteine Heparin-induced thrombocytopenia Other congenital or acquired thrombophilia Stroke (< 1 month) Elective arthroplasty Hip, pelvis, or leg fracture Acute spinal cord injury (< 1 month) Prophylaxis Regimen Total Risk Factor Score Risk Level Prophylaxis Regimen 0-1 Low Early ambulation 2 Moderate Order ONE of the following: *Sequential Compression Device (SCD) *Heparin 5000 units SQ BID 3-4 Higher Order ONE of the following medications: *Heparin 5000 units SQ TID *Enoxaparin/Lovenox 40 mg SQ daily (WT < 150 kg, CrCl > 30 mL/min) *Enoxaparin/Lovenox 30 mg SQ daily (WT < 150 kg, CrCl > 10-29 mL/min) *Enoxaparin/Lovenox 30 mg SQ BID (WT < 150 kg, CrCl > 30 mL/min) AND/OR *Sequential Compression Device (SCD) 5 or more Highest Order ONE of the following medications: *Heparin 5000 units SQ TID (Preferred with Epidurals) *Enoxaparin/Lovenox 40 mg SQ daily (WT < 150 kg, CrCl > 30 mL/min) *Enoxaparin/Lovenox 30 mg SQ daily (WT < 150 kg, CrCl > 10-29 mL/min) *Enoxaparin/Lovenox 30 mg SQ BID (WT < 150 kg, CrCl > 30 mL/min) AND *Sequential Compression Device (SCD) Assessment and Plan Problem List: (1) Atrial fibrillation with RVR ICD Code: I48.91 - Unspecified atrial fibrillation (2) COPD (chronic obstructive pulmonary disease) ICD Code: J44.9 - Chronic obstructive pulmonary disease, unspecified (3) Leukocytosis ICD Code: D72.829 - Elevated white blood cell count, unspecified Assessment and Plan A/P: 1. A-fib w/ RVR: h/o A-fib, on Coumadin, now in A-fib w/ RVR, s/p Cardizem 20mg IV w/ little improvement, +persistent dysrhythmia, currently on Cardizem gtt. Admit to [facility], place on telemetry, continue Cardizem gtt. Check serial cardiac enzymes to r/o ACS and underlying ischemia. Echo 02/18/17 w/ EF 55-60% . Resume home Coumadin, repeat INR in am to eval for therapeutic levels. Consult Cardiology for further recommendations regarding medication therapy. 2. COPD: Chronic Respiratory Failure w/ Acute Exacerbation. Moderate-Severe. O2 Dependent, on Chronic Steroid Tx w/ Prednisone 5-20mg qd. +wheezing. CXR w/ stable COPD, images reviewed by me. Resume home Prednisone 5mg qd, Singulair , start Symbicort, DuoNeb-will switch to Xopenex in light of A-fib. 3. Leukocytosis: WBC 17, elevated neutrophils. Likely combination of chronic steroid therapy w/ acute infection-reports productive cough. Start Rocephin/ Zithro for empiric treatment of PNA in light of multiple comorbidities and c/o productive cough. Check Sputum Cultures. 4. DVT Prophylaxis: Resume home Coumadin, check INR in am. 5. Social work for d/c planning as needed 6. Case discussed w/ ER physician, labs/records/imaging reviewed by me. Physician Certification 2 Midnight Certification Type: Admission for Inpatient Services Order for Inpatient Services The services are ordered in accordance with Medicare regulations or non- Medicare payer requirements, as applicable. In the case of services not specified as inpatient-only, they are appropriately provided as inpatient services in accordance with the 2-midnight benchmark. Estimated LOS (days): 2 days is the estimated time the patient will need to remain in the hospital, assuming treatment plan goals are met and no additional complications. Post-Hospital Plan: Not yet determined Sofy Blair MD Mar 21, 2017 19:08
[2017-03-21] MEDS ORDERED: ONDANSETRON HCL 4 MG/2 ML VIAL IVP PRN (19:15)
[2017-03-21] MEDS ORDERED: BISACODYL 10 MG SUPP RECTAL PRN (19:15)
[2017-03-21] MEDS ORDERED: MAGNESIUM HYDROXIDE SUSP 30 ML CUP PO PRN (19:15)
[2017-03-21] MEDS ORDERED: ACETAMINOPHEN/HYDROcodone 325 MG/5 MG TAB PO PRN (19:15)
[2017-03-21] MEDS ORDERED: MORPHINE SULFATE 2 MG/ML INJ IV PUSH PRN (19:15)
[2017-03-21] MEDS ORDERED: SODIUM CHLORIDE 0.9% FLUSH 10 ML FLUSH IV FLUSH PRN (19:15)
[2017-03-21] MEDS ORDERED: SENNOSIDES 8.6 MG TAB PO PRN (19:15)
[2017-03-21] MEDS ORDERED: LACTULOSE SYRUP 20 GM/30 ML CUP PO PRN (19:15)
[2017-03-21] MEDS ORDERED: ACETAMINOPHEN 325 MG TAB PO PRN (19:15)
[2017-03-21] MEDS ORDERED: BACLOFEN 10 MG TAB PO PRN (19:15)
[2017-03-21] MEDS ORDERED: DILT90TA PO (19:47)
[2017-03-21] MEDS ORDERED: METO50TA PO (19:47)
[2017-03-21] MEDS ORDERED: POTA10CA PO (19:47)
[2017-03-21] MEDS ORDERED: WARF-23 PO (19:47)
[2017-03-21] MEDS ORDERED: HYDR-3366 PO (19:48)
[2017-03-21] MEDS ORDERED: ARTIFICIAL TEARS OPTH SOLN 15 ML BTL EACH EYE PRN (20:30)
[2017-03-21] MEDS ORDERED: METOPROLOL TARTRATE 50 MG TAB PO SCH (21:00)
[2017-03-21] MEDS: cefTRIAXone INJ 1,000 MG in SODIUM CHLORIDE 0.9% INJ 100 ML IV SCH (21:00)
[2017-03-21] MEDS: BUDESONIDE-FORMOTEROL 160/4.5 MCG INHALER INH SCH (21:00)
[2017-03-21] MEDS: CLOTRIMAZOLE 1% CREAM 15 GM TOPICAL SCH (21:00)
[2017-03-21] MEDS: SODIUM CHLORIDE 0.9% FLUSH 10 ML FLUSH IV FLUSH SCH (21:00)
[2017-03-21] MEDS: AZITHROMYCIN INJ 500 MG in SODIUM CHLOR 0.9% 250 ML INJ 250 ML IV SCH (21:00)
[2017-03-21] MEDS ORDERED: busPIRone HCL 10 MG TAB PO ONE (22:00)
[2017-03-21] MEDS: RESP: ALBUTEROL 2.5 MG/IPRATROPIUM 0.5 MG NEB (PRN) NEB (22:01)
[2017-03-21] MEDS: buPROPion HCL 150 MG SUSTAINED RELEASE TAB PO SCH (22:53)
[2017-03-21] MEDS: METOPROLOL TARTRATE 50 MG TAB PO SCH (22:53)
[2017-03-21] MEDS: ATORVASTATIN 40 MG TAB PO SCH (22:53)
[2017-03-21] MEDS: DOCUSATE SODIUM 50 MG/SENNA 8.6 MG TAB PO SCH (22:54)
[2017-03-21] MEDS: ACETAMINOPHEN/HYDROcodone 325 MG/10 MG TAB PO PRN (22:58)
[2017-03-22] VITALS (24 sets, daily range): BP systolic 95–139; BP diastolic 53–83; PULSE 76–111; RESP 16–24; TEMP 97.4–98.4; O2SAT 95–99
[2017-03-22] MEDS: RESP: ALBUTEROL 2.5 MG/IPRATROPIUM 0.5 MG NEB (PRN) NEB ×5 (00:44→23:47)
[2017-03-22] MEDS: SODIUM CHLOR 0.9% 1000 ML INJ 1,000 ML IV SCH ×2 (05:06→18:15)
[2017-03-22] MEDS: ACETAMINOPHEN/HYDROcodone 325 MG/10 MG TAB PO PRN ×5 (05:17→23:34)
[2017-03-22 07:21] LABS: AUTOMATED NEUTROPHIL # 12.5 TH/MM3 (1.8-7.7); HEMATOCRIT 37.4 % (39.0-51.0); HEMOGLOBIN 12.4 GM/DL (13.0-17.0); LYMPH % 2.3 % (9.0-44.0); LYMPHOCYTE # 0.3 TH/MM3 (1.0-4.8); MEAN CELL VOLUME 91.4 FL (80.0-100.0); MEAN CORPUSCULAR HEMOGLOBIN 30.3 PG (27.0-34.0); MEAN CORPUSCULAR HGB CONC 33.1 % (32.0-36.0); MEAN PLATELET VOLUME 6.2 FL (7.0-11.0); MONO % 9.2 % (0.0-8.0); MONOCYTE # 1.3 TH/MM3 (0-0.9); NEUT % 88.5 % (16.0-70.0); PLATELET COUNT 297 TH/MM3 (150-450); RED BLOOD COUNT 4.09 MIL/MM3 (4.50-5.90); RED CELL DISTRIBUTION WIDTH 16.6 % (11.6-17.2); WHITE BLOOD COUNT 14.1 TH/MM3 (4.0-11.0)
[2017-03-22 07:35] LABS: INTERNATIONAL NORMALIZED RATIO 1.9 RATIO; PROTHROMBIN TIME - PATIENT 19.3 SEC (9.8-11.6)
[2017-03-22 08:30] LABS: BANDS 1 % (0-6); LYMPHOCYTES 2 % (9-44); MONOCYTES 8 % (0-8); MYELOCYTES 2 % (0-0); NEUTROPHIL # MANUAL DIFF 12.7 TH/MM3 (1.8-7.7); POLYS (SEG NEUTROPHILS) 87 % (16-70)
[2017-03-22 08:32] LABS: ALBUMIN 2.9 GM/DL (3.4-5.0); AST (GOT) 7 U/L (15-37); BICARBONATE 29.5 MEQ/L (21.0-32.0); BLOOD UREA NITROGEN 12 MG/DL (7-18); CALCIUM 8.8 MG/DL (8.5-10.1); CHLORIDE 103 MEQ/L (98-107); CREATININE 0.68 MG/DL (0.60-1.30); GLOMERULAR FILTRATION RATE 116 ML/MIN (>89); GLUCOSE,RANDOM 135 MG/DL (74-106); SODIUM (NA) 140 MEQ/L (136-145)
[2017-03-22 08:34] LABS: ALT (GPT) 26 U/L (12-78)
[2017-03-22 08:38] LABS: ALKALINE PHOSPHATASE 59 U/L (45-117); TOTAL BILIRUBIN ADULT 0.3 MG/DL (0.2-1.0); TROPONIN I LESS THAN 0.02 NG/ML (0.02-0.05)
[2017-03-22] MEDS: TIOTROPIUM BROMIDE 18 MCG INH INH SCH (09:00)
[2017-03-22] MEDS: SODIUM CHLORIDE 0.9% FLUSH 10 ML FLUSH IV FLUSH SCH ×2 (09:00→21:00)
[2017-03-22] MEDS ORDERED: WARFARIN SOD 5 MG TAB PO SCH (09:00)
[2017-03-22] MEDS ORDERED: predniSONE 5 MG TAB PO SCH (09:00)
[2017-03-22] MEDS: CLOTRIMAZOLE 1% CREAM 15 GM TOPICAL SCH ×2 (09:00→21:00)
[2017-03-22] MEDS: busPIRone HCL 10 MG TAB PO SCH ×3 (09:04→17:17)
[2017-03-22] MEDS: DOCUSATE SODIUM 50 MG/SENNA 8.6 MG TAB PO SCH ×2 (09:04→21:32)
[2017-03-22] MEDS: buPROPion HCL 150 MG SUSTAINED RELEASE TAB PO SCH ×2 (09:04→21:32)
[2017-03-22] MEDS: METOPROLOL TARTRATE 50 MG TAB PO SCH ×2 (09:04→21:32)
[2017-03-22] MEDS: HYDROCHLOROTHIAZIDE 25 MG TAB PO SCH (09:04)
[2017-03-22] MEDS: TAMSULOSIN HCL 0.4 MG CAP PO SCH (09:04)
[2017-03-22] MEDS: BUDESONIDE-FORMOTEROL 160/4.5 MCG INHALER INH SCH ×2 (09:05→21:33)
[2017-03-22] MEDS: THEOPHYLLINE 200 MG EXTENDED RELEASE CAP PO SCH (10:15)
--- NOTE | 2017-03-22 10:34 | HHI.PR ---
Subjective Remarks Follow-up A. fib with RVR 03/22/17-patient seen and examined, currently in A. fib with RVR. Denies any chest pain however has some shortness of breath. Also complains of cough production as well as nasal congestion. Patient with mild expiratory wheezes. Currently afebrile Objective Vitals Vital Signs Date Time Temp Pulse Resp B/P (MAP) Pulse Ox O2 Delivery O2 Flow Rate FiO2 03/22/17 09:00 111 03/22/17 08:00 95 03/22/17 07:00 102 03/22/17 07:00 97.8 102 24 137/80 (99) 95 03/22/17 06:00 90 03/22/17 05:00 86 03/22/17 04:13 76 03/22/17 03:00 78 03/22/17 02:00 86 03/22/17 01:00 80 03/22/17 00:07 92 03/22/17 00:00 97.4 76 16 95/53 (67) 95 03/21/17 23:00 118 03/21/17 22:03 Nasal Cannula 3.00 03/21/17 22:00 124 03/21/17 20:49 03/21/17 20:00 97.2 111 16 141/94 (110) 96 03/21/17 18:08 113 20 140/74 (96) 97 Nasal Cannula 03/21/17 18:00 17 03/21/17 16:32 97.9 96 16 132/64 (86) 96 Nasal Cannula 2.00 03/21/17 16:31 96 Nasal Cannula 2.00 03/21/17 16:29 120 185/77 03/21/17 16:18 143 17 185/77 (113) 93 Nasal Cannula 2.00 03/21/17 15:08 120 27 95 Nasal Cannula 2.00 03/21/17 15:02 126 21 162/76 (104) 95 I/O 03/21/17 03/21/17 03/21/17 03/22/17 03/22/17 03/22/17 07:00 15:00 23:00 07:00 15:00 23:00 Intake Total 480 ml Output Total 125 ml Balance 355 ml Intake Oral 480 ml Output Urine Total 125 ml # Voids 2 Result Diagram: 03/22/17 0553 03/22/17 0553 Imaging Last Impressions Chest X-Ray 03/21/17 1526 Signed Impressions: Service Date/Time: Tuesday, March 21, 2017 15:53 - CONCLUSION: 1. COPD changes with bibasilar atelectasis. 2. Stable compared to prior dated . Isael Phillips MD Objective Remarks GENERAL: NAD SKIN: Warm and dry. HEAD: Normocephalic. EYES: No scleral icterus. No injection or drainage. NECK: Supple, trachea midline. No JVD or lymphadenopathy. CARDIOVASCULAR: Irregular Regular rate and rhythm without murmurs, gallops, or rubs. RESPIRATORY: Breath sounds equal bilaterally. No accessory muscle use. Mild expiratory wheezes GASTROINTESTINAL: Abdomen soft, non-tender, nondistended. MUSCULOSKELETAL: No cyanosis, or edema. BACK: Nontender without obvious deformity. No CVA tenderness. A/P Problem List: (1) Atrial fibrillation with RVR ICD Code: I48.91 - Unspecified atrial fibrillation (2) COPD with exacerbation ICD Code: J44.1 - Obstructive chronic bronchitis with exacerbation Status: Acute (3) Leukocytosis ICD Code: D72.829 - Elevated white blood cell count, unspecified Assessment and Plan 66 year-old man with 1. A-fib w/ RVR: h/o A-fib, on Coumadin, now in A-fib w/ RVR Currently on Cardizem gtt Serial cardiac enzymes r/o ACS Echo 02/18/17 w/ EF 55-60%. Currently on Coumadin pending further recommendations regarding medication therapy from cardiology. 2. COPD: Chronic Respiratory Failure w/ Acute Exacerbation. O2 Dependent, Currently on prednisone 5 mg daily, however will switch to Solu-Medrol 20 mg every 12 hours and continue Singulair, Symbicort, Xopenex , Theophylline. Had Spiriva and continue current antibiotics including Rocephin/azithromycin Sputum culture pending Monitor Theophylline level 3. Leukocytosis: Likely combination of chronic steroid therapy w/ acute infection-reports productive cough. Continue current Rocephin/Zithro for empiric treatment of PNA in light of multiple comorbidities and c/o productive cough. Check Sputum Cultures. 4. Other chronic medical conditions including hypertension, hyperlipidemia, BPH , anxiety Continue outpatient medications 5. DVT Prophylaxis: On Coumadin PT consult to treat and Haroldo Clifton MD Mar 22, 2017 10:34
--- NOTE | 2017-03-22 11:12 | MB ---
cc: DONNA PINO MD DATE OF CONSULTATION: 03/22/2017. REASON FOR CONSULTATION: Atrial fibrillation with rapid ventricular response. HISTORY OF PRESENT ILLNESS: The patient is a pleasant 66-year-old gentleman who has [facility] and was started on Coumadin and apparently has an appointment to see Dr. Alston in the near future. The patient presented with feelings of heart racing and shortness of breath. He is on home oxygen for severe COPD. He presented with rapid atrial fibrillation and was started on a Cardizem drip as well as steroids and antibiotics. He says he is feeling quite a bit better. though he has been sedentary. No chest pain, lightheadedness, dizziness or syncope. PAST MEDICAL HISTORY: 1. Newly discovered atrial fibrillation on warfarin. 2. Severe COPD on home oxygen and theophylline. 3. Obesity 4. Hypertension. CURRENT MEDICATIONS: 1. Warfarin 5 milligrams daily. 2. Flomax 0.4 milligrams daily. 3. BuSpar 20 milligrams three times a day. 4. Hydrochlorothiazide 25 milligrams daily. 5. Prednisone 5 milligrams daily. 6. Theophylline 300 milligrams daily. 7. Spiriva. 8. Lopressor 50 milligrams twice a day. 9. Lipitor 40 milligrams at bedtime. 10. Azithromycin. 11. Ceftriaxone. 12. Cardizem drip. ALLERGIES: LEVAQUIN. PHYSICAL EXAMINATION: VITAL SIGNS: Afebrile, pulse 76, respiratory rate 16, blood pressure 95/53, earlier as high as 185/77, satting 95% on three liters. GENERAL: A pleasant obese gentleman in no distress. NECK: No jugular venous distention. LUNGS: Decreased breath sounds in [place] with scattered wheezes. CARDIOVASCULAR: Irregularly irregular rhythm with a regular rate. No murmurs appreciated. ABDOMEN: Benign. EXTREMITIES: No edema. LABORATORY DATA: Sodium 140, potassium 4.0, chloride 103, bicarbonate 29.5, BUN 12, creatinine 0.68, glucose 135. Cardiac enzymes are negative x3. INR is 1.9. White count 14.1 down from 17.1, hematocrit 37.4, platelet count 297,000. EKGS: EKG shows atrial fibrillation at a rate of 121 with no significant S-T or T wave changes. IMPRESSION: 1. Atrial fibrillation. Patient with likely new persistent atrial fibrillation as of a couple of weeks ago is in mild RVR probably due to COPD / pneumonia as well as his chronic lung medications including theophylline. He is on a Cardizem drip. I will add oral Cardizem in an attempt to wean down the drip. Otherwise, his COPD can be treated as is currently being done. I expect he could be discharged home soon to follow up with his new industrial editor, Dr. Alston. Thank you again for the opportunity to participate in this patient's care. MD IESHA Peña/LAURIE /9:10 AM /10:48 AM
[2017-03-22] MEDS: DILTIAZEM HCL 30 MG TAB PO SCH ×3 (12:00→23:34)
--- NOTE | 2017-03-22 14:37 | EKG ---
Date Performed: 03/21/2017 Time Performed: 15:06:15 PTAGE: 66 years EKG: ATRIAL FIBRILLATION WITH RAPID VENTRICULAR RESPONSE WITH ABERRANT CONDUCTION OR VENTRICULAR PREMATURE COMPLEXES POSSIBLE RIGHT VENTRICULAR CONDUCTION DELAY MODERATE ST DEPRESSION ABNORMAL ECG Since PREVIOUS TRACING , no significant change noted PREVIOUS TRACIN02/17/2017 11.22 DOCTOR: Jean-Claude Farfan Interpretating Date/Time 03/22/2017 14:35:57
[2017-03-22] MEDS: WARFARIN SOD 5 MG TAB PO SCH (15:30)
[2017-03-22] MEDS: AZITHROMYCIN INJ 500 MG in SODIUM CHLOR 0.9% 250 ML INJ 250 ML IV SCH (21:31)
[2017-03-22] MEDS: cefTRIAXone INJ 1,000 MG in SODIUM CHLORIDE 0.9% INJ 100 ML IV SCH (21:32)
[2017-03-22] MEDS: ATORVASTATIN 40 MG TAB PO SCH (21:32)
[2017-03-22] MEDS: methylPREDNISolone SOD SUCC 40 MG/1 ML VIAL IV PUSH SCH (21:32)
[2017-03-23] VITALS (26 sets, daily range): BP systolic 106–149; BP diastolic 69–92; PULSE 80–114; RESP 18–24; TEMP 97.4–98.2; O2SAT 94–97
[2017-03-23] MEDS: SODIUM CHLOR 0.9% 1000 ML INJ 1,000 ML IV SCH (01:06)
[2017-03-23] MEDS: RESP: ALBUTEROL 2.5 MG/IPRATROPIUM 0.5 MG NEB (PRN) NEB ×2 (03:45→23:23)
[2017-03-23] MEDS: DILTIAZEM HCL 30 MG TAB PO SCH (04:49)
[2017-03-23 07:44] LABS: AUTOMATED NEUTROPHIL # 10.6 TH/MM3 (1.8-7.7); BASOPHIL % 0.2 % (0.0-2.0); HEMATOCRIT 37.7 % (39.0-51.0); HEMOGLOBIN 12.5 GM/DL (13.0-17.0); LYMPH % 3.6 % (9.0-44.0); LYMPHOCYTE # 0.4 TH/MM3 (1.0-4.8); MEAN CELL VOLUME 90.5 FL (80.0-100.0); MEAN CORPUSCULAR HGB CONC 33.1 % (32.0-36.0); MEAN PLATELET VOLUME 6.3 FL (7.0-11.0); MONO % 5.9 % (0.0-8.0); MONOCYTE # 0.7 TH/MM3 (0-0.9); NEUT % 90.3 % (16.0-70.0); PLATELET COUNT 263 TH/MM3 (150-450); RED BLOOD COUNT 4.16 MIL/MM3 (4.50-5.90); RED CELL DISTRIBUTION WIDTH 16.4 % (11.6-17.2); WHITE BLOOD COUNT 11.7 TH/MM3 (4.0-11.0)
[2017-03-23 07:53] LABS: PROTHROMBIN TIME - PATIENT 20.3 SEC (9.8-11.6)
[2017-03-23 08:03] LABS: BICARBONATE 29.4 MEQ/L (21.0-32.0); CALCIUM 8.5 MG/DL (8.5-10.1); CREATININE 0.69 MG/DL (0.60-1.30)
[2017-03-23] MEDS: TIOTROPIUM BROMIDE 18 MCG INH INH SCH (08:03)
[2017-03-23] MEDS: METOPROLOL TARTRATE 50 MG TAB PO SCH ×2 (08:04→20:49)
[2017-03-23] MEDS: CLOTRIMAZOLE 1% CREAM 15 GM TOPICAL SCH ×2 (08:04→20:59)
[2017-03-23] MEDS: TAMSULOSIN HCL 0.4 MG CAP PO SCH (08:04)
[2017-03-23] MEDS: busPIRone HCL 10 MG TAB PO SCH ×3 (08:04→17:46)
[2017-03-23] MEDS: THEOPHYLLINE 200 MG EXTENDED RELEASE CAP PO SCH (08:04)
[2017-03-23] MEDS: HYDROCHLOROTHIAZIDE 25 MG TAB PO SCH (08:04)
[2017-03-23] MEDS: buPROPion HCL 150 MG SUSTAINED RELEASE TAB PO SCH ×2 (08:04→20:49)
[2017-03-23] MEDS: methylPREDNISolone SOD SUCC 40 MG/1 ML VIAL IV PUSH SCH ×2 (08:05→20:52)
[2017-03-23] MEDS: BUDESONIDE-FORMOTEROL 160/4.5 MCG INHALER INH SCH ×2 (08:05→20:50)
[2017-03-23] MEDS: SODIUM CHLORIDE 0.9% FLUSH 10 ML FLUSH IV FLUSH SCH ×2 (08:05→20:51)
[2017-03-23] MEDS: DOCUSATE SODIUM 50 MG/SENNA 8.6 MG TAB PO SCH ×2 (08:05→20:59)
[2017-03-23] MEDS: ACETAMINOPHEN/HYDROcodone 325 MG/10 MG TAB PO PRN ×4 (08:06→20:49)
[2017-03-23 10:04] LABS: BANDS 3 % (0-6); LYMPHOCYTES 3 % (9-44); MONOCYTES 6 % (0-8); MYELOCYTES 3 % (0-0); NEUTROPHIL # MANUAL DIFF 10.6 TH/MM3 (1.8-7.7); POLYS (SEG NEUTROPHILS) 83 % (16-70); PROMYELOCYTES 2 % (0-0)
--- NOTE | 2017-03-23 10:35 | PD.CARD.PN ---
Subjective Subjective Remarks doing better, off cardizem ggt but rates still slightly high Objective Medications Administered Medications Medications (Trade) Dose Ordered Sig/Agatha Route PRN Reason Start Time Stop Time Status Last Admin Dose Admin Diltiazem HCl 125 mg/Sodium Chloride 125 ml @ 5 mls/hr TITRATE PRN IV Tachycardia 03/21/17 15:30 03/21/17 16:29 Sodium Chloride 1,000 ml @ 100 mls/hr Q10H IV 03/21/17 19:06 03/22/17 18:15 Sodium Chloride (NS Flush) 2 ml BID IV FLUSH 03/21/17 21:00 03/23/17 08:05 Senna/Docusate Sodium (Irasema-Colace) 1 tab BID PO 03/21/17 21:00 03/23/17 08:05 Atorvastatin Calcium (Lipitor) 40 mg HS PO 03/21/17 21:00 03/22/17 21:32 Metoprolol Tartrate (Lopressor) 50 mg BID PO 03/21/17 21:00 03/23/17 08:04 Tamsulosin HCl (Flomax) 0.4 mg DAILY PO 03/22/17 09:00 03/23/17 08:04 Warfarin Sodium (Coumadin) 5 mg DAILY@1600 PO 03/22/17 16:00 03/22/17 15:30 Acetaminophen/ Hydrocodone Bitart ([place] 10-325 Mg) 1 tab Q4H PRN PO PAIN 3-5 03/21/17 20:15 03/23/17 08:06 Albuterol/ Ipratropium (Duoneb Neb) 1 ampule Q2HR NEB PRN NEB SOB/WHEEZING 03/21/17 20:15 03/23/17 03:45 Budesonide/ Formoterol Fumarate (Symbicort 160-4.5 Mcg Inh) 2 puff BID INH 03/21/17 21:00 03/23/17 08:05 Bupropion HCl (Wellbutrin Sr) 150 mg BID PO 03/21/17 21:00 03/23/17 08:04 Buspirone HCl (Buspar) 20 mg TID PO 03/22/17 09:00 03/23/17 08:04 Hydrochlorothiazide (Hydrodiuril) 25 mg DAILY PO 03/22/17 09:00 1/21/18 08:04 Prednisone (Deltasone) 5 mg DAILY PO 03/22/17 09:00 Future Hold 03/22/17 09:05 Theophylline (Rony-24) 200 mg DAILY PO 03/22/17 09:00 03/23/17 08:04 Clotrimazole (Lotrimin 1% Cream) 1 applic BID TOPICAL 03/21/17 21:00 03/23/17 08:04 Tiotropium [place] (Spiriva Inh) 18 mcg DAILY INH 03/22/17 09:00 03/23/17 08:03 Ceftriaxone Sodium 1000 mg/ Sodium Chloride 100 ml @ 200 mls/hr Q24H IV 03/21/17 21:00 03/22/17 21:32 Azithromycin 500 mg/Sodium Chloride 250 ml @ 250 mls/hr Q24H IV 03/21/17 21:00 03/22/17 21:31 Diltiazem HCl (Cardizem) 30 mg Q6HR PO 03/22/17 12:00 03/23/17 04:49 Methylprednisolone Sodium Succinate (SoluMEDROL INJ) 20 mg Q12HR IV PUSH 03/22/17 21:00 03/23/17 08:05 Current Medications Medications (Trade) Dose Ordered Sig/Agatha Route Start Time Stop Time Status Last Admin Diltiazem HCl 125 mg/Sodium Chloride 125 ml @ 5 mls/hr TITRATE PRN IV 03/21/17 15:30 03/21/17 16:29 Sodium Chloride 1,000 ml @ 100 mls/hr Q10H IV 03/21/17 19:06 03/22/17 18:15 (NS Flush) 2 ml UNSCH PRN IV FLUSH 03/21/17 19:15 (NS Flush) 2 ml BID IV FLUSH 03/21/17 21:00 03/23/17 08:05 (Zofran Inj) 4 mg Q6H PRN IVP 03/21/17 19:15 (Tylenol) 650 mg Q6H PRN PO 03/21/17 19:15 (Morphine Inj) 2 mg Q3H PRN IV PUSH 03/21/17 19:15 (Irasema-Colace) 1 tab BID PO 03/21/17 21:00 03/23/17 08:05 (Milk Of Magnesia Liq) 30 ml Q12H PRN PO 03/21/17 19:15 (Senokot) 17.2 mg Q12H PRN PO 03/21/17 19:15 (Dulcolax Supp) 10 mg DAILY PRN RECTAL 03/21/17 19:15 (Lactulose Liq) 30 ml DAILY PRN PO 03/21/17 19:15 (Lipitor) 40 mg HS PO 03/21/17 21:00 03/22/17 21:32 (Lioresal) 10 mg BID PRN PO 03/21/17 19:15 (Lopressor) 50 mg BID PO 03/21/17 21:00 03/23/17 08:04 (Flomax) 0.4 mg DAILY PO 03/22/17 09:00 03/23/17 08:04 (Coumadin) 5 mg DAILY@1600 PO 03/22/17 16:00 03/22/17 15:30 ([place] 10-325 Mg) 1 tab Q4H PRN PO 03/21/17 20:15 03/23/17 08:06 (Duoneb Neb) 1 ampule Q2HR NEB PRN NEB 03/21/17 20:15 03/23/17 03:45 (Symbicort 160-4.5 Mcg Inh) 2 puff BID INH 03/21/17 21:00 03/23/17 08:05 (Wellbutrin Sr) 150 mg BID PO 03/21/17 21:00 03/23/17 08:04 (Buspar) 20 mg TID PO 03/22/17 09:00 03/23/17 08:04 (Hydrodiuril) 25 mg DAILY PO 03/22/17 09:00 03/23/17 08:04 (Deltasone) 5 mg DAILY PO 03/22/17 09:00 Future Hold 03/22/17 09:05 (Rony-24) 200 mg DAILY PO 03/22/17 09:00 03/23/17 08:04 (Lotrimin 1% Cream) 1 applic BID TOPICAL 03/21/17 21:00 03/23/17 08:04 (Spiriva Inh) 18 mcg DAILY INH 03/22/17 09:00 03/23/17 08:03 (Tears Naturale Opth Soln) 1 drop QID PRN EACH EYE 03/21/17 20:30 Ceftriaxone Sodium 1000 mg/ Sodium Chloride 100 ml @ 200 mls/hr Q24H IV 03/21/17 21:00 03/22/17 21:32 Azithromycin 500 mg/Sodium Chloride 250 ml @ 250 mls/hr Q24H IV 03/21/17 21:00 03/22/17 21:31 (Cardizem) 30 mg Q6HR PO 03/22/17 12:00 03/23/17 04:49 Pharmacy Profile Note 0 ml @ 0 mls/hr UNSCH OTHER 03/22/17 10:30 (SoluMEDROL INJ) 20 mg Q12HR IV PUSH 03/22/17 21:00 03/23/17 08:05 Vital Signs / I&O Vital Signs Date Time Temp Pulse Resp B/P (MAP) Pulse Ox O2 Delivery O2 Flow Rate FiO2 03/23/17 08:00 105 03/23/17 07:57 98.2 89 24 137/89 (105) 95 03/23/17 05:00 92 03/23/17 04:00 92 03/23/17 03:00 80 03/23/17 03:00 97.4 94 127/92 (104) 97 03/23/17 02:00 98 03/23/17 01:00 82 03/23/17 00:00 86 03/22/17 23:00 87 03/22/17 23:00 97.9 79 139/83 (101) 99 03/22/17 22:00 102 03/22/17 21:00 88 03/22/17 20:00 98 03/22/17 19:00 97.8 94 123/76 (92) 98 03/22/17 19:00 100 03/22/17 17:00 102 03/22/17 16:56 99 Nasal Cannula 2.50 03/22/17 16:29 98.4 90 20 133/67 (89) 99 03/22/17 16:00 92 03/22/17 15:00 90 03/22/17 14:00 80 03/22/17 12:39 95 Nasal Cannula 2.50 03/22/17 12:30 98.2 92 20 117/65 (82) 97 I/O 03/22/17 03/22/17 03/22/17 03/23/17 03/23/17 03/23/17 07:00 15:00 23:00 07:00 15:00 23:00 Intake Total 480 ml 200 ml 240 ml Output Total 125 ml 500 ml Balance 355 ml 200 ml -260 ml Intake Oral 480 ml 200 ml 240 ml Output Urine Total 125 ml 500 ml # Voids 2 # Bowel Movements 1 Physical Exam GENERAL: This is a well-nourished, well-developed patient, in no apparent distress. CARDIOVASCULAR: slightly rapid rate and irregular rhythm without murmurs, gallops, or rubs. RESPIRATORY: diminished breath sounds GASTROINTESTINAL: Abdomen soft, non-tender, nondistended. Normal, active bowel sounds MUSCULOSKELETAL: Extremities without clubbing, cyanosis, or edema. NEURO: Alert & Oriented x4 to person, place, time, situation. Moves all ext x4 Laboratory Laboratory Tests Test 03/22/17 11:40 03/23/17 06:40 Theophylline Level 3.3 MCG/ML White Blood Count 11.7 TH/MM3 Red Blood Count 4.16 MIL/MM3 Hemoglobin 12.5 GM/DL Hematocrit 37.7 % Mean Corpuscular Volume 90.5 FL Mean Corpuscular Hemoglobin 30.0 PG Mean Corpuscular Hemoglobin Concent 33.1 % Red Cell Distribution Width 16.4 % Platelet Count 263 TH/MM3 Mean Platelet Volume 6.3 FL Neutrophils (%) (Auto) 90.3 % Lymphocytes (%) (Auto) 3.6 % Monocytes (%) (Auto) 5.9 % Eosinophils (%) (Auto) 0.0 % Basophils (%) (Auto) 0.2 % Neutrophils # (Auto) 10.6 TH/MM3 Lymphocytes # (Auto) 0.4 TH/MM3 Monocytes # (Auto) 0.7 TH/MM3 Eosinophils # (Auto) 0.0 TH/MM3 Basophils # (Auto) 0.0 TH/MM3 CBC Comment AUTO DIFF Differential Total Cells Counted 100 Neutrophils % (Manual) 83 % Band Neutrophils % 3 % Lymphocytes % 3 % Monocytes % 6 % Neutrophils # (Manual) 10.6 TH/MM3 Myelocytes 3 % Promyelocytes 2 % Differential Comment FINAL DIFF MANUAL Platelet Estimate NORMAL Platelet Morphology Comment NORMAL Red Cell Morphology Comment NORMAL Prothrombin Time 20.3 SEC Prothromb Time International Ratio 2.0 RATIO Blood Urea Nitrogen 11 MG/DL Creatinine 0.69 MG/DL Random Glucose 188 MG/DL Calcium Level 8.5 MG/DL Sodium Level 137 MEQ/L Potassium Level 3.6 MEQ/L Chloride Level 101 MEQ/L Carbon Dioxide Level 29.4 MEQ/L Anion Gap 7 MEQ/L Estimat Glomerular Filtration Rate 114 ML/MIN Imaging Last Impressions Chest X-Ray 03/21/17 1526 Signed Impressions: Service Date/Time: Tuesday, March 21, 2017 15:53 - CONCLUSION: 1. COPD changes with bibasilar atelectasis. 2. Stable compared to prior dated . Isael Phillips MD Assessment and Plan Problem List: (1) Atrial fibrillation with RVR ICD Codes: I48.91 - Unspecified atrial fibrillation Plan: on warfarin, increased his dilt and changed to long acting (2) COPD (chronic obstructive pulmonary disease) ICD Codes: J44.9 - Chronic obstructive pulmonary disease, unspecified Plan: improving, on his baseline O2 Assessment and Plan Very deconditioned, may need pt, could likely go home today or tomorrow Jean-Claude Farfan MD Mar 23, 2017 10:35
[2017-03-23] MEDS: DILTIAZEM-CD 240 MG CAP ER PO SCH (12:03)
--- NOTE | 2017-03-23 13:24 | HHI.PR ---
Subjective Remarks Follow-up A. fib with RVR 03/22/17-patient seen and examined, currently in A. fib with RVR. Denies any chest pain however has some shortness of breath. Also complains of cough production as well as nasal congestion. Patient with mild expiratory wheezes. Currently afebrile 03/23/17-patient seen and examined, still with increased heart rate. Patient reports improvement of shortness of breath however still with expiratory wheezes. Objective Vitals Vital Signs Date Time Temp Pulse Resp B/P (MAP) Pulse Ox O2 Delivery O2 Flow Rate FiO2 03/23/17 11:17 97.8 88 18 132/80 (97) 95 03/23/17 08:00 105 03/23/17 07:57 98.2 89 24 137/89 (105) 95 03/23/17 05:00 92 03/23/17 04:00 92 03/23/17 03:00 80 03/23/17 03:00 97.4 94 127/92 (104) 97 03/23/17 02:00 98 03/23/17 01:00 82 03/23/17 00:00 86 03/22/17 23:00 87 03/22/17 23:00 97.9 79 139/83 (101) 99 03/22/17 22:00 102 03/22/17 21:00 88 03/22/17 20:00 98 03/22/17 19:00 97.8 94 123/76 (92) 98 03/22/17 19:00 100 03/22/17 17:00 102 03/22/17 16:56 99 Nasal Cannula 2.50 03/22/17 16:29 98.4 90 20 133/67 (89) 99 03/22/17 16:00 92 03/22/17 15:00 90 03/22/17 14:00 80 I/O 03/22/17 03/22/17 03/22/17 03/23/17 03/23/17 03/23/17 07:00 15:00 23:00 07:00 15:00 23:00 Intake Total 480 ml 200 ml 1240 ml Output Total 125 ml 1000 ml Balance 355 ml 200 ml 240 ml Intake Oral 480 ml 200 ml 240 ml IV Total 1000 ml Output Urine Total 125 ml 1000 ml # Voids 2 # Bowel Movements 1 Result Diagram: 03/23/17 0640 03/23/17 0640 Imaging Last Impressions Chest X-Ray 03/21/17 1526 Signed Impressions: Service Date/Time: Tuesday, March 21, 2017 15:53 - CONCLUSION: 1. COPD changes with bibasilar atelectasis. 2. Stable compared to prior dated . Isael Phillips MD Objective Remarks GENERAL: NAD SKIN: Warm and dry. HEAD: Normocephalic. EYES: No scleral icterus. No injection or drainage. NECK: Supple, trachea midline. No JVD or lymphadenopathy. CARDIOVASCULAR: Irregular Regular rate and rhythm without murmurs, gallops, or rubs. RESPIRATORY: Breath sounds equal bilaterally. No accessory muscle use. Mild expiratory wheezes GASTROINTESTINAL: Abdomen soft, non-tender, nondistended. MUSCULOSKELETAL: No cyanosis, or edema. BACK: Nontender without obvious deformity. No CVA tenderness. A/P Problem List: (1) Atrial fibrillation with RVR ICD Code: I48.91 - Unspecified atrial fibrillation (2) COPD with exacerbation ICD Code: J44.1 - Obstructive chronic bronchitis with exacerbation Status: Acute (3) Leukocytosis ICD Code: D72.829 - Elevated white blood cell count, unspecified Assessment and Plan 66 year-old man with 1. A-fib w/ RVR: h/o A-fib, on Coumadin, now in A-fib w/ RVR off Cardizem gtt and switch to Cardizem CD 240mg daily Continue with Coumadin and monitor INR Appreciate input from cardiology Serial cardiac enzymes r/o ACS Echo 02/18/17 w/ EF 55-60%. 2. COPD: Chronic Respiratory Failure w/ Acute Exacerbation. O2 Dependent, Currently on Solu-Medrol 20 mg every 12 hours and continue Singulair, Symbicort, Xopenex , Theophylline. On Spiriva and continue current antibiotics including azithromycin and discontinue Rocephin in a.m. Sputum culture pending Monitor Theophylline level 3. Leukocytosis: Likely combination of chronic steroid therapy w/ acute infection-reports productive cough. Continue current Rocephin/Zithro for empiric treatment of PNA in light of multiple comorbidities and c/o productive cough. Will discontinue Rocephin in a.m. 4. Other chronic medical conditions including hypertension, hyperlipidemia, BPH , anxiety Continue outpatient medications 5. DVT Prophylaxis: On Coumadin PT to treat and eval Discharge Planning Patient likely discharge in 1-2 days Haroldo Yao MD Mar 23, 2017 13:24
[2017-03-23] MEDS ORDERED: PILL SPLITTER OTHER PRN (13:30)
[2017-03-23] MEDS: LORATADINE 10 MG TAB PO SCH (13:42)
[2017-03-23] MEDS: WARFARIN SOD 5 MG TAB PO SCH (16:15)
[2017-03-23] MEDS: AZITHROMYCIN INJ 500 MG in SODIUM CHLOR 0.9% 250 ML INJ 250 ML IV SCH (20:50)
[2017-03-23] MEDS: ATORVASTATIN 40 MG TAB PO SCH (20:50)
[2017-03-23] MEDS: cefTRIAXone INJ 1,000 MG in SODIUM CHLORIDE 0.9% INJ 100 ML IV SCH (20:57)
[2017-03-24] VITALS (26 sets, daily range): BP systolic 110–141; BP diastolic 71–93; PULSE 76–116; RESP 18–24; TEMP 97.6–98.3; O2SAT 20–96
[2017-03-24] MEDS: ACETAMINOPHEN/HYDROcodone 325 MG/10 MG TAB PO PRN ×4 (00:35→20:53)
[2017-03-24] MEDS: busPIRone HCL 10 MG TAB PO SCH ×3 (04:38→18:30)
[2017-03-24] MEDS: BUDESONIDE-FORMOTEROL 160/4.5 MCG INHALER INH SCH ×2 (04:39→20:51)
[2017-03-24] MEDS: SODIUM CHLORIDE 0.9% FLUSH 10 ML FLUSH IV FLUSH SCH ×2 (08:42→20:51)
[2017-03-24] MEDS: TAMSULOSIN HCL 0.4 MG CAP PO SCH (08:42)
[2017-03-24] MEDS: buPROPion HCL 150 MG SUSTAINED RELEASE TAB PO SCH ×2 (08:43→20:52)
[2017-03-24] MEDS: DOCUSATE SODIUM 50 MG/SENNA 8.6 MG TAB PO SCH ×2 (08:43→20:52)
[2017-03-24] MEDS: HYDROCHLOROTHIAZIDE 25 MG TAB PO SCH (08:43)
[2017-03-24] MEDS: methylPREDNISolone SOD SUCC 40 MG/1 ML VIAL IV PUSH SCH ×2 (08:43→20:52)
[2017-03-24] MEDS: DILTIAZEM-CD 240 MG CAP ER PO SCH (08:43)
[2017-03-24 08:44] LABS: AUTOMATED NEUTROPHIL # 13.8 TH/MM3 (1.8-7.7); HEMATOCRIT 39.8 % (39.0-51.0); HEMOGLOBIN 13.8 GM/DL (13.0-17.0); LYMPH % 3.7 % (9.0-44.0); LYMPHOCYTE # 0.6 TH/MM3 (1.0-4.8); MEAN CELL VOLUME 89.2 FL (80.0-100.0); MEAN CORPUSCULAR HGB CONC 34.7 % (32.0-36.0); MEAN PLATELET VOLUME 6.4 FL (7.0-11.0); MONO % 5.8 % (0.0-8.0); MONOCYTE # 0.9 TH/MM3 (0-0.9); NEUT % 90.5 % (16.0-70.0); PLATELET COUNT 305 TH/MM3 (150-450); RED BLOOD COUNT 4.46 MIL/MM3 (4.50-5.90); RED CELL DISTRIBUTION WIDTH 16.2 % (11.6-17.2); WHITE BLOOD COUNT 15.2 TH/MM3 (4.0-11.0)
[2017-03-24] MEDS: METOPROLOL TARTRATE 50 MG TAB PO SCH ×2 (08:44→20:52)
[2017-03-24] MEDS: LORATADINE 10 MG TAB PO SCH (08:44)
[2017-03-24 08:49] LABS: INTERNATIONAL NORMALIZED RATIO 2.5 RATIO
--- NOTE | 2017-03-24 08:54 | PD.CARD.PN ---
Subjective Subjective Remarks doing better, off cardizem ggt but rates still slightly high at times before meds due, overall reasonably controlled. Objective Medications Current Medications Medications (Trade) Dose Ordered Sig/Agatha Route Start Time Stop Time Status Last Admin Diltiazem HCl 125 mg/Sodium Chloride 125 ml @ 5 mls/hr TITRATE PRN IV 03/21/17 15:30 03/21/17 16:29 (NS Flush) 2 ml UNSCH PRN IV FLUSH 03/21/17 19:15 (NS Flush) 2 ml BID IV FLUSH 03/21/17 21:00 03/24/17 08:42 (Zofran Inj) 4 mg Q6H PRN IVP 03/21/17 19:15 (Tylenol) 650 mg Q6H PRN PO 03/21/17 19:15 (Morphine Inj) 2 mg Q3H PRN IV PUSH 03/21/17 19:15 (Irasema-Colace) 1 tab BID PO 03/21/17 21:00 03/24/17 08:43 (Milk Of Magnesia Liq) 30 ml Q12H PRN PO 03/21/17 19:15 (Senokot) 17.2 mg Q12H PRN PO 03/21/17 19:15 (Dulcolax Supp) 10 mg DAILY PRN RECTAL 03/21/17 19:15 (Lactulose Liq) 30 ml DAILY PRN PO 03/21/17 19:15 (Lipitor) 40 mg HS PO 03/21/17 21:00 03/23/17 20:50 (Lioresal) 10 mg BID PRN PO 03/21/17 19:15 (Lopressor) 50 mg BID PO 03/21/17 21:00 03/24/17 08:44 (Flomax) 0.4 mg DAILY PO 03/22/17 09:00 03/24/17 08:42 (Coumadin) 5 mg DAILY@1600 PO 03/22/17 16:00 03/23/17 16:15 ([place] 10-325 Mg) 1 tab Q4H PRN PO 03/21/17 20:15 03/24/17 00:35 (Duoneb Neb) 1 ampule Q2HR NEB PRN NEB 03/21/17 20:15 03/23/17 23:23 (Symbicort 160-4.5 Mcg Inh) 2 puff BID INH 03/21/17 21:00 03/24/17 04:39 (Wellbutrin Sr) 150 mg BID PO 03/21/17 21:00 03/24/17 08:43 (Buspar) 20 mg TID PO 03/22/17 09:00 03/24/17 04:38 (Hydrodiuril) 25 mg DAILY PO 03/22/17 09:00 03/24/17 08:43 (Deltasone) 5 mg DAILY PO 03/22/17 09:00 Future Hold 03/22/17 09:05 (Rony-24) 200 mg DAILY PO 03/22/17 09:00 03/23/17 08:04 (Lotrimin 1% Cream) 1 applic BID TOPICAL 03/21/17 21:00 03/23/17 20:59 (Spiriva Inh) 18 mcg DAILY INH 03/22/17 09:00 03/23/17 08:03 (Tears Naturale Opth Soln) 1 drop QID PRN EACH EYE 03/21/17 20:30 Azithromycin 500 mg/Sodium Chloride 250 ml @ 250 mls/hr Q24H IV 03/21/17 21:00 03/23/17 20:50 Pharmacy Profile Note 0 ml @ 0 mls/hr UNSCH OTHER 03/22/17 10:30 (SoluMEDROL INJ) 20 mg Q12HR IV PUSH 03/22/17 21:00 03/24/17 08:43 (Cardizem Cd) 240 mg DAILY PO 03/23/17 10:45 03/24/17 08:43 (Claritin) 5 mg DAILY PO 03/23/17 13:30 03/24/17 08:44 (Pill Splitter) 1 ea UNSCH PRN OTHER 03/23/17 13:30 Vital Signs / I&O Vital Signs Date Time Temp Pulse Resp B/P (MAP) Pulse Ox O2 Delivery O2 Flow Rate FiO2 03/24/17 06:00 104 03/24/17 05:00 90 03/24/17 04:00 92 03/24/17 04:00 92 18 133/80 (97) 95 03/24/17 03:00 81 03/24/17 02:00 96 03/24/17 01:00 82 03/24/17 00:00 76 03/23/17 23:00 90 03/23/17 23:00 84 18 106/75 (85) 96 03/23/17 22:11 96 Nasal Cannula 2.00 03/23/17 22:00 82 03/23/17 21:00 106 03/23/17 20:00 100 03/23/17 19:00 97.8 100 18 149/92 (111) 94 03/23/17 19:00 109 03/23/17 18:06 85 03/23/17 17:00 100 03/23/17 16:00 110 03/23/17 15:36 97.6 86 19 125/69 (87) 96 03/23/17 15:00 101 03/23/17 14:00 114 03/23/17 13:00 114 03/23/17 12:00 92 03/23/17 11:17 97.8 88 18 132/80 (97) 95 03/23/17 11:00 89 03/23/17 10:00 86 03/23/17 09:00 92 I/O 03/23/17 03/23/17 03/23/17 03/24/17 03/24/17 03/24/17 07:00 15:00 23:00 07:00 15:00 23:00 Intake Total 1240 ml 1270 ml 480 ml Output Total 1000 ml 800 ml 1450 ml Balance 240 ml 470 ml -970 ml Intake Oral 240 ml 920 ml 480 ml IV Total 1000 ml 350 ml Output Urine Total 1000 ml 800 ml 1450 ml # Bowel Movements 1 0 1 Physical Exam GENERAL: This is a well-nourished, well-developed patient, in no apparent distress. CARDIOVASCULAR: slightly rapid rate and irregular rhythm without murmurs, gallops, or rubs. RESPIRATORY: diminished breath sounds GASTROINTESTINAL: Abdomen soft, non-tender, nondistended. Normal, active bowel sounds MUSCULOSKELETAL: Extremities without clubbing, cyanosis, or edema. NEURO: Alert & Oriented x4 to person, place, time, situation. Moves all ext x4 Laboratory Laboratory Tests Test 03/24/17 07:55 White Blood Count 15.2 TH/MM3 Red Blood Count 4.46 MIL/MM3 Hemoglobin 13.8 GM/DL Hematocrit 39.8 % Mean Corpuscular Volume 89.2 FL Mean Corpuscular Hemoglobin 31.0 PG Mean Corpuscular Hemoglobin Concent 34.7 % Red Cell Distribution Width 16.2 % Platelet Count 305 TH/MM3 Mean Platelet Volume 6.4 FL Neutrophils (%) (Auto) 90.5 % Lymphocytes (%) (Auto) 3.7 % Monocytes (%) (Auto) 5.8 % Eosinophils (%) (Auto) 0.0 % Basophils (%) (Auto) 0.0 % Neutrophils # (Auto) 13.8 TH/MM3 Lymphocytes # (Auto) 0.6 TH/MM3 Monocytes # (Auto) 0.9 TH/MM3 Eosinophils # (Auto) 0.0 TH/MM3 Basophils # (Auto) 0.0 TH/MM3 CBC Comment AUTO DIFF Prothrombin Time 25.0 SEC Prothromb Time International Ratio 2.5 RATIO Imaging Last Impressions Chest X-Ray 03/21/17 1526 Signed Impressions: Service Date/Time: Tuesday, March 21, 2017 15:53 - CONCLUSION: 1. COPD changes with bibasilar atelectasis. 2. Stable compared to prior dated . Isael Phillips MD Assessment and Plan Problem List: (1) Atrial fibrillation with RVR ICD Codes: I48.91 - Unspecified atrial fibrillation Plan: on warfarin, increased his dilt (2) COPD (chronic obstructive pulmonary disease) ICD Codes: J44.9 - Chronic obstructive pulmonary disease, unspecified Plan: improving, on his baseline O2 Assessment and Plan Very deconditioned, may need pt, could likely go home today or tomorrow Jean-Claude Farfan MD Mar 24, 2017 08:54
[2017-03-24] MEDS: CLOTRIMAZOLE 1% CREAM 15 GM TOPICAL SCH ×2 (09:03→20:53)
[2017-03-24] MEDS: THEOPHYLLINE 200 MG EXTENDED RELEASE CAP PO SCH (09:20)
[2017-03-24] MEDS: RESP: ALBUTEROL 2.5 MG/IPRATROPIUM 0.5 MG NEB (PRN) NEB ×3 (09:29→19:23)
[2017-03-24 09:41] LABS: BANDS 7 % (0-6); LYMPHOCYTES 4 % (9-44); MONOCYTES 7 % (0-8); MYELOCYTES 6 % (0-0); NEUTROPHIL # MANUAL DIFF 13.5 TH/MM3 (1.8-7.7); POLYS (SEG NEUTROPHILS) 75 % (16-70); PROMYELOCYTES 1 % (0-0)
[2017-03-24 09:44] LABS: OVALOCYTES 1+ (NORMAL)
[2017-03-24] MEDS: TIOTROPIUM BROMIDE 18 MCG INH INH SCH (09:45)
[2017-03-24] MEDS ORDERED: DILTIAZEM-CD 120 MG CAP ER PO SCH (10:00)
[2017-03-24 10:22] LABS: BICARBONATE 31.6 MEQ/L (21.0-32.0); CALCIUM 9.2 MG/DL (8.5-10.1); CREATININE 0.7 MG/DL (0.60-1.30)
[2017-03-24] MEDS ORDERED: DILTIAZEM-CD 120 MG CAP ER PO ONE (11:00)
[2017-03-24] MEDS ORDERED: COUM2TAB PO (11:16)
[2017-03-24] MEDS ORDERED: DOXY100T PO (11:16)
[2017-03-24] MEDS ORDERED: CLAR10TA7 PO (11:16)
[2017-03-24] MEDS ORDERED: AZIT250T3 PO (11:16)
[2017-03-24] MEDS ORDERED: DILT120C50 PO (11:16)
[2017-03-24] MEDS ORDERED: PRED10PA PO (11:16)
--- NOTE | 2017-03-24 11:19 | HHI.DCPOC ---
Discharge Care Plan Diagnosis: (1) COPD (chronic obstructive pulmonary disease) (2) Pneumonia (3) Atrial fibrillation with RVR (4) Warfarin anticoagulation Additional Problems You will need your INR rechecked in [facility] days at the [facility] Your provider who is currently managing your INR as outpatient will need to decide based on results dosage of Coumadin. Goals to Promote Your Health * To prevent worsening of your condition and complications * To maintain your health at the optimal level Directions to Meet Your Goals Take your medications as prescribed Follow your dietary instruction Follow activity as directed Keep your appointments as scheduled Take your immunizations and boosters as scheduled If your symptoms worsen call your PCP, if no PCP go to Urgent Care Center or Emergency Room Smoking is Dangerous to Your Health. Avoid second hand smoke Call the 24-hour hour crisis hotline for domestic abuse at Hanas Wing MD Mar 24, 2017 11:19
--- NOTE | 2017-03-24 11:20 | HHI.DS ---
Discharge Summary Admission Date Mar 21, 2017 at 18:39 Discharge Date: Mar 24, 2017 Admitting Diagnosis A. fib with RVR (1) Atrial fibrillation with RVR ICD Code: I48.91 - Unspecified atrial fibrillation Diagnosis: Principal (2) COPD with exacerbation ICD Code: J44.1 - Obstructive chronic bronchitis with exacerbation Diagnosis: Principal Status: Acute Procedures See hospital course. Brief History - From Admission This is a 6-year-old male with a PMH of Anxiety, Depression, A. fib on Coumadin , HTN, Hyperlipidemia, COPD, O2 Dependent, Chronic Steroid Therapy and GERD who was brought to the ER by EMS secondary to SOB and Palpitations. Per pt he's had SOB associated w/ wheezing for 2-3 days, +productive cough w/ yellow- colored sputum. Symptoms severe, worse w/ exertion, improved w/ steroids. States he was seen by PCP today and had steroids for COPD, on his way home developed severe SOB w/ palpitations. Noted to be in A-fib w/ RVR, HR 150's by EMS, s/p Cardizem 20mg IV w/ minimal improvement. Upon arrival, BP 162/76, HR 126, O2 sat 95% on 2L NC, Afebrile. WBC 17.1 with elevated neutrophils. INR 2.0. CXR with COPD, stable. Pt w/ persistent A-fib w/ RVR, started on Cardizem gtt. 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 CBC/BMP: 03/24/17 0755 03/24/17 0755 Significant Findings Laboratory Tests Test 03/21/17 15:30 03/22/17 01:16 03/22/17 05:53 03/22/17 11:40 White Blood Count 17.1 TH/MM3 (4.0-11.0) 14.1 TH/MM3 (4.0-11.0) Red Blood Count 4.22 MIL/MM3 (4.50-5.90) 4.09 MIL/MM3 (4.50-5.90) Hematocrit 38.6 % (39.0-51.0) 37.4 % (39.0-51.0) Mean Platelet Volume 6.4 FL (7.0-11.0) 6.2 FL (7.0-11.0) Neutrophils (%) (Auto) 93.0 % (16.0-70.0) 88.5 % (16.0-70.0) Lymphocytes (%) (Auto) 1.5 % (9.0-44.0) 2.3 % (9.0-44.0) Neutrophils # (Auto) 15.9 TH/MM3 (1.8-7.7) 12.5 TH/MM3 (1.8-7.7) Lymphocytes # (Auto) 0.3 TH/MM3 (1.0-4.8) 0.3 TH/MM3 (1.0-4.8) Neutrophils % (Manual) 91 % (16-70) 87 % (16-70) Lymphocytes % 3 % (9-44) 2 % (9-44) Neutrophils # (Manual) 16.1 TH/MM3 (1.8-7.7) 12.7 TH/MM3 (1.8-7.7) Nucleated Red Blood Cells 2 /100 WBC (0-0) Toxic Granulation 1+ (NORMAL) Prothrombin Time 20.3 SEC (9.8-11.6) 19.3 SEC (9.8-11.6) Random Glucose 165 MG/DL (74-106) 135 MG/DL (74-106) Albumin 3.2 GM/DL (3.4-5.0) 2.9 GM/DL (3.4-5.0) Calcium Level 8.4 MG/DL (8.5-10.1) Aspartate Amino Transf (AST/SGOT) 11 U/L (15-37) 7 U/L (15-37) Troponin I LESS THAN 0.02 NG/ML LESS THAN 0.02 NG/ML LESS THAN 0.02 NG/ML Hemoglobin 12.4 GM/DL (13.0-17.0) Monocytes (%) (Auto) 9.2 % (0.0-8.0) Monocytes # (Auto) 1.3 TH/MM3 (0-0.9) Myelocytes 2 % (0-0) Total Protein 6.0 GM/DL (6.4-8.2) Theophylline Level 3.3 MCG/ML (10.0-20.0) Test 03/23/17 06:40 03/24/17 07:55 White Blood Count 11.7 TH/MM3 (4.0-11.0) 15.2 TH/MM3 (4.0-11.0) Red Blood Count 4.16 MIL/MM3 (4.50-5.90) 4.46 MIL/MM3 (4.50-5.90) Hemoglobin 12.5 GM/DL (13.0-17.0) Hematocrit 37.7 % (39.0-51.0) Mean Platelet Volume 6.3 FL (7.0-11.0) 6.4 FL (7.0-11.0) Neutrophils (%) (Auto) 90.3 % (16.0-70.0) 90.5 % (16.0-70.0) Lymphocytes (%) (Auto) 3.6 % (9.0-44.0) 3.7 % (9.0-44.0) Neutrophils # (Auto) 10.6 TH/MM3 (1.8-7.7) 13.8 TH/MM3 (1.8-7.7) Lymphocytes # (Auto) 0.4 TH/MM3 (1.0-4.8) 0.6 TH/MM3 (1.0-4.8) Neutrophils % (Manual) 83 % (16-70) 75 % (16-70) Lymphocytes % 3 % (9-44) 4 % (9-44) Neutrophils # (Manual) 10.6 TH/MM3 (1.8-7.7) 13.5 TH/MM3 (1.8-7.7) Myelocytes 3 % (0-0) 6 % (0-0) Promyelocytes 2 % (0-0) 1 % (0-0) Prothrombin Time 20.3 SEC (9.8-11.6) 25.0 SEC (9.8-11.6) Random Glucose 188 MG/DL (74-106) 147 MG/DL (74-106) Band Neutrophils % 7 % (0-6) Ovalocytes 1+ (NORMAL) Imaging Last Impressions Chest X-Ray 03/21/17 1526 Signed Impressions: Service Date/Time: Tuesday, March 21, 2017 15:53 - CONCLUSION: 1. COPD changes with bibasilar atelectasis. 2. Stable compared to prior dated . Isael Phillips MD PE at Discharge GENERAL: in NAD CARDIOVASCULAR: Irregular rate and irregular rhythm. Without murmurs, gallops, or rubs. RESPIRATORY: Breath sounds equal bilaterally. No accessory muscle use. GASTROINTESTINAL: Abdomen soft, non-tender, nondistended. MUSCULOSKELETAL: Negative edema Pt update on day of discharge Follow-up for COPD exacerbation nature fibrillation with RVR. Initially patient was seen he wanted to go home. He stated that he did not know why he stopped on the hospital. He denies any chest pain, shortness of breathing, palpitation, lightheadedness dizziness. Patient stated that his son will take care of him at home. He stated that he would not go to rehabilitation facility. Later after patient was discharged he stated that his son will not take care of him at home so he is asking go to a rehabilitation facility. He stated that he could not take care of himself. Otherwise patient has no complaints. Discussed case with patient's nurse and case management. Hospital Course 66 year-old man with 1. A-fib w/ RVR: h/o A-fib, on Coumadin, now in A-fib w/ RVR Initially on Cardizem drip and was switch to Cardizem CD 240mg daily with improvement in heart rate. Patient on Coumadin and INR has been labile. INR today is 2.5. He is now on Coumadin 2 mg by mouth daily. He will need INR rechecked in 2-3 days. Echo 02/18/17 w/ EF 55-60%. 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 2. COPD: Chronic Respiratory Failure w/ Acute Exacerbation. O2 Dependent, Lungs are now clear. Cancer transition to oral prednisone. continue Singulair, Symbicort, Xopenex , Theophylline. On Spiriva. Initially on Rocephin and azithromycin. Rocephin was discontinued yesterday. Sputum cultures growing gram-negative. We'll continue with azithromycin and add doxycycline. Clinically doing well. 3. Leukocytosis: Most likely secondary to steroid use. Clinically doing well. He treatment as above. 4. Other chronic medical conditions including hypertension, hyperlipidemia, BPH , anxiety Continue outpatient medications Pt Condition on Discharge: Stable Discharge Disposition: Disch w/ Home Health Serv Discharge Time: > 30 minutes Discharge Instructions DIET: Follow Instructions for: Heart Healthy Diet, Coumadin (Warfarin) Diet Activities you can perform: Regular-No Restrictions Follow up Referrals: PCP Follow-up - 2 Days New Medications: Azithromycin (Azithromycin) 250 Mg Tab 250 MG PO DAILY for Infection, #3 TAB 0 Refills Doxycycline Hyclate (Doxycycline Hyclate) 100 Mg Tab 100 MG PO BID for pneumonia, #10 TAB 0 Refills Prednisone (21) 10 mg tab Dose Pack (Prednisone (21) 10 mg tab Dose Pack) 10 Mg Pack 10 MG PO DIRECTED for Inflammation, #1 DSPK 0 Refills Diltiazem CD 24 HR (Diltiazem CD 24 HR) 120 Mg Caper 360 MG PO DAILY for atrial fibrillation, #30 CAP 0 Refills Loratadine (Claritin) 10 Mg Tablet 5 MG PO DAILY for congestion, #10 TAB 0 Refills Warfarin (Coumadin) 2 Mg Tab 2 MG PO DAILY@1600 for atrial fibrillation, #10 TAB 0 Refills Continued Medications: Albuterol 18 GM Inh (Ventolin Hfa 18 GM Inh) 90 Mcg/Act Aer 2 PUFF INH Q6H PRN for SHORTNESS OF BREATH, #1 INHALER 0 Refills Albuterol Neb (Albuterol Neb) 2.5 Mg/3 Ml Neb 0.5 MG NEB Q6HR PRN for SHORTNESS OF BREATH, #60 NEBULE 0 Refills Artificial Tear Solution (Soothe Xp/Xtra Protection) 1 Jarret Jarret 1 DROP EACH EYE QID PRN for DRY EYE Atorvastatin (Atorvastatin) 80 Mg Tab 40 MG PO HS for Cholesterol Management, #30 TAB 0 Refills Baclofen (Baclofen) 10 Mg Tab 10 MG PO BID PRN for MUSCLE PAIN, TAB 0 Refills Budesonide-Formoterol Inh (Symbicort Inh) 160-4.5 Mcg/Act Aero 2 PUFF INH BID, #1 INHALER 0 Refills *Rinse mouth after each use* Bupropion HCl ER 12 HR (Bupropion HCl ER 12 HR) 150 Mg Tab 150 MG PO BID for Control Depression, #60 TAB Buspirone (Buspirone) 10 Mg Tab 20 MG PO TID for Anxiety, TAB 0 Refills Clotrimazole Topical (Clotrimazole Topical) 1% Cream 1 APPLIC TOPICAL BID, #15 GM Apply to affected area on skin for fungal infection Hydrochlorothiazide (Hydrochlorothiazide) 25 Mg Tab 25 MG PO DAILY, #30 TAB 0 Refills Hydrocodone-Acetaminophen (Paradis) 10-325 Mg Tab 1 TAB PO Q4H PRN for PAIN, TAB 0 Refills Ipratropium-Albuterol Inh (Combivent Respimat Inh) 20-[address] Half-[address]/Act Aero 1 PUFF INH QID for Shortness of Breath, #1 INHALER 0 Refills Ipratropium-Albuterol Neb (Duoneb) 0.5-2.5 Mg/3 Ml Neb 3 ML NEB Q6HR PRN for SHORTNESS OF BREATH, #30 NEBULE 0 Refills Metoprolol Tartrate (Metoprolol Tartrate) 50 Mg Tab 50 MG PO BID, #60 TAB 0 Refills Polyethylene Glycol 3350 (Miralax) 17 Gram Powd.pack PO DAILY Dissolve 2 tablespoonsful in 4-8 ounces of water,juice,soda or other beverage Potassium Chloride ER (Potassium Chloride ER) 10 Meq Cap 10 MEQ PO DAILY for Electrolyte Replacement, #30 CAP 0 Refills Prednisone (Prednisone) 5 Mg Tab 5 MG PO DAILY, TAB 0 Refills Tamsulosin (Tamsulosin) 0.4 Mg Cap 0.4 MG PO DAILY for Manage Prostate Problems, #30 CAP 0 Refills Theophylline ER 24 HR (Rony-24) 200 Mg Cap 200 MG PO DAILY for PREVENT SHORTNESS OF BREATH, #30 CAP 0 Refills Tiotropium Inh (Spiriva Handihaler) 18 Mcg Cap 18 MCG INH DAILY for COPD, #30 CAP 0 Refills DO NOT SWALLOW CAPSULES Discontinued Medications: Diltiazem (Diltiazem) 90 Mg Tab 180 MG PO DAILY for Angina, #120 TAB 0 Refills Warfarin (Warfarin) 5 Mg Tab 5 MG PO DAILY for Blood Clot Prevention, #30 TAB 0 Refills Hansa Wing MD Mar 24, 2017 11:20
--- NOTE | 2017-03-24 11:21 | HHI.FF ---
Face to Face Verification Diagnosis: (1) COPD with exacerbation (2) Chronic back pain (3) Atrial fibrillation with RVR (4) Warfarin anticoagulation (5) Pneumonia Physical Therapy Order: Evaluate and Treat, Improve ambulation, Strength and gait training Home Health Nursing Order: Medical education Signs/symptoms of disease process Medication education-adverse effect I have seen patient Sesar Simons on 03/24/17. My clinical findings support the need for the requested home health care services because: Ltd mobility - disease progression Deconditioned w/ increased weakness I certify that my clinical findings support that this patient is homebound because: Hx COPD- exertion dyspnea/weakness Poor cardiac reserve Hansa Wing MD Mar 24, 2017 11:21
[2017-03-24] MEDS ORDERED: WARFARIN SOD 2 MG TAB PO SCH (16:00)
[2017-03-24] MEDS: AZITHROMYCIN INJ 500 MG in SODIUM CHLOR 0.9% 250 ML INJ 250 ML IV SCH (20:51)
[2017-03-24] MEDS: ATORVASTATIN 40 MG TAB PO SCH (20:52)
[2017-03-25] VITALS (14 sets, daily range): BP systolic 126–148; BP diastolic 70–81; PULSE 83–112; RESP 18–20; TEMP 98.2–98.3; O2SAT 93–95
[2017-03-25] MEDS: RESP: ALBUTEROL 2.5 MG/IPRATROPIUM 0.5 MG NEB (PRN) NEB ×2 (00:11→05:18)
[2017-03-25] MEDS: ACETAMINOPHEN/HYDROcodone 325 MG/10 MG TAB PO PRN ×2 (01:19→07:20)
[2017-03-25 06:55] LABS: INTERNATIONAL NORMALIZED RATIO 2.8 RATIO; PROTHROMBIN TIME - PATIENT 28.3 SEC (9.8-11.6)
[2017-03-25] MEDS ORDERED: CEFUROXIME AXETIL 500 MG TAB PO SCH (09:00)
[2017-03-25] MEDS ORDERED: DILTIAZEM-CD 120 MG CAP ER PO SCH (09:00)
[2017-03-25] MEDS ORDERED: CEFU1TAB18 PO (09:04)
[2017-03-25] MEDS: TIOTROPIUM BROMIDE 18 MCG INH INH SCH (09:37)
[2017-03-25] MEDS: BUDESONIDE-FORMOTEROL 160/4.5 MCG INHALER INH SCH (09:38)
[2017-03-25] MEDS: SODIUM CHLORIDE 0.9% FLUSH 10 ML FLUSH IV FLUSH SCH (09:39)
[2017-03-25] MEDS: methylPREDNISolone SOD SUCC 40 MG/1 ML VIAL IV PUSH SCH (09:40)
[2017-03-25] MEDS: buPROPion HCL 150 MG SUSTAINED RELEASE TAB PO SCH (09:43)
[2017-03-25] MEDS: busPIRone HCL 10 MG TAB PO SCH (09:43)
[2017-03-25] MEDS: CLOTRIMAZOLE 1% CREAM 15 GM TOPICAL SCH (09:43)
[2017-03-25] MEDS: METOPROLOL TARTRATE 50 MG TAB PO SCH (09:43)
[2017-03-25] MEDS: DOCUSATE SODIUM 50 MG/SENNA 8.6 MG TAB PO SCH (09:44)
[2017-03-25] MEDS: HYDROCHLOROTHIAZIDE 25 MG TAB PO SCH (09:44)
[2017-03-25] MEDS: TAMSULOSIN HCL 0.4 MG CAP PO SCH (09:44)
[2017-03-25] MEDS: LORATADINE 10 MG TAB PO SCH (09:45)
[2017-03-25] MEDS: THEOPHYLLINE 200 MG EXTENDED RELEASE CAP PO SCH (09:46)
--- NOTE | 2017-03-25 11:37 | HHI.DCPOC ---
Discharge Care Plan Diagnosis: (1) COPD with exacerbation (2) Chronic back pain (3) Warfarin anticoagulation (4) Atrial fibrillation with RVR Additional Problems [facility]. Goals to Promote Your Health * To prevent worsening of your condition and complications * To maintain your health at the optimal level Directions to Meet Your Goals Take your medications as prescribed Follow your dietary instruction Follow activity as directed Keep your appointments as scheduled Take your immunizations and boosters as scheduled If your symptoms worsen call your PCP, if no PCP go to Urgent Care Center or Emergency Room Smoking is Dangerous to Your Health. Avoid second hand smoke Call the 24-hour hour crisis hotline for domestic abuse at Hasna Wing MD Mar 25, 2017 11:37
--- NOTE | 2017-03-25 11:39 | HHI.PR ---
Subjective Remarks Follow-up for placement Patient stated that he will not go to a rehabilitation facility that he wants to go home with home health. When asked patient why he refused to go home yesterday he stated that he never refusing that he was confused about what people were talking about. Yesterday patient stated that his son would not take him home. I asked his son today if he is willing to help is followed at home since his father refused to go home. Patient son stated that he will take care of his father is he is able to. Physical therapist was at the bedside during the interview. Patient was being reevaluated by physical therapist. Objective Vitals Vital Signs Date Time Temp Pulse Resp B/P (MAP) Pulse Ox O2 Delivery O2 Flow Rate FiO2 03/25/17 10:00 112 03/25/17 09:36 18 03/25/17 09:30 98.2 97 20 148/70 (96) 95 03/25/17 09:00 109 03/25/17 09:00 95 Room Air 3.00 03/25/17 08:00 100 03/25/17 07:52 93 Nasal Cannula 4.00 03/25/17 07:00 102 03/25/17 06:00 101 03/25/17 05:00 100 03/25/17 04:00 91 03/25/17 04:00 95 Nasal Cannula 4.00 Humidified 03/25/17 04:00 98.3 101 18 126/81 (96) 95 03/25/17 03:00 95 03/25/17 02:00 89 03/25/17 01:00 90 03/25/17 00:00 83 03/24/17 23:30 96 Nasal Cannula 4.00 Humidified 03/24/17 23:30 97.6 84 20 135/93 (107) 96 03/24/17 23:00 81 03/24/17 22:00 82 03/24/17 21:00 96 03/24/17 20:00 94 Nasal Cannula 4.00 Humidified 03/24/17 20:00 98.3 95 20 130/71 (90) 94 03/24/17 20:00 98 03/24/17 19:23 94 Nasal Cannula 4.00 03/24/17 19:00 98 03/24/17 18:00 106 03/24/17 17:00 92 03/24/17 16:00 110 03/24/17 15:09 Nasal Cannula 4.00 03/24/17 15:00 98.0 87 20 115/76 (89) 93 03/24/17 15:00 87 03/24/17 15:00 93 Nasal Cannula 4.00 Humidified 03/24/17 14:00 88 03/24/17 13:00 106 03/24/17 12:00 96 I/O 03/24/17 03/24/17 03/24/17 03/25/17 03/25/17 03/25/17 07:00 15:00 23:00 07:00 15:00 23:00 Intake Total 480 ml 480 ml 480 ml Output Total 1450 ml 750 ml 1075 ml Balance -970 ml -270 ml -595 ml Intake Oral 480 ml 480 ml 480 ml Output Urine Total 1450 ml 750 ml 1075 ml # Bowel Movements 1 0 Result Diagram: 03/24/17 0755 03/24/17 0755 Objective Remarks GENERAL: in NAD CARDIOVASCULAR: Irregular rate and irregular rhythm. Without murmurs, gallops, or rubs. RESPIRATORY: Breath sounds equal bilaterally. No accessory muscle use. GASTROINTESTINAL: Abdomen soft, non-tender, nondistended. MUSCULOSKELETAL: Negative edema Procedures See hospital course. Medications and IVs Current Medications Sodium Chloride (NS Flush) 2 ml UNSCH PRN IVF FLUSH AFTER USING IV ACCESS; Start 03/21/17 at 15:30; Stop 03/21/17 at 19:51; Status DC Diltiazem HCl 125 mg/Sodium Chloride 125 ml @ 5 mls/hr TITRATE PRN IV Tachycardia Last administered on 03/21/17at 16:29; Start 03/21/17 at 15:30 Diltiazem HCl (Cardizem Inj) 29 mg BOLUS ONCE IV PUSH Last administered on at 16:20; Start 03/21/17 at 15:30; Stop 03/21/17 at 15:40; Status DC Acetaminophen/ Hydrocodone Bitart ([place] 10-325 Mg) 1 tab ONCE ONCE PO Last administered on 03/21/17at 16:58; Start 03/21/17 at 17:00; Stop 03/21/17 at 17:01 ; Status DC Sodium Chloride 1,000 ml @ 100 mls/hr Q10H IV Last administered on 03/22/17at 18:15; Start 03/21/17 at 19:06; Stop 03/23/17 at 13:20; Status DC Sodium Chloride (NS Flush) 2 ml UNSCH PRN IV FLUSH FLUSH AFTER USING IV ACCESS ; Start 03/21/17 at 19:15 Sodium Chloride (NS Flush) 2 ml BID IV FLUSH Last administered on 03/25/17at 09: 39; Start 03/21/17 at 21:00 Ondansetron HCl (Zofran Inj) 4 mg Q6H PRN IVP NAUSEA OR VOMITING; Start at 19:15 Acetaminophen (Tylenol) 650 mg Q6H PRN PO FEVER/PAIN SCALE 1 TO 2; Start at 19:15 Acetaminophen/ Hydrocodone Bitart ([place] 5-325 Mg) 1 tab Q4H PRN PO PAIN SCALE 3 TO 5; Start 03/21/17 at 19:15; Stop 03/21/17 at 20:11; Status DC Morphine Sulfate (Morphine Inj) 2 mg Q3H PRN IV PUSH Pain 6-10; Start 03/21/17 at 19:15 Senna/Docusate Sodium (Irasema-Colace) 1 tab BID PO Last administered on at 09:44; Start 03/21/17 at 21:00 Magnesium Hydroxide (Milk Of Magnesia Liq) 30 ml Q12H PRN PO Mild constipation ; Start 03/21/17 at 19:15 Sennosides (Senokot) 17.2 mg Q12H PRN PO Moderate constipation; Start 03/21/17 at 19:15 Bisacodyl (Dulcolax Supp) 10 mg DAILY PRN RECTAL SEVERE CONSITIPATION; Start at 19:15 Lactulose (Lactulose Liq) 30 ml DAILY PRN PO SEVERE CONSITIPATION; Start at 19:15 Atorvastatin Calcium (Lipitor) 40 mg HS PO Last administered on 03/24/17at 20:52 ; Start 03/21/17 at 21:00 Baclofen (Lioresal) 10 mg BID PRN PO MUSCLE PAIN; Start 03/21/17 at 19:15 Metoprolol Tartrate (Lopressor) 50 mg BID PO Last administered on 03/25/17at 09: 43; Start 03/21/17 at 21:00 Tamsulosin HCl (Flomax) 0.4 mg DAILY PO Last administered on 03/25/17 09:44; Start 03/22/17 at 09:00 Warfarin Sodium (Coumadin) 5 mg DAILY@1600 PO Last administered on 03/23/17at 16 :15; Start 03/22/17 at 16:00; Stop 03/24/17 at 09:39; Status DC Acetaminophen/ Hydrocodone Bitart ([place] 10-325 Mg) 1 tab Q4H PRN PO PAIN 3-5 Last administered on 03/25/17at 07:20; Start 03/21/17 at 20:15 Albuterol/ Ipratropium (Duoneb Neb) 1 ampule Q2HR NEB PRN NEB SOB/WHEEZING Last administered on 03/25/17 05:18; Start 03/21/17 at 20:15 Budesonide/ Formoterol Fumarate (Symbicort 160-4.5 Mcg Inh) 2 puff BID INH Last administered on 03/25/17 09:38; Start 03/21/17 at 21:00 Bupropion HCl (Wellbutrin Sr) 150 mg BID PO Last administered on 03/25/17 09: 43; Start 03/21/17 at 21:00 Buspirone HCl (Buspar) 20 mg TID PO Last administered on 03/25/17 09:43; Start 03/22/17 at 09:00 Hydrochlorothiazide (Hydrodiuril) 25 mg DAILY PO Last administered on 09:44; Start 03/22/17 at 09:00 Metoprolol Tartrate (Lopressor) 50 mg BID PO ; Start 03/21/17 at 21:00; Status UNV Prednisone (Deltasone) 5 mg DAILY PO Last administered on 03/22/17 09:05; Start 03/22/17 at 09:00; Status Future Hold Theophylline (Rony-24) 200 mg DAILY PO Last administered on 03/25/17 09:46; Start 03/22/17 at 09:00 Clotrimazole (Lotrimin 1% Cream) 1 applic BID TOPICAL Last administered on 03/25 09:43; Start 03/21/17 at 21:00 Tiotropium [place] (Spiriva Inh) 18 mcg DAILY INH Last administered on at 09:37; Start 03/22/17 at 09:00 Warfarin Sodium (Coumadin) 5 mg DAILY PO ; Start 03/22/17 at 09:00; Stop at 09:00; Status DC Artificial Tears (Tears Naturale Opth Soln) 1 drop QID PRN EACH EYE DRY EYE; Start 03/21/17 at 20:30 Ceftriaxone Sodium 1000 mg/ Sodium Chloride 100 ml @ 200 mls/hr Q24H IV Last administered on 03/23/17at 20:57; Start 03/21/17 at 21:00; Stop 03/23/17 at 22:00 ; Status DC Azithromycin 500 mg/Sodium Chloride 250 ml @ 250 mls/hr Q24H IV Last administered on 03/24/17at 20:51; Start 03/21/17 at 21:00 Buspirone HCl (Buspar) 20 mg ONCE ONCE PO Last administered on 03/21/17at 22:54 ; Start 03/21/17 at 22:00; Stop 03/21/17 at 22:02; Status DC Diltiazem HCl (Cardizem) 30 mg Q6HR PO Last administered on 03/23/17at 04:49; Start 03/22/17 at 12:00; Stop 03/23/17 at 10:32; Status DC Pharmacy Profile Note 0 ml @ 0 mls/hr UNSCH OTHER ; Start 03/22/17 at 10:30 Methylprednisolone Sodium Succinate (SoluMEDROL INJ) 20 mg Q12HR IV PUSH Last administered on 03/25/17at 09:40; Start 03/22/17 at 21:00 Diltiazem HCl (Cardizem Cd) 240 mg DAILY PO Last administered on 03/24/17at 08: 43; Start 03/23/17 at 10:45; Stop 03/24/17 at 08:54; Status DC Loratadine (Claritin) 5 mg DAILY PO Last administered on 03/25/17at 09:45; Start 03/23/17 at 13:30 Miscellaneous (Pill Splitter) 1 ea UNSCH PRN OTHER SEE LABEL COMMENTS; Start at 13:30 Diltiazem HCl (Cardizem Cd) 360 mg DAILY PO ; Start 03/24/17 at 10:00; Stop at 10:36; Status DC Warfarin Sodium (Coumadin) 2 mg DAILY@1600 PO Last administered on 03/24/17at 15 :55; Start 03/24/17 at 16:00; Stop 03/25/17 at 09:36; Status DC Diltiazem HCl (Cardizem Cd) 360 mg DAILY PO Last administered on 03/25/17at 09: 42; Start 03/25/17 at 09:00 Diltiazem HCl (Cardizem Cd) 120 mg ONCE ONCE PO Last administered on at 11:47; Start 03/24/17 at 11:00; Stop 03/24/17 at 11:01; Status DC Cefuroxime Axetil (Ceftin) 500 mg Q12HR PO Last administered on 03/25/17at 09:47 ; Start 03/25/17 at 09:00 Warfarin Sodium (Coumadin) 2 mg DAILY@1600 PO ; Start 03/26/17 at 16:00 A/P Problem List: (1) Atrial fibrillation with RVR ICD Code: I48.91 - Unspecified atrial fibrillation (2) COPD with exacerbation ICD Code: J44.1 - Obstructive chronic bronchitis with exacerbation Status: Acute Assessment and Plan 66 year-old man with 1. A-fib w/ RVR: h/o A-fib, on Coumadin, now in A-fib w/ RVR Initially on Cardizem drip and was switch to Cardizem CD 240mg daily with improvement in heart rate. Patient on Coumadin and INR has been labile. INR today is 2.8. Continue Coumadin 2 mg by mouth daily. Recheck INR tomorrow at the [facility]. This is where patient gets INR check. Patient stated that he is able to get his INR checked any time. Echo 02/18/17 w/ EF 55-60%. 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 2. COPD: Chronic Respiratory Failure w/ Acute Exacerbation. O2 Dependent, Lungs are now clear. Cancer transition to oral prednisone. continue Singulair, Symbicort, Xopenex , Theophylline. On Spiriva. Initially on Rocephin and azithromycin. Rocephin was discontinued on 03/24 and started on azithromycin and doxycycline. Sputum cultures grew Serratia which was resistant to doxycycline will start Ceftin. Clinically patient has no sign of pneumonia and is doing well. 3. Leukocytosis: Most likely secondary to steroid use. Clinically doing well. He treatment as above. 4. Other chronic medical conditions including hypertension, hyperlipidemia, BPH , anxiety Continue outpatient medications Discharge Planning Patient wished to go home with home health. He refused to go to SNF. Son is okay with taking patient home. Discussed case with patient's nurse and PT. Hansa Wing MD Mar 25, 2017 11:39
[2017-03-26] MEDS ORDERED: WARFARIN SOD 2 MG TAB PO SCH (16:00)
== END 2017-03-25 12:51 | disposition home health service (06) | DRG 308 ==
LOC: NEPE 14:56 → NEDA 18:39 → HCIN 21:02 → HCIS 03-23 17:06
PROVIDERS: ADMIT Family Medicine; ATTEND Family Medicine
DX: I48.1 Persistent atrial fibrillation (principal); J96.20 Acute and chronic respiratory failure, unspecified whether with hypoxia or hypercapnia; J18.9 Pneumonia, unspecified organism; J44.0 Chronic obstructive pulmonary disease with (acute) lower respiratory infection; J44.1 Chronic obstructive pulmonary disease with (acute) exacerbation; D72.828 Other elevated white blood cell count; I10 Essential (primary) hypertension; N40.0 Benign prostatic hyperplasia without lower urinary tract symptoms; E78.5 Hyperlipidemia, unspecified; K21.9 Gastro-esophageal reflux disease without esophagitis; Z88.1 Allergy status to other antibiotic agents; E66.9 Obesity, unspecified; T38.0X5A Adverse effect of glucocorticoids and synthetic analogues, initial encounter; F32.9 Major depressive disorder, single episode, unspecified; F41.9 Anxiety disorder, unspecified; Z68.33 Body mass index [BMI] 33.0-33.9, adult; Z79.01 Long term (current) use of anticoagulants; Z99.81 Dependence on supplemental oxygen
CPT/HCPCS: 71046; 80048; 80053; 80198; 82550; 83735; 83880; 84484; 85007; 85027; 85610; 85730; 87070; 87077; 87186; 87205; 93005; 94640; 94664; 96365; 96366; 96375; J0456; J0696; J2920; J7030; J7050; J7512

== ENCOUNTER 2017-05-10 12:43 | Inpatient (IN) | payer MEDICARE ==
[~2017-05-10] VITALS: Ht 182.9 cm; Wt 115.1 kg
[~2017-05-10 12:43] MED LIST changes: +AZIT250T3 PO; -BACT800T5 PO; +CEFU1TAB18 PO; +CLAR10TA7 PO; +COUM2TAB PO; -COUM5TAB PO; +DILT120C50 PO; -DILT90TA PO; +HYDR-3366 PO; -MEDR4PAK PO; -METO25TA3 PO; +METO50TA PO; -POTA-163 PO; +POTA10CA PO; +PRED10PA PO
[2017-05-10 13:06] VITALS: BP 123/70; PULSE 106; RESP 25; TEMP 98.1; O2SAT 97
[2017-05-10] MEDS ORDERED: LEVOFLOXACIN 750 MG PREMIX INJ 150 ML IV STA (13:11)
[2017-05-10] MEDS ORDERED: RESP: ALBUTEROL 2.5 MG/IPRATROPIUM 0.5 MG NEB (SCH) INH ONE (13:15)
[2017-05-10] MEDS ORDERED: methylPREDNISolone SOD SUCC 125 MG/2 ML VIAL IV PUSH ONE (13:15)
[2017-05-10] MEDS ORDERED: WARF-18 PO (13:22)
[2017-05-10] MEDS ORDERED: WARF-23 PO (13:22)
[2017-05-10] MEDS ORDERED: [UNRECOGNIZED DRUG - CODE] P-ARTICULR (13:22)
[2017-05-10 13:44] LABS: BASOPHIL % 0.1 % (0.0-2.0); EOSINOPHIL % 0.2 % (0.0-4.0); HEMATOCRIT 39.3 % (39.0-51.0); HEMOGLOBIN 13.6 GM/DL (13.0-17.0); LYMPH % 4.6 % (9.0-44.0); LYMPHOCYTE # 0.7 TH/MM3 (1.0-4.8); MEAN CELL VOLUME 92.2 FL (80.0-100.0); MEAN CORPUSCULAR HEMOGLOBIN 31.9 PG (27.0-34.0); MEAN CORPUSCULAR HGB CONC 34.6 % (32.0-36.0); MEAN PLATELET VOLUME 6.5 FL (7.0-11.0); MONOCYTE # 1.2 TH/MM3 (0-0.9); NEUT % 87.1 % (16.0-70.0); PLATELET COUNT 291 TH/MM3 (150-450); RED BLOOD COUNT 4.26 MIL/MM3 (4.50-5.90); WHITE BLOOD COUNT 14.9 TH/MM3 (4.0-11.0)
[2017-05-10 13:55] LABS: PROTHROMBIN TIME - PATIENT 30.5 SEC (9.8-11.6)
[2017-05-10 13:58] LABS: ALBUMIN 3.3 GM/DL (3.4-5.0); AST (GOT) 10 U/L (15-37); BICARBONATE 33.7 MEQ/L (21.0-32.0); BILIRUBIN, URINE NEG (NEG); BLOOD UREA NITROGEN 17 MG/DL (7-18); BLOOD, URINE NEG (NEG); CALCIUM 8.7 MG/DL (8.5-10.1); CHLORIDE 95 MEQ/L (98-107); GLOMERULAR FILTRATION RATE 74 ML/MIN (>89); GLUCOSE,RANDOM 134 MG/DL (74-106); GLUCOSE,URINE NEG (NEG); KETONE, URINE NEG (NEG); MUCUS URINE FEW /lpf (OCC); NITRITE,URINE NEG (NEG); SODIUM (NA) 137 MEQ/L (136-145); URINE COLOR YELLOW (YELLW/STRAW); URINE LEUKOCYTE ESTERASE NEG (NEG)
[2017-05-10 14:00] LABS: LACTIC ACID SEPSIS PROTOCOL 3.3 mmol/L (0.4-2.0)
[2017-05-10 14:03] LABS: ALKALINE PHOSPHATASE 75 U/L (45-117); ALT (GPT) 36 U/L (12-78); TOTAL BILIRUBIN ADULT 0.7 MG/DL (0.2-1.0); TOTAL PROTEIN 6.7 GM/DL (6.4-8.2); TROPONIN I LESS THAN 0.02 NG/ML (0.02-0.05)
[2017-05-10 14:18] LABS: BANDS 20 % (0-6); LYMPHOCYTES 7 % (9-44); MONOCYTES 9 % (0-8); MYELOCYTES 1 % (0-0); NEUTROPHIL # MANUAL DIFF 12.5 TH/MM3 (1.8-7.7); POLYS (SEG NEUTROPHILS) 63 % (16-70)
--- NOTE | 2017-05-10 14:29 | PD ---
HPI Chief Complaint: Respiratory Distress Time Seen by Provider: 13:11 Travel History International Travel<30 days: No Contact w/Intl Traveler<30days: No Traveled to known affect area: No History of Present Illness HPI Patient presents with 2 day history worsening of shortness of breath associated with productive cough of yellow sputum, fever and chills PFSH Past Medical History Hx Anticoagulant Therapy: Yes Arthritis: No Asthma: Yes Atrial Fibrillation: Yes Autoimmune Disease: No Anxiety: Yes Depression: Yes Heart Rhythm Problems: Yes (a fib) Cancer: Yes (facial) Cardiovascular Problems: Yes High Cholesterol: Yes Chemotherapy: No Chest Pain: Yes Congestive Heart Failure: No COPD: Yes Cerebrovascular Accident: No Diabetes: Yes (NO MEDS) Patient Takes Glucophage: No Diminished Hearing: No Endocrine: No Gastrointestinal Disorders: Yes (REFLUX) GERD: Yes Genitourinary: Yes Hiatal Hernia: No Hypertension: Yes Immune Disorder: No Kidney Stones: No Musculoskeletal: Yes Neurologic: Yes Psychiatric: Yes Reproductive: No Respiratory: Yes (COPD) Integumentary: Yes Immunizations Current: Yes Migraines: No Pneumonia: Yes Radiation Therapy: No Renal Failure: No Seizures: No Sickle Cell Disease: No Sleep Apnea: No Thyroid Disease: No Ulcer: No PNEUMOCCOCAL Vaccine (Year): 2010 Past Surgical History Abdominal Surgery: No AICD: No Arteriovenous Shunt: No Body Medical Devices: PLATES AND SCREWS TO L ANKLE Cardiac Surgery: No Ear Surgery: No Endocrine Surgery: No Eye Surgery: No Genitourinary Surgery: No Gynecologic Surgery: No Insulin Pump: No Joint Replacement: No Neurologic Surgery: No Oral Surgery: No Pacemaker: No Thoracic Surgery: No Other Surgery: Yes (PIN IN LEFT ANKLE, BONE PLACED BACK IN FINGER) Social History Alcohol Use: No Tobacco Use: No Substance Use: No Allergies-Medications (Allergen,Severity, Reaction): Coded Allergies: cephalexin (Verified Allergy, Severe, 05/10/17) Reported Meds & Prescriptions Reported Meds & Active Scripts Active Diltiazem CD 24 HR 120 Mg Caper 360 Mg PO DAILY Reported Warfarin 2.5 Mg Tab 2.5 Mg PO FRIDAY Warfarin 5 Mg Tab 5 Mg PO DAILY Minocin (Minocycline HCl) 100 Mg Inj 100 Mg P-ARTICULR BID PRN [place] (Hydrocodone-Acetaminophen) 10-325 Mg Tab 1 Tab PO Q4H PRN Metoprolol Tartrate 50 Mg Tab 50 Mg PO BID Miralax (Polyethylene Glycol 3350) 17 Gram Powd.pack PO DAILY Dissolve 2 tablespoonsful in 4-8 ounces of water,juice,soda or other beverage Prednisone 5 Mg Tab 40 Mg PO DAILY Albuterol Neb (Albuterol Sulfate) 2.5 Mg/3 Ml Neb 0.5 Mg NEB Q6HR PRN Ventolin Hfa 18 GM Inh (Albuterol Sulfate) 90 Mcg/Act Aer 2 Puff INH Q6H PRN Combivent Respimat Inh (Ipratropium-Albuterol Inh) 20-100 Detention/Act Aero 1 Puff INH QID Bupropion HCl ER 12 HR (Bupropion HCl) 150 Mg Tab 150 Mg PO BID Tamsulosin (Tamsulosin HCl) 0.4 Mg Cap 0.4 Mg PO DAILY Duoneb (Ipratropium-Albuterol Neb) 0.5-2.5 Mg/3 Ml Neb 3 Ml NEB Q6HR PRN Spiriva Handihaler (Tiotropium Inh) 18 Mcg Cap 18 Mcg INH DAILY DO NOT SWALLOW CAPSULES Rony-24 (Theophylline) 200 Mg Cap 200 Mg PO DAILY Hydrochlorothiazide 25 Mg Tab 25 Mg PO DAILY Clotrimazole Topical (Clotrimazole) 1% Cream 1 Applic TOPICAL BID Apply to affected area on skin for fungal infection Buspirone (Buspirone HCl) 10 Mg Tab 20 Mg PO TID Symbicort Inh (Budesonide/Formoterol Fumarate) 160-4.5 Mcg/Act Aero 2 Puff INH BID *Rinse mouth after each use* Baclofen 10 Mg Tab 10 Mg PO BID PRN Atorvastatin (Atorvastatin Calcium) 80 Mg Tab 40 Mg PO HS Soothe Xp/Xtra Protection (Artificial Tear Solution) 1 Jarret Jarret 1 Drop EACH EYE QID PRN Review of Systems General / Constitutional: Positive: Fever, Chills Eyes: No: Visual changes HENT: No: Headaches Cardiovascular: No: Chest Pain or Discomfort Respiratory: Positive: Cough, Shortness of Breath Gastrointestinal: No: Abdominal Pain Genitourinary: No: Dysuria Musculoskeletal: No: Pain Skin: No Rash Neurologic: No: Weakness Psychiatric: No: Depression Endocrine: No: Polydipsia Hematologic/Lymphatic: No: Easy Bruising Physical Exam Narrative GENERAL: SKIN: Warm and dry. HEAD: Atraumatic. Normocephalic. EYES: Pupils equal and round. No scleral icterus. No injection or drainage. ENT: No nasal bleeding or discharge. Mucous membranes pink and moist. NECK: Trachea midline. No JVD. CARDIOVASCULAR: Regular rate and rhythm. RESPIRATORY: accessory muscle use, bilateral wheezing, left lower lobe crackles , GASTROINTESTINAL: Abdomen soft, non-tender, nondistended. MUSCULOSKELETAL: Extremities without clubbing, cyanosis, or edema. No obvious deformities. NEUROLOGICAL: Awake and alert. No obvious cranial nerve deficits. Motor grossly within normal limits. Five out of 5 muscle strength in the arms and legs. Normal speech. PSYCHIATRIC: Appropriate mood and affect; insight and judgment normal. Data Data Last Documented VS Vital Signs Date Time Temp Pulse Resp B/P (MAP) Pulse Ox O2 Delivery O2 Flow Rate FiO2 05/10/17 13:06 98.1 106 25 123/70 (87) 97 Orders Orders Sepsis Workup Initiated (05/10/17 ) Electrocardiogram (05/10/17 13:11) Complete Blood Count With Diff (05/10/17 13:11) Comprehensive Metabolic Panel (05/10/17 13:11) Prothrombin Time / Inr (Pt) (05/10/17 13:11) Act Partial Throm Time (Ptt) (05/10/17 13:11) Lactic Acid Sepsis Protocol (05/10/17 13:11) Lipase (05/10/17 13:11) Troponin I (05/10/17 13:11) Urinalysis - C+S If Indicated (05/10/17 13:11) Influenzae A/B Antigen (05/10/17 13:11) Blood Culture (05/10/17 13:11) Sputum Culture And Gram Stain (05/10/17 13:11) Pneumococcal Urinary Antigen (05/10/17 13:11) Legionella Urinary Antigen (05/10/17 13:11) Chest, Single Ap (05/10/17 13:11) Blood Glucose (05/10/17 13:11) Ecg Monitoring (05/10/17 13:11) Iv Access Insert/Monitor (05/10/17 13:11) Oximetry (05/10/17 13:11) Oxygen Administration (05/10/17 13:11) Levofloxacin 750 Mg Premix Inj (Levaquin (05/10/17 13:11) Methylprednisolone So Succ Inj (Solumedr (05/10/17 13:15) Albuterol-Ipratropium Neb (Duoneb Neb) (05/10/17 13:15) Labs Laboratory Tests Test 05/10/17 13:20 05/10/17 13:25 White Blood Count 14.9 TH/MM3 Red Blood Count 4.26 MIL/MM3 Hemoglobin 13.6 GM/DL Hematocrit 39.3 % Mean Corpuscular Volume 92.2 FL Mean Corpuscular Hemoglobin 31.9 PG Mean Corpuscular Hemoglobin Concent 34.6 % Red Cell Distribution Width 19.0 % Platelet Count 291 TH/MM3 Mean Platelet Volume 6.5 FL Neutrophils (%) (Auto) 87.1 % Lymphocytes (%) (Auto) 4.6 % Monocytes (%) (Auto) 8.0 % Eosinophils (%) (Auto) 0.2 % Basophils (%) (Auto) 0.1 % Neutrophils # (Auto) 13.0 TH/MM3 Lymphocytes # (Auto) 0.7 TH/MM3 Monocytes # (Auto) 1.2 TH/MM3 Eosinophils # (Auto) 0.0 TH/MM3 Basophils # (Auto) 0.0 TH/MM3 CBC Comment AUTO DIFF Differential Total Cells Counted 100 Neutrophils % (Manual) 63 % Band Neutrophils % 20 % Lymphocytes % 7 % Monocytes % 9 % Neutrophils # (Manual) 12.5 TH/MM3 Myelocytes 1 % Differential Comment FINAL DIFF MANUAL Platelet Estimate NORMAL Platelet Morphology Comment NORMAL Prothrombin Time 30.5 SEC Prothromb Time International Ratio 3.0 RATIO Activated Partial Thromboplast Time 41.0 SEC Urine Color YELLOW Urine Turbidity CLEAR Urine pH 7.0 Urine Specific [place] 1.008 Urine Protein NEG mg/dL Urine Glucose (UA) NEG mg/dL Urine Ketones NEG mg/dL Urine Occult Blood NEG Urine Nitrite NEG Urine Bilirubin NEG Urine Urobilinogen LESS THAN 2.0 MG/DL Urine Leukocyte Esterase NEG Urine RBC 1 /hpf Urine WBC LESS THAN 1 /hpf Urine Mucus FEW /lpf Microscopic Urinalysis Comment CATH-CULT NOT IND Blood Urea Nitrogen 17 MG/DL Creatinine 1.00 MG/DL Random Glucose 134 MG/DL Total Protein 6.7 GM/DL Albumin 3.3 GM/DL Calcium Level 8.7 MG/DL Alkaline Phosphatase 75 U/L Aspartate Amino Transf (AST/SGOT) 10 U/L Alanine Aminotransferase (ALT/SGPT) 36 U/L Total Bilirubin 0.7 MG/DL Sodium Level 137 MEQ/L Potassium Level 3.8 MEQ/L Chloride Level 95 MEQ/L Carbon Dioxide Level 33.7 MEQ/L Anion Gap 8 MEQ/L Estimat Glomerular Filtration Rate 74 ML/MIN Troponin I LESS THAN 0.02 NG/ML Lipase 87 U/L Lactic Acid Level 3.3 mmol/L MDM Medical Decision Making Medical Screen Exam Complete: Yes Emergency Medical Condition: Yes Medical Record Reviewed: Yes Interpretation(s) EKG shows irregular rhythm with motion artifact which appears to be consistent with atrial fibrillation with controlled ventricular rate. No evidence of LVH or STEMI pattern noted. Differential Diagnosis Pneumonia versus CHF versus COPD exacerbation versus pleural effusion versus pneumothorax versus sepsis Narrative Course CBC shows leukocytosis of 15,000 with left shift of 87%, no anemia, and normal platelet count. Regulation profile INR is 3, PT of 30, a PTT of 41, consistent with anticoagulation UA is negative for any evidence of UTI Chemistry profile shows normal electrolytes, normal kidney function, normal lipase, normal liver function. First troponin negative first lactic acid 3.3 which is elevated Diagnosis Primary Impression: COPD with exacerbation Admitting Information Admitting Physician Requests: Observation Zack Johnson MD May 10, 2017 14:29
--- NOTE | 2017-05-10 14:34 | RADRPT ---
EXAM DATE/TIME: 05/10/2017 14:03 [facility] COMPARISON: CHEST SINGLE AP, February 15, 2017, 21:13. INDICATIONS : Cough, shortness of breath MEDICAL HISTORY : Hypertension. Chronic obstructive pulmonary disease. Asthma SURGICAL HISTORY : None. ENCOUNTER: Initial ACUITY: 1 day PAIN SCORE: 0/10 LOCATION: Bilateral chest FINDINGS: Single AP view of the chest. Mild patchy opacity at lung bases likely resenting atelectasis. The lung s are otherwise clear. Cardiomediastinal silhouette within normal limits. No evidence of pleural effu tierra or pneumothorax. CONCLUSION: Minimal bilateral lower lung zone opacity likely representing atelectasis. . Jeramie Champion MD on May 10, 2017 at 14:32 Board Certified Radiologist. This report was verified electronically.
--- NOTE | 2017-05-10 15:44 | HHI.HP ---
[facility] (Dr. Alston[facility] Admission Diagnosis COPD EXACERBATION, PNA Diagnoses: Travel History International Travel<30 Days: No Contact w/Intl Traveler <30 Da: No Traveled to Known Affected Are: No Sepsis Criteria SIRS Criteria (2 or more): Heart rate over 90, RR > 20 or PaCO2 < 32, WBC > 47024, < 4000 or > 10% bands Sepsis Criteria (SIRS+source): Infect source susp/known Severe Sepsis (+one): Lactate >2 Criteria Outcome: Meets severe sepsis criteria History of Present Illness 66 year old male with history of COPD on 2.5 L continuous O2 at home, CHF, atrial fibrillation, and HTN presented to the ED for worsening shortness of breath and increased sputum production. His symptoms started yesterday and has gradually worsened since then. He denies chest pain, hemoptysis, night sweats, unintentional weight loss, fever, or chills. He has chronic back pain but denies any new or worsening myalgias. He reports slightly worsening edema in his feet and ankles. He states he has been compliant with his medications but cannot tell me what exactly he takes because there's "too many." He denies any sick contacts or recent travel. He is up to date with influenza and pneumococcal vaccines. Last INR was 2.7. Unrelated, he states he has been constipated and hasn't had a bowel movement in several days. Review of Systems Constitutional: DENIES: Fever, Weight loss, Chills, Change in appetite, Night Sweats Eyes: DENIES: Blurred vision, Double Vision Ears, nose, mouth, throat: DENIES: Throat pain, Running Nose Respiratory: COMPLAINS OF: Cough, Wheezing, Sputum production, Shortness of breath, DENIES: Hemoptysis Cardiovascular: COMPLAINS OF: Dyspnea on Exertion, Lower Extremity Edema, DENIES: Chest pain, Palpitations, Syncope Gastrointestinal: DENIES: Abdominal pain, Black stools, Bloody stools, Constipation, Diarrhea, Nausea, Vomiting Genitourinary: DENIES: Dysuria Musculoskeletal: COMPLAINS OF: Back pain Integumentary: COMPLAINS OF: Rash (Feet) Neurologic: DENIES: Headache Psychiatric: DENIES: Confusion Past Family Social History Past Medical History COPD Atrial fibrillation HTN PTSD CHF History of MRSA PNA BPH Chronic back pain Past Surgical History Ankle surgery Skin cancer removed from face Reported Medications Diltiazem CD 24 HR 120 Mg Caper 360 Mg PO DAILY Warfarin 2.5 Mg Tab 2.5 Mg PO FRIDAY Warfarin 5 Mg Tab 5 Mg PO DAILY Minocin (Minocycline HCl) 100 Mg Inj 100 Mg P-ARTICULR BID PRN [place] (Hydrocodone-Acetaminophen) 10-325 Mg Tab 1 Tab PO Q4H PRN Metoprolol Tartrate 50 Mg Tab 50 Mg PO BID Miralax (Polyethylene Glycol 3350) 17 Gram Powd.pack PO DAILY Prednisone 5 Mg Tab 40 Mg PO DAILY Albuterol Neb (Albuterol Sulfate) 2.5 Mg/3 Ml Neb 0.5 Mg NEB Q6HR PRN Ventolin Hfa 18 GM Inh (Albuterol Sulfate) 90 Mcg/Act Aer 2 Puff INH Q6H PRN Combivent Respimat Inh (Ipratropium-Albuterol Inh) 20-100 Fci/Act Aero 1 Puff INH QID Bupropion HCl ER 12 HR (Bupropion HCl) 150 Mg Tab 150 Mg PO BID Tamsulosin (Tamsulosin HCl) 0.4 Mg Cap 0.4 Mg PO DAILY Duoneb (Ipratropium-Albuterol Neb) 0.5-2.5 Mg/3 Ml Neb 3 Ml NEB Q6HR PRN Spiriva Handihaler (Tiotropium Inh) 18 Mcg Cap 18 Mcg INH DAILY DO NOT SWALLOW CAPSULES Rony-24 (Theophylline) 200 Mg Cap 200 Mg PO DAILY Hydrochlorothiazide 25 Mg Tab 25 Mg PO DAILY Clotrimazole Topical (Clotrimazole) 1% Cream 1 Applic TOPICAL BID Apply to affected area on skin for fungal infection Buspirone (Buspirone HCl) 10 Mg Tab 20 Mg PO TID Symbicort Inh (Budesonide/Formoterol Fumarate) 160-4.5 Mcg/Act Aero 2 Puff INH BID *Rinse mouth after each use* Baclofen 10 Mg Tab 10 Mg PO BID PRN Atorvastatin (Atorvastatin Calcium) 80 Mg Tab 40 Mg PO HS Soothe Xp/Xtra Protection (Artificial Tear Solution) 1 Jarret Jarret 1 Drop EACH EYE QID PRN Allergies: Coded Allergies: cephalexin (Verified Allergy, Severe, 05/10/17) Active Ordered Medications Acetaminophen (Tylenol) 650 mg Q4H PRN PO; Start 05/10/17 at 16:00 Acetaminophen/ Hydrocodone Bitart ([place]ck[place] 10-325 Mg) 1 tab Q4H PRN PO; Start 12/18 at 16:15 Albuterol Sulfate (Albuterol Concentrated Neb) 2.5 mg Q4HR NEB PRN NEB; Start 05/10/17 at 16:15 Albuterol/ Ipratropium (Duoneb Neb) 1 ampule ONCE ONCE INH Last administered on 05/10/17at 13:46; Admin Dose 1 AMPULE; Start 05/10/17 at 13:15; Stop 05/10/17 at 13:19; Status DC Albuterol/ Ipratropium (Duoneb Neb) 1 ampule Q6HR WHILE AWAKE NEB NEB; Start at 20:00 Atorvastatin Calcium (Lipitor) 40 mg HS PO; Start 05/10/17 at 21:00 Aztreonam 2000 mg/ Sodium Chloride 100 ml @ 200 mls/hr Q8H IV Last administered on 05/10/17at 16:56; Admin Dose 200 MLS/HR; Start 05/10/17 at 17:00 Baclofen (Lioresal) 10 mg BID PRN PO; Start 05/10/17 at 16:15 Bisacodyl (Dulcolax Supp) 10 mg DAILY PRN RECTAL; Start 05/10/17 at 16:00 Budesonide/ Formoterol Fumarate (Symbicort 160-4.5 Mcg Inh) 2 puff BID INH; Start 05/10/17 at 21:00 Bupropion HCl (Wellbutrin Sr) 150 mg BID PO; Start 05/10/17 at 21:00 Buspirone HCl (Buspar) 20 mg TID PO; Start 05/10/17 at 18:00 Diltiazem HCl (Cardizem Cd) 360 mg DAILY PO; Start 05/11/17 at 09:00 Guaifenesin/ Dextromethorphan (Robitussin Dm 200-20 Mg/10 ml Liq) 10 ml Q4H PRN PO; Start 05/10/17 at 16:15 Hydrochlorothiazide (Hydrodiuril) 25 mg DAILY PO; Start 05/11/17 at 09:00 Lactulose (Lactulose Liq) 30 ml DAILY PRN PO; Start 05/10/17 at 16:00 Levofloxacin/ Dextrose 150 ml @ 100 mls/hr ONCE STAT IV Last administered on at 14:04; Admin Dose 100 MLS/HR; Start 05/10/17 at 13:11; Stop 05/10/17 at 14:40; Status DC Levofloxacin/ Dextrose 150 ml @ 100 mls/hr Q24H IV; Start 05/11/17 at 13:00 Magnesium Hydroxide (Milk Of Magnesia Liq) 30 ml Q12H PRN PO; Start 05/10/17 at 16:00 Methylprednisolone Sodium Succinate (SoluMEDROL INJ) 40 mg Q12H IV PUSH; Start 05/10/17 at 18:00 Methylprednisolone Sodium Succinate (SoluMEDROL INJ) 125 mg ONCE ONCE IV PUSH Last administered on 05/10/17at 14:05; Admin Dose 125 MG; Start 05/10/17 at 13:15 ; Stop 05/10/17 at 13:19; Status DC Metoprolol Tartrate (Lopressor) 50 mg BID PO; Start 05/10/17 at 21:00 Miscellaneous Information ALL NURSING DEPARTME... UNSCH PRN OTHER; Start at 17:00; Stop 05/11/17 at 16:59 Naloxone HCl (Narcan Inj) 0.4 mg UNSCH PRN IV PUSH; Start 05/10/17 at 16:00 Ondansetron HCl (Zofran Inj) 4 mg Q6H PRN IVP; Start 05/10/17 at 16:00 Patient Medication Teaching (Coumadin Booklet) 1 ONCE ONCE OTHER; Start at 16:00; Stop 05/10/17 at 16:47; Status DC Senna/Docusate Sodium (Irasema-Colace) 1 tab BID PO; Start 05/10/17 at 21:00 Sennosides (Senokot) 17.2 mg Q12H PRN PO; Start 05/10/17 at 16:00 Sodium Chloride 500 ml @ 500 mls/hr BOLUS ONCE IV Last administered on at 16:57; Admin Dose 500 MLS/HR; Start 05/10/17 at 16:45; Stop 05/10/17 at 17: 44 Sodium Chloride (NS Flush) 2 ml BID IV FLUSH; Start 05/10/17 at 21:00 Sodium Chloride (NS Flush) 2 ml UNSCH PRN IV FLUSH; Start 05/10/17 at 16:00 Tamsulosin HCl (Flomax) 0.4 mg DAILY PO; Start 05/11/17 at 09:00 Temazepam (Restoril) 15 mg HS PRN PO; Start 05/10/17 at 16:00 Theophylline (Rony-24) 200 mg DAILY PO; Start 05/11/17 at 09:00 Tiotropium [place] (Spiriva Inh) 18 mcg DAILY INH; Start 05/11/17 at 09:00 Warfarin Sodium (Coumadin) 5 mg SuMoTuThFrSa@1600 PO; Start 05/11/17 at 16:00 Warfarin Sodium (Coumadin) 5 mg We@1600 PO; Start 05/14/17 at 16:00 Family History Father had kidney failure, strokes Social History Lives with son EtOH: in the past but denies current use Tobacco: quit about 5 years ago, prior was 1PPD x 40 years Illicit drugs: never IVDU, used to smoke marijuana Physical Exam Vital Signs Vital Signs Date Time Temp Pulse Resp B/P (MAP) Pulse Ox O2 Delivery O2 Flow Rate FiO2 05/10/17 13:06 98.1 106 25 123/70 (87) 97 Physical Exam GENERAL: Well-nourished, well-developed, obese male laying in bed in no apparent distress. SKIN: No rashes, ecchymoses or lesions. Cool and dry. HEENT: Atraumatic. Normocephalic. No temporal or scalp tenderness. Pupils equal round and reactive. Extraocular motions intact. No scleral icterus. No injection or drainage. Nose without bleeding, purulent drainage or septal hematoma. Nasal cannula in place. Throat without erythema, tonsillar hypertrophy or exudate. Uvula midline. Airway patent. NECK: Trachea midline. JVD difficult to assess secondary to neck habitus. Supple , nontender, no meningeal signs. CARDIOVASCULAR: Tachycardic with irregularly irregular rate and rhythm. RESPIRATORY: Distant breath sounds with scattered inspiratory wheezing. No crackles. Speaking in complete sentences. GASTROINTESTINAL: Abdomen soft, non-tender, nondistended. No hepatosplenomegaly or palpable masses. No guarding. MUSCULOSKELETAL: Trace lower extremity edema. Feet and ankles with erythema and scaling. No warmth or induration. No joint tenderness, effusion, or edema noted. No calf tenderness. Negative Homans sign bilaterally. NEUROLOGICAL: Awake and alert. Cranial nerves II through XII intact. Motor and sensory grossly within normal limits. Normal speech. Laboratory Laboratory Tests Test 05/10/17 13:20 05/10/17 13:25 White Blood Count 14.9 Red Blood Count 4.26 Hemoglobin 13.6 Hematocrit 39.3 Mean Corpuscular Volume 92.2 Mean Corpuscular Hemoglobin 31.9 Mean Corpuscular Hemoglobin Concent 34.6 Red Cell Distribution Width 19.0 Platelet Count 291 Mean Platelet Volume 6.5 Neutrophils (%) (Auto) 87.1 Lymphocytes (%) (Auto) 4.6 Monocytes (%) (Auto) 8.0 Eosinophils (%) (Auto) 0.2 Basophils (%) (Auto) 0.1 Neutrophils # (Auto) 13.0 Lymphocytes # (Auto) 0.7 Monocytes # (Auto) 1.2 Eosinophils # (Auto) 0.0 Basophils # (Auto) 0.0 CBC Comment AUTO DIFF Differential Total Cells Counted 100 Neutrophils % (Manual) 63 Band Neutrophils % 20 Lymphocytes % 7 Monocytes % 9 Neutrophils # (Manual) 12.5 Myelocytes 1 Differential Comment FINAL DIFF MANUAL Platelet Estimate NORMAL Platelet Morphology Comment NORMAL Prothrombin Time 30.5 Prothromb Time International Ratio 3.0 Activated Partial Thromboplast Time 41.0 Urine Color YELLOW Urine Turbidity CLEAR Urine pH 7.0 Urine Specific [place] 1.008 Urine Protein NEG Urine Glucose (UA) NEG Urine Ketones NEG Urine Occult Blood NEG Urine Nitrite NEG Urine Bilirubin NEG Urine Urobilinogen LESS THAN 2.0 Urine Leukocyte Esterase NEG Urine RBC 1 Urine WBC LESS THAN 1 Urine Mucus FEW Microscopic Urinalysis Comment CATH-CULT NOT IND Blood Urea Nitrogen 17 Creatinine 1.00 Random Glucose 134 Total Protein 6.7 Albumin 3.3 Calcium Level 8.7 Alkaline Phosphatase 75 Aspartate Amino Transf (AST/SGOT) 10 Alanine Aminotransferase (ALT/SGPT) 36 Total Bilirubin 0.7 Sodium Level 137 Potassium Level 3.8 Chloride Level 95 Carbon Dioxide Level 33.7 Anion Gap 8 Estimat Glomerular Filtration Rate 74 Troponin I LESS THAN 0.02 Lipase 87 Lactic Acid Level 3.3 Date/Time Source Procedure Growth Status 05/10/17 13:30 Blood Peripheral Aerobic Blood Culture Pending Received 05/10/17 13:30 Blood Peripheral Anaerobic Blood Culture Pending Received 05/10/17 13:26 Nasal Washing Influenza Types A,B Antigen (PILY) - Final NEGATIVE FOR FLU A AND B ANTIGEN.... Complete 05/10/17 13:26 Urine Random Urine Legionella Antigen Pending Ordered 05/10/17 13:26 Urine Random Urine Streptococcus pneumoniae Antigen (M Pending Ordered Result Diagram: 05/10/17 1320 05/10/17 1320 Imaging Chest X-Ray 05/10/17 1311 Signed Impressions: Service Date/Time: Wednesday, May 10, 2017 14:03 - CONCLUSION: Minimal bilateral lower lung zone opacity likely representing atelectasis. . Jeramie Champion MD Septic Shock Reassessment Septic shock perfusion: reassessment completed Caprini VTE Risk Assessment Caprini VTE Risk Assessment: Mod/High Risk (score >= 2) Caprini Risk Assessment Model Point Value = 1 Point Value = 2 Point Value = 3 Point Value = 5 Age 41-60 Minor surgery BMI > 25 kg/m2 Swollen legs Varicose veins or History of unexplained or recurrent spontaneous Oral contraceptives or hormone replacement Sepsis (< 1 month) Serious lung disease, including pneumonia (< 1 month) Abnormal pulmonary function Acute myocardial infarction Congestive heart failure (< 1 month) History of inflammatory bowel disease Medical patient at bed rest Age 61-74 Arthroscopic surgery Major open surgery (> 45 min) Laparoscopic surgery (> 45 min) Malignancy Confined to bed (> 72 hours) Immobilizing plaster cast Central venous access Age >= 75 History of VTE Family history of VTE Factor V Leiden Prothrombin 25210P Lupus anticoagulant Anticardiolipin antibodies Elevated serum homocysteine Heparin-induced thrombocytopenia Other congenital or acquired thrombophilia Stroke (< 1 month) Elective arthroplasty Hip, pelvis, or leg fracture Acute spinal cord injury (< 1 month) Prophylaxis Regimen Total Risk Factor Score Risk Level Prophylaxis Regimen 0-1 Low Early ambulation 2 Moderate Order ONE of the following: *Sequential Compression Device (SCD) *Heparin 5000 units SQ BID 3-4 Higher Order ONE of the following medications: *Heparin 5000 units SQ TID *Enoxaparin/Lovenox 40 mg SQ daily (WT < 150 kg, CrCl > 30 mL/min) *Enoxaparin/Lovenox 30 mg SQ daily (WT < 150 kg, CrCl > 10-29 mL/min) *Enoxaparin/Lovenox 30 mg SQ BID (WT < 150 kg, CrCl > 30 mL/min) AND/OR *Sequential Compression Device (SCD) 5 or more Highest Order ONE of the following medications: *Heparin 5000 units SQ TID (Preferred with Epidurals) *Enoxaparin/Lovenox 40 mg SQ daily (WT < 150 kg, CrCl > 30 mL/min) *Enoxaparin/Lovenox 30 mg SQ daily (WT < 150 kg, CrCl > 10-29 mL/min) *Enoxaparin/Lovenox 30 mg SQ BID (WT < 150 kg, CrCl > 30 mL/min) AND *Sequential Compression Device (SCD) Assessment and Plan Problem List: (1) Sepsis ICD Code: A41.9 - Sepsis, unspecified organism Status: Acute (2) COPD with exacerbation ICD Code: J44.1 - Obstructive chronic bronchitis with exacerbation Status: Acute (3) Pneumonia ICD Code: J18.9 - Pneumonia, unspecified organism Status: Acute (4) Hypoxia ICD Code: R09.02 - Hypoxemia Status: Acute (5) Atrial fibrillation with RVR ICD Code: I48.91 - Unspecified atrial fibrillation Status: Chronic (6) Hypertension ICD Code: I10 - Hypertension Status: Chronic (7) Hyperlipemia ICD Code: E78.5 - Hyperlipemia Status: Chronic (8) Chronic back pain ICD Code: G89.29 - Other chronic pain; M54.9 - Chronic back pain Status: Chronic Assessment and Plan 66 YOWM with COPD, CHF, AFIB, and HTN admitted for severe sepsis secondary to suspected early pneumonia with COPD exacerbation. 1. Severe sepsis - Patient tachycardic and tachypneic - White count 14.9 w/ bandemia - Lactic acid elevated 3.3; recheck lactic acid per sepsis protocol - Symptoms of worsening dyspnea and sputum production with CXR findings concerning for early pneumonia - Blood, urine, and sputum cultures pending - Negative influenza - Bolus 500 ml NS x 1 and caution since h/o CHF - Will treat for possible HCAP given recent hospitalization in March - Aztreonam and Levaquin 2. Hospital-acquired PNA and COPD exacerbation - On 2.5 L continuous O2 at home, now requiring up to 4L - Increased SOB + sputum production - SoluMedrol 40 mg IV Q12H - Antibiotics as above - Supplemental O2 - Scheduled DuoNebs - Albuterol nebs PRN - Continue home theophylline and inhalers 3. CHF - Trace pitting edema in b/l ankles but otherwise doesn't appear to be fluid- overloaded - Check BNP - Caution with IV fluids - Can add Lasix if necessary 4. Atrial fibrillation - Continue home Diltiazem and metoprolol - Continue Coumadin (5 mg all days except Friday he takes 2.5 mg) - INR therapeutic at 3.0 - Hold home theophylline given tachycardia - Telemetry 5. HTN - Continue home metoprolol and HCTZ 6. HLD - Continue statin 7. PTSD - Continue home Wellbutrin and BuSpar 8. Chronic back pain - Continue home Baclofen and [place] 9. BPH - Continue home Flomax 10. Constipation - Plethora of PRN medications available 11. DVT prophylaxis - Anticoagulated on Coumadin Code Status FULL Discussed Condition With Dr. Johnson and patient Physician Certification 2 Midnight Certification Type: Admission for Inpatient Services Order for Inpatient Services The services are ordered in accordance with Medicare regulations or non- Medicare payer requirements, as applicable. In the case of services not specified as inpatient-only, they are appropriately provided as inpatient services in accordance with the 2-midnight benchmark. Estimated LOS (days): 3 3 days is the estimated time the patient will need to remain in the hospital, assuming treatment plan goals are met and no additional complications. Post-Hospital Plan: Not yet determined Tracy De Leon MD May 10, 2017 15:44
[2017-05-10] MEDS ORDERED: SODIUM CHLORIDE 0.9% FLUSH 10 ML FLUSH IV FLUSH PRN (16:00)
[2017-05-10] MEDS ORDERED: ONDANSETRON HCL 4 MG/2 ML VIAL IVP PRN (16:00)
[2017-05-10] MEDS ORDERED: TEMAZEPAM 15 MG CAP PO PRN (16:00)
[2017-05-10] MEDS ORDERED: BISACODYL 10 MG SUPP RECTAL PRN (16:00)
[2017-05-10] MEDS ORDERED: NALOXONE HCL 0.4 MG/ML AMP IV PUSH PRN (16:00)
[2017-05-10] MEDS ORDERED: SENNOSIDES 8.6 MG TAB PO PRN (16:00)
[2017-05-10] MEDS ORDERED: ACETAMINOPHEN 325 MG TAB PO PRN (16:00)
[2017-05-10] MEDS ORDERED: MAGNESIUM HYDROXIDE SUSP 30 ML CUP PO PRN (16:00)
[2017-05-10] MEDS ORDERED: LACTULOSE SYRUP 20 GM/30 ML CUP PO PRN (16:00)
[2017-05-10 16:04] VITALS: O2SAT 95
[2017-05-10] MEDS ORDERED: guaiFENesin/DEXTROMETHORPHAN 200 MG/20 MG/10 ML CUP PO PRN (16:15)
[2017-05-10] MEDS ORDERED: BACLOFEN 10 MG TAB PO PRN (16:15)
[2017-05-10 16:40] VITALS: BP 113/60; PULSE 95; RESP 20; O2SAT 95
[2017-05-10] MEDS ORDERED: SODIUM CHLORID 0.9% 500 ML INJ 500 ML IV ONE (16:45)
[2017-05-10] MEDS: AZTREONAM INJ 2,000 MG in SODIUM CHLORIDE 0.9% INJ 100 ML IV SCH (16:56)
[2017-05-10] MEDS ORDERED: DO NOT ADM ANY ANTICOAGULANT DRUGS OTHER PRN (17:00)
[2017-05-10] MEDS: methylPREDNISolone SOD SUCC 40 MG/1 ML VIAL IV PUSH SCH (18:38)
[2017-05-10] MEDS: busPIRone HCL 10 MG TAB PO SCH (18:38)
[2017-05-10] MEDS: ACETAMINOPHEN/HYDROcodone 325 MG/10 MG TAB PO PRN ×2 (18:41→23:00)
[2017-05-10 20:00] VITALS: BP 110/73; PULSE 102; RESP 18; TEMP 96.6; O2SAT 92
[2017-05-10] MEDS: ATORVASTATIN 80 MG TAB PO SCH (20:55)
[2017-05-10] MEDS: SODIUM CHLORIDE 0.9% FLUSH 10 ML FLUSH IV FLUSH SCH (20:55)
[2017-05-10] MEDS: buPROPion HCL 150 MG SUSTAINED RELEASE TAB PO SCH (20:56)
[2017-05-10] MEDS: METOPROLOL TARTRATE 50 MG TAB PO SCH (20:56)
[2017-05-10] MEDS: DOCUSATE SODIUM 50 MG/SENNA 8.6 MG TAB PO SCH (20:56)
[2017-05-10] MEDS: BUDESONIDE-FORMOTEROL 160/4.5 MCG INHALER INH SCH (20:56)
[2017-05-10] MEDS: RESP: ALBUTEROL 2.5 MG/IPRATROPIUM 0.5 MG NEB (SCH) NEB (21:42)
[2017-05-10 21:45] VITALS: O2SAT 95
--- NOTE | 2017-05-10 22:16 | EKG ---
Date Performed: 05/10/2017 Time Performed: 14:20:40 PTAGE: 66 years EKG: ATRIAL FIBRILLATION POSSIBLE RIGHT VENTRICULAR CONDUCTION DELAY MODERATE ST DEPRESSION ABNO RMAL ECG No significant change from prior electrocardiogram. PREVIOUS TRACING : 03/21/2017 15.06 DOCTOR: Nguyễn Moon Interpretating Date/Time 05/10/2017 22:14:23
[2017-05-11] VITALS (8 sets, daily range): BP systolic 104–132; BP diastolic 58–83; PULSE 78–113; RESP 16–18; TEMP 96.1–97.3; O2SAT 91–98
[2017-05-11] MEDS: AZTREONAM INJ 2,000 MG in SODIUM CHLORIDE 0.9% INJ 100 ML IV SCH ×3 (01:22→17:00)
[2017-05-11] MEDS: ACETAMINOPHEN/HYDROcodone 325 MG/10 MG TAB PO PRN ×5 (03:48→22:42)
[2017-05-11] MEDS: methylPREDNISolone SOD SUCC 40 MG/1 ML VIAL IV PUSH SCH ×2 (04:53→18:00)
[2017-05-11] MEDS: RESP: ALBUTEROL 2.5 MG/IPRATROPIUM 0.5 MG NEB (SCH) NEB ×3 (06:02→19:37)
[2017-05-11 06:53] LABS: AUTOMATED NEUTROPHIL # 7.1 TH/MM3 (1.8-7.7); HEMATOCRIT 34.3 % (39.0-51.0); HEMOGLOBIN 12.1 GM/DL (13.0-17.0); LYMPHOCYTE # 0.3 TH/MM3 (1.0-4.8); MEAN CELL VOLUME 90.5 FL (80.0-100.0); MEAN CORPUSCULAR HEMOGLOBIN 31.9 PG (27.0-34.0); MEAN CORPUSCULAR HGB CONC 35.3 % (32.0-36.0); MEAN PLATELET VOLUME 6.2 FL (7.0-11.0); MONO % 2.8 % (0.0-8.0); MONOCYTE # 0.2 TH/MM3 (0-0.9); NEUT % 93.2 % (16.0-70.0); PLATELET COUNT 249 TH/MM3 (150-450); RED CELL DISTRIBUTION WIDTH 18.9 % (11.6-17.2); WHITE BLOOD COUNT 7.6 TH/MM3 (4.0-11.0)
[2017-05-11 07:06] LABS: PROTHROMBIN TIME - PATIENT 20.7 SEC (9.8-11.6)
[2017-05-11 07:29] LABS: BICARBONATE 30.8 MEQ/L (21.0-32.0); CALCIUM 8.6 MG/DL (8.5-10.1); CREATININE 0.75 MG/DL (0.60-1.30)
[2017-05-11] MEDS: buPROPion HCL 150 MG SUSTAINED RELEASE TAB PO SCH ×2 (08:26→20:49)
[2017-05-11] MEDS: DILTIAZEM-CD 180 MG CAP ER PO SCH (08:26)
[2017-05-11] MEDS: busPIRone HCL 10 MG TAB PO SCH ×3 (08:26→18:00)
[2017-05-11] MEDS: HYDROCHLOROTHIAZIDE 25 MG TAB PO SCH (08:27)
[2017-05-11] MEDS: METOPROLOL TARTRATE 50 MG TAB PO SCH ×2 (08:27→20:49)
[2017-05-11] MEDS: DOCUSATE SODIUM 50 MG/SENNA 8.6 MG TAB PO SCH ×2 (08:28→20:49)
[2017-05-11] MEDS: TAMSULOSIN HCL 0.4 MG CAP PO SCH (08:28)
[2017-05-11] MEDS: SODIUM CHLORIDE 0.9% FLUSH 10 ML FLUSH IV FLUSH SCH ×2 (08:29→20:49)
[2017-05-11 08:43] LABS: BANDS 8 % (0-6); LYMPHOCYTES 5 % (9-44); MONOCYTES 4 % (0-8); NEUTROPHIL # MANUAL DIFF 6.9 TH/MM3 (1.8-7.7); OVALOCYTES 1+ (NORMAL); POLYS (SEG NEUTROPHILS) 83 % (16-70)
[2017-05-11] MEDS: BUDESONIDE-FORMOTEROL 160/4.5 MCG INHALER INH SCH ×3 (08:47→20:48)
[2017-05-11] MEDS: TIOTROPIUM BROMIDE 18 MCG INH INH SCH ×2 (08:47→11:00)
[2017-05-11] MEDS ORDERED: THEOPHYLLINE 200 MG EXTENDED RELEASE CAP PO SCH (09:00)
--- NOTE | 2017-05-11 12:16 | HHI.PR ---
Subjective Remarks Patient getting his breathing treatment, he denied fever or chills, still having severe cough with yellowish phlegm, no chest tightness. He told me he is on 2 L of oxygen at home however now he is on 5 L, will continue with antibiotic and breathing treatment Objective Vitals Vital Signs Date Time Temp Pulse Resp B/P (MAP) Pulse Ox O2 Delivery O2 Flow Rate FiO2 05/11/17 12:08 96 Nasal Cannula 3.00 05/11/17 08:00 96.1 107 17 122/76 (91) 91 05/11/17 04:00 96.5 86 18 122/83 (96) 95 05/11/17 00:29 96.5 78 18 106/64 (78) 95 05/10/17 21:45 95 Nasal Cannula 3.00 05/10/17 20:00 96.6 102 18 110/73 (85) 92 05/10/17 16:40 95 20 113/60 (77) 95 Nasal Cannula 3.00 05/10/17 16:04 95 Nasal Cannula 4.00 05/10/17 13:06 98.1 106 25 123/70 (87) 97 I/O 05/10/17 05/10/17 05/10/17 05/11/17 05/11/17 05/11/17 07:00 15:00 23:00 07:00 15:00 23:00 Intake Total 340 ml Balance 340 ml Intake Oral 240 ml IV Total 100 ml # Voids 1 # Bowel Movements 1 Result Diagram: 05/11/1713 05/11/17 0613 Objective Remarks GENERAL: This is a well-nourished, well-developed patient, in no apparent distress. SKIN: No rashes, warm and dry HEAD: Atraumatic. Normocephalic. EYES: Pupils equal round and reactive. Extraocular motions intact. No scleral icterus. ENT: Nose without bleeding, or drainage, Airway patent. NECK: Trachea midline. Supple CARDIOVASCULAR: Regular rate and rhythm without murmurs, gallops, or rubs. RESPIRATORY: Decreased breath sounds bilaterally on the basis with multiple crackles GASTROINTESTINAL: Abdomen soft, non-tender, nondistended. Positive bowel sounds MUSCULOSKELETAL: Extremities without clubbing, cyanosis, trace edema bilaterally a. Pedal pulses appreciated NEUROLOGICAL: Awake and alert. Moves all extremity. Normal speech.no focal neurological deficit A/P Problem List: (1) Sepsis ICD Code: A41.9 - Sepsis, unspecified organism Status: Acute (2) COPD with exacerbation ICD Code: J44.1 - Obstructive chronic bronchitis with exacerbation Status: Acute (3) Pneumonia ICD Code: J18.9 - Pneumonia, unspecified organism Status: Acute (4) Hypoxia ICD Code: R09.02 - Hypoxemia Status: Acute (5) Atrial fibrillation with RVR ICD Code: I48.91 - Unspecified atrial fibrillation Status: Chronic (6) Hypertension ICD Code: I10 - Hypertension Status: Chronic (7) Hyperlipemia ICD Code: E78.5 - Hyperlipemia Status: Chronic (8) Chronic back pain ICD Code: G89.29 - Other chronic pain; M54.9 - Chronic back pain Status: Chronic Assessment and Plan 05/11: Continue IV antibiotics Solu-Medrol DuoNeb and oxygen, monitor clinical improvement, CBC in a.m., monitor PT/INR 66 YOWM with COPD, CHF, AFIB, and HTN admitted for severe sepsis secondary to suspected early pneumonia with COPD exacerbation. 1. Severe sepsis -Tachycardia, WBC 14.9 with bandemia, lactic acid 3.3 - Symptoms of worsening dyspnea and sputum production with CXR findings concerning for early pneumonia - Blood, urine, and sputum cultures pending - Negative influenza - Bolus 500 ml NS x 1 and caution since h/o CHF - Will treat for possible HCAP given recent hospitalization in March - Aztreonam and Levaquin 2. Hospital-acquired PNA and COPD exacerbation - On 2.5 L continuous O2 at home, now requiring up to 4L - Increased SOB + sputum production - SoluMedrol 40 mg IV Q12H - Antibiotics as above - Supplemental O2 - Scheduled DuoNebs - Albuterol nebs PRN - Continue home theophylline and inhalers 3. CHF - Trace pitting edema in b/l ankles but otherwise doesn't appear to be fluid- overloaded - Check BNP - Caution with IV fluids - Can add Lasix if necessary 4. Atrial fibrillation - Continue home Diltiazem and metoprolol - Continue Coumadin (5 mg all days except Friday he takes 2.5 mg) - INR therapeutic at 3.0 - Hold home theophylline given tachycardia - Telemetry 5. HTN - Continue home metoprolol and HCTZ 6. HLD - Continue statin 7. PTSD - Continue home Wellbutrin and BuSpar 8. Chronic back pain - Continue home Baclofen and [place] 9. BPH - Continue home Flomax 10. Constipation - Plethora of PRN medications available 11. DVT prophylaxis - Anticoagulated on Coumadin Jazmin Golden MD May 11, 2017 12:16
[2017-05-11] MEDS: LEVOFLOXACIN 750 MG PREMIX INJ 150 ML IV SCH (12:55)
[2017-05-11] MEDS: WARFARIN SOD 5 MG TAB PO SCH (16:00)
[2017-05-11] MEDS: ATORVASTATIN 80 MG TAB PO SCH (20:49)
[2017-05-12] VITALS (10 sets, daily range): BP systolic 109–129; BP diastolic 64–81; PULSE 77–104; RESP 17–19; TEMP 95.3–97.7; O2SAT 94–96
[2017-05-12] MEDS: AZTREONAM INJ 2,000 MG in SODIUM CHLORIDE 0.9% INJ 100 ML IV SCH ×3 (00:43→17:00)
[2017-05-12] MEDS: RESP: ALBUTEROL CONC 2.5 MG/0.5 ML NEB NEB PRN ×3 (00:59→23:09)
[2017-05-12] MEDS: ACETAMINOPHEN/HYDROcodone 325 MG/10 MG TAB PO PRN ×5 (03:12→20:58)
[2017-05-12] MEDS: methylPREDNISolone SOD SUCC 40 MG/1 ML VIAL IV PUSH SCH ×2 (04:13→17:00)
[2017-05-12] MEDS: RESP: ALBUTEROL 2.5 MG/IPRATROPIUM 0.5 MG NEB (SCH) NEB ×3 (07:23→20:05)
[2017-05-12] MEDS: BUDESONIDE-FORMOTEROL 160/4.5 MCG INHALER INH SCH ×2 (08:50→19:45)
[2017-05-12] MEDS: TIOTROPIUM BROMIDE 18 MCG INH INH SCH (08:51)
[2017-05-12] MEDS: SODIUM CHLORIDE 0.9% FLUSH 10 ML FLUSH IV FLUSH SCH ×2 (08:52→19:45)
[2017-05-12] MEDS: HYDROCHLOROTHIAZIDE 25 MG TAB PO SCH (08:52)
[2017-05-12] MEDS: busPIRone HCL 10 MG TAB PO SCH ×3 (08:52→17:00)
[2017-05-12] MEDS: buPROPion HCL 150 MG SUSTAINED RELEASE TAB PO SCH ×2 (08:52→19:45)
[2017-05-12] MEDS: DOCUSATE SODIUM 50 MG/SENNA 8.6 MG TAB PO SCH ×2 (08:53→19:44)
[2017-05-12] MEDS: DILTIAZEM-CD 180 MG CAP ER PO SCH (08:53)
[2017-05-12] MEDS: TAMSULOSIN HCL 0.4 MG CAP PO SCH (08:53)
[2017-05-12] MEDS: METOPROLOL TARTRATE 50 MG TAB PO SCH ×2 (08:53→19:45)
[2017-05-12 12:10] LABS: INTERNATIONAL NORMALIZED RATIO 1.7 RATIO; PROTHROMBIN TIME - PATIENT 16.7 SEC (9.8-11.6)
[2017-05-12] MEDS: LEVOFLOXACIN 750 MG PREMIX INJ 150 ML IV SCH (12:50)
--- NOTE | 2017-05-12 15:36 | HHI.PR ---
Subjective Remarks Resting comfortably in bed No event overnight Denied chest and or short of breath No fever or chills Objective Vitals Vital Signs Date Time Temp Pulse Resp B/P (MAP) Pulse Ox O2 Delivery O2 Flow Rate FiO2 05/12/17 12:00 97.7 80 19 109/67 (81) 95 05/12/17 08:00 95.3 104 19 117/74 (88) 95 05/12/17 07:20 94 Nasal Cannula 3.00 05/12/17 05:37 97.1 86 17 113/68 (83) 96 05/12/17 00:00 96.9 77 18 129/81 (97) 96 05/11/17 20:00 96.3 113 18 132/69 (90) 93 05/11/17 19:39 93 Nasal Cannula 3.00 05/11/17 16:00 96.6 80 16 104/58 (73) 96 I/O 05/11/17 05/11/17 05/11/17 05/12/17 05/12/17 05/12/17 07:00 15:00 23:00 07:00 15:00 23:00 Intake Total 340 ml 200 ml 800 ml 220 ml Balance 340 ml 200 ml 800 ml 220 ml Intake Oral 240 ml 800 ml 120 ml IV Total 100 ml 200 ml 100 ml # Voids 1 5 3 # Bowel Movements 1 0 Result Diagram: 05/11/1761205/11/17612 Objective Remarks GENERAL: This is a well-nourished, well-developed patient, in no apparent distress. SKIN: No rashes, warm and dry HEAD: Atraumatic. Normocephalic. EYES: Pupils equal round and reactive. Extraocular motions intact. No scleral icterus. ENT: Nose without bleeding, or drainage, Airway patent. NECK: Trachea midline. Supple CARDIOVASCULAR: Regular rate and rhythm without murmurs, gallops, or rubs. RESPIRATORY: Decreased breath sounds bilaterally on the basis with multiple crackles GASTROINTESTINAL: Abdomen soft, non-tender, nondistended. Positive bowel sounds MUSCULOSKELETAL: Extremities without clubbing, cyanosis, trace edema bilaterally a. Pedal pulses appreciated NEUROLOGICAL: Awake and alert. Moves all extremity. Normal speech.no focal neurological deficit A/P Problem List: (1) Sepsis ICD Code: A41.9 - Sepsis, unspecified organism Status: Acute (2) COPD with exacerbation ICD Code: J44.1 - Obstructive chronic bronchitis with exacerbation Status: Acute (3) Pneumonia ICD Code: J18.9 - Pneumonia, unspecified organism Status: Acute (4) Hypoxia ICD Code: R09.02 - Hypoxemia Status: Acute (5) Atrial fibrillation with RVR ICD Code: I48.91 - Unspecified atrial fibrillation Status: Chronic (6) Hypertension ICD Code: I10 - Hypertension Status: Chronic (7) Hyperlipemia ICD Code: E78.5 - Hyperlipemia Status: Chronic (8) Chronic back pain ICD Code: G89.29 - Other chronic pain; M54.9 - Chronic back pain Status: Chronic Assessment and Plan 05/11: Continue IV antibiotics Solu-Medrol DuoNeb and oxygen, monitor clinical improvement, CBC in a.m., monitor PT/INR 05/12: Patient requested Flonase and Claritin and to place him on a regular diet , continue monitoring PT/INR, monitor clinical improvement A/P: 66 YOWM with COPD, CHF, AFIB, and HTN admitted for severe sepsis secondary to suspected early pneumonia with COPD exacerbation. 1. Severe sepsis -Tachycardia, WBC 14.9 with bandemia, lactic acid 3.3 - Symptoms of worsening dyspnea and sputum production with CXR findings concerning for early pneumonia - Blood, urine, and sputum cultures pending - Negative influenza - Bolus 500 ml NS x 1 and caution since h/o CHF - Will treat for possible HCAP given recent hospitalization in March - Aztreonam and Levaquin 2. Hospital-acquired PNA and COPD exacerbation - On 2.5 L continuous O2 at home, now requiring up to 4L - Increased SOB + sputum production - SoluMedrol 40 mg IV Q12H - Antibiotics as above - Supplemental O2 - Scheduled DuoNebs - Albuterol nebs PRN - Continue home theophylline and inhalers 3. CHF - Trace pitting edema in b/l ankles but otherwise doesn't appear to be fluid- overloaded - Check BNP - Caution with IV fluids - Can add Lasix if necessary 4. Atrial fibrillation - Continue home Diltiazem and metoprolol - Continue Coumadin (5 mg all days except Friday he takes 2.5 mg) - INR therapeutic at 3.0 - Hold home theophylline given tachycardia - Telemetry 5. HTN - Continue home metoprolol and HCTZ 6. HLD - Continue statin 7. PTSD - Continue home Wellbutrin and BuSpar 8. Chronic back pain - Continue home Baclofen and [place] 9. BPH - Continue home Flomax 10. Constipation - Plethora of PRN medications available 11. DVT prophylaxis - Anticoagulated on Coumadin Jazmin Golden MD May 12, 2017 15:36
[2017-05-12] MEDS: WARFARIN SOD 5 MG TAB PO SCH (17:00)
[2017-05-12 17:06] LABS: BICARBONATE 27.6 MEQ/L (21.0-32.0); CALCIUM 8.8 MG/DL (8.5-10.1); CREATININE 0.86 MG/DL (0.60-1.30); MAGNESIUM 2.2 MG/DL (1.5-2.5)
[2017-05-12] MEDS: FLUTICASONE PROPIONATE 50 MCG/ACT 16 GM NASAL SPRAY NASAL SCH (17:37)
[2017-05-12] MEDS: ATORVASTATIN 40 MG TAB PO SCH (19:44)
[2017-05-13] VITALS (10 sets, daily range): BP systolic 106–130; BP diastolic 63–75; PULSE 74–85; RESP 16–18; TEMP 96–97.8; O2SAT 93–100
[2017-05-13] MEDS: AZTREONAM INJ 2,000 MG in SODIUM CHLORIDE 0.9% INJ 100 ML IV SCH ×3 (00:49→17:23)
[2017-05-13] MEDS: ACETAMINOPHEN/HYDROcodone 325 MG/10 MG TAB PO PRN ×6 (01:00→22:33)
[2017-05-13] MEDS: methylPREDNISolone SOD SUCC 40 MG/1 ML VIAL IV PUSH SCH (04:48)
[2017-05-13] MEDS: RESP: ALBUTEROL 2.5 MG/IPRATROPIUM 0.5 MG NEB (SCH) NEB ×3 (07:35→20:20)
[2017-05-13] MEDS: METOPROLOL TARTRATE 50 MG TAB PO SCH ×2 (09:28→20:35)
[2017-05-13] MEDS: DILTIAZEM-CD 180 MG CAP ER PO SCH (09:28)
[2017-05-13] MEDS: busPIRone HCL 10 MG TAB PO SCH ×3 (09:28→17:23)
[2017-05-13] MEDS: HYDROCHLOROTHIAZIDE 25 MG TAB PO SCH (09:28)
[2017-05-13] MEDS: buPROPion HCL 150 MG SUSTAINED RELEASE TAB PO SCH ×2 (09:28→20:35)
[2017-05-13] MEDS: FLUTICASONE PROPIONATE 50 MCG/ACT 16 GM NASAL SPRAY NASAL SCH (09:29)
[2017-05-13] MEDS: TIOTROPIUM BROMIDE 18 MCG INH INH SCH (09:29)
[2017-05-13] MEDS: LORATADINE 10 MG TAB PO SCH (09:29)
[2017-05-13] MEDS: BUDESONIDE-FORMOTEROL 160/4.5 MCG INHALER INH SCH ×2 (09:29→20:35)
[2017-05-13] MEDS: TAMSULOSIN HCL 0.4 MG CAP PO SCH (09:29)
[2017-05-13] MEDS: DOCUSATE SODIUM 50 MG/SENNA 8.6 MG TAB PO SCH ×2 (09:29→20:34)
[2017-05-13] MEDS: SODIUM CHLORIDE 0.9% FLUSH 10 ML FLUSH IV FLUSH SCH ×2 (09:30→20:35)
[2017-05-13] MEDS ORDERED: PRED10PA PO (10:13)
[2017-05-13 10:45] LABS: INTERNATIONAL NORMALIZED RATIO 2.2 RATIO; PROTHROMBIN TIME - PATIENT 22.7 SEC (9.8-11.6)
--- NOTE | 2017-05-13 12:40 | HHI.PR ---
Subjective Remarks Patient stated breathing better, he goes to the bathroom on his own No fever, he is on 3 L of oxygen which is mostly his baseline D/W nurse and case management and PT, will do PT assessment prior to discharge Objective Vitals Vital Signs Date Time Temp Pulse Resp B/P (MAP) Pulse Ox O2 Delivery O2 Flow Rate FiO2 05/13/17 09:30 Nasal Cannula 3.00 05/13/17 07:59 97.8 84 18 120/73 (89) 100 05/13/17 07:38 93 Nasal Cannula 3.00 05/13/17 05:48 18 05/13/17 04:02 76 05/13/17 04:00 96.0 84 18 130/75 (93) 94 05/13/17 00:06 74 05/13/17 00:00 97.1 81 16 106/63 (77) 97 05/12/17 23:09 96 Nasal Cannula 3.00 05/12/17 20:18 90 05/12/17 20:05 96 Nasal Cannula 3.00 05/12/17 20:00 96.0 84 18 124/70 (88) 96 05/12/17 19:43 Nasal Cannula 3.00 05/12/17 16:00 96.1 81 19 125/64 (84) 96 I/O 05/12/17 05/12/17 05/12/17 05/13/17 05/13/17 05/13/17 07:00 15:00 23:00 07:00 15:00 23:00 Intake Total 220 ml 100 ml 2250 ml 340 ml Balance 220 ml 100 ml 2250 ml 340 ml Intake Oral 120 ml 2000 ml 240 ml IV Total 100 ml 100 ml 250 ml 100 ml # Voids 3 8 # Bowel Movements 0 Result Diagram: 05/11/17 0613 05/12/17 1555 Objective Remarks GENERAL: This is a well-nourished, well-developed patient, in no apparent distress. SKIN: No rashes, warm and dry HEAD: Atraumatic. Normocephalic. EYES: Pupils equal round and reactive. Extraocular motions intact. No scleral icterus. ENT: Nose without bleeding, or drainage, Airway patent. NECK: Trachea midline. Supple CARDIOVASCULAR: Regular rate and rhythm without murmurs, gallops, or rubs. RESPIRATORY: Decreased breath sounds bilaterally on the basis with multiple crackles GASTROINTESTINAL: Abdomen soft, non-tender, nondistended. Positive bowel sounds MUSCULOSKELETAL: Extremities without clubbing, cyanosis, trace edema bilaterally a. Pedal pulses appreciated NEUROLOGICAL: Awake and alert. Moves all extremity. Normal speech.no focal neurological deficit A/P Problem List: (1) Sepsis ICD Code: A41.9 - Sepsis, unspecified organism Status: Acute (2) COPD with exacerbation ICD Code: J44.1 - Obstructive chronic bronchitis with exacerbation Status: Acute (3) Pneumonia ICD Code: J18.9 - Pneumonia, unspecified organism Status: Acute (4) Hypoxia ICD Code: R09.02 - Hypoxemia Status: Acute (5) Atrial fibrillation with RVR ICD Code: I48.91 - Unspecified atrial fibrillation Status: Chronic (6) Hypertension ICD Code: I10 - Hypertension Status: Chronic (7) Hyperlipemia ICD Code: E78.5 - Hyperlipemia Status: Chronic (8) Chronic back pain ICD Code: G89.29 - Other chronic pain; M54.9 - Chronic back pain Status: Chronic Assessment and Plan 05/11: Continue IV antibiotics Solu-Medrol DuoNeb and oxygen, monitor clinical improvement, CBC in a.m., monitor PT/INR 05/12: Patient requested Flonase and Claritin and to place him on a regular diet , continue monitoring PT/INR, monitor clinical improvement 05/13: Patient improving, awaiting PT assessment to decide on discharge disposition A/P: 66 YOWM with COPD, CHF, AFIB, and HTN admitted for severe sepsis secondary to suspected early pneumonia with COPD exacerbation. 1. Severe sepsis -Tachycardia, WBC 14.9 with bandemia, lactic acid 3.3 - Symptoms of worsening dyspnea and sputum production with CXR findings concerning for early pneumonia - Blood, urine, and sputum cultures pending - Negative influenza - Bolus 500 ml NS x 1 and caution since h/o CHF - Will treat for possible HCAP given recent hospitalization in March - Aztreonam and Levaquin 2. Hospital-acquired PNA and COPD exacerbation - On 2.5 L continuous O2 at home, now requiring up to 4L - Increased SOB + sputum production - SoluMedrol 40 mg IV Q12H - Antibiotics as above - Supplemental O2 - Scheduled DuoNebs - Albuterol nebs PRN - Continue home theophylline and inhalers 3. CHF - Trace pitting edema in b/l ankles but otherwise doesn't appear to be fluid- overloaded - Check BNP - Caution with IV fluids - Can add Lasix if necessary 4. Atrial fibrillation - Continue home Diltiazem and metoprolol - Continue Coumadin (5 mg all days except Friday he takes 2.5 mg) - INR therapeutic at 3.0 - Hold home theophylline given tachycardia - Telemetry 5. HTN - Continue home metoprolol and HCTZ 6. HLD - Continue statin 7. PTSD - Continue home Wellbutrin and BuSpar 8. Chronic back pain - Continue home Baclofen and [place] 9. BPH - Continue home Flomax 10. Constipation - Plethora of PRN medications available 11. DVT prophylaxis - Anticoagulated on Coumadin Jazmin Golden MD May 13, 2017 12:40
[2017-05-13] MEDS: LEVOFLOXACIN 750 MG PREMIX INJ 150 ML IV SCH (13:12)
[2017-05-13 13:46] LABS: AUTOMATED NEUTROPHIL # 10.8 TH/MM3 (1.8-7.7); BASOPHIL % 0.1 % (0.0-2.0); HEMATOCRIT 30.6 % (39.0-51.0); LYMPHOCYTE # 0.4 TH/MM3 (1.0-4.8); MEAN CORPUSCULAR HGB CONC 35.9 % (32.0-36.0); MEAN PLATELET VOLUME 6.3 FL (7.0-11.0); MONO % 5.9 % (0.0-8.0); MONOCYTE # 0.7 TH/MM3 (0-0.9); PLATELET COUNT 250 TH/MM3 (150-450); RED BLOOD COUNT 3.33 MIL/MM3 (4.50-5.90); RED CELL DISTRIBUTION WIDTH 18.6 % (11.6-17.2); WHITE BLOOD COUNT 11.8 TH/MM3 (4.0-11.0)
[2017-05-13] MEDS ORDERED: WARFARIN SOD 10 MG TAB PO ONE (16:00)
[2017-05-13 16:50] LABS: BANDS 2 % (0-6); LYMPHOCYTES 1 % (9-44); MONOCYTES 8 % (0-8); MYELOCYTES 3 % (0-0); NEUTROPHIL # MANUAL DIFF 10.7 TH/MM3 (1.8-7.7); POLYS (SEG NEUTROPHILS) 86 % (16-70)
[2017-05-13] MEDS: WARFARIN SOD 5 MG TAB PO SCH (17:30)
[2017-05-13] MEDS: ATORVASTATIN 40 MG TAB PO SCH (20:34)
--- NOTE | 2017-05-13 21:46 | HHI.DS ---
Discharge Summary Admission Date May 10, 2017 at 15:18 Discharge Date: May 14, 2017 Admitting Diagnosis COPD EXACERBATION, PNA (1) Sepsis ICD Code: A41.9 - Sepsis, unspecified organism Status: Acute (2) COPD with exacerbation ICD Code: J44.1 - Obstructive chronic bronchitis with exacerbation Status: Acute (3) Pneumonia ICD Code: J18.9 - Pneumonia, unspecified organism Status: Acute (4) Hypoxia ICD Code: R09.02 - Hypoxemia Status: Acute (5) Atrial fibrillation with RVR ICD Code: I48.91 - Unspecified atrial fibrillation Status: Chronic (6) Hypertension ICD Code: I10 - Hypertension Status: Chronic (7) Hyperlipemia ICD Code: E78.5 - Hyperlipemia Status: Chronic (8) Chronic back pain ICD Code: G89.29 - Other chronic pain; M54.9 - Chronic back pain Status: Chronic Procedures See below Brief History - From Admission 66 year old male with history of COPD on 2.5 L continuous O2 at home, CHF, atrial fibrillation, and HTN presented to the ED for worsening shortness of breath and increased sputum production. His symptoms started yesterday and has gradually worsened since then. He denies chest pain, hemoptysis, night sweats, unintentional weight loss, fever, or chills. He has chronic back pain but denies any new or worsening myalgias. He reports slightly worsening edema in his feet and ankles. He states he has been compliant with his medications but cannot tell me what exactly he takes because there's "too many." He denies any sick contacts or recent travel. He is up to date with influenza and pneumococcal vaccines. Last INR was 2.7. Unrelated, he states he has been constipated and hasn't had a bowel movement in several days. CBC/BMP: 05/13/17 1320 05/12/17 1555 Significant Findings Laboratory Tests Test 05/11/17 06:13 05/12/17 10:53 05/12/17 15:55 05/13/17 10:01 Red Blood Count 3.80 MIL/MM3 (4.50-5.90) Hemoglobin 12.1 GM/DL (13.0-17.0) Hematocrit 34.3 % (39.0-51.0) Red Cell Distribution Width 18.9 % (11.6-17.2) Mean Platelet Volume 6.2 FL (7.0-11.0) Neutrophils (%) (Auto) 93.2 % (16.0-70.0) Lymphocytes (%) (Auto) 4.0 % (9.0-44.0) Lymphocytes # (Auto) 0.3 TH/MM3 (1.0-4.8) Neutrophils % (Manual) 83 % (16-70) Band Neutrophils % 8 % (0-6) Lymphocytes % 5 % (9-44) Ovalocytes 1+ (NORMAL) Prothrombin Time 20.7 SEC (9.8-11.6) 16.7 SEC (9.8-11.6) 22.7 SEC (9.8-11.6) Blood Urea Nitrogen 19 MG/DL (7-18) Random Glucose 161 MG/DL (74-106) 207 MG/DL (74-106) Sodium Level 134 MEQ/L (136-145) 133 MEQ/L (136-145) Chloride Level 96 MEQ/L (98-107) 96 MEQ/L (98-107) Estimat Glomerular Filtration Rate 88 ML/MIN (>89) Test 05/13/17 13:20 White Blood Count 11.8 TH/MM3 (4.0-11.0) Red Blood Count 3.33 MIL/MM3 (4.50-5.90) Hemoglobin 11.0 GM/DL (13.0-17.0) Hematocrit 30.6 % (39.0-51.0) Red Cell Distribution Width 18.6 % (11.6-17.2) Mean Platelet Volume 6.3 FL (7.0-11.0) Neutrophils (%) (Auto) 91.0 % (16.0-70.0) Lymphocytes (%) (Auto) 3.0 % (9.0-44.0) Neutrophils # (Auto) 10.8 TH/MM3 (1.8-7.7) Lymphocytes # (Auto) 0.4 TH/MM3 (1.0-4.8) Neutrophils % (Manual) 86 % (16-70) Lymphocytes % 1 % (9-44) Neutrophils # (Manual) 10.7 TH/MM3 (1.8-7.7) Myelocytes 3 % (0-0) PE at Discharge GENERAL: This is a well-nourished, well-developed patient, in no apparent distress. SKIN: No rashes, warm and dry HEAD: Atraumatic. Normocephalic. EYES: Pupils equal round and reactive. Extraocular motions intact. No scleral icterus. ENT: Nose without bleeding, or drainage, Airway patent. NECK: Trachea midline. Supple CARDIOVASCULAR: Regular rate and rhythm without murmurs, gallops, or rubs. RESPIRATORY: Decreased breath sounds bilaterally on the basis with multiple crackles GASTROINTESTINAL: Abdomen soft, non-tender, nondistended. Positive bowel sounds MUSCULOSKELETAL: Extremities without clubbing, cyanosis, trace edema bilaterally a. Pedal pulses appreciated NEUROLOGICAL: Awake and alert. Moves all extremity. Normal speech.no focal neurological deficit Hospital Course Patient admitted with severe sepsis pneumonia COPD exacerbation he has a history of CHF which did not seem to be in decompensation, also have A. fib, hypertension hyperlipidemia. Patient started on IV antibiotic O2, DuoNeb, Solu- Medrol, patient gradually improved, stabilized back on his baseline O2 nasal cannula 2-3 L, PT assessment, will be stable to go home with home O2 [id number] encounter performed with the patient on discharge day, as well as physical exam, summary of hospitalization course and postdischarge plan has been D/W the patient. D/W nurse D/W family independence case manager. Discharge medications reviewed and printed and signed, post discharge follow up visit with PCP and other specialist as well as Brief hospital course and discharge summary has been placed. Pt Condition on Discharge: Fair Discharge Disposition: Discharge Home Discharge Time: > 30 minutes Discharge Instructions DIET: Follow Instructions for: Heart Healthy Diet, Diabetic Diet Activities you can perform: Weight Bearing as Jaison Follow up Referrals: [facility]CP [facility] New Orders: PT/INR - Daily New Medications: Prednisone (21) 10 mg tab Dose Pack (Prednisone (21) 10 mg tab Dose Pack) 10 Mg Pack 10 MG PO DIRECTED for Inflammation, #1 DSPK 0 Refills Continued Medications: Albuterol 18 GM Inh (Ventolin Hfa 18 GM Inh) 90 Mcg/Act Aer 2 PUFF INH Q6H PRN for SHORTNESS OF BREATH, #1 INHALER 0 Refills Artificial Tear Solution (Soothe Xp/Xtra Protection) 1 Jarret Jarret 1 DROP EACH EYE QID PRN for DRY EYE Atorvastatin (Atorvastatin) 80 Mg Tab 40 MG PO HS for Cholesterol Management, #30 TAB 0 Refills Budesonide-Formoterol Inh (Symbicort Inh) 160-4.5 Mcg/Act Aero 2 PUFF INH BID, #1 INHALER 0 Refills *Rinse mouth after each use* Bupropion HCl ER 12 HR (Bupropion HCl ER 12 HR) 150 Mg Tab 150 MG PO BID for Control Depression, #60 TAB Buspirone (Buspirone) 10 Mg Tab 20 MG PO TID for Anxiety, TAB 0 Refills Diltiazem CD 24 HR (Diltiazem CD 24 HR) 120 Mg Caper 360 MG PO DAILY for atrial fibrillation, #30 CAP 0 Refills Hydrochlorothiazide (Hydrochlorothiazide) 25 Mg Tab 25 MG PO DAILY, #30 TAB 0 Refills Ipratropium-Albuterol Neb (Duoneb) 0.5-2.5 Mg/3 Ml Neb 3 ML NEB Q6HR PRN for SHORTNESS OF BREATH, #30 NEBULE 0 Refills Metoprolol Tartrate (Metoprolol Tartrate) 50 Mg Tab 50 MG PO BID, #60 TAB 0 Refills Polyethylene Glycol 3350 (Miralax) 17 Gram Powd.pack PO DAILY Dissolve 2 tablespoonsful in 4-8 ounces of water,juice,soda or other beverage Tamsulosin (Tamsulosin) 0.4 Mg Cap 0.4 MG PO DAILY for Manage Prostate Problems, #30 CAP 0 Refills Theophylline ER 24 HR (Rony-24) 200 Mg Cap 200 MG PO DAILY for PREVENT SHORTNESS OF BREATH, #30 CAP 0 Refills Tiotropium Inh (Spiriva Handihaler) 18 Mcg Cap 18 MCG INH DAILY for COPD, #30 CAP 0 Refills DO NOT SWALLOW CAPSULES Warfarin (Warfarin) 5 Mg Tab 5 MG PO DAILY for Blood Clot Prevention, #30 TAB 0 Refills Warfarin (Warfarin) 2.5 Mg Tab 2.5 MG PO FRIDAY for Blood Clot Prevention, #30 TAB 0 Refills Jazmin Golden MD May 13, 2017 21:46
[2017-05-14] VITALS: BP 109/73; PULSE 79; TEMP 97.2; O2SAT 96
[2017-05-14] MEDS: AZTREONAM INJ 2,000 MG in SODIUM CHLORIDE 0.9% INJ 100 ML IV SCH ×2 (02:03→09:16)
[2017-05-14] MEDS: RESP: ALBUTEROL CONC 2.5 MG/0.5 ML NEB NEB PRN (02:17)
[2017-05-14] MEDS: ACETAMINOPHEN/HYDROcodone 325 MG/10 MG TAB PO PRN ×2 (03:01→07:45)
[2017-05-14 04:05] VITALS: BP 124/71; PULSE 82; RESP 18; TEMP 98; O2SAT 94
[2017-05-14] MEDS: RESP: ALBUTEROL 2.5 MG/IPRATROPIUM 0.5 MG NEB (SCH) NEB (07:32)
[2017-05-14 07:35] VITALS: O2SAT 96
[2017-05-14 08:00] VITALS: BP 138/82; PULSE 80; RESP 18; TEMP 95.6; O2SAT 99
[2017-05-14] MEDS ORDERED: predniSONE 20 MG TAB PO SCH (09:00)
[2017-05-14] MEDS: TIOTROPIUM BROMIDE 18 MCG INH INH SCH (09:12)
[2017-05-14] MEDS: METOPROLOL TARTRATE 50 MG TAB PO SCH (09:13)
[2017-05-14] MEDS: FLUTICASONE PROPIONATE 50 MCG/ACT 16 GM NASAL SPRAY NASAL SCH (09:13)
[2017-05-14] MEDS: TAMSULOSIN HCL 0.4 MG CAP PO SCH (09:13)
[2017-05-14] MEDS: busPIRone HCL 10 MG TAB PO SCH (09:14)
[2017-05-14] MEDS: DOCUSATE SODIUM 50 MG/SENNA 8.6 MG TAB PO SCH (09:14)
[2017-05-14] MEDS: DILTIAZEM-CD 180 MG CAP ER PO SCH (09:14)
[2017-05-14] MEDS: LORATADINE 10 MG TAB PO SCH (09:14)
[2017-05-14] MEDS: buPROPion HCL 150 MG SUSTAINED RELEASE TAB PO SCH (09:14)
[2017-05-14] MEDS: BUDESONIDE-FORMOTEROL 160/4.5 MCG INHALER INH SCH (09:15)
[2017-05-14] MEDS: SODIUM CHLORIDE 0.9% FLUSH 10 ML FLUSH IV FLUSH SCH (09:15)
[2017-05-14] MEDS: HYDROCHLOROTHIAZIDE 25 MG TAB PO SCH (09:18)
[2017-05-14] MEDS ORDERED: WARFARIN SOD 2.5 MG TAB PO SCH (16:00)
== END 2017-05-14 12:03 | disposition home or self-care (01) | DRG 871 ==
LOC: NEPC 12:43 → NEDA 15:18 → N07A 18:07
PROVIDERS: ADMIT Hospitalist; ATTEND Hospitalist
DX: A41.9 Sepsis, unspecified organism (principal); J18.9 Pneumonia, unspecified organism; I11.0 Hypertensive heart disease with heart failure; I50.9 Heart failure, unspecified; Z99.81 Dependence on supplemental oxygen; J44.1 Chronic obstructive pulmonary disease with (acute) exacerbation; J44.0 Chronic obstructive pulmonary disease with (acute) lower respiratory infection; I48.91 Unspecified atrial fibrillation; E78.00 Pure hypercholesterolemia, unspecified; E11.9 Type 2 diabetes mellitus without complications; K21.9 Gastro-esophageal reflux disease without esophagitis; G89.29 Other chronic pain; M54.9 Dorsalgia, unspecified; R60.0 Localized edema; K59.00 Constipation, unspecified; R65.20 Severe sepsis without septic shock; F43.10 Post-traumatic stress disorder, unspecified; N40.0 Benign prostatic hyperplasia without lower urinary tract symptoms; R09.02 Hypoxemia; F32.9 Major depressive disorder, single episode, unspecified; F41.9 Anxiety disorder, unspecified; Z85.828 Personal history of other malignant neoplasm of skin; Z87.891 Personal history of nicotine dependence; Z86.14 Personal history of Methicillin resistant Staphylococcus aureus infection; Z87.01 Personal history of pneumonia (recurrent); Z79.899 Other long term (current) drug therapy; Z79.01 Long term (current) use of anticoagulants
CPT/HCPCS: 71045; 80048; 80053; 81001; 83605; 83690; 83735; 83880; 84484; 85007; 85027; 85610; 85730; 87040; 87070; 87077; 87186; 87205; 87449; 87804; 93005; 94640; 94664; 96365; 96375; J1956; J2920; J2930; J7040; J7512; J7611

== ENCOUNTER 2017-05-24 18:46 | Observation (INO) | payer OTHER, MEDICARE ==
[~2017-05-24] VITALS: Ht 182.9 cm; Wt 113.5 kg
[~2017-05-24 18:46] MED LIST changes: -AZIT250T3 PO; -CEFU1TAB18 PO; -CLAR10TA7 PO; -COUM2TAB PO; -POTA10CA PO; +WARF-18 PO; +WARF-23 PO; +[UNRECOGNIZED DRUG - CODE] P-ARTICULR
[2017-05-24 18:56] VITALS: BP 128/70; PULSE 93; RESP 15; TEMP 98.4; O2SAT 99
--- NOTE | 2017-05-24 19:26 | PD ---
HPI Chief Complaint: Respiratory Symptoms Time Seen by Provider: 19:21 Travel History International Travel<30 days: No Contact w/Intl Traveler<30days: No Traveled to known affect area: No History of Present Illness HPI 66-year-old male presents to the emergency department from home by EMS transport for progressively worsening shortness of breath and generalized weakness of bilateral lower extremity weakness a near fall. Patient denies fever chills. Patient was recently hospitalized with exacerbation COPD with hypoxemia and pneumonia 05/10-05/13. Patient was seen today in his jackspooler office for steroid infusion. Patient was identified to have elevated INR of 3.4. Patient is on warfarin for history of atrial fibrillation. Patient also has history of CHF and recent nuclear stress test that showed some mild ischemia. Patient's primary care provider is the CT patient's social work nurse is Dr. Alston and patient's jackspooler is Dr. Burks. FORMERLY [facility] Past Medical History Narrative Medical COPD CHF atrial fibrillation; no tobacco use; nursing notes reviewed Hx Anticoagulant Therapy: Yes Arthritis: No Asthma: Yes Atrial Fibrillation: Yes Autoimmune Disease: No Anxiety: Yes Depression: Yes Heart Rhythm Problems: Yes (a fib) Cancer: Yes (facial) Cardiovascular Problems: Yes High Cholesterol: Yes Chemotherapy: No Chest Pain: Yes Congestive Heart Failure: No COPD: Yes Cerebrovascular Accident: No Diabetes: Yes (NO MEDS) Patient Takes Glucophage: No Diminished Hearing: No Endocrine: No Gastrointestinal Disorders: Yes (REFLUX) GERD: Yes Genitourinary: Yes Hiatal Hernia: No Hypertension: Yes Immune Disorder: No Kidney Stones: No Musculoskeletal: Yes Neurologic: Yes Psychiatric: Yes Reproductive: No Respiratory: Yes (COPD) Integumentary: Yes Immunizations Current: Yes Migraines: No Pneumonia: Yes Radiation Therapy: No Renal Failure: No Seizures: No Sickle Cell Disease: No Sleep Apnea: No Thyroid Disease: No Ulcer: No PNEUMOCCOCAL Vaccine (Year): 2010 Past Surgical History Abdominal Surgery: No AICD: No Arteriovenous Shunt: No Body Medical Devices: PLATES AND SCREWS TO L ANKLE Cardiac Surgery: No Ear Surgery: No Endocrine Surgery: No Eye Surgery: No Genitourinary Surgery: No Gynecologic Surgery: No Insulin Pump: No Joint Replacement: No Neurologic Surgery: No Oral Surgery: No Pacemaker: No Thoracic Surgery: No Other Surgery: Yes (PIN IN LEFT ANKLE, BONE PLACED BACK IN FINGER) Social History Alcohol Use: No Tobacco Use: No Substance Use: No Allergies-Medications (Allergen,Severity, Reaction): Coded Allergies: cephalexin (Verified Allergy, Severe, 05/10/17) Reported Meds & Prescriptions Reported Meds & Active Scripts Active Prednisone (21) 10 mg tab Dose Pack (Prednisone) 10 Mg Pack 10 Mg PO DIRECTED Diltiazem CD 24 HR 120 Mg Caper 360 Mg PO DAILY Reported Warfarin 2.5 Mg Tab 2.5 Mg PO FRIDAY Warfarin 5 Mg Tab 5 Mg PO DAILY Minocin (Minocycline HCl) 100 Mg Inj 100 Mg P-ARTICULR BID PRN [place] (Hydrocodone-Acetaminophen) 10-325 Mg Tab 1 Tab PO Q4H PRN Metoprolol Tartrate 50 Mg Tab 50 Mg PO BID Miralax (Polyethylene Glycol 3350) 17 Gram Powd.pack PO DAILY Dissolve 2 tablespoonsful in 4-8 ounces of water,juice,soda or other beverage Prednisone 5 Mg Tab 40 Mg PO DAILY Albuterol Neb (Albuterol Sulfate) 2.5 Mg/3 Ml Neb 0.5 Mg NEB Q6HR PRN Ventolin Hfa 18 GM Inh (Albuterol Sulfate) 90 Mcg/Act Aer 2 Puff INH Q6H PRN Combivent Respimat Inh (Ipratropium-Albuterol Inh) 20-100 Custodial/Act Aero 1 Puff INH QID Bupropion HCl ER 12 HR (Bupropion HCl) 150 Mg Tab 150 Mg PO BID Tamsulosin (Tamsulosin HCl) 0.4 Mg Cap 0.4 Mg PO DAILY Duoneb (Ipratropium-Albuterol Neb) 0.5-2.5 Mg/3 Ml Neb 3 Ml NEB Q6HR PRN Spiriva Handihaler (Tiotropium Inh) 18 Mcg Cap 18 Mcg INH DAILY DO NOT SWALLOW CAPSULES Rony-24 (Theophylline) 200 Mg Cap 200 Mg PO DAILY Hydrochlorothiazide 25 Mg Tab 25 Mg PO DAILY Clotrimazole Topical (Clotrimazole) 1% Cream 1 Applic TOPICAL BID Apply to affected area on skin for fungal infection Buspirone (Buspirone HCl) 10 Mg Tab 20 Mg PO TID Symbicort Inh (Budesonide/Formoterol Fumarate) 160-4.5 Mcg/Act Aero 2 Puff INH BID *Rinse mouth after each use* Baclofen 10 Mg Tab 10 Mg PO BID PRN Atorvastatin (Atorvastatin Calcium) 80 Mg Tab 40 Mg PO HS Soothe Xp/Xtra Protection (Artificial Tear Solution) 1 Jarret Jarret 1 Drop EACH EYE QID PRN Review of Systems Except as stated in HPI: all other systems reviewed are Neg Physical Exam Narrative GENERAL: Well-developed well-nourished elderly male with supplemental oxygen in place with mild work of breathing. SKIN: Warm and dry. HEAD: Normocephalic. EYES: No scleral icterus. No injection or drainage. NECK: Supple, trachea midline. No JVD or lymphadenopathy. CARDIOVASCULAR: Regular rate and rhythm without murmurs, gallops, or rubs. RESPIRATORY: Breath sounds equal bilaterally diminished mildly with no rales. No accessory muscle use. GASTROINTESTINAL: Abdomen soft, non-tender, nondistended. MUSCULOSKELETAL: No cyanosis, bilateral lower extremity 1+ pitting edema. BACK: Nontender without obvious deformity. No CVA tenderness. Data Data Last Documented VS Vital Signs Date Time Temp Pulse Resp B/P (MAP) Pulse Ox O2 Delivery O2 Flow Rate FiO2 05/24/17 20:01 96 Nasal Cannula 3.00 05/24/17 19:00 85 15 05/24/17 18:56 98.4 128/70 (89) Orders Orders Complete Blood Count With Diff (05/24/17 19:21) Comprehensive Metabolic Panel (05/24/17 19:21) B-Type Natriuretic Peptide (05/24/17 19:21) Prothrombin Time / Inr (Pt) (05/24/17 19:21) Magnesium (Mg) (05/24/17 19:21) Ckmb (Isoenzyme) Profile (05/24/17 19:21) Troponin I (05/24/17 19:21) Urinalysis - C+S If Indicated (05/24/17 19:21) Iv Access Insert/Monitor (05/24/17 19:21) Electrocardiogram (05/24/17 19:21) Ecg Monitoring (05/24/17 19:21) Oximetry (05/24/17 19:21) Oxygen Administration (05/24/17 19:21) Chest, Single Ap (05/24/17 19:21) Sodium Chloride 0.9% Flush (Ns Flush) (05/24/17 19:30) Albuterol-Ipratropium Neb (Duoneb Neb) (05/24/17 19:30) Blood Culture (05/24/17 20:40) Lactic Acid (05/24/17 20:40) Levofloxacin 750 Mg Premix Inj (Levaquin (05/24/17 20:45) Admit Order (Ed Use Only) (05/24/17 ) Director Learning And Development / Telemetry [id number] (05/24/17 22:07) Diet 1999 Ada Cons Carb (05/25/17 Breakfast) Activity Bed Rest (05/24/17 22:07) Notify Dr: Other (05/24/17 22:07) Labs Laboratory Tests Test 05/24/17 19:50 05/24/17 20:55 05/24/17 21:20 White Blood Count 19.1 TH/MM3 Red Blood Count 3.53 MIL/MM3 Hemoglobin 11.9 GM/DL Hematocrit 33.4 % Mean Corpuscular Volume 94.4 FL Mean Corpuscular Hemoglobin 33.6 PG Mean Corpuscular Hemoglobin Concent 35.5 % Red Cell Distribution Width 18.9 % Platelet Count 269 TH/MM3 Mean Platelet Volume 6.5 FL Neutrophils (%) (Auto) 97.1 % Lymphocytes (%) (Auto) 0.5 % Monocytes (%) (Auto) 2.2 % Eosinophils (%) (Auto) 0.0 % Basophils (%) (Auto) 0.2 % Neutrophils # (Auto) 18.6 TH/MM3 Lymphocytes # (Auto) 0.1 TH/MM3 Monocytes # (Auto) 0.4 TH/MM3 Eosinophils # (Auto) 0.0 TH/MM3 Basophils # (Auto) 0.0 TH/MM3 CBC Comment DIFF FINAL Differential Comment Prothrombin Time 37.0 SEC Prothromb Time International Ratio 3.7 RATIO Blood Urea Nitrogen 20 MG/DL Creatinine 1.02 MG/DL Random Glucose 235 MG/DL Total Protein 6.9 GM/DL Albumin 2.9 GM/DL Calcium Level 9.1 MG/DL Magnesium Level 2.4 MG/DL Alkaline Phosphatase 72 U/L Aspartate Amino Transf (AST/SGOT) 40 U/L Alanine Aminotransferase (ALT/SGPT) 36 U/L Total Bilirubin 0.4 MG/DL Sodium Level 136 MEQ/L Potassium Level 4.5 MEQ/L Chloride Level 97 MEQ/L Carbon Dioxide Level 30.7 MEQ/L Anion Gap 8 MEQ/L Estimat Glomerular Filtration Rate 73 ML/MIN Total Creatine Kinase 88 U/L Troponin I LESS THAN 0.02 NG/ML B-Type Natriuretic Peptide 37 PG/ML Lactic Acid Level 2.6 mmol/L Urine Color YELLOW Urine Turbidity CLEAR Urine pH 6.0 Urine Specific [place] 1.030 Urine Protein 30 mg/dL Urine Glucose (UA) 1000 mg/dL Urine Ketones NEG mg/dL Urine Occult Blood NEG Urine Nitrite NEG Urine Bilirubin NEG Urine Urobilinogen LESS THAN 2.0 MG/DL Urine Leukocyte Esterase NEG Urine RBC LESS THAN 1 /hpf Urine WBC 2 /hpf Microscopic Urinalysis Comment CULT NOT INDICATED MDM Medical Decision Making Medical Screen Exam Complete: Yes Emergency Medical Condition: Yes Medical Record Reviewed: Yes Interpretation(s) EKG: Atrial fibrillation controlled ventricular rate of [address] elevation or injury pattern CBC & BMP Diagram 05/24/17 19:50 Total Protein 6.9, Albumin 2.9 L, Calcium Level 9.1, Magnesium Level 2.4, Alkaline Phosphatase 72, Aspartate Amino Transf (AST/SGOT) 40 H, Alanine Aminotransferase (ALT/SGPT) 36, Total Bilirubin 0.4 Vital Signs Date Time Temp Pulse Resp B/P (MAP) Pulse Ox O2 Delivery O2 Flow Rate FiO2 05/24/17 20:01 96 Nasal Cannula 3.00 05/24/17 19:00 85 15 98 Nasal Cannula 2.50 05/24/17 18:56 98.4 93 15 128/70 (89) 99 Differential Diagnosis Dyspnea, COPD, CHF, PE, ACS, KS, pneumonia, coagulopathy Narrative Course Patient placed on obstetrics gynecology md with continuous pulse oximetry IV access obtained Short of breath symptoms improved at rest and after updraft treatment Chest x-ray reveals no lobar infiltrate persistent cardiomegaly BMP is not elevated and cardiac enzymes are found to be in normal range White count is elevated probably related to mild volume contracture and steroid therapy however in view of patient's risk for infection and recent hospitalization will obtain blood cultures lactic acid as well as administer Levaquin Urinalysis remarkable for glucosuria otherwise no source of infection Patient will be admitted to medicine service as an observation for exacerbation of COPD with leukocytosis Patient is aware of plan for admission Sepsis Criteria SIRS Criteria (2 or more): Heart rate over 90, WBC > 54501, < 4000 or > 10% bands Severe Sepsis (+one): Lactate >2 Physician Communication Physician Communication call placed to [facility] OBS Diagnosis Primary Impression: COPD with exacerbation Additional Impression: Leukocytosis Admitting Information Admitting Physician Requests: Observation Lamar Montgomery MD May 24, 2017 19:26
[2017-05-24] MEDS ORDERED: RESP: ALBUTEROL 2.5 MG/IPRATROPIUM 0.5 MG NEB (SCH) INH ONE (19:30)
[2017-05-24] MEDS ORDERED: SODIUM CHLORIDE 0.9% FLUSH 10 ML FLUSH IVF PRN (19:30)
--- NOTE | 2017-05-24 19:49 | RADRPT ---
EXAM DATE/TIME: 05/24/2017 19:36 [facility] COMPARISON: CHEST SINGLE AP, May 10, 2017, 14:03. INDICATIONS : Short of breath. MEDICAL HISTORY : Hypertension. Chronic obstructive pulmonary disease. SURGICAL HISTORY : None. ENCOUNTER: Initial ACUITY: 1 day PAIN SCORE: 3/10 LOCATION: Bilateral chest FINDINGS: Moderate hyperinflation with mild compensated cardiomegaly. No congestive failure no pneumothorax. No pleural effusion. . Osseous structures are intact. CONCLUSION: Hyperinflation and mild compensated cardiomegaly. This could mask congestive failure. Neftali Phillips MD FACR on May 24, 2017 at 19:46 Board Certified Radiologist. This report was verified electronically.
[2017-05-24 20:01] VITALS: O2SAT 96
[2017-05-24 20:32] LABS: ALT (GPT) 36 U/L (12-78)
[2017-05-24 20:33] LABS: AUTOMATED NEUTROPHIL # 18.6 TH/MM3 (1.8-7.7); BASOPHIL % 0.2 % (0.0-2.0); HEMATOCRIT 33.4 % (39.0-51.0); HEMOGLOBIN 11.9 GM/DL (13.0-17.0); LYMPH % 0.5 % (9.0-44.0); LYMPHOCYTE # 0.1 TH/MM3 (1.0-4.8); MEAN CELL VOLUME 94.4 FL (80.0-100.0); MEAN CORPUSCULAR HEMOGLOBIN 33.6 PG (27.0-34.0); MEAN CORPUSCULAR HGB CONC 35.5 % (32.0-36.0); MEAN PLATELET VOLUME 6.5 FL (7.0-11.0); MONO % 2.2 % (0.0-8.0); MONOCYTE # 0.4 TH/MM3 (0-0.9); NEUT % 97.1 % (16.0-70.0); PLATELET COUNT 269 TH/MM3 (150-450); RED BLOOD COUNT 3.53 MIL/MM3 (4.50-5.90); RED CELL DISTRIBUTION WIDTH 18.9 % (11.6-17.2); WHITE BLOOD COUNT 19.1 TH/MM3 (4.0-11.0)
[2017-05-24 20:41] LABS: ALBUMIN 2.9 GM/DL (3.4-5.0); ALKALINE PHOSPHATASE 72 U/L (45-117); AST (GOT) 40 U/L (15-37); BICARBONATE 30.7 MEQ/L (21.0-32.0); BLOOD UREA NITROGEN 20 MG/DL (7-18); CALCIUM 9.1 MG/DL (8.5-10.1); CHLORIDE 97 MEQ/L (98-107); CREATININE 1.02 MG/DL (0.60-1.30); GLOMERULAR FILTRATION RATE 73 ML/MIN (>89); GLUCOSE,RANDOM 235 MG/DL (74-106); MAGNESIUM 2.4 MG/DL (1.5-2.5); SODIUM (NA) 136 MEQ/L (136-145); TOTAL BILIRUBIN ADULT 0.4 MG/DL (0.2-1.0); TOTAL PROTEIN 6.9 GM/DL (6.4-8.2); TROPONIN I LESS THAN 0.02 NG/ML (0.02-0.05)
[2017-05-24 20:45] LABS: INTERNATIONAL NORMALIZED RATIO 3.7 RATIO
[2017-05-24] MEDS ORDERED: LEVOFLOXACIN 750 MG PREMIX INJ 150 ML IV ONE (20:45)
[2017-05-24 21:49] LABS: BILIRUBIN, URINE NEG (NEG); BLOOD, URINE NEG (NEG); GLUCOSE,URINE 1000 mg/dL (NEG); KETONE, URINE NEG (NEG); NITRITE,URINE NEG (NEG); URINE COLOR YELLOW (YELLW/STRAW); URINE LEUKOCYTE ESTERASE NEG (NEG)
[2017-05-24 22:14] VITALS: BP 110/69; PULSE 77; RESP 16; RESP 18; O2SAT 95
--- NOTE | 2017-05-24 22:25 | HHI.HP ---
HPI Service [facility] Primary Care Physician [facility] Admission Diagnosis exacerbation copd; leukocytosis; elevated INR Diagnoses: (1) COPD (chronic obstructive pulmonary disease) Diagnosis: Principal (2) Generalized weakness Diagnosis: Principal (3) A-fib Diagnosis: Principal (4) Supratherapeutic INR Diagnosis: Principal Travel History International Travel<30 Days: No Contact w/Intl Traveler <30 Da: No Traveled to Known Affected Are: No History of Present Illness This is a 66-year-old male with PMH of HTN, COPD, O2 Dependent, A. fib on Coumadin, Anxiety, Depression and CHF (Echo 02/18/17 w/ EF 55-60%) who was brought to the ER by EMS w/ complaints of SOB and generalized weakness. Recent admit 05/10-05/13/17 for PNA, Sepsis, COPD. Returns now w/ SOB and weakness, states he's been unable to walk, feels "run-down". Denies fever, chills, chest pain or cough. Seen in Inventory Clerk's office today for steroid infusion and referred to ER for SOB. On arrival, BP 120/70, HR 93, O2 sat 99% on 3L NC, Afebrile. WBC 19.1. Chemistry unremarkable except for BUN 20, GFR 73. Lactic Acid 2.6. Troponin negative. INR 3.7 UA negative. CXR hyperinflation mild compensated cardiomegaly. S/p Solu-Medrol/DuoNeb in ER w/ some improvement. Review of Systems Except as stated in HPI: all other systems reviewed are Neg ROS: 14 point review of systems otherwise negative. Past Family Social History Past Medical History PMH: HTN, COPD, O2 Dependent, A. fib on Coumadin, Anxiety, Depression and CHF ( Echo 02/18/17 w/ EF 55-60%) Past Surgical History PAST SURGICAL HISTORY: Left Ankle Surgery Allergies: Coded Allergies: cephalexin (Verified Allergy, Severe, 05/10/17) Family History PAST FAMILY HISTORY: Reviewed. No h/o DM or CAD Social History PAST SOCIAL HISTORY: Negative for alcohol, tobacco or drugs. Physical Exam Vital Signs Vital Signs Date Time Temp Pulse Resp B/P (MAP) Pulse Ox O2 Delivery O2 Flow Rate FiO2 05/24/17 22:14 16 95 Nasal Cannula 3.00 05/24/17 22:14 77 18 110/69 (83) 95 Nasal Cannula 3.00 05/24/17 22:12 95 Nasal Cannula 2.50 05/24/17 20:01 96 Nasal Cannula 3.00 05/24/17 19:00 85 15 98 Nasal Cannula 2.50 05/24/17 18:56 98.4 93 15 128/70 (89) 99 Physical Exam PE: GENERAL: Pleasant middle-aged white male in no acute distress. HEENT: PERRLA, EOMI. No scleral icterus or conjunctival pallor. No lid lag or facial droop. CARDIOVASCULAR: Regular rate and rhythm. No obvious murmurs to auscultation. No chest tenderness to palpation. RESPIRATORY: No obvious rhonchi or wheezing. Clear to auscultation. Breath sounds mildly diminished at bases bilaterally. GASTROINTESTINAL: Abdomen soft, non-tender, nondistended. BS normal. MUSCULOSKELETAL: Extremities without clubbing, cyanosis, or edema. No obvious deformities. NEUROLOGICAL: Awake, alert and oriented x4. No focal neurologic deficits. Moving both upper and lower extremities spontaneously. Laboratory Laboratory Tests Test 05/24/17 19:50 05/24/17 20:55 05/24/17 21:20 White Blood Count 19.1 Red Blood Count 3.53 Hemoglobin 11.9 Hematocrit 33.4 Mean Corpuscular Volume 94.4 Mean Corpuscular Hemoglobin 33.6 Mean Corpuscular Hemoglobin Concent 35.5 Red Cell Distribution Width 18.9 Platelet Count 269 Mean Platelet Volume 6.5 Neutrophils (%) (Auto) 97.1 Lymphocytes (%) (Auto) 0.5 Monocytes (%) (Auto) 2.2 Eosinophils (%) (Auto) 0.0 Basophils (%) (Auto) 0.2 Neutrophils # (Auto) 18.6 Lymphocytes # (Auto) 0.1 Monocytes # (Auto) 0.4 Eosinophils # (Auto) 0.0 Basophils # (Auto) 0.0 CBC Comment DIFF FINAL Differential Comment Prothrombin Time 37.0 Prothromb Time International Ratio 3.7 Blood Urea Nitrogen 20 Creatinine 1.02 Random Glucose 235 Total Protein 6.9 Albumin 2.9 Calcium Level 9.1 Magnesium Level 2.4 Alkaline Phosphatase 72 Aspartate Amino Transf (AST/SGOT) 40 Alanine Aminotransferase (ALT/SGPT) 36 Total Bilirubin 0.4 Sodium Level 136 Potassium Level 4.5 Chloride Level 97 Carbon Dioxide Level 30.7 Anion Gap 8 Estimat Glomerular Filtration Rate 73 Total Creatine Kinase 88 Troponin I LESS THAN 0.02 B-Type Natriuretic Peptide 37 Lactic Acid Level 2.6 Urine Color YELLOW Urine Turbidity CLEAR Urine pH 6.0 Urine Specific [place] 1.030 Urine Protein 30 Urine Glucose (UA) 1000 Urine Ketones NEG Urine Occult Blood NEG Urine Nitrite NEG Urine Bilirubin NEG Urine Urobilinogen LESS THAN 2.0 Urine Leukocyte Esterase NEG Urine RBC LESS THAN 1 Urine WBC 2 Microscopic Urinalysis Comment CULT NOT INDICATED Date/Time Source Procedure Growth Status 05/24/17 21:05 Blood Peripheral Aerobic Blood Culture Pending Received 05/24/17 21:05 Blood Peripheral Anaerobic Blood Culture Pending Received Result Diagram: 05/24/17194905/24/171949 Caprini VTE Risk Assessment Caprini VTE Risk Assessment: No/Low Risk (score <= 1) Caprini Risk Assessment Model Point Value = 1 Point Value = 2 Point Value = 3 Point Value = 5 Age 41-60 Minor surgery BMI > 25 kg/m2 Swollen legs Varicose veins or History of unexplained or recurrent spontaneous Oral contraceptives or hormone replacement Sepsis (< 1 month) Serious lung disease, including pneumonia (< 1 month) Abnormal pulmonary function Acute myocardial infarction Congestive heart failure (< 1 month) History of inflammatory bowel disease Medical patient at bed rest Age 61-74 Arthroscopic surgery Major open surgery (> 45 min) Laparoscopic surgery (> 45 min) Malignancy Confined to bed (> 72 hours) Immobilizing plaster cast Central venous access Age >= 75 History of VTE Family history of VTE Factor V Leiden Prothrombin [id number] Lupus anticoagulant Anticardiolipin antibodies Elevated serum homocysteine Heparin-induced thrombocytopenia Other congenital or acquired thrombophilia Stroke (< 1 month) Elective arthroplasty Hip, pelvis, or leg fracture Acute spinal cord injury (< 1 month) Prophylaxis Regimen Total Risk Factor Score Risk Level Prophylaxis Regimen 0-1 Low Early ambulation 2 Moderate Order ONE of the following: *Sequential Compression Device (SCD) *Heparin 5000 units SQ BID 3-4 Higher Order ONE of the following medications: *Heparin 5000 units SQ TID *Enoxaparin/Lovenox 40 mg SQ daily (WT < 150 kg, CrCl > 30 mL/min) *Enoxaparin/Lovenox 30 mg SQ daily (WT < 150 kg, CrCl > 10-29 mL/min) *Enoxaparin/Lovenox 30 mg SQ BID (WT < 150 kg, CrCl > 30 mL/min) AND/OR *Sequential Compression Device (SCD) 5 or more Highest Order ONE of the following medications: *Heparin 5000 units SQ TID (Preferred with Epidurals) *Enoxaparin/Lovenox 40 mg SQ daily (WT < 150 kg, CrCl > 30 mL/min) *Enoxaparin/Lovenox 30 mg SQ daily (WT < 150 kg, CrCl > 10-29 mL/min) *Enoxaparin/Lovenox 30 mg SQ BID (WT < 150 kg, CrCl > 30 mL/min) AND *Sequential Compression Device (SCD) Assessment and Plan Problem List: (1) COPD (chronic obstructive pulmonary disease) ICD Code: J44.9 - Chronic obstructive pulmonary disease, unspecified (2) Generalized weakness ICD Code: R53.1 - Weakness (3) A-fib ICD Code: I48.91 - Unspecified atrial fibrillation (4) Supratherapeutic INR ICD Code: R79.1 - Abnormal coagulation profile Assessment and Plan A/P: 1. COPD: Chronic Respiratory Failure w/ Acute Exacerbation. Severe. Recent admit 05/13/17 for Sepsis/PNA/COPD, follows w/ Dr. Burks at the [place], received steroid injection in office today. CXR w/ compensated cardiomegaly, images reviewed by me. Solu-Medrol, Symbicort, DuoNeb q4h and q2h prn, Mucinex. O2 Dependent, continue O2, monitor oxymetry. 2. Generalized Weakness: likely secondary to physical deconditioning, possibly steroid myopathy. PT for eval/tx 3. A-fib: Chronic. Resume home Metoprolol and Cardizem. 4. Supratherapeutic INR: INR 3.7, will hold Coumadin, recheck INR in am, resume Coumadin if INR 2-3. 5. DVT Prophylaxis: Hold Coumadin as above 6. Social work for d/c planning as needed. 7. Case discussed w/ ER physician at length, labs/records/imaging reviewed by me. Sofy Blair MD May 24, 2017 22:25
[2017-05-24] MEDS ORDERED: MAGNESIUM HYDROXIDE SUSP 30 ML CUP PO PRN (22:30)
[2017-05-24] MEDS ORDERED: GLUCAGON 1 MG/ML VIAL OTHER PRN ×2 (22:30)
[2017-05-24] MEDS ORDERED: DEXTROSE 50% IN WATER 50 ML VIAL(D50) IV PUSH PRN (22:30)
[2017-05-24] MEDS ORDERED: LACTULOSE SYRUP 20 GM/30 ML CUP PO PRN (22:30)
[2017-05-24] MEDS ORDERED: BISACODYL 10 MG SUPP RECTAL PRN (22:30)
[2017-05-24] MEDS ORDERED: SENNOSIDES 8.6 MG TAB PO PRN (22:30)
[2017-05-24] MEDS ORDERED: SODIUM CHLORIDE 0.9% FLUSH 10 ML FLUSH IV FLUSH PRN (22:30)
[2017-05-24] MEDS ORDERED: ACETAMINOPHEN/HYDROcodone 325 MG/5 MG TAB PO PRN (22:30)
[2017-05-24] MEDS ORDERED: BACLOFEN 10 MG TAB PO PRN (22:30)
[2017-05-24] MEDS ORDERED: ONDANSETRON HCL 4 MG/2 ML VIAL IVP PRN (22:30)
[2017-05-24] MEDS ORDERED: ACETAMINOPHEN 325 MG TAB PO PRN (22:30)
[2017-05-24] MEDS: MORPHINE SULFATE 2 MG/ML INJ IV PUSH PRN (22:50)
[2017-05-25] VITALS (10 sets, daily range): BP systolic 90–116; BP diastolic 53–69; PULSE 70–103; RESP 20–22; TEMP 95.5–98.7; O2SAT 91–96
[2017-05-25] MEDS: MORPHINE SULFATE 2 MG/ML INJ IV PUSH PRN ×4 (02:26→14:36)
[2017-05-25] MEDS: RESP: ALBUTEROL 2.5 MG/IPRATROPIUM 0.5 MG NEB (PRN) NEB ×2 (05:41→23:34)
[2017-05-25] MEDS: methylPREDNISolone SOD SUCC 40 MG/1 ML VIAL IV PUSH SCH ×5 (06:00→22:53)
[2017-05-25] MEDS: RESP: ALBUTEROL 2.5 MG/IPRATROPIUM 0.5 MG NEB (SCH) NEB ×4 (07:51→20:00)
[2017-05-25 08:01] LABS: AUTOMATED NEUTROPHIL # 13.5 TH/MM3 (1.8-7.7); BASOPHIL % 0.1 % (0.0-2.0); HEMATOCRIT 31.3 % (39.0-51.0); HEMOGLOBIN 10.7 GM/DL (13.0-17.0); LYMPH % 1.6 % (9.0-44.0); LYMPHOCYTE # 0.2 TH/MM3 (1.0-4.8); MEAN CELL VOLUME 93.9 FL (80.0-100.0); MEAN CORPUSCULAR HGB CONC 34.1 % (32.0-36.0); MEAN PLATELET VOLUME 6.3 FL (7.0-11.0); MONOCYTE # 0.3 TH/MM3 (0-0.9); NEUT % 96.3 % (16.0-70.0); PLATELET COUNT 247 TH/MM3 (150-450); RED BLOOD COUNT 3.33 MIL/MM3 (4.50-5.90); RED CELL DISTRIBUTION WIDTH 18.6 % (11.6-17.2)
[2017-05-25 08:03] LABS: INTERNATIONAL NORMALIZED RATIO 2.7 RATIO; PROTHROMBIN TIME - PATIENT 27.2 SEC (9.8-11.6)
[2017-05-25 08:18] LABS: ALBUMIN 2.5 GM/DL (3.4-5.0); AST (GOT) 25 U/L (15-37); BICARBONATE 31.4 MEQ/L (21.0-32.0); BLOOD UREA NITROGEN 17 MG/DL (7-18); CALCIUM 8.7 MG/DL (8.5-10.1); CHLORIDE 99 MEQ/L (98-107); CREATININE 0.77 MG/DL (0.60-1.30); GLOMERULAR FILTRATION RATE 100 ML/MIN (>89); GLUCOSE,RANDOM 176 MG/DL (74-106); SODIUM (NA) 139 MEQ/L (136-145)
[2017-05-25 08:19] LABS: ALT (GPT) 29 U/L (12-78)
[2017-05-25 08:21] LABS: ALKALINE PHOSPHATASE 63 U/L (45-117); TOTAL BILIRUBIN ADULT 0.3 MG/DL (0.2-1.0); TOTAL PROTEIN 6.2 GM/DL (6.4-8.2)
[2017-05-25 08:51] LABS: BANDS 10 % (0-6); MYELOCYTES 4 % (0-0); POLYS (SEG NEUTROPHILS) 86 % (16-70)
[2017-05-25] MEDS ORDERED: SODIUM CHLORIDE FLUSH BID IV FLUSH SCH (09:00)
[2017-05-25] MEDS: INSULIN ASPART SUPPLEMENTAL SCALE SQ SCH ×4 (10:02→22:52)
[2017-05-25] MEDS: SODIUM CHLORIDE 0.9% FLUSH 10 ML FLUSH IV FLUSH SCH ×2 (10:02→21:59)
[2017-05-25] MEDS: TAMSULOSIN HCL 0.4 MG CAP PO SCH (10:03)
[2017-05-25] MEDS: THEOPHYLLINE 200 MG EXTENDED RELEASE CAP PO SCH (10:03)
[2017-05-25] MEDS: buPROPion HCL 150 MG SUSTAINED RELEASE TAB PO SCH ×2 (10:04→21:59)
[2017-05-25] MEDS: DOCUSATE SODIUM 50 MG/SENNA 8.6 MG TAB PO SCH ×2 (10:04→21:59)
[2017-05-25] MEDS: DILTIAZEM-CD 180 MG CAP ER PO SCH (10:04)
[2017-05-25] MEDS: METOPROLOL TARTRATE 50 MG TAB PO SCH ×2 (10:05→21:59)
[2017-05-25] MEDS: guaiFENesin E.R. 600 MG TAB PO SCH ×2 (10:06→21:59)
[2017-05-25] MEDS: CLOTRIMAZOLE 1% CREAM 15 GM TOPICAL SCH ×2 (10:09→22:00)
[2017-05-25] MEDS: busPIRone HCL 10 MG TAB PO SCH ×3 (10:09→17:27)
--- NOTE | 2017-05-25 10:23 | HHI.PR ---
Subjective Remarks Follow up for COPD exacerbation. The patient reports feeling much better today, almost back to his baseline COPD. He denies any cough or wheezing. He states his shortness of breath is at baseline. O2 sat 95-96% on 3L NC. Patient wears oxygen at home and also has nebulizer machine at home. He does complain of just feeling weak in the legs. Denies any recent fall or injury. He states he's had HHC in the past and would like to continue this at discharge. He otherwise has no other medical complaints including no lightheadedness/dizziness, chest pain, abdominal pain, nausea/vomiting, diarrhea, or urinary complaints. Objective Vitals Vital Signs Date Time Temp Pulse Resp B/P (MAP) Pulse Ox O2 Delivery O2 Flow Rate FiO2 05/25/17 08:22 98.3 103 20 110/64 (79) 95 05/25/17 07:54 96 Nasal Cannula 3.00 05/25/17 04:00 70 05/25/17 03:15 98.0 88 20 116/69 (85) 94 05/25/17 00:02 98.1 84 20 90/55 (67) 96 05/24/17 23:49 05/24/17 22:14 16 95 Nasal Cannula 3.00 05/24/17 22:14 77 18 110/69 (83) 95 Nasal Cannula 3.00 05/24/17 22:12 95 Nasal Cannula 2.50 05/24/17 20:01 96 Nasal Cannula 3.00 05/24/17 19:00 85 15 98 Nasal Cannula 2.50 05/24/17 18:56 98.4 93 15 128/70 (89) 99 I/O 05/24/17 05/24/17 05/24/17 05/25/17 05/25/17 05/25/17 07:00 15:00 23:00 07:00 15:00 23:00 Intake Total 150 ml 480 ml Output Total 400 ml Balance 150 ml 80 ml Intake Oral 480 ml IV Total 150 ml Output Urine Total 400 ml Result Diagram: 05/25/1772305/25/17717 Imaging CXR 05/24/17 shows hyperinflation and mild compensated cardiomegaly Objective Remarks GENERAL: Well-nourished, well-developed obese male patient in [place]. SKIN: Warm and dry. No rash. Multiple areas of ecchymosis throughout chest and extremities. HEENT: Normocephalic. Atraumatic.Pupils equal and round. Mucous membranes pink and moist. CARDIOVASCULAR: Regular rate and rhythm. S1, S2 noted. No murmur appreciated. RESPIRATORY: No accessory muscle use. Minimal anterior expiratory wheezing, otherwise clear to auscultation. Breath sounds equal bilaterally. GASTROINTESTINAL: Obese abdomen, soft, non-tender, nondistended. Normoactive bowel sounds x4. MUSCULOSKELETAL: No obvious deformities. Extremities without clubbing, cyanosis , or edema. NEUROLOGICAL: Awake and alert. No obvious cranial nerve deficits. Motor grossly within normal limits. 5/5 muscle strength in bilateral upper and lower extremities. Normal speech. PSYCHIATRIC: Appropriate mood and affect; insight and judgment normal. Medications and IVs Current Medications Medications (Trade) Dose Ordered Sig/Agatha Route Start Time Stop Time Status Last Admin (D50w (Vial) Inj) 50 ml UNSCH PRN IV PUSH 05/24/17 22:30 (Glucagon Inj) 1 mg UNSCH PRN OTHER 05/24/17 22:30 (NovoLOG SUPPLEMENTAL SCALE) 1 ACHS SLIDING SCALE SQ 05/25/17 08:00 05/25/17 14:35 (SoluMEDROL INJ) 40 mg Q6HR IV PUSH 05/25/17 00:00 05/25/17 14:34 (Duoneb Neb) 1 ampule Q4HR WHILE AWAKE NEB NEB 05/25/17 08:00 05/25/17 12:10 (Duoneb Neb) 1 ampule Q2HR NEB PRN NEB 05/24/17 22:30 05/25/17 05:41 (Mucinex Er) 600 mg BID PO 05/25/17 09:00 05/25/17 10:06 Levofloxacin/ Dextrose 150 ml @ 100 mls/hr Q24H IV 05/25/17 23:00 (NS Flush) 2 ml UNSCH PRN IV FLUSH 05/24/17 22:30 (NS Flush) 2 ml BID IV FLUSH 05/25/17 09:00 05/25/17 10:02 (Zofran Inj) 4 mg Q6H PRN IVP 05/24/17 22:30 (Tylenol) 650 mg Q6H PRN PO 05/24/17 22:30 ([place] 5-325 Mg) 1 tab Q4H PRN PO 05/24/17 22:30 (Morphine Inj) 2 mg Q3H PRN IV PUSH 05/24/17 22:30 05/25/17 14:36 (Irasema-Colace) 1 tab BID PO 05/25/17 09:00 05/25/17 10:04 (Milk Of Magnesia Liq) 30 ml Q12H PRN PO 05/24/17 22:30 (Senokot) 17.2 mg Q12H PRN PO 05/24/17 22:30 (Dulcolax Supp) 10 mg DAILY PRN RECTAL 05/24/17 22:30 (Lactulose Liq) 30 ml DAILY PRN PO 05/24/17 22:30 (Lipitor) 40 mg HS PO 05/25/17 21:00 (Lioresal) 10 mg BID PRN PO 05/24/17 22:30 05/25/17 02:26 (Symbicort 160-4.5 Mcg Inh) 2 puff BID INH 05/25/17 09:00 05/25/17 14:37 (Wellbutrin Sr) 150 mg BID PO 05/25/17 09:00 05/25/17 10:04 (Buspar) 20 mg TID PO 05/25/17 09:00 05/25/17 14:36 (Lotrimin 1% Cream) 1 applic BID TOPICAL 05/25/17 09:00 05/25/17 10:09 (Cardizem Cd) 360 mg DAILY PO 05/25/17 09:00 05/25/17 10:04 (Lopressor) 50 mg BID PO 05/25/17 09:00 05/25/17 10:05 (Flomax) 0.4 mg DAILY PO 05/25/17 09:00 05/25/17 10:03 (Rony-24) 200 mg DAILY PO 05/25/17 09:00 05/25/17 10:03 (Spiriva Inh) 18 mcg DAILY INH 05/25/17 09:00 05/25/17 14:37 A/P Problem List: (1) COPD (chronic obstructive pulmonary disease) ICD Code: J44.9 - Chronic obstructive pulmonary disease, unspecified (2) Generalized weakness ICD Code: R53.1 - Weakness (3) A-fib ICD Code: I48.91 - Unspecified atrial fibrillation (4) Supratherapeutic INR ICD Code: R79.1 - Abnormal coagulation profile Assessment and Plan 66-year-old male with PMH of HTN, COPD, O2 Dependent, A. fib on Coumadin, Anxiety, Depression and CHF (Echo 02/18/17 w/ EF 55-60%) who was brought to the ER by EMS w/ complaints of SOB and generalized weakness. Recent admit 05/10-05/13 for PNA, Sepsis, COPD. Acute COPD Exacerbation with Chronic Respiratory Failure on Home O2: Severe. Recent admit 05/13/17 for Sepsis/PNA/COPD, follows w/ Dr. Burks at the [place], received steroid injection in office today then sent to ER. -CXR w/ compensated cardiomegaly, images reviewed -Continue steroids with IV Solu-Medrol 40mg q6h, can likely de-escalate to po prednisone tomorrow -Continue Symbicort bid -Continue bronchodilators with DuoNeb q4h and q2h prn -Continue Mucinex bid -O2 dependent at home, continue O2, monitor oximetry. -Patient improved today, continue to monitor Generalized Weakness: likely secondary to physical deconditioning, possibly steroid myopathy. -Consult PT for eval/tx, recommends rehab -Consult case management for assistance with discharge planning A-fib: Chronic. Rate controlled. -Resume home Metoprolol and Cardizem. -Anticoagulated on coumadin -Monitor on telemetry Supratherapeutic INR: INR 3.7 upon arrival -initially held patient's Coumadin -repeat INR 2.7, will continue patient's coumadin. DVT Prophylaxis: On Coumadin Discharge Planning Patient's COPD exacerbation much improved, almost back to baseline, however PT recommending rehab placement. Case management consulted for assistance with discharge planning. Ashwini Silva PA-C May 25, 2017 10:23 am
[2017-05-25] MEDS: TIOTROPIUM BROMIDE 18 MCG INH INH SCH (14:37)
[2017-05-25] MEDS: BUDESONIDE-FORMOTEROL 160/4.5 MCG INHALER INH SCH ×2 (14:37→21:59)
[2017-05-25] MEDS ORDERED: DO NOT ADM ANY ANTICOAGULANT DRUGS OTHER PRN (15:45)
[2017-05-25] MEDS ORDERED: WARFARIN SOD 5 MG TAB PO SCH (16:00)
--- NOTE | 2017-05-25 19:45 | EKG ---
Date Performed: 05/24/2017 Time Performed: 19:12:12 PTAGE: 66 years EKG: ATRIAL FIBRILLATION LOW QRS VOLTAGE IN PRECORDIAL LEADS Since the previous tracing, no sign ificant change noted ABNORMAL RHYTHM ECG PREVIOUS TRACING : 05/10/2017 14.20 DOCTOR: Adrienne Bucio Interpretating Date/Time 05/25/2017 19:44:03
[2017-05-25] MEDS ORDERED: ATORVASTATIN 40 MG TAB PO SCH (21:00)
[2017-05-25] MEDS ORDERED: LEVOFLOXACIN 750 MG PREMIX INJ 150 ML IV SCH (23:00)
[2017-05-26 00:10] VITALS: BP 116/75; PULSE 92; RESP 18; TEMP 95.5; O2SAT 95
[2017-05-26] MEDS: RESP: ALBUTEROL 2.5 MG/IPRATROPIUM 0.5 MG NEB (PRN) NEB ×2 (01:59→04:53)
[2017-05-26] MEDS: MORPHINE SULFATE 2 MG/ML INJ IV PUSH PRN ×2 (02:10→08:31)
[2017-05-26 04:00] VITALS: BP 104/68; PULSE 100; PULSE 95; RESP 18; TEMP 96.3; O2SAT 93
[2017-05-26 04:17] LABS: AUTOMATED NEUTROPHIL # 11.1 TH/MM3 (1.8-7.7); BASOPHIL % 0.1 % (0.0-2.0); HEMATOCRIT 29.8 % (39.0-51.0); HEMOGLOBIN 10.3 GM/DL (13.0-17.0); LYMPH % 1.7 % (9.0-44.0); LYMPHOCYTE # 0.2 TH/MM3 (1.0-4.8); MEAN CELL VOLUME 92.8 FL (80.0-100.0); MEAN CORPUSCULAR HEMOGLOBIN 32.3 PG (27.0-34.0); MEAN CORPUSCULAR HGB CONC 34.8 % (32.0-36.0); MEAN PLATELET VOLUME 6.3 FL (7.0-11.0); MONO % 2.8 % (0.0-8.0); MONOCYTE # 0.3 TH/MM3 (0-0.9); NEUT % 95.4 % (16.0-70.0); PLATELET COUNT 242 TH/MM3 (150-450); RED BLOOD COUNT 3.21 MIL/MM3 (4.50-5.90); RED CELL DISTRIBUTION WIDTH 18.2 % (11.6-17.2); WHITE BLOOD COUNT 11.7 TH/MM3 (4.0-11.0)
[2017-05-26 04:30] LABS: INTERNATIONAL NORMALIZED RATIO 1.8 RATIO; PROTHROMBIN TIME - PATIENT 18.2 SEC (9.8-11.6)
[2017-05-26 04:45] LABS: BICARBONATE 29.5 MEQ/L (21.0-32.0); CALCIUM 8.3 MG/DL (8.5-10.1); CREATININE 0.6 MG/DL (0.60-1.30)
[2017-05-26] MEDS: methylPREDNISolone SOD SUCC 40 MG/1 ML VIAL IV PUSH SCH (05:34)
[2017-05-26] MEDS: RESP: ALBUTEROL 2.5 MG/IPRATROPIUM 0.5 MG NEB (SCH) NEB ×2 (07:50→11:41)
[2017-05-26 07:51] VITALS: O2SAT 95
[2017-05-26 07:56] VITALS: O2SAT 94
[2017-05-26 08:11] VITALS: BP 107/62; PULSE 92; RESP 20; TEMP 97.7; O2SAT 93
[2017-05-26] MEDS: METOPROLOL TARTRATE 50 MG TAB PO SCH (08:31)
[2017-05-26] MEDS: DOCUSATE SODIUM 50 MG/SENNA 8.6 MG TAB PO SCH (08:31)
[2017-05-26] MEDS: buPROPion HCL 150 MG SUSTAINED RELEASE TAB PO SCH (08:31)
[2017-05-26] MEDS: guaiFENesin E.R. 600 MG TAB PO SCH (08:32)
[2017-05-26] MEDS: TAMSULOSIN HCL 0.4 MG CAP PO SCH (08:32)
[2017-05-26] MEDS: DILTIAZEM-CD 180 MG CAP ER PO SCH (08:32)
[2017-05-26] MEDS: busPIRone HCL 10 MG TAB PO SCH (08:32)
[2017-05-26] MEDS: BUDESONIDE-FORMOTEROL 160/4.5 MCG INHALER INH SCH (08:33)
[2017-05-26] MEDS: TIOTROPIUM BROMIDE 18 MCG INH INH SCH (08:33)
[2017-05-26] MEDS: SODIUM CHLORIDE 0.9% FLUSH 10 ML FLUSH IV FLUSH SCH (08:34)
[2017-05-26] MEDS: THEOPHYLLINE 200 MG EXTENDED RELEASE CAP PO SCH (08:34)
[2017-05-26] MEDS: CLOTRIMAZOLE 1% CREAM 15 GM TOPICAL SCH (08:34)
[2017-05-26] MEDS: INSULIN ASPART SUPPLEMENTAL SCALE SQ SCH (09:33)
--- NOTE | 2017-05-26 09:43 | HHI.FF ---
Face to Face Verification Diagnosis: (1) COPD with exacerbation (2) Chronic back pain (3) Hypertension (4) Hyperlipemia (5) Warfarin anticoagulation (6) A-fib (7) Generalized weakness Physical Therapy Order: Evaluate and Treat, Improve ambulation, Strength and gait training Home Health Nursing Order: Medical education Signs/symptoms of disease process Oxygen administration education Nursing assessment with vital signs Operations Intern Order: To Evaluate: Living conditions/environment, Support services Order: To Provide: Long range planning, Community services I have seen patient Sesar Simons on 05/26/17. My clinical findings support the need for the requested home health care services because: Ltd mobility - disease progression Patient has SOB Deconditioned w/ increased weakness Limited ability to care for self I certify that my clinical findings support that this patient is homebound because: Hx COPD- exertion dyspnea/weakness Unsteady gait/balance Unsafe to leave home unassisted Unable to use public transportation Ashwini Silva PA-C May 26, 2017 9:43 am
[2017-05-26] MEDS ORDERED: LEVO750T3 PO (09:47)
[2017-05-26] MEDS ORDERED: PRED20 PO (09:57)
--- NOTE | 2017-05-26 09:58 | HHI.DCPOC ---
Discharge Care Plan Diagnosis: (1) COPD with exacerbation (2) Hypertension (3) Hyperlipemia (4) A-fib (5) Warfarin anticoagulation Goals to Promote Your Health * To prevent worsening of your condition and complications * To maintain your health at the optimal level Directions to Meet Your Goals Take your medications as prescribed Follow your dietary instruction Follow activity as directed Keep your appointments as scheduled Take your immunizations and boosters as scheduled If your symptoms worsen call your PCP, if no PCP go to Urgent Care Center or Emergency Room Smoking is Dangerous to Your Health. Avoid second hand smoke Call the 24-hour hour crisis hotline for domestic abuse at Ashwini Silva PA-C May 26, 2017 9:58 am
--- NOTE | 2017-05-26 13:05 | HHI.PR ---
Subjective Remarks Follow up for COPD exacerbation, weakness. The patient reports feeling better again today. Shortness of breath at baseline. Denies any wheezing. Has occasional nonproductive cough. He wears 2.L [place] O2 at home. He has nebulizer at home. He feels ready for discharge. Discussed recommendations from PT for rehab , patient absolutely does not want to go to rehab at this time. He states if he gets home and becomes weaker, [facility]. He has no other medical complaints at this time. Objective Vitals Vital Signs Date Time Temp Pulse Resp B/P (MAP) Pulse Ox O2 Delivery O2 Flow Rate FiO2 05/26/17 08:11 97.7 92 20 107/62 (77) 93 05/26/17 07:56 94 21 05/26/17 07:51 95 Nasal Cannula 3.00 05/26/17 04:00 96.3 95 18 104/68 (80) 93 05/26/17 04:00 100 05/26/17 00:10 95.5 92 18 116/75 (89) 95 05/25/17 23:35 95 Nasal Cannula 3.00 05/25/17 21:04 95.5 103 20 115/62 (79) 94 05/25/17 19:51 98.7 83 20 95/53 (67) 94 05/25/17 16:12 97.8 83 22 103/62 (76) 91 I/O 05/25/17 05/25/17 05/25/17 05/26/17 05/26/17 05/26/17 07:00 15:00 23:00 07:00 15:00 23:00 Intake Total 480 ml 960 ml Output Total 400 ml 600 ml Balance 80 ml 360 ml Intake Oral 480 ml 960 ml Output Urine Total 400 ml 600 ml # Voids 3 Result Diagram: 05/26/17 0340 05/26/17 0340 Imaging Last Impressions Chest X-Ray 05/24/17 192 Signed Impressions: Service Date/Time: Wednesday, May 24, 2017 19:36 - CONCLUSION: Hyperinflation and mild compensated cardiomegaly. This could mask congestive failure. Neftali Phillips MD FACR Objective Remarks GENERAL: Well-nourished, well-developed obese male patient in [facility]. SKIN: Warm and dry. No rash. Multiple areas of ecchymosis throughout chest and extremities. HEENT: Normocephalic. Atraumatic.Pupils equal and round. Mucous membranes pink and moist. CARDIOVASCULAR: Regular rate and rhythm. S1, S2 noted. No murmur appreciated. RESPIRATORY: No accessory muscle use. Lungs clear to auscultation. Breath sounds equal bilaterally. GASTROINTESTINAL: Obese abdomen, soft, non-tender, nondistended. Normoactive bowel sounds x4. MUSCULOSKELETAL: No obvious deformities. Extremities without clubbing, cyanosis , or edema. NEUROLOGICAL: Awake and alert. No obvious cranial nerve deficits. Motor grossly within normal limits. 5/5 muscle strength in bilateral upper and lower extremities. Normal speech. PSYCHIATRIC: Appropriate mood and affect; insight and judgment normal. Medications and IVs Current Medications Medications (Trade) Dose Ordered Sig/Agatha Route Start Time Stop Time Status Last Admin (D50w (Vial) Inj) 50 ml UNSCH PRN IV PUSH 05/24/17 22:30 (Glucagon Inj) 1 mg UNSCH PRN OTHER 05/24/17 22:30 (NovoLOG SUPPLEMENTAL SCALE) 1 ACHS SLIDING SCALE SQ 05/25/17 08:00 05/26/17 09:33 (SoluMEDROL INJ) 40 mg Q6HR IV PUSH 05/25/17 00:00 05/26/17 05:34 (Duoneb Neb) 1 ampule Q4HR WHILE AWAKE NEB NEB 05/25/17 08:00 05/26/17 11:41 (Duoneb Neb) 1 ampule Q2HR NEB PRN NEB 05/24/17 22:30 05/26/17 04:53 (Mucinex Er) 600 mg BID PO 05/25/17 09:00 05/26/17 08:32 Levofloxacin/ Dextrose 150 ml @ 100 mls/hr Q24H IV 05/25/17 23:00 05/25/17 21:59 (NS Flush) 2 ml UNSCH PRN IV FLUSH 05/24/17 22:30 (NS Flush) 2 ml BID IV FLUSH 05/25/17 09:00 05/26/17 08:34 (Zofran Inj) 4 mg Q6H PRN IVP 05/24/17 22:30 (Tylenol) 650 mg Q6H PRN PO 05/24/17 22:30 ([place] 5-325 Mg) 1 tab Q4H PRN PO 05/24/17 22:30 (Morphine Inj) 2 mg Q3H PRN IV PUSH 05/24/17 22:30 05/26/17 08:31 (Irasema-Colace) 1 tab BID PO 05/25/17 09:00 05/26/17 08:31 (Milk Of Magnesia Liq) 30 ml Q12H PRN PO 05/24/17 22:30 (Senokot) 17.2 mg Q12H PRN PO 05/24/17 22:30 (Dulcolax Supp) 10 mg DAILY PRN RECTAL 05/24/17 22:30 (Lactulose Liq) 30 ml DAILY PRN PO 05/24/17 22:30 (Lipitor) 40 mg HS PO 05/25/17 21:00 05/25/17 22:00 (Lioresal) 10 mg BID PRN PO 05/24/17 22:30 05/25/17 02:26 (Symbicort 160-4.5 Mcg Inh) 2 puff BID INH 05/25/17 09:00 05/26/17 08:33 (Wellbutrin Sr) 150 mg BID PO 05/25/17 09:00 05/26/17 08:31 (Buspar) 20 mg TID PO 05/25/17 09:00 05/26/17 08:32 (Lotrimin 1% Cream) 1 applic BID TOPICAL 05/25/17 09:00 05/26/17 08:34 (Cardizem Cd) 360 mg DAILY PO 05/25/17 09:00 05/26/17 08:32 (Lopressor) 50 mg BID PO 05/25/17 09:00 05/26/17 08:31 (Flomax) 0.4 mg DAILY PO 05/25/17 09:00 05/26/17 08:32 (Rony-24) 200 mg DAILY PO 05/25/17 09:00 05/26/17 08:34 (Spiriva Inh) 18 mcg DAILY INH 05/25/17 09:00 05/26/17 08:33 (Coumadin) 5 mg DAILY@1600 PO 05/25/17 16:00 05/25/17 17:28 Miscellaneous Information ALL NURSING DEPARTME... UNSCH PRN OTHER 05/25/17 15:45 05/26/17 15:44 Pharmacy Profile Note 0 ml @ 0 mls/hr UNSCH OTHER 05/25/17 18:45 A/P Problem List: (1) COPD (chronic obstructive pulmonary disease) ICD Code: J44.9 - Chronic obstructive pulmonary disease, unspecified (2) Generalized weakness ICD Code: R53.1 - Weakness (3) A-fib ICD Code: I48.91 - Unspecified atrial fibrillation (4) Supratherapeutic INR ICD Code: R79.1 - Abnormal coagulation profile Assessment and Plan 66-year-old male with PMH of HTN, COPD, O2 Dependent, A. fib on Coumadin, Anxiety, Depression and CHF (Echo 02/18/17 w/ EF 55-60%) who was brought to the ER by EMS w/ complaints of SOB and generalized weakness. Recent admit 05/10-05/13 for PNA, Sepsis, COPD. Acute COPD Exacerbation with Chronic Respiratory Failure on Home O2: Severe. Recent admit 05/13/17 for Sepsis/PNA/COPD, follows w/ Dr. Burks at the [place], received steroid injection in office today then sent to ER. -CXR w/ compensated cardiomegaly, images reviewed -Continue steroids with IV Solu-Medrol 40mg q6h, will de-escalate to po prednisone today at discharge -Continue Symbicort bid -Continue bronchodilators with DuoNeb q4h and q2h prn -Continue Mucinex bid -O2 dependent at home, continue O2, monitor oximetry. -Patient much improved, stable for discharge Generalized Weakness: likely secondary to physical deconditioning, possibly steroid myopathy. -Consult PT for eval/tx, recommends rehab -Consult case management for assistance with discharge planning, patient elected to go home with [facility], refuses rehab at this time A-fib: Chronic. Rate controlled. -Resume home Metoprolol and Cardizem. -Anticoagulated on coumadin -Monitor on telemetry Supratherapeutic INR: INR 3.7 upon arrival -initially held patient's Coumadin -repeat INR 2.7, continued patient's coumadin. DVT Prophylaxis: On Coumadin Discharge Planning Discharge patient to home with [facility] Condition on discharge: Improved Heart Healthy Diet as tolerated [employer]andy activity Rx written: Levaquin 750mg x5days, Prednisone 40mg daily x5days Follow-up with primary care physician within 1 week Ashwini Silva PA-C May 26, 2017 1:05 pm
== END 2017-05-26 16:23 | disposition home or self-care (01) ==
LOC: NEPC 18:46 → NEDA 22:14 → NEPHCDU 23:54
PROVIDERS: ADMIT Internal Medicine; ATTEND Internal Medicine
DX: J44.1 Chronic obstructive pulmonary disease with (acute) exacerbation (principal); J96.20 Acute and chronic respiratory failure, unspecified whether with hypoxia or hypercapnia; R53.1 Weakness; I48.2 Chronic atrial fibrillation; R79.1 Abnormal coagulation profile; I11.0 Hypertensive heart disease with heart failure; I50.9 Heart failure, unspecified; E78.00 Pure hypercholesterolemia, unspecified; E11.9 Type 2 diabetes mellitus without complications; K21.9 Gastro-esophageal reflux disease without esophagitis; R81 Glycosuria; F41.9 Anxiety disorder, unspecified; F32.9 Major depressive disorder, single episode, unspecified; Z99.81 Dependence on supplemental oxygen; Z79.01 Long term (current) use of anticoagulants
CPT/HCPCS: 71045; 80048; 80053; 81001; 82550; 82948; 83605; 83735; 83880; 84484; 85007; 85025; 85027; 85610; 87040; 93005; 94640; 94664; 96365; 96372; 96375; 96376; 97163; 99285; G0378; J1815; J1956; J2270; J2920